=== PATIENT | female | born 1960 | race Caucasian/White ===

== ENCOUNTER 2022-11-02 11:16 | Outpatient (OUT) | payer OTHER, SELFPAY ==
--- NOTE | 2022-11-02 11:23 | XR_ITS ---
The [address] [address] Patient Name: YUMIKO ROUSSEAU MRN: [id number] date: 1960 Sex: F Assigned Patient Location: [facility] Current Patient Location: [facility] Accession/Order Number: [id number] Exam Date: 11/02/2022 11:33 Report Date: 11/02/2022 11:53 At the request of: JOCY JEAN Procedure: XR chest 2V EXAM: XR chest 2V HISTORY: Left Lower Lobe Pneumonia J18.9 COMPARISON: None. TECHNIQUE: PA and lateral views of the chest. FINDINGS: The cardiomediastinal silhouette is normal. No focal consolidation is identified. There is no pneumothorax. No pleural effusion is noted. The osseous structures are intact. XR/XR chest 2V IMPRESSION: No acute cardiopulmonary process. Electronically authenticated by: FAVIO MARIE Date: 11/02/2022 11:53
== END 2022-11-02 11:17 | disposition home or self-care (01) ==
LOC: RAD 11:19
PROVIDERS: PCP Family Medicine; Visit Provider Family Medicine
DX: J18.9 Pneumonia, unspecified organism (principal)
CPT/HCPCS: 71046

== ENCOUNTER 2023-09-03 15:38 | Outpatient (OUT) | payer MEDICARE, OTHER, SELFPAY ==
[2023-09-03 16:10] LABS: Estimated Average Glucose 111 mg/dL; Glycohemoglobin A1C 5.5 % (4.5-6.2)
[2023-09-03 16:12] LABS: Basophils Absolute Auto 0.1 10^3/uL (0.0-0.1); Basophils Percent Auto 0.8 % (0.2-2.0); Eosinophils Absolute Auto 0.2 10^3/uL (0.0-0.7); Eosinophils Percent Auto 3.8 % (0.9-7.0); Hematocrit 34.7 % (36.0-48.0); Hemoglobin 11.5 g/dL (12.0-16.0); Immature Granulocytes Abs Auto 0.02 10^3/uL (0.00-0.03); Immature Granulocytes Pct Auto 0.3 % (0.0-0.5); Lymphocytes Absolute Auto 1.7 10^3/uL (1.2-3.8); Lymphocytes Percent Auto 28.5 % (20.5-60.0); Mean Corpuscular HGB Conc 33.1 g/dL (29.9-35.2); Mean Corpuscular Hemoglobin 27.8 pg (26.7-34.0); Mean Platelet Volume 9.8 fL (9.5-13.5); Monocytes Absolute Auto 0.6 10^3/uL (0.3-0.8); Monocytes Percent Auto 9.5 % (1.7-12.0); Neutrophils Absolute Auto 3.4 10^3/uL (1.4-6.5); Neutrophils Percent Auto 57.1 % (43.0-75.0); Platelet Count 219 10^3/uL (150-450); Red Blood Count 4.13 10^6/uL (4.20-5.40); Red Cell Distribution Width 12.1 % (11.0-15.0)
[2023-09-03 16:40] LABS: Free T4 1.35 ng/dL (0.76-1.46)
[2023-09-03 16:43] LABS: Alanine Aminotransferase 18 U/L (14-59); Albumin Globulin Ratio 1.2; Albumin Level 3.5 g/dL (3.4-5.0); Alkaline Phosphatase 90 U/L (46-116); Anion Gap 12.7; Aspartate Amino Transferase 8 U/L (15-37); BUN Creatinine Ratio 16.5; Bilirubin Total 0.5 mg/dL (0.2-1.0); Calcium 8.7 mg/dL (8.5-10.1); Carbon Dioxide 26.3 mmol/L (21.0-32.0); Chloride 102 mmol/L (98-107); Chol HDL Ratio 2.4; Cholesterol 136 mg/dL (<=200); Estimated GFR (African America >60 (>=60); Estimated GFR (Non-African Ame 50 (>=60); Free T3 2.24 pg/mL (2.18-3.98); Glucose 88 mg/dL (74-106); HDL Cholesterol 57 mg/dL (40-60); LDL Cholesterol Calculated 61.4 mg/dL; Sodium 137 mmol/L (136-145); Thyroid Stimulating Hormone 0.108 uIU/mL (0.358-3.740); Total Protein 6.5 g/dL (6.4-8.2); Triglycerides 88 mg/dL (<=150); VLDL CHOLESTEROL 17.6 mg/dL
== END 2023-09-03 15:39 | disposition home or self-care (01) ==
LOC: LAB 15:45
PROVIDERS: PCP Family Medicine; Visit Provider Family Medicine
DX: E78.5 Hyperlipidemia, unspecified (principal); R53.83 Other fatigue; I10 Essential (primary) hypertension; R73.09 Other abnormal glucose
CPT/HCPCS: 36415; 80053; 80061; 83036; 84439; 84443; 84481; 85025

== ENCOUNTER 2023-10-08 11:36 | Outpatient (OUT) | payer MEDICARE, OTHER, SELFPAY ==
--- OUTSIDE RECORDS SUMMARY | 2023-10-08 11:41 | XMS_ITS | CCD ---
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 Role Phone TED, DR SANDRA Admitting Unavailable HOY, DR SANDAR Attending Unavailable HOY, DR SANDRA Consulting Unavailable HOY, DR SANDRA Primary Care Unavailable HOY, DR SANDRA Admitting Unavailable HOY, DR SANDRA Attending Unavailable HOY, DR SANDRA Consulting Unavailable HOY, DR SANDRA Primary Care Unavailable HOY, DR SANDRA Admitting Unavailable HOY, DR SANDRA Attending Unavailable HOY, DR SANDRA Consulting Unavailable TREMAYNEY, DR SANDRA Primary Care Unavailable HOY, DR SANDRA Admitting Unavailable HOY, DR SANDRA Attending Unavailable HOY, DR SANDRA Consulting Unavailable HOY, DR SANDRA Primary Care Unavailable ZIEBDR SILVANA WATTS Consulting Unavailable ELLY DUMONT Attending Unavailable ELLY DUMONT Referring Unavailable ELLY DUMONT Referring Unavailable Allergies Allergy Classification Reported Allergen(s) Allergy Type Date of Onset Reaction(s) Facility (1 source) Sulfamethoxazole / Trimethoprim Drug Allergy 7 [facility] Repository Problems Active Problems Problem Classification Problem Date Documented Da te Episodic/Chronic Essential hypertension (1 source) Essential (primary) hypertension; Translations: [ESSENTIAL PRIMARY HYPERTENSION] Onset: 08-20-2021 Chronic Past or Other Problems Problem Classification Problem Date Documented Da te Episodic/Chronic Other bone disease and musculoskeletal deformities (1 source) Other specified disorders of bone density and structure, unspecified site; Translations: [OTH D/O BONE DEN STRUCT UNS SITE] Onset: 05-29-2021 Episodic Other screening for suspected conditions (not mental disorders or infectious disease) (4 sources) Encounter for screening for osteoporosis; Translations: [ENCOUNTER SCREEN FOR OSTEOPOROSIS] Onset: 05-28-2021 Episodic Other upper respiratory infections (4 sources) Acute sinusitis, unspecified; Translations: [ACUTE SINUSITIS UNSPECIFIED] Onset: 08-18-2021 Episodic Results Test Name Value Interpretation Reference Range Facility BI MAMMOGRAM SCREENING TOMOS MIRA BILATERALon 09-02-2023 BI MAMMOGRAM SCREENING TOMOSYNTHESIS BILATERAL This is a summary report. The complete report is available in the patient's medical record. If you cannot access the medical record, please contact the sending organization for a detailed fax or copy. EXAMINATION: BI MAMMOGRAM SCREENING TOMOSYNTHESIS BILATERAL CLINICAL HISTORY:breast ca screening COMPARISON: August 19, 2022. RESULT: Digital mammography and 3D tomosynthesis of bilateral breasts was performed. Density: Almost entirely fatty [1] Overall appearance is stable. Typically benign calcifications. There is no suspicious mass, asymmetry, architectural distortion, or calcification IMPRESSION: BIRADS 2 - Benign Follow-up: Routine Screening Mamm Board Certified Radiologists. Accredited by the ACR and FDA. MAMMOGRAPHY IS VERY IMPORTANT TO YOUR HEALTH. THE [employer] GUIDELINES RECOMMEND THAT WOMEN 40 YEARS OF AGE AND OLDER SHOULD HAVE A MAMMOGRAM EVERY YEAR. A REMINDER LETTER WILL BE SENT AT THE APPROPRIATE TIME. THIS FACILITY UTILIZES A REMINDER SYSTEM TO ENSURE ALL PATIENTS RECEIVE REMINDER NOTIFICATIONS AT THE APPROPRIATE TIME BASED ON THE RECOMMENDATIONS OF THIS EXAM. THIS INCLUDES REMINDERS FOR ROUTINE SCREENING MAMMOGRAMS, DIAGNOSTIC MAMMOGRAMS IN WHICH THE PATIENT IS ASKED TO RETURN FOR ADDITIONAL VIEWS, OR OTHER BREAST IMAGING INTERVENTIONS WHEN APPROPRIATE. THE PATIENT WILL BE PLACED IN THE APPROPRIATE REMINDER SYSTEM INCLUDING A REMINDER AT THE APPROPRIATE TIME FOR ANY PENDING ADDITIONAL VIEWS. TRANSCRIBED BY: ELECTRONICALLY SIGNED BY: Ramón Cruz MD Normal Not Available INSULINon 04-24-2022 Insulin 17.1 uIU/mL Normal 2.6-24.9 [facility] [place] Comment on above: Performed By: #### I EDWARD #### [facility] [address] [place] [address] Dr. Keven Reyez CBC AUTO DIFFon 04-23-2022 BASO # 0.0 103/ul Normal 0.0-0.1 [facility] Comment on above: Performed By: #### C BC #### [facility] [address] [address] [address] Keven Reyez Basophils/100 WBC (Bld) 0.5 % Normal 0.2-2.0 [facility] [place] Comment on above: Performed By: #### C BC #### [facility] [address] [place] [address] Dr. Keven Reyez EO # 0.4 103/ul Normal 0.0-0.7 [facility] Comment on above: Performed By: #### C BC #### [facility] [address] [place] [address] Dr. Keven Reyez Eosinophils/100 WBC (Bld) 4.5 % Normal 0.9-7.0 [facility] Comment on above: Performed By: #### C BC #### [facility] [address] [place] [address] Dr. Keven Reyez Erythrocyte distribution width (RBC) [Ratio] 13.6 % Normal 11.0-15.0 [facility] Comment on above: Performed By: #### C BC #### [facility] [address] [place] [address] Dr. Keven Reyez Hematocrit (Bld) [Volume fraction] 34.7 % Critically low 36.0-48.0 [facility] [place] Comment on above: Performed By: #### C BC #### [facility] [address] [place] [address] Dr. Keven Reyez Hemoglobin (Bld) [Mass/Vol] 11.3 g/dL Critically low 12.0-16.0 [facility] [place] Comment on above: Performed By: #### C BC #### [facility] [address] [place] [address] Dr. Keven Reyez IG # 0.03 10e3/ul Normal 0.00-0.03 [facility] Comment on above: Performed By: #### C BC #### [facility] [address] [place] [address] Dr. Keven Reyez IG % 0.4 % Normal 0.0-0.5 [facility] Comment on above: Performed By: #### C BC #### [facility] [address] [place] [address] Dr. Keven Reyez LYMPH # 1.5 103/ul Normal 1.2-3.8 [facility] Comment on above: Performed By: #### C BC #### [facility] [address] [place] [address] Dr. Keven Reyez Lymphocytes/100 WBC (Bld) 19.5 % Critically low 20.5-60.0 [facility] [place] Comment on above: Performed By: #### C BC #### [facility] [address] [place] [address] Dr. Keven Reyez MANUAL DIFF REQ NO Normal [facility] Comment on above: Performed By: #### C BC #### [facility] [address] [place] [address] Dr. Keven Reyez MCH (RBC) [Entitic mass] 27.2 pg Normal 26.7-34.0 [facility] Comment on above: Performed By: #### C BC #### [facility] [address] [place] [address] Dr. Keven Reyez MCHC (RBC) [Mass/Vol] 32.6 g/dL Normal 29.9-35.2 [facility] Comment on above: Performed By: #### C BC #### [facility] [address] [place] [address] Dr. Keven Reyez MCV (RBC) [Entitic vol] 83.6 fL Normal 81.0-99.0 [facility] Comment on above: Performed By: #### C BC #### [facility] [address] [place] [address] Dr. Keven Reyez MONO # 0.6 103/ul Normal 0.3-0.8 [facility] Comment on above: Performed By: #### C BC #### [facility] [address] [place] [address] Dr. Keven Reyez Monocytes/100 WBC (Bld) 8.2 % Normal 1.7-12.0 [facility] Comment on above: Performed By: #### C BC #### [facility] [address] [place] [address] Dr. Keven Reyez NEUT # 5.2 103/ul Normal 1.4-6.5 [facility] Comment on above: Performed By: #### C BC #### [facility] [address] [place] [address] Dr. Keven Reyez Neutrophils/100 WBC (Bld) 66.9 % Normal 43.0-75.0 [facility] [place] Comment on above: Performed By: #### C BC #### [facility] [address] [place] [address] Dr. Keven Reyez Platelet mean volume (Bld) [Entitic vol] 9.1 fL Critically low 9.5-13.5 [facility] [place] Comment on above: Performed By: #### C BC #### [facility] [address] [address] [address] Keven Reyez PLT 242 103/ul Normal 150-450 [facility] Comment on above: Performed By: #### C BC #### [facility] [address] [place] [address] Dr. Keven Reyez RBC 4.15 106/ul Critically low 4.20-5.40 [facility] Comment on above: Performed By: #### C BC #### [facility] [address] [place] [address] Dr. Keven Reyez WBC 7.8 103/ul Normal 4.0-11.0 [facility] [place] Comment on above: Performed By: #### C BC #### [facility] [address] [place] [address] Dr. Keven Reyez FREE THYROXINE INDEX T7on FTI 2.81 Normal 1.30-4.50 [facility] [place] Comment on above: Performed By: #### I EDWARD #### [facility] [address] [place] [address] Dr. Keven Reyez T3U 36.0 % Normal 30.0-39.0 [facility] [place] Comment on above: Performed By: #### I EDWARD #### [facility] [address] [place] [address] Dr. Keven Reyez T4 [Mass/Vol] 7.80 ug/dL Normal 4.80-13.90 [facility] Comment on above: Performed By: #### I EDWARD #### [facility] [address] [place] [address] Dr. Keven Reyez GLYCOHEMOGLOBIN A1Con 2022 ADA RECOMMENDATION SEE BELOW Normal [facility] Comment on above: Result Comment: ADA RECOMMENDED LIMIT 4.0 - 6.0 ADA THERAPEUTIC TARGET < 7.0 ACTION SUGGESTED > 7.0 Performed By: #### A 1C #### [facility] [address] [place] [address] Dr. Keven Reyez Glucose [Mass/Vol] 111 mg/dL Normal [facility] Comment on above: Performed By: #### A 1C #### [facility] [address] [address] [address] Keven Reyez HbA1c (Bld) [Mass fraction] 5.5 % Normal 4.5-6.2 [facility] [place] Comment on above: Performed By: #### A 1C #### [facility] [address] [place] [address] Dr. Keven Reyez IRONon 04-23-2022 Iron [Mass/Vol] 36.0 ug/dL Critically low 50.0-170.0 [facility] Comment on above: Performed By: #### I EDWARD #### [facility] [address] [place] [address] Dr. Keven Reyez LIPID PROFILEon 04-23-2022 CHOL-HDL RATIO NORM SEE BELOW Normal [facility] Comment on above: Result Comment: 3.3 - 4.4 LOW RISK 4.4 - 7.1 AVERAGE RISK 7.1 - 11.0 MODERATE RISK >11.0 HIGH RISK Performed By: #### I EDWARD #### [facility] [address] [place] [address] Dr. Keven Reyez Cholesterol [Mass/Vol] 132 mg/dL Normal <=200 [facility] Comment on above: Performed By: #### I EDWARD #### [facility] [address] [address] [address] Keven Reyez Cholesterol in HDL [Mass/Vol] 61 mg/dL Critically high 40-60 [facility] Comment on above: Performed By: #### I EDWARD #### [facility] [address] [address] [address] Keven Reyez Cholesterol in LDL [Mass/Vol] 51.8 mg/dL Normal [facility] Comment on above: Performed By: #### I EDWARD #### [facility] [address] [address] [address] Keven Reyez Cholesterol.total/Ch olesterol in HDL [Mass ratio] 2.2 {ratio} Normal [facility] [place] Comment on above: Performed By: #### I EDWARD #### [facility] [address] [address] [address] Keven Reyez HDL NORMAL > or = 60 mg/dl - LOW CARDIOVASCULAR RISK <40 mg/dl - HIGH CARDIOVASCULAR RISK Normal [facility] [place] Comment on above: Performed By: #### I EDWARD #### [facility] [address] [address] [address] Keven Reyez LDL CALC NORMAL SEE BELOW Normal [facility] Comment on above: Result Comment: <100 mg/dl OPTIMAL 100 - 129 mg/dl NEAR OR ABOVE OPTIMAL 130 - 159 mg/dl BORDERLINE HIGH 160 - 189 mg/dl HIGH >190 mg/dl VERY HIGH Performed By: #### I EDWARD #### [facility] [address] [place] [address] Dr. Keven Reyez Triglyceride [Mass/Vol] 96 mg/dL Normal <=150 [facility] [place] Comment on above: Performed By: #### I EDWARD #### [facility] [address] [place] [address] Dr. Keven Reyez VLDL CALC 19.2 mg/dL Normal [facility] [place] Comment on above: Performed By: #### I EDWARD #### [facility] [address] [address] [address] Keven Reyez PROF 14(COMP METB)on 023 Albumin [Mass/Vol] 3.6 g/dL Normal 3.4-5.0 [facility] Comment on above: Performed By: #### I EDWARD #### [facility] [address] [place] [address] Dr. Keven Reyez Albumin/Globulin [Mass ratio] 1.1 {ratio} Normal [facility] [place] Comment on above: Performed By: #### I EDWARD #### [facility] [address] [address] [address] Keven Reyez ALP [Catalytic activity/Vol] 71 U/L Normal 46-116 [facility] [place] Comment on above: Performed By: #### I EDWARD #### [facility] [address] [place] [address] Dr. Keven Reyez ALT [Catalytic activity/Vol] 36 U/L Normal 14-59 [facility] [place] Comment on above: Performed By: #### I EDWARD #### [facility] [address] [place] [address] Dr. Keven Reyez Anion gap [Moles/Vol] 13.7 mmol/L Normal [facility] [place] Comment on above: Performed By: #### I EDWARD #### [facility] [address] [place] [address] Dr. Keven Reyez AST [Catalytic activity/Vol] 23 U/L Normal 15-37 [facility] [place] Comment on above: Performed By: #### I EDWARD #### [facility] [address] [place] [address] Dr. Keven Reyez Bilirubin [Mass/Vol] 0.3 mg/dL Normal 0.2-1.0 [facility] [place] Comment on above: Performed By: #### I EDWARD #### [facility] [address] [place] [address] Dr. Keven Reyez Calcium [Mass/Vol] 9.2 mg/dL Normal 8.5-10.1 [facility] Comment on above: Performed By: #### I EDWARD #### [facility] [address] [place] [address] Dr. Keven Reyez Chloride [Moles/Vol] 106 mmol/L Normal 98-107 [facility] [place] Comment on above: Performed By: #### I EDWARD #### [facility] [address] [place] [address] Dr. Keven Reyez CO2 [Moles/Vol] 26.2 mmol/L Normal 21.0-32.0 [facility] Comment on above: Performed By: #### I EDWARD #### [facility] [address] [place] [address] Dr. Keven Reyez Creatinine [Mass/Vol] 0.93 mg/dL Normal 0.55-1.02 [facility] [place] Comment on above: Performed By: #### I EDWARD #### [facility] [address] [address] [address] Keven Reyez EGFR-AF DUTCH >60 Normal >=60 [facility] Comment on above: Performed By: #### I EDWARD #### [facility] [address] [address] [address] Keven Reyez EGFR-NON AF DUTCH >60 Normal >=60 [facility] Comment on above: Performed By: #### I EDWARD #### [facility] [address] [address] [address] Keven Reyez Globulin (S) [Mass/Vol] 3.2 g/dL Normal [facility] [place] Comment on above: Performed By: #### I EDWARD #### [facility] [address] [place] [address] Dr. Keven Reyez Glucose [Mass/Vol] 100 mg/dL Normal 74-106 [facility] Comment on above: Performed By: #### I EDWARD #### [facility] [address] [address] [address] Keven Reyez Potassium [Moles/Vol] 4.9 mmol/L Normal 3.5-5.1 [facility] Comment on above: Performed By: #### I EDWARD #### [facility] [address] [place] [address] Dr. Keven Reyez Protein [Mass/Vol] 6.8 g/dL Normal 6.4-8.2 [facility] Comment on above: Performed By: #### I EDWARD #### [facility] [address] [address] [address] Keven Reyez Sodium [Moles/Vol] 141 mmol/L Normal 136-145 [facility] Comment on above: Performed By: #### I EDWARD #### [facility] [address] [address] [address] Keven Reyez Urea nitrogen [Mass/Vol] 18.0 mg/dL Normal 7.0-18.0 [facility] [place] Comment on above: Performed By: #### I EDWARD #### [facility] [address] [address] [address] Keven Reyez Urea nitrogen/Creatinine [Mass ratio] 19.4 mg/mg Normal [facility] Comment on above: Performed By: #### I EDWARD #### [facility] [address] [place] [address] Dr. Keven Reyez TSHon 04-23-2022 TSH 0.830 uIU/mL Normal 0.358-3.740 [facility] Comment on above: Performed By: #### I EDWARD #### [facility] [address] [place] [address] Dr. Keven Reyez VITAMIN D 25 OHon 04-23-2022 VIT D 25-OH 38.5 ng/mL Normal [facility] [place] Comment on above: Performed By: #### I EDWARD #### [facility] [address] [place] [address] Dr. Keven Reyez VIT D RANGES SEE BELOW Normal [facility] [place] Comment on above: Result Comment: <20 ng/mL Vit D deficient 20 - <30 ng/mL Vit D insufficient 30 - 100 ng/mL Vit D sufficient >100 ng/mL Potential Toxicity Performed By: #### I EDWARD #### [facility] [address] [place] [address] Dr. Keven Reyez Covid-19 PCR ([facility]on 08-03 SARS-CoV-2 (COVID-19) RNA TAYLOR+probe Ql (Unsp spec) Not detected Normal NOT DETECTED [facility] Comment on above: Result Comment: This test is not yet approved or cleared by the [place] FDA. When there are no FDA-approved or cleared tests available, and other criteria are met, FDA can make tests available under an emergency access mechanism called an Emergency Use Authorization (EUA). The EUA for this test is supported by the Traffic Expert of Health and Human Service's (HHS's) declaration that circumstances exist to justify the emergency use of in vitro diagnostics for the detection and/or diagnosis of the virus that causes COVID-19. This EUA will remain in effect (meaning this test can be used) for the duration of the COVID-19 declaration justifying emergency of IVDs, unless it is terminated or revoked by FDA (after which the test may no longer be used). When diagnostic testing is negative, the possibility of a false negative should be considered in the context of a patient's recent exposures and the presence of clinical signs and symptoms consistent with SARS-CoV-2. Performed By: #### I EDWARD #### [facility] [address] [place] [address] Dr. Keven Reyez INFLUENZA A AND B AGon 08-18 [facility] SEE BELOW Normal [facility] [place] Comment on above: Result Comment: Nega tive for Flu A protein angiten. Infection due to Flu A cannot be ruled out. Flu A angiten in the sample may be below the detection limit of the test. Performed By: #### I NFLUAB #### [facility] [address] [place] [address] Dr. Keven Re[facility] SEE BEL[facility] Normal [facility] [place] Comment on above: Result Comment: Nega tive for Flu B protein antigen. Infection due to Flu B cannot be ruled out. Flu B antigen in the sample may be below the detection limit of the test. Performed By: #### I NFLUAB #### [facility] [address] [place] [address] Dr. Keven Reyez INFLUENZA A AG Negative Normal NEGATIVE SEE COMMENT [facility] Comment on above: Performed By: #### I NFLUAB #### [facility] [address] [place] [address] Dr. Keven Reyez INFLUENZA B AG Negative Normal NEGATIVE SEE COMMENT [facility] Comment on above: Performed By: #### I NFLUAB #### [facility] [address] [place] [address] Dr. Keven Reyez INTERNAL CONTROLS Within Normal Limits Normal Wi thin Normal Limits [facility] Comment on above: Performed By: #### I NFLUAB #### [facility] [address] [place] [address] Dr. Keven Reyez XR DEXA BONE DENSITYon 05-28 XR DEXA BONE DENSITY EXAMINATION: XR DEX A BONE DENSITY, 05/28/2021 9:58 AM EST HISTORY: Screening for osteoporosis COMPARISON: None. TECHNIQUE: Dual-energy X-ray absorptiometry (DEXA) bone density study performed for the axial skeleton. FINDINGS: SPINE ANALYSIS: Average bone mineral density is 1.167 g/cm2. T-score (standard deviation relative to young adult mean): -0.1 . HIP ANALYSIS: Lowest bone mineral density is within the left femoral neck, 0.830 g/cm2. T-score (standard deviation relative to young adult mean): -1.5 . IMPRESSION: [employer] Classification: Osteopenia - Moderate Fracture Risk Electronically authenticated by: SILVANA VEGA Date: 2021-05-28 10:25 Normal [facility] INSULINon 05-23-2021 Insulin 7.2 uIU/mL Normal 2.6-24.9 [facility] [place] Comment on above: Performed By: #### I NSULIN #### [facility] [address] [place] [address] Dr. Keven Reyez CBC AUTO DIFFon 05-22-2021 BASO # 0.1 103/ul Normal 0.0-0.1 [facility] [place] Comment on above: Performed By: #### I EDWARD #### [facility] [address] [place] [address] Dr. Keven Reyez Basophils/100 WBC (Bld) 0.9 % Normal 0.2-2.0 [facility] [place] Comment on above: Performed By: #### I EDWARD #### [facility] [address] [place] [address] Dr. Keven Reyez EO # 0.3 103/ul Normal 0.0-0.7 [facility] [place] Comment on above: Performed By: #### I EDWARD #### [facility] [address] [place] [address] Dr. Keven Reyez Eosinophils/100 WBC (Bld) 3.6 % Normal 0.9-7.0 [facility] Comment on above: Performed By: #### I EDWARD #### [facility] [address] [place] [address] Dr. Keven Reyez Erythrocyte distribution width (RBC) [Ratio] 12.7 % Normal 11.0-15.0 [facility] [place] Comment on above: Performed By: #### I EDWARD #### [facility] [address] [place] [address] Dr. Keven Reyez Hematocrit (Bld) [Volume fraction] 37.0 % Normal 36.0-48.0 [facility] [place] Comment on above: Performed By: #### I EDWARD #### [facility] [address] [address] [address] Keven Reyez Hemoglobin (Bld) [Mass/Vol] 11.7 g/dL Critically low 12.0-16.0 [facility] [place] Comment on above: Performed By: #### I EDWARD #### [facility] [address] [place] [address] Dr. Keven Reyez IG # 0.06 10e3/ul Critically high 0.00-0.03 [facility] Comment on above: Performed By: #### I EDWARD #### [facility] [address] [place] [address] Dr. Keven Reyez IG % 0.9 % Critically high 0.0-0.5 [facility] Comment on above: Performed By: #### I EDWARD #### [facility] [address] [place] [address] Dr. Keven Reyez LYMPH # 1.9 103/ul Normal 1.2-3.8 [facility] [place] Comment on above: Performed By: #### I EDWARD #### [facility] [address] [place] [address] Dr. Keven Reyez Lymphocytes/100 WBC (Bld) 27.1 % Normal 20.5-60.0 [facility] [place] Comment on above: Performed By: #### I EDWARD #### [facility] Laboratory [address] [place] [address] Dr. Keven Reyez MANUAL DIFF REQ NO Normal [facility] Comment on above: Performed By: #### I EDWARD #### [facility] [address] [place] [address] Dr. Keven Reyez MCH (RBC) [Entitic mass] 27.6 pg Normal 26.7-34.0 [facility] [place] Comment on above: Performed By: #### I EDWARD #### [facility] [address] [address] [address] Keven Reyez MCHC (RBC) [Mass/Vol] 31.6 g/dL Normal 29.9-35.2 [facility] Comment on above: Performed By: #### I EDWARD #### [facility] [address] [place] [address] Dr. Keven Reyez MCV (RBC) [Entitic vol] 87.3 fL Normal 81.0-99.0 [facility] Comment on above: Performed By: #### I EDWARD #### [facility] [address] [place] [address] Dr. Keven Reyez MONO # 0.6 103/ul Normal 0.3-0.8 [facility] Comment on above: Performed By: #### I EDWARD #### [facility] [address] [place] [address] Dr. Keven Reyez Monocytes/100 WBC (Bld) 8.6 % Normal 1.7-12.0 [facility] Comment on above: Performed By: #### I EDWARD #### [facility] [address] [place] [address] Dr. Keven Reyez NEUT # 4.1 103/ul Normal 1.4-6.5 [facility] Comment on above: Performed By: #### I EDWARD #### [facility] [address] [place] [address] Dr. Keven Reyez Neutrophils/100 WBC (Bld) 58.9 % Normal 43.0-75.0 [facility] Comment on above: Performed By: #### I EDWARD #### [facility] [address] [place] [address] Dr. Keven Reyez Platelet mean volume (Bld) [Entitic vol] 9.8 fL Normal 9.5-13.5 [facility] Comment on above: Performed By: #### I EDWARD #### [facility] [address] [place] [address] Dr. Keven Reyez PLT 265 103/ul Normal 150-450 [facility] Comment on above: Performed By: #### I EDWARD #### [facility] [address] [place] [address] Dr. Keven Reyez RBC 4.24 106/ul Normal 4.20-5.40 [facility] [place] Comment on above: Performed By: #### I EDWARD #### [facility] [address] [address] [address] Keven Reyez WBC 6.9 103/ul Normal 4.0-11.0 [facility] [place] Comment on above: Performed By: #### I EDWARD #### [facility] [address] [address] [address] Keven Reyez FREE THYROXINE INDEX T7on FTI 2.81 Normal [facility] [place] Comment on above: Performed By: #### T 7, TSH, CMP, LIPID #### [facility] [address] [place] [address] Dr. Keven Reyez T3U 36.0 % Normal 23.5-40.5 [facility] [place] Comment on above: Performed By: #### T 7, TSH, CMP, LIPID #### [facility] [address] [address] [address] Keven Reyez T4 [Mass/Vol] 7.80 ug/dL Normal 5.53-11.00 [facility] Comment on above: Performed By: #### T 7, TSH, CMP, LIPID #### [facility] [address] [place] [address] Dr. Keven Reyez GLYCOHEMOGLOBIN A1Con 2021 ADA RECOMMENDATION ADA THERAPEUTIC TARGET 6.0 - 7.0 ACTION SUGGESTED > 7.0 Normal [facility] [place] Comment on above: Performed By: #### I EDWARD #### [facility] [address] [place] [address] Dr. Keven Reyez Glucose [Mass/Vol] 117 mg/dL Normal [facility] Comment on above: Performed By: #### I EDWARD #### [facility] [address] [place] [address] Dr. Keven Reyez HbA1c (Bld) [Mass fraction] 5.7 % Normal <=6.0 [facility] [place] Comment on above: Performed By: #### I EDWARD #### [facility] [address] [address] [address] Keven Reyez IRONon 05-22-2021 Iron [Mass/Vol] 48.0 ug/dL Normal 37.0-170.0 [facility] Comment on above: Performed By: #### I EDWARD #### [facility] [address] [address] [address] Keven Reyez LIPID PROFILEon 05-22-2021 CHOL-HDL RATIO NORM SEE BELOW Normal [facility] Comment on above: Result Comment: 3.3 - 4.4 LOW RISK 4.4 - 7.1 AVERAGE RISK 7.1 - 11.0 MODERATE RISK >11.0 HIGH RISK Performed By: #### T 7, TSH, CMP, LIPID #### [facility] [address] [place] [address] Dr. Keven Reyez Cholesterol [Mass/Vol] 153 mg/dL Normal <=200 [facility] [place] Comment on above: Performed By: #### T 7, TSH, CMP, LIPID #### [facility] [address] [address] [address] Keven Reyez Cholesterol in HDL [Mass/Vol] 72 mg/dL Normal [facility] [place] Comment on above: Performed By: #### T 7, TSH, CMP, LIPID #### [facility] [address] [address] [address] Keven Reyez Cholesterol in LDL [Mass/Vol] 63.0 mg/dL Normal [facility] [place] Comment on above: Performed By: #### T 7, TSH, CMP, LIPID #### [facility] [address] [address] [address] Keven Reyez Cholesterol.total/Ch olesterol in HDL [Mass ratio] 2.1 {ratio} Normal [facility] [place] Comment on above: Performed By: #### T 7, TSH, CMP, LIPID #### [facility] [address] [place] [address] Dr. Keven Reyez HDL NORMAL > or = 60 mg/dl - LOW CARDIOVASCULAR RISK <40 mg/dl - HIGH CARDIOVASCULAR RISK Normal [facility] [place] Comment on above: Performed By: #### T 7, TSH, CMP, LIPID #### [facility] [address] [address] [address] Keven Reyez LDL CALC NORMAL SEE BELOW Normal [facility] Comment on above: Result Comment: <100 mg/dl OPTIMAL 100 - 129 mg/dl NEAR OR ABOVE OPTIMAL 130 - 159 mg/dl BORDERLINE HIGH 160 - 189 mg/dl HIGH >190 mg/dl VERY HIGH Performed By: #### T 7, TSH, CMP, LIPID #### [facility] [address] [address] [address] Keven Reyez Triglyceride [Mass/Vol] 90 mg/dL Normal <=150 [facility] [place] Comment on above: Performed By: #### T 7, TSH, CMP, LIPID #### [facility] [address] [place] [address] Dr. Keven Reyez VLDL CALC 18.0 mg/dL Normal [facility] [place] Comment on above: Performed By: #### T 7, TSH, CMP, LIPID #### [facility] [address] [place] [address] Dr. Keven Reyez PROF 14(COMP METB)on 022 Albumin [Mass/Vol] 3.9 g/dL Normal 3.5-5.0 [facility] Comment on above: Performed By: #### T 7, TSH, CMP, LIPID #### [facility] [address] [place] [address] Dr. Keven Reyez Albumin/Globulin [Mass ratio] 1.3 {ratio} Normal [facility] [place] Comment on above: Performed By: #### T 7, TSH, CMP, LIPID #### [facility] [address] [place] [address] Dr. Keven Reyez ALP [Catalytic activity/Vol] 85 U/L Normal 38-126 [facility] Comment on above: Performed By: #### T 7, TSH, CMP, LIPID #### [facility] [address] [place] [address] Dr. Keven Reyez ALT [Catalytic activity/Vol] 25 U/L Normal 9-52 [facility] [place] Comment on above: Performed By: #### T 7, TSH, CMP, LIPID #### [facility] [address] [address] [address] Keven Reyez Anion gap [Moles/Vol] 14.7 mmol/L Normal [facility] [place] Comment on above: Performed By: #### T 7, TSH, CMP, LIPID #### [facility] [address] [address] [address] Keven Reyez AST [Catalytic activity/Vol] 14 U/L Normal 14-36 [facility] Comment on above: Performed By: #### T 7, TSH, CMP, LIPID #### [facility] [address] [address] [address] Keven Reyez Bilirubin [Mass/Vol] 0.3 mg/dL Normal 0.2-1.3 [facility] Comment on above: Performed By: #### T 7, TSH, CMP, LIPID #### [facility] [address] [address] [address] Keven Reyez Calcium [Mass/Vol] 9.3 mg/dL Normal 8.4-10.2 [facility] Comment on above: Performed By: #### T 7, TSH, CMP, LIPID #### [facility] [address] [address] [address] Keven Reyez Chloride [Moles/Vol] 107 mmol/L Normal 98-107 [facility] Comment on above: Performed By: #### T 7, TSH, CMP, LIPID #### [facility] [address] [address] [address] Keven Reyez CO2 [Moles/Vol] 25.2 mmol/L Normal 22.0-30.0 [facility] Comment on above: Performed By: #### T 7, TSH, CMP, LIPID #### [facility] [address] [address] [address] Keven Reyez Creatinine [Mass/Vol] 1.13 mg/dL Critically high 0.52-1.04 [facility] [place] Comment on above: Performed By: #### T 7, TSH, CMP, LIPID #### [facility] [address] [address] [address] Keven Reyez EGFR-AF DUTCH 59 mL/min/1.73m2 Critically low >=60 [facility] Comment on above: Performed By: #### T 7, TSH, CMP, LIPID #### [facility] [address] [address] [address] Keven Reyez EGFR-NON AF DUTCH 49 mL/min/1.73m2 Critically low >=60 [facility] Comment on above: Performed By: #### T 7, TSH, CMP, LIPID #### [facility] [address] [place] [address] Dr. Keven Reyez Globulin (S) [Mass/Vol] 3.1 g/dL Normal [facility] Comment on above: Performed By: #### T 7, TSH, CMP, LIPID #### [facility] [address] [place] [address] Dr. Keven Reyez Glucose [Mass/Vol] 102 mg/dL Normal 74-106 [facility] Comment on above: Performed By: #### T 7, TSH, CMP, LIPID #### [facility] [address] [place] [address] Dr. Keven Reyez Potassium [Moles/Vol] 4.9 mmol/L Normal 3.4-5.0 [facility] Comment on above: Performed By: #### T 7, TSH, CMP, LIPID #### [facility] [address] [place] [address] Dr. Keven Reyez Protein [Mass/Vol] 7.0 g/dL Normal 6.1-8.2 [facility] Comment on above: Performed By: #### T 7, TSH, CMP, LIPID #### [facility] [address] [place] [address] Dr. Keven Reyez Sodium [Moles/Vol] 142 mmol/L Normal 137-145 [facility] Comment on above: Performed By: #### T 7, TSH, CMP, LIPID #### [facility] [address] [place] [address] Dr. Keven Reyez Urea nitrogen [Mass/Vol] 24.0 mg/dL Critically high 7.0-17.0 [facility] [place] Comment on above: Performed By: #### T 7, TSH, CMP, LIPID #### [facility] [address] [place], [place] [address] Dr. Keven Reyez Urea nitrogen/Creatinine [Mass ratio] 21.2 mg/mg Normal [facility] [place] Comment on above: Performed By: #### T 7, TSH, CMP, LIPID #### [facility] [address] [place], [place] [address] Dr. Keven Reyez TSHon 05-22-2021 TSH 0.985 uIU/mL Normal 0.470-4.680 [facility] Comment on above: Performed By: #### T 7, TSH, CMP, LIPID #### [facility] [address] [address] [address] Keven Reyez TSH RANGE SEE BELOW Normal [facility] Comment on above: Result Comment: <0.3 4 UIU/ml HYPERTHYROID 0.34-5.60 UIU/ml EUTHYROID >5.60 UIU/ml HYPOTHYROID Performed By: #### T 7, TSH, CMP, LIPID #### [facility] [address] [address] [address] Keven Reyez SCREENING MAMMOGRAM W/MANJULA, BILATERAL*on 04-17-2021 SCREENING MAMMOGRAM W/MANJULA, BILATERAL* CLINICAL HISTORY: Screening Mammogram COMPARISON: Priors from 2020, 2018, 2017 TECHNIQUE: 2D and 3D mammogram imaging of both breasts was performed. RESULT: DENSITY: There are scattered areas of fibroglandular density. There is no suspicious mass, asymmetry, architectural distortion, or calcification. No significant change since the prior mammograms. IMPRESSION: BIRADS 1 : NEGATIVE, NORMAL INTERVAL FOLLOW UP FOLLOW-UP: 12 months DENSITY: Scattered MAMMOGRAPHY IS VERY IMPORTANT TO YOUR HEALTH. THE CURRENT [employer] GUIDELINES RECOMMENDS ANNUAL MAMMOGRAPHY BEGINNING AT AGE 40 THIS FACILITY USES A REMINDER SYSTEM TO ENSURE ALL PATIENTS RECEIVE REMINDER NOTIFICATIONS AT THE APPROPRIATE TIME BASED ON THE RECOMMENDATIONS OF THIS EXAM. 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 Accredited by the ACR and FDA. Report reported and signed by Hernán Whitley on 04/21/2021 1249 Normal [facility] [employer] Encounters Encounter Date Encounter Type Care Provider Facility Start: 09-02-2023 End: 09-02-2023 ambulatory ELLY DUMONT Not Available Start: 04-28-2022 Encounter for genera l adult medical examination without abnormal findings DR JOCY JEAN [facility] Start: 04-23-2022 End: 04-24-[address] JOCY JEAN Facility:[facility] Start: 04-23-2022 End: 04-24-2022 Encounter for general adult medical examination without abnormal findings DR JOCY JEAN Facility:[facility] Start: 08-18-2021 End: 08-18-[address] JOCY JEAN Facility:[facility] Start: 05-28-2021 End: 05-29-[address] JOCY JEAN Facility:[facility] Start: 05-22-2021 End: 05-23-[address] JOCY JEAN Facility:[facility] Payers Date Payer Category Payer Unknown [id number] 2023 Medicare [id number] 1960 Unknown [id number] 2.16.84 [id number] 1960 Unknown [id number] 2.16.84 [id number] 1960 Unknown [id number] 2.16.84 [id number] 1958 Unknown [id number] 2.16.84 [id number] 1958 Unknown [id number] 2.16.84 [id number] 1958 Unknown [id number] 2.16.84 [id number] Unknown [id number] Unknown [id number] Summary Purpose Family History No Family History Records FoundNo Family History Records FoundNo Family History Records Found Advance Directives No Advanced Directives Records FoundNo Advanced Directives Records FoundNo Advanced Directives Records Found Additional Source Comments INFORMATION SOURCE (unrecogn ized section and content) DATE CREATED AUTHOR 04/21/2021 [facility] dical Specialist DATE CREATED AUTHOR AUTHOR'S ORGANIZ ATION 04/29/2022 [facility] pital DATE CREATED AUTHOR AUTHOR'S ORGANIZ ATION 09/06/2023 [facility] dical Specialists EPIC FOR RECORDS PERTAINING TO PATIENTS WHO ARE OR HAVE BEEN ENROLLED IN A CHEMICAL DEPENDENCY/SUBSTANCEABUSE PROGRAM, SOME INFORMATION MAY BE OMITTED. This clinical summary was aggregated from multiple sources. Caution should be exercised in using it in the provision of clinical care. This summary normalizes information from multiple sources, and as a consequence, information in this document may materially change the coding, format and clinical context of patient data. In addition, data may be omitted in some cases. CLINICAL DECISIONS SHOULD BE BASED ON THE PRIMARY CLINICAL RECORDS. [facility] provides no warranty or guarantee of the accuracy or completeness of information in this document.
[2023-10-08 12:25] LABS: Free T3 2.16 pg/mL (2.18-3.98); Thyroid Stimulating Hormone 0.601 uIU/mL (0.358-3.740)
== END 2023-10-08 11:37 | disposition home or self-care (01) ==
LOC: LAB 11:38
PROVIDERS: PCP Family Medicine; Visit Provider Family Medicine
DX: E03.9 Hypothyroidism, unspecified (principal)
CPT/HCPCS: 36415; 84436; 84443; 84481

== ENCOUNTER 2024-01-18 11:40 | Outpatient (OUT) | payer MEDICARE, OTHER, SELFPAY ==
--- OUTSIDE RECORDS SUMMARY | 2024-01-18 11:48 | XMS_ITS | CCD ---
Author Organization [facility] Care Team Providers Care Director Toxicology Name Role Phone TED, DR SANDRA Admitting Unavailable HOY, DR SANDRA [...] Sulfamethoxazole / Trimethoprim Drug Allergy 7 [facility] Repository Problems Active Problems Problem Classification Problem [...] IS VERY IMPORTANT TO YOUR HEALTH. THE [place] [employer] GUIDELINES RECOMMEND THAT WOMEN 40 [...] INSULINon 04-24-2022 Insulin 17.1 uIU/mL Normal 2.6-24.9 [facility] Comment on above: Performed By: #### I EDWARD #### [facility] [address] [place] [address] Dr. Keven Reyez CBC AUTO DIFFon 04-23-2022 BASO # 0.0 103/ul Normal 0.0-0.1 [facility] Comment on above: Performed By: #### C BC #### [facility] [address] [address] [address] Keven Reyez Basophils/100 WBC (Bld) 0.5 % Normal 0.2-2.0 [facility] Comment on above: Performed By: #### C BC #### [facility] [address] [place] [address] Dr. Keven Reyez EO # 0.4 103/ul Normal 0.0-0.7 [facility] Comment on above: Performed By: #### C BC #### [facility] [address] [place] [address] Dr. Keven Reyez Eosinophils/100 WBC (Bld) 4.5 % Normal 0.9-7.0 [facility] Comment on above: Performed By: #### C BC #### [facility] [address] [place] [address] Dr. Keven Reyez Erythrocyte distribution width (RBC) [Ratio] 13.6 % Normal 11.0-15.0 [facility] Comment on above: Performed By: #### C BC #### [facility] [address] [place] [address] Dr. Keven Reyez Hematocrit (Bld) [Volume fraction] 34.7 % Critically low 36.0-48.0 [facility] Comment on above: Performed By: #### C BC #### [facility] [address] [place] [address] Dr. Keven Reyez Hemoglobin (Bld) [Mass/Vol] 11.3 g/dL Critically low 12.0-16.0 [facility] Comment on above: Performed By: #### C BC #### [facility] [address] [place] [address] Dr. Keven Reyez IG # 0.03 10e3/ul Normal 0.00-0.03 [facility] Comment on above: Performed By: #### C BC #### [facility] [address] [place] [address] Dr. Keven Reyez IG % 0.4 % Normal 0.0-0.5 [facility] Comment on above: Performed By: #### C BC #### [facility] [address] [place] [address] Dr. Keven Reyez LYMPH # 1.5 103/ul Normal 1.2-3.8 [facility] Comment on above: Performed By: #### C BC #### [facility] [address] [place] [address] Dr. Keven Reyez Lymphocytes/100 WBC (Bld) 19.5 % Critically low 20.5-60.0 [facility] Comment on above: Performed By: #### C BC #### [facility] [address] [place] [address] Dr. Keven Reyez MANUAL DIFF REQ NO Normal [facility] Comment on above: Performed By: #### C BC #### [facility] [address] [place] [address] Dr. Keven Reyez MCH (RBC) [Entitic mass] 27.2 pg Normal 26.7-34.0 [facility] Comment on above: Performed By: #### C BC #### [facility] [address] [place] [address] Dr. Keven Reyez MCHC (RBC) [Mass/Vol] 32.6 g/dL Normal 29.9-35.2 [facility] Comment on above: Performed By: #### C BC #### [facility] [address] [place] [address] Dr. Keven Reyze MCV (RBC) [Entitic vol] 83.6 fL Normal 81.0-99.0 [facility] Comment on above: Performed By: #### C BC #### [facility] [address] [place] [address] Dr. Keven Reyez MONO # 0.6 103/ul Normal 0.3-0.8 [facility] Comment on above: Performed By: #### C BC #### [facility] [address] [place] [address] Dr. Keven Reyez Monocytes/100 WBC (Bld) 8.2 % Normal 1.7-12.0 [facility] Comment on above: Performed By: #### C BC #### [facility] [address] [place] [address] Dr. Keven Reyez NEUT # 5.2 103/ul Normal 1.4-6.5 [facility] Comment on above: Performed By: #### C BC #### [facility] [address] [place] [address] Dr. Keven Reyez Neutrophils/100 WBC (Bld) 66.9 % Normal 43.0-75.0 [facility] Comment on above: Performed By: #### C BC #### [facility] [address] [place] [address] Dr. Keven Reyez Platelet mean volume (Bld) [Entitic vol] 9.1 fL Critically low 9.5-13.5 [facility] Comment on above: Performed By: #### C BC #### [facility] [address] [address] [address] Keven Reyez PLT 242 103/ul Normal 150-450 [facility] Comment on above: Performed By: #### C BC #### [facility] [address] [place] [address] Dr. Keven Reyez RBC 4.15 106/ul Critically low 4.20-5.40 [facility] Comment on above: Performed By: #### C BC #### [facility] [address] [place] [address] Dr. Keven Reyez WBC 7.8 103/ul Normal 4.0-11.0 [facility] Comment on above: Performed By: #### C BC #### [facility] [address] [place] [address] Dr. Keven Reyez FREE THYROXINE INDEX T7on FTI 2.81 Normal 1.30-4.50 [facility] Comment on above: Performed By: #### I EDWARD #### [facility] [address] [place] [address] Dr. Keven Reyez T3U 36.0 % Normal 30.0-39.0 [facility] Comment on above: Performed By: #### I EDWARD #### [facility] [address] [place] [address] Dr. Keven Reyez T4 [Mass/Vol] 7.80 ug/dL Normal 4.80-13.90 [facility] Comment on above: Performed By: #### I EDWARD #### [facility] [address] [place] [address] Dr. Keven Reyez GLYCOHEMOGLOBIN A1Con 2022 ADA RECOMMENDATION SEE BELOW Normal [facility] Comment on above: Result Comment: ADA RECOMMENDED LIMIT 4.0 - 6.0 ADA THERAPEUTIC TARGET < 7.0 ACTION SUGGESTED > 7.0 Performed By: #### A 1C #### [facility] [address] [place] [address] Dr. Keven Reyez Glucose [Mass/Vol] 111 mg/dL Normal [facility] Comment on above: Performed By: #### A 1C #### [facility] [address] [address] [address] Keven Reyez HbA1c (Bld) [Mass fraction] 5.5 % Normal 4.5-6.2 [facility] Comment on above: Performed By: #### A 1C #### [facility] [address] [place] [address] Dr. Keven Reyez IRONon 04-23-2022 Iron [Mass/Vol] 36.0 ug/dL Critically low 50.0-170.0 [facility] Comment on above: Performed By: #### I EDWARD #### [facility] [address] [place] [address] Dr. Keven Reyez LIPID PROFILEon 04-23-2022 CHOL-HDL RATIO NORM SEE BELOW Normal [facility] Comment on above: Result Comment: 3.3 - 4.4 LOW RISK 4.4 - 7.1 AVERAGE RISK 7.1 - 11.0 MODERATE RISK >11.0 HIGH RISK Performed By: #### I EDWARD #### [facility] [address] [place] [address] Dr. Keven Reyez Cholesterol [Mass/Vol] 132 mg/dL Normal <=200 [facility] Comment on above: Performed By: #### I EDWARD #### [facility] [address] [address] [address] Keven Reyez Cholesterol in HDL [Mass/Vol] 61 mg/dL Critically high 40-60 [facility] Comment on above: Performed By: #### I EDWARD #### [facility] [address] [address] [address] Keven Reyez Cholesterol in LDL [Mass/Vol] 51.8 mg/dL Normal [facility] Comment on above: Performed By: #### I EDWARD #### [facility] [address] [address] [address] Keven Reyez Cholesterol.total/Ch olesterol in HDL [Mass ratio] 2.2 {ratio} Normal [facility] Comment on above: Performed By: #### I EDWARD #### [facility] [address] [address] [address] Keven Reyez HDL NORMAL > or = 60 mg/dl - LOW CARDIOVASCULAR RISK <40 mg/dl - HIGH CARDIOVASCULAR RISK Normal [facility] Comment on above: Performed By: #### I EDWARD #### [facility] [address] [address] [address] Keven Reyez LDL CALC NORMAL SEE BELOW Normal [facility] Comment on above: Result Comment: <100 mg/dl OPTIMAL 100 - 129 mg/dl NEAR OR ABOVE OPTIMAL 130 - 159 mg/dl BORDERLINE HIGH 160 - 189 mg/dl HIGH >190 mg/dl VERY HIGH Performed By: #### I EDWARD #### [facility] [address] [place] [address] Dr. Keven Reyez Triglyceride [Mass/Vol] 96 mg/dL Normal <=150 [facility] Comment on above: Performed By: #### I EDWARD #### [facility] [address] [place] [address] Dr. Keven Reyez VLDL CALC 19.2 mg/dL Normal [facility] Comment on above: Performed By: #### I EDWARD #### [facility] [address] [address] [address] Keven Reyez PROF 14(COMP METB)on 023 Albumin [Mass/Vol] 3.6 g/dL Normal 3.4-5.0 [facility] Comment on above: Performed By: #### I EDWARD #### [facility] [address] [place] [address] Dr. Keven Reyez Albumin/Globulin [Mass ratio] 1.1 {ratio} Normal [facility] Comment on above: Performed By: #### I EDWARD #### [facility] [address] [address] [address] Keven Reyez ALP [Catalytic activity/Vol] 71 U/L Normal 46-116 [facility] Comment on above: Performed By: #### I EDWARD #### [facility] [address] [place] [address] Dr. Keven Reyez ALT [Catalytic activity/Vol] 36 U/L Normal 14-59 [facility] Comment on above: Performed By: #### I EDWARD #### [facility] [address] [place] [address] Dr. Keven Reyez Anion gap [Moles/Vol] 13.7 mmol/L Normal [facility] Comment on above: Performed By: #### I EDWARD #### [facility] [address] [place] [address] Dr. Keven Reyez AST [Catalytic activity/Vol] 23 U/L Normal 15-37 [facility] Comment on above: Performed By: #### I EDWARD #### [facility] [address] [place] [address] Dr. Keven Reyez Bilirubin [Mass/Vol] 0.3 mg/dL Normal 0.2-1.0 [facility] Comment on above: Performed By: #### I EDWARD #### [facility] [address] [place] [address] Dr. Keven Reyez Calcium [Mass/Vol] 9.2 mg/dL Normal 8.5-10.1 [facility] Comment on above: Performed By: #### I EDWARD #### [facility] [address] [place] [address] Dr. Keven Reyez Chloride [Moles/Vol] 106 mmol/L Normal 98-107 [facility] Comment on above: Performed By: #### I EDWARD #### [facility] [address] [place] [address] Dr. Keven Reyez CO2 [Moles/Vol] 26.2 mmol/L Normal 21.0-32.0 [facility] Comment on above: Performed By: #### I EDWARD #### [facility] [address] [place] [address] Dr. Keven Reyez Creatinine [Mass/Vol] 0.93 mg/dL Normal 0.55-1.02 [facility] Comment on above: Performed By: #### I EDWARD #### [facility] [address] [address] [address] Keven Reyez EGFR-AF [place] >60 Normal >=60 [facility] Comment on above: Performed By: #### I EDWARD #### [facility] [address] [address] [address] Keven Reyez EGFR-NON AF [place] >60 Normal >=60 [facility] Comment on above: Performed By: #### I EDWARD #### [facility] [address] [address] [address] Keven Reyez Globulin (S) [Mass/Vol] 3.2 g/dL Normal [facility] Comment on above: Performed By: #### I EDWARD #### [facility] [address] [place] [address] Dr. Keven Reyez Glucose [Mass/Vol] 100 mg/dL Normal 74-106 [facility] Comment on above: Performed By: #### I EDWARD #### [facility] [address] [address] [address] Keven Reyez Potassium [Moles/Vol] 4.9 mmol/L Normal 3.5-5.1 [facility] Comment on above: Performed By: #### I EDWARD #### [facility] [address] [place] [address] Dr. Keven Reyez Protein [Mass/Vol] 6.8 g/dL Normal 6.4-8.2 [facility] Comment on above: Performed By: #### I EDWARD #### [facility] [address] [address] [address] Keven Reyez Sodium [Moles/Vol] 141 mmol/L Normal 136-145 [facility] Comment on above: Performed By: #### I EDWARD #### [facility] [address] [address] [address] Keven Reyez Urea nitrogen [Mass/Vol] 18.0 mg/dL Normal 7.0-18.0 [facility] Comment on above: Performed By: #### I EDWARD #### [facility] [address] [address] [address] Keven Reyez Urea nitrogen/Creatinine [Mass ratio] 19.4 mg/mg Normal [facility] Comment on above: Performed By: #### I EDWARD #### [facility] [address] [place] [address] Dr. Keven Reyez TSHon 04-23-2022 TSH 0.830 uIU/mL Normal 0.358-3.740 [facility] Comment on above: Performed By: #### I EDWARD #### [facility] [address] [place] [address] Dr. Keven Reyez VITAMIN D 25 OHon 04-23-2022 VIT D 25-OH 38.5 ng/mL Normal [facility] Comment on above: Performed By: #### I EDWARD #### [facility] [address] [place] [address] Dr. Keven Reyez VIT D RANGES SEE BELOW Normal [facility] Comment on above: Result Comment: <20 ng/mL Vit D deficient 20 - <30 ng/mL Vit D insufficient 30 - 100 ng/mL Vit D sufficient >100 ng/mL Potential Toxicity Performed By: #### I EDWARD #### [facility] [address] [place] [address] Dr. Keven Reyez [facility]03 SARS-CoV-2 (COVID-19) RNA TAYLOR+probe Ql (Unsp spec) Not detected Normal NOT DETECTED [facility] Comment on above: Result Comment: This test is not yet approved or cleared by the [place] FDA. When there are no FDA-approved or cleared tests available, and other criteria are met, FDA can make tests available under an emergency access mechanism called an Emergency Use Authorization (EUA). The EUA for this test is supported by the [place] of Health and Human Service's (HHS's) declaration [...] SARS-CoV-2. Performed By: #### I EDWARD #### [facility] [address] [place] [address] Dr. Keven Reyez INFLUENZA A AND B AGon 08-18 [facility] SEE BELOW Normal [facility] Comment on above: Result Comment: Nega tive for Flu A protein angiten. Infection due to Flu A cannot be ruled out. Flu A angiten in the sample may be below the detection limit of the test. Performed By: #### I NFLUAB #### [facility] [address] [place] [address] Dr. Keven [facility] Normal [facility] Comment on above: Result Comment: Nega tive for Flu B protein antigen. Infection due to Flu B cannot be ruled out. Flu B antigen in the sample may be below the detection limit of the test. Performed By: #### I NFLUAB #### [facility] [address] [place] [address] Dr. Keven Reyez INFLUENZA A AG Negative Normal NEGATIVE SEE COMMENT [facility] Comment on above: Performed By: #### I NFLUAB #### [facility] [address] [place] [address] Dr. Keven Reyez INFLUENZA B AG Negative Normal NEGATIVE SEE COMMENT [facility] Comment on above: Performed By: #### I NFLUAB #### [facility] [address] [place] [address] Dr. Keven Reyez INTERNAL CONTROLS Within Normal Limits Normal Wi thin Normal Limits [facility] Comment on above: Performed By: #### I NFLUAB #### [facility] [address] [place] [address] Dr. Keven Reyez XR DEXA BONE DENSITYon [...] SILVANA VEGA Date: 2021-05-28 10:25 Normal [facility] INSULINon 05-23-2021 Insulin 7.2 uIU/mL Normal 2.6-24.9 [facility] Comment on above: Performed By: #### I NSULIN #### [facility] [address] [place] [address] Dr. Keven Reyez CBC AUTO DIFFon 05-22-2021 BASO # 0.1 103/ul Normal 0.0-0.1 [facility] Comment on above: Performed By: #### I EDWARD #### [facility] [address] [place] [address] Dr. Keven Reyez Basophils/100 WBC (Bld) 0.9 % Normal 0.2-2.0 [facility] Comment on above: Performed By: #### I EDWARD #### [facility] [address] [place] [address] Dr. Keven Reyez EO # 0.3 103/ul Normal 0.0-0.7 [facility] Comment on above: Performed By: #### I EDWARD #### [facility] [address] [place] [address] Dr. Keven Reyez Eosinophils/100 WBC (Bld) 3.6 % Normal 0.9-7.0 [facility] Comment on above: Performed By: #### I EDWARD #### [facility] [address] [place] [address] Dr. Keven Reyez Erythrocyte distribution width (RBC) [Ratio] 12.7 % Normal 11.0-15.0 [facility] Comment on above: Performed By: #### I EDWARD #### [facility] [address] [place] [address] Dr. Keven Reyez Hematocrit (Bld) [Volume fraction] 37.0 % Normal 36.0-48.0 [facility] Comment on above: Performed By: #### I EDWARD #### [facility] [address] [address] [address] Keven Reyez Hemoglobin (Bld) [Mass/Vol] 11.7 g/dL Critically low 12.0-16.0 [facility] Comment on above: Performed By: #### I EDWARD #### [facility] [address] [place] [address] Dr. Keven Reyez IG # 0.06 10e3/ul Critically high 0.00-0.03 [facility] Comment on above: Performed By: #### I EDWARD #### [facility] [address] [place] [address] Dr. Keven Reyez IG % 0.9 % Critically high 0.0-0.5 [facility] Comment on above: Performed By: #### I EDWARD #### [facility] [address] [place] [address] Dr. Keven Reyez LYMPH # 1.9 103/ul Normal 1.2-3.8 [facility] Comment on above: Performed By: #### I EDWARD #### [facility] [address] [place] [address] Dr. Keven Reyez Lymphocytes/100 WBC (Bld) 27.1 % Normal 20.5-60.0 [facility] Comment on above: Performed By: #### I EDWARD #### [facility] [address] [place] [address] Dr. Keven Reyez MANUAL DIFF REQ NO Normal [facility] Comment on above: Performed By: #### I EDWARD #### [facility] [address] [place] [address] Dr. Keven Reyez MCH (RBC) [Entitic mass] 27.6 pg Normal 26.7-34.0 [facility] Comment on above: Performed By: #### I EDWARD #### [facility] [address] [address] [address] Keven Reyez MCHC (RBC) [Mass/Vol] 31.6 g/dL Normal 29.9-35.2 [facility] Comment on above: Performed By: #### I EDWARD #### [facility] [address] [place] [address] Dr. Keven Reyez MCV (RBC) [Entitic vol] 87.3 fL Normal 81.0-99.0 [facility] Comment on above: Performed By: #### I EDWARD #### [facility] [address] [place] [address] Dr. Keven Reyez MONO # 0.6 103/ul Normal 0.3-0.8 [facility] Comment on above: Performed By: #### I EDWARD #### [facility] [address] [place] [address] Dr. Keven Reyez Monocytes/100 WBC (Bld) 8.6 % Normal 1.7-12.0 [facility] Comment on above: Performed By: #### I EDWARD #### [facility] [address] [place] [address] Dr. Keven Reyez NEUT # 4.1 103/ul Normal 1.4-6.5 [facility] Comment on above: Performed By: #### I EDWARD #### [facility] [address] [place] [address] Dr. Keven Reyez Neutrophils/100 WBC (Bld) 58.9 % Normal 43.0-75.0 [facility] Comment on above: Performed By: #### I EDWARD #### [facility] [address] [place] [address] Dr. Keven Reyez Platelet mean volume (Bld) [Entitic vol] 9.8 fL Normal 9.5-13.5 [facility] Comment on above: Performed By: #### I EDWARD #### [facility] [address] [place] [address] Dr. Keven Reyez PLT 265 103/ul Normal 150-450 [facility] Comment on above: Performed By: #### I EDWARD #### [facility] [address] [place] [address] Dr. Keven Reyez RBC 4.24 106/ul Normal 4.20-5.40 [facility] Comment on above: Performed By: #### I EDWARD #### [facility] [address] [address] [address] Keven Reyez WBC 6.9 103/ul Normal 4.0-11.0 [facility] Comment on above: Performed By: #### I EDWARD #### [facility] [address] [address] [address] Keven Reyez FREE THYROXINE INDEX T7on FTI 2.81 Normal [facility] Comment on above: Performed By: #### T 7, TSH, CMP, LIPID #### [facility] [address] [place] [address] Dr. Keven Reyez T3U 36.0 % Normal 23.5-40.5 [facility] Comment on above: Performed By: #### T 7, TSH, CMP, LIPID #### [facility] [address] [address] [address] Keven Reyez T4 [Mass/Vol] 7.80 ug/dL Normal 5.53-11.00 [facility] Comment on above: Performed By: #### T 7, TSH, CMP, LIPID #### [facility] [address] [place] [address] Dr. Keven Reyez GLYCOHEMOGLOBIN A1Con 2021 ADA RECOMMENDATION ADA THERAPEUTIC TARGET 6.0 - 7.0 ACTION SUGGESTED > 7.0 Normal [facility] Comment on above: Performed By: #### I EDWARD #### [facility] [address] [place] [address] Dr. Keven Reyez Glucose [Mass/Vol] 117 mg/dL Normal [facility] Comment on above: Performed By: #### I EDWARD #### [facility] [address] [place] [address] Dr. Keven Reyez HbA1c (Bld) [Mass fraction] 5.7 % Normal <=6.0 [facility] Comment on above: Performed By: #### I EDWARD #### [facility] [address] [address] [address] Keven Reyez IRONon 05-22-2021 Iron [Mass/Vol] 48.0 ug/dL Normal 37.0-170.0 [facility] Comment on above: Performed By: #### I EDWARD #### [facility] [address] [address] [address] Keven Reyez LIPID PROFILEon 05-22-2021 CHOL-HDL RATIO NORM SEE BELOW Normal [facility] Comment on above: Result Comment: 3.3 - 4.4 LOW RISK 4.4 - 7.1 AVERAGE RISK 7.1 - 11.0 MODERATE RISK >11.0 HIGH RISK Performed By: #### T 7, TSH, CMP, LIPID #### [facility] [address] [place] [address] Dr. Keven Reyez Cholesterol [Mass/Vol] 153 mg/dL Normal <=200 [facility] Comment on above: Performed By: #### T 7, TSH, CMP, LIPID #### [facility] [address] [address] [address] Keven Reyez Cholesterol in HDL [Mass/Vol] 72 mg/dL Normal [facility] Comment on above: Performed By: #### T 7, TSH, CMP, LIPID #### [facility] [address] [address] [address] Keven Reyez Cholesterol in LDL [Mass/Vol] 63.0 mg/dL Normal [facility] Comment on above: Performed By: #### T 7, TSH, CMP, LIPID #### [facility] [address] [address] [address] Keven Reyez Cholesterol.total/Ch olesterol in HDL [Mass ratio] 2.1 {ratio} Normal [facility] Comment on above: Performed By: #### T 7, TSH, CMP, LIPID #### [facility] [address] [place] [address] Dr. Keven Reyez HDL NORMAL > or = 60 mg/dl - LOW CARDIOVASCULAR RISK <40 mg/dl - HIGH CARDIOVASCULAR RISK Normal [facility] Comment on above: Performed By: #### T 7, TSH, CMP, LIPID #### [facility] [address] [address] [address] Keven Reyez LDL CALC NORMAL SEE BELOW Normal [facility] Comment on above: Result Comment: <100 mg/dl OPTIMAL 100 - 129 mg/dl NEAR OR ABOVE OPTIMAL 130 - 159 mg/dl BORDERLINE HIGH 160 - 189 mg/dl HIGH >190 mg/dl VERY HIGH Performed By: #### T 7, TSH, CMP, LIPID #### [facility] [address] [address] [address] Keven Reyez Triglyceride [Mass/Vol] 90 mg/dL Normal <=150 [facility] Comment on above: Performed By: #### T 7, TSH, CMP, LIPID #### [facility] [address] [place] [address] Dr. Keven Reyez VLDL CALC 18.0 mg/dL Normal [facility] Comment on above: Performed By: #### T 7, TSH, CMP, LIPID #### [facility] [address] [place] [address] Dr. Keven Reyez PROF 14(COMP METB)on 022 Albumin [Mass/Vol] 3.9 g/dL Normal 3.5-5.0 [facility] Comment on above: Performed By: #### T 7, TSH, CMP, LIPID #### [facility] [address] [place] [address] Dr. Keven Reyez Albumin/Globulin [Mass ratio] 1.3 {ratio} Normal [facility] Comment on above: Performed By: #### T 7, TSH, CMP, LIPID #### [facility] [address] [place] [address] Dr. Keven Reyez ALP [Catalytic activity/Vol] 85 U/L Normal 38-126 [facility] Comment on above: Performed By: #### T 7, TSH, CMP, LIPID #### [facility] [address] [place] [address] Dr. Keven Reyez ALT [Catalytic activity/Vol] 25 U/L Normal 9-52 [facility] Comment on above: Performed By: #### T 7, TSH, CMP, LIPID #### [facility] [address] [address] [address] Keven Reyez Anion gap [Moles/Vol] 14.7 mmol/L Normal [facility] Comment on above: Performed By: #### T 7, TSH, CMP, LIPID #### [facility] [address] [address] [address] Keven Reyez AST [Catalytic activity/Vol] 14 U/L Normal 14-36 [facility] Comment on above: Performed By: #### T 7, TSH, CMP, LIPID #### [facility] [address] [address] [address] Keven Reyez Bilirubin [Mass/Vol] 0.3 mg/dL Normal 0.2-1.3 [facility] Comment on above: Performed By: #### T 7, TSH, CMP, LIPID #### [facility] [address] [address] [address] Keven Reyez Calcium [Mass/Vol] 9.3 mg/dL Normal 8.4-10.2 [facility] Comment on above: Performed By: #### T 7, TSH, CMP, LIPID #### [facility] [address] [address] [address] Keven Reyez Chloride [Moles/Vol] 107 mmol/L Normal 98-107 [facility] Comment on above: Performed By: #### T 7, TSH, CMP, LIPID #### [facility] [address] [address] [address] Keven Reyez CO2 [Moles/Vol] 25.2 mmol/L Normal 22.0-30.0 [facility] Comment on above: Performed By: #### T 7, TSH, CMP, LIPID #### [facility] [address] [address] [address] Keven Reyez Creatinine [Mass/Vol] 1.13 mg/dL Critically high 0.52-1.04 [facility] Comment on above: Performed By: #### T 7, TSH, CMP, LIPID #### [facility] [address] [address] [address] Keven Reyez EGFR-AF [place] 59 mL/min/1.73m2 Critically low >=60 [facility] Comment on above: Performed By: #### T 7, TSH, CMP, LIPID #### [facility] [address] [address] [address] Keven Reyez EGFR-NON AF [place] 49 mL/min/1.73m2 Critically low >=60 [facility] Comment on above: Performed By: #### T 7, TSH, CMP, LIPID #### [facility] [address] [place] [address] Dr. Keven Reyez Globulin (S) [Mass/Vol] 3.1 g/dL Normal [facility] Comment on above: Performed By: #### T 7, TSH, CMP, LIPID #### [facility] [address] [place] [address] Dr. Keven Reyez Glucose [Mass/Vol] 102 mg/dL Normal 74-106 [facility] Comment on above: Performed By: #### T 7, TSH, CMP, LIPID #### [facility] [address] [place] [address] Dr. Keven Reyez Potassium [Moles/Vol] 4.9 mmol/L Normal 3.4-5.0 [facility] Comment on above: Performed By: #### T 7, TSH, CMP, LIPID #### [facility] [address] [place] [address] Dr. Keven Reyez Protein [Mass/Vol] 7.0 g/dL Normal 6.1-8.2 [facility] Comment on above: Performed By: #### T 7, TSH, CMP, LIPID #### [facility] [address] [place] [address] Dr. Keven Reyez Sodium [Moles/Vol] 142 mmol/L Normal 137-145 [facility] Comment on above: Performed By: #### T 7, TSH, CMP, LIPID #### [facility] [address] [place] [address] Dr. Keven Reyez Urea nitrogen [Mass/Vol] 24.0 mg/dL Critically high 7.0-17.0 [facility] Comment on above: Performed By: #### T 7, TSH, CMP, LIPID #### [facility] [address] [place], [place] [address] Dr. Keven Reyez Urea nitrogen/Creatinine [Mass ratio] 21.2 mg/mg Normal [facility] Comment on above: Performed By: #### T 7, TSH, CMP, LIPID #### [facility] [address] [place], [place] [address] Dr. Keven Reyez TSHon 05-22-2021 TSH 0.985 uIU/mL Normal 0.470-4.680 [facility] Comment on above: Performed By: #### T 7, TSH, CMP, LIPID #### [facility] [address] [address] [address] Keven Reyez TSH RANGE SEE BELOW Normal [facility] Comment on above: Result Comment: <0.3 4 UIU/ml HYPERTHYROID 0.34-5.60 UIU/ml EUTHYROID >5.60 UIU/ml HYPOTHYROID Performed By: #### T 7, TSH, CMP, LIPID #### [facility] [address] [address] [address] Keven Reyez SCREENING MAMMOGRAM W/MANJULA, BILATERAL*on [...] VERY IMPORTANT TO YOUR HEALTH. THE CURRENT [place] [employer] GUIDELINES RECOMMENDS ANNUAL MAMMOGRAPHY BEGINNING AT AGE 40 THIS FACILITY USES A REMINDER SYSTEM TO ENSURE ALL PATIENTS RECEIVE REMINDER NOTIFICATIONS AT THE APPROPRIATE TIME BASED ON THE RECOMMENDATIONS OF THIS EXAM. 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 Accredited by the ACR and FDA. 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 Encounters Encounter Date Encounter Type Care Provider Facility Start: 09-02-2023 End: 09-02-2023 ambulatory ELLY DUMONT Not Available Start: 04-28-2022 Encounter for genera l adult medical examination without abnormal findings DR JOCY JEAN [facility] Start: 04-23-2022 End: 04-24-[address] JOCY JEAN Facility:[facility] Start: 04-23-2022 End: 04-24-2022 Encounter for general adult medical examination without abnormal findings DR JOCY JEAN Facility:[facility] Start: 08-18-2021 End: 08-18-[address] JOCY JEAN Facility:[facility] Start: 05-28-2021 End: 05-29-[address] JOCY JEAN Facility:[facility] Start: 05-22-2021 End: 05-23-[address] JOCY JEAN Facility:[facility] Payers Date Payer Category Payer Unknown [id number] 2023 Medicare [id number] 1960 Unknown [id number] 2.16.84 [id number] 1960 Unknown [id number] 2.16.84 [id number] 1960 Unknown [id number] 2.16.84 [id number] 1960 Unknown [id number] 2.16.84 [id number] 1960 Unknown [id number] 2.16.84 [id number] 1960 Unknown [id number] 2.16.84 [id number] Unknown [id number] Unknown [id number] Summary Purpose Family History No Family History Records FoundNo Family History Records FoundNo Family History Records Found Advance Directives No Advanced Directives Records FoundNo Advanced Directives Records FoundNo Advanced Directives Records Found Additional Source Comments INFORMATION SOURCE (unrecogn ized section and content) DATE CREATED AUTHOR 04/21/2021 [facility] Specialist DATE CREATED AUTHOR AUTHOR'S ORGANIZ ATION 04/29/2022 [facility] DATE CREATED AUTHOR AUTHOR'S ORGANIZ ATION 09/06/2023 [facility] Specialists EPIC FOR RECORDS PERTAINING TO [...] BE BASED ON THE PRIMARY CLINICAL RECORDS. [facility]. provides no warranty or guarantee of the accuracy or completeness of information in this document.
--- NOTE | 2024-01-18 12:10 | XR_ITS ---
The [address] [address] Patient Name: YUMIKO ROUSSEAU MRN: [id number] date: 1960 Sex: F Assigned Patient Location: [facility] Current Patient Location: Accession/Order Number: [id number] Exam Date: 01/18/2024 12:05 Report Date: 01/19/2024 07:40 At the request of: JOCY JEAN Procedure: XR knee LT 3V PROCEDURE: XR knee LT 3V COMPARISON: None. HISTORY: Internal Derangement Of Knee FINDINGS: BONES:No acute fracture or dislocation. Moderate to severe tricompartmental osteoarthritis with marginal osteophyte formation. Moderate narrowing of medial joint space with subchondral cystic changes of the medial femoral condyle SOFT TISSUES:Negative. No visible soft tissue swelling. EFFUSION:Small suprapatellar joint effusion OTHER: Negative. XR/XR knee LT 3V IMPRESSION: Moderate to severe tricompartmental osteoarthritis Electronically authenticated by: RONAL HERNANDEZ Date: 01/19/2024 07:40
== END 2024-01-18 11:41 | disposition home or self-care (01) ==
LOC: RAD 11:44
PROVIDERS: PCP Family Medicine; Visit Provider Family Medicine
DX: M23.92 Unspecified internal derangement of left knee (principal); R05.3 Chronic cough; M17.12 Unilateral primary osteoarthritis, left knee
CPT/HCPCS: 73562

== ENCOUNTER 2024-01-27 13:05 | Outpatient (OUT) | payer MEDICARE, OTHER, SELFPAY ==
--- NOTE | 2024-01-27 13:11 | MR_ITS ---
[address] [address] Patient Name: YUMIKO ROUSSEAU MRN: [id number] date: 1960 Sex: F Assigned Patient Location: [facility] Current Patient Location: [facility] Accession/Order Number: [id number] Exam Date: 01/27/2024 14:00 Report Date: 01/29/2024 07:10 At the request of: JOCY JEAN Procedure: MR knee LT wo con EXAM: MR knee LT wo con HISTORY: Internal derangement of knee M23.90. Left knee pain after an injury one year ago tripping. Patient hit the anterior aspect of the knee on concrete. COMPARISON: Knee x-rays from 01/18/2024. TECHNIQUE: Multiplanar and multisequence imaging of the left knee was performed without contrast. FINDINGS: The anterior cruciate ligament appears small in size and irregular in morphology distally suspicious for a prior grade 2 sprain. The posterior cruciate ligament and collateral ligaments are intact. The patellar tendon, distal quadriceps tendon and iliotibial band are intact. Motion artifact degrades evaluation on this study. Severe degenerative change/osteoarthritis involves the medial compartment with extensive high-grade and full thickness articular cartilage loss throughout the majority of the weightbearing surface of the medial femoral condyle and medial tibial plateau. There is moderate bone marrow edema in the medial femoral condyle and medial tibial plateau with adjacent cystic change and spurring. A complex morphology tear involves the body of the medial meniscus which is small in size. No lateral meniscal tear is evident. Articular cartilage in the lateral compartment is intact. There is a small to moderate joint effusion. Moderate to high-grade articular cartilage loss is evident in the patellofemoral compartment. There is a small Cabral cyst. MR/MR knee LT wo con IMPRESSION: 1. Severe degenerative change/osteoarthritis involves the medial compartment with extensive high-grade and full thickness articular cartilage loss. There is moderate bone marrow edema in the medial femoral condyle and medial tibial plateau suspicious for associated stress response. 2. There is a complex tear of the body of the medial meniscus. 3. No MRI evidence of lateral meniscal tear. 4. Findings suspicious for a prior grade 2 sprain of the ACL distally with thinning and poor visualization of the distal fibers of the ACL. 5. There is a small to moderate joint effusion with moderate to high-grade articular cartilage loss in the patellofemoral compartment. Electronically authenticated by: CHARLENE SMITH Date: 01/29/2024 07:10
--- NOTE | 2024-01-27 13:11 | CT_ITS ---
[address] [address] Patient Name: YUMIKO ROUSSEAU MRN: [id number] date: 1960 Sex: F Assigned Patient Location: [facility] Current Patient Location: [facility] Accession/Order Number: [id number] Exam Date: 01/27/2024 13:15 Report Date: 01/29/2024 08:39 At the request of: JOCY JEAN Procedure: CT chest wo con EXAMINATION: CT chest wo con HISTORY: chronic cough R05.3 COMPARISON: No relevant comparison available. TECHNIQUE: Axial, Coronal, and Sagittal images were created without the administration of IV contrast material. Dose reduction techniques were achieved by using automated exposure control and/or adjustment of mA and/or kV according to patient size and/or use of iterative reconstruction technique. FINDINGS: LUNGS: Mild bronchial wall thickening and mucous plugging within left lower lobe. PLEURA: No mass, effusion, or pneumothorax. VASCULATURE: No abnormality. SHAILESH: No mass or pathologic adenopathy. MEDIASTINUM: No mass or pathologic adenopathy. CARDIAC: No enlargement, pericardial thickening, or pericardial effusion. Coronary Artery calcifications: AORTA: No aneurysm or dissection. CHEST WALL: No mass or axillary adenopathy BONES: No bone lesion or fracture. LIMITED ABDOMEN: Large hiatal hernia. Limited images of the upper abdomen. OTHER: Negative. CT/CT chest wo con IMPRESSION: 1. Left lower lobe mild bronchiolitis and mild mucous plugging. No peripheral infiltrates or findings to suggest pneumonia. 2. Large hiatal hernia. Electronically authenticated by: SILVANA VEGA Date: 01/29/2024 08:39
--- NOTE | 2024-01-27 13:29 | XR_ITS ---
The [address] [address] Patient Name: YUMIKO ROUSSEAU MRN: [id number] date: 1960 Sex: F Assigned Patient Location: [facility] Current Patient Location: [facility] Accession/Order Number: [id number] Exam Date: 01/27/2024 13:29 Report Date: 01/27/2024 13:59 At the request of: JOCY JEAN Procedure: XR shoulder RT min 2V PROCEDURE: XR shoulder RT min 2V HISTORY: Clearance For MRI COMPARISON: None. FINDINGS: BONES:2 metallic bone anchors within humeral head. SOFT TISSUES:No visible soft tissue swelling. XR/XR shoulder RT min 2V IMPRESSION: 1. There are 2 metallic bone anchors within right humeral head. Electronically authenticated by: SILVANA VEGA Date: 01/27/2024 13:59
--- OUTSIDE RECORDS SUMMARY | 2024-01-27 13:29 | XMS_ITS | CCD ---
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 THE [employer] GUIDELINES RECOMMEND THAT WOMEN 40 [...] INSULINon 04-24-2022 Insulin 17.1 uIU/mL Normal 2.6-24.9 [facility] Comment on above: Performed By: #### I EDWARD #### [facility] [address] [place] [address] Dr. Keven Reyez CBC AUTO DIFFon 04-23-2022 BASO # 0.0 103/ul Normal 0.0-0.1 [facility] Comment on above: Performed By: #### C BC #### [facility] [address] [address] [address] Keven Reyez Basophils/100 WBC (Bld) 0.5 % Normal 0.2-2.0 [facility] Comment on above: Performed By: #### C BC #### [facility] [address] [place] [address] Dr. Keven Reyez EO # 0.4 103/ul Normal 0.0-0.7 [facility] Comment on above: Performed By: #### C BC #### [facility] [address] [place] [address] Dr. Keven Reyez Eosinophils/100 WBC (Bld) 4.5 % Normal 0.9-7.0 [facility] Comment on above: Performed By: #### C BC #### [facility] [address] [place] [address] Dr. Keven Reyez Erythrocyte distribution width (RBC) [Ratio] 13.6 % Normal 11.0-15.0 [facility] Comment on above: Performed By: #### C BC #### [facility] [address] [place] [address] Dr. Keven Reyez Hematocrit (Bld) [Volume fraction] 34.7 % Critically low 36.0-48.0 [facility] Comment on above: Performed By: #### C BC #### [facility] [address] [place] [address] Dr. Keven Reyez Hemoglobin (Bld) [Mass/Vol] 11.3 g/dL Critically low 12.0-16.0 [facility] Comment on above: Performed By: #### C BC #### [facility] [address] [place] [address] Dr. Keven Reyez IG # 0.03 10e3/ul Normal 0.00-0.03 [facility] Comment on above: Performed By: #### C BC #### [facility] [address] [place] [address] Dr. Keven Reyez IG % 0.4 % Normal 0.0-0.5 [facility] Comment on above: Performed By: #### C BC #### [facility] [address] [place] [address] Dr. Keven Reyez LYMPH # 1.5 103/ul Normal 1.2-3.8 [facility] Comment on above: Performed By: #### C BC #### [facility] [address] [place] [address] Dr. Keven Reyez Lymphocytes/100 WBC (Bld) 19.5 % Critically low 20.5-60.0 [facility] Comment on above: Performed By: #### C BC #### [facility] [address] [place] [address] Dr. Keven Reyez MANUAL DIFF REQ NO Normal [facility] Comment on above: Performed By: #### C BC #### [facility] [address] [place] [address] Dr. Keven Reyez MCH (RBC) [Entitic mass] 27.2 pg Normal 26.7-34.0 [facility] Comment on above: Performed By: #### C BC #### [facility] [address] [place] [address] Dr. Keven Reyez MCHC (RBC) [Mass/Vol] 32.6 g/dL Normal 29.9-35.2 [facility] Comment on above: Performed By: #### C BC #### [facility] [address] [place] [address] Dr. Keven Reyez MCV (RBC) [Entitic vol] 83.6 fL Normal 81.0-99.0 [facility] Comment on above: Performed By: #### C BC #### [facility] [address] [place] [address] Dr. Keven Reyez MONO # 0.6 103/ul Normal 0.3-0.8 [facility] Comment on above: Performed By: #### C BC #### [facility] [address] [place] [address] Dr. Keven Reyez Monocytes/100 WBC (Bld) 8.2 % Normal 1.7-12.0 [facility] Comment on above: Performed By: #### C BC #### [facility] [address] [place] [address] Dr. Keven Reyez NEUT # 5.2 103/ul Normal 1.4-6.5 [facility] Comment on above: Performed By: #### C BC #### [facility] [address] [place] [address] Dr. Keven Reyez Neutrophils/100 WBC (Bld) 66.9 % Normal 43.0-75.0 [facility] Comment on above: Performed By: #### C BC #### [facility] [address] [place] [address] Dr. Keven Reyez Platelet mean volume (Bld) [Entitic vol] 9.1 fL Critically low 9.5-13.5 [facility] Comment on above: Performed By: #### C BC #### [facility] [address] [address] [address] Keven Reyez PLT 242 103/ul Normal 150-450 [facility] Comment on above: Performed By: #### C BC #### [facility] [address] [place] [address] Dr. Keven Reyez RBC 4.15 106/ul Critically low 4.20-5.40 [facility] Comment on above: Performed By: #### C BC #### [facility] [address] [place] [address] Dr. Keven Reyez WBC 7.8 103/ul Normal 4.0-11.0 [facility] Comment on above: Performed By: #### C BC #### [facility] [address] [place] [address] Dr. Keven Reyez FREE THYROXINE INDEX T7on FTI 2.81 Normal 1.30-4.50 [facility] Comment on above: Performed By: #### I EDWARD #### [facility] [address] [place] [address] Dr. Keven Reyez T3U 36.0 % Normal 30.0-39.0 [facility] Comment on above: Performed By: #### I EDWARD #### [facility] [address] [place] [address] Dr. Keven Reyez T4 [Mass/Vol] 7.80 ug/dL Normal 4.80-13.90 [facility] Comment on above: Performed By: #### I EDWARD #### [facility] [address] [place] [address] Dr. Keven Reyez GLYCOHEMOGLOBIN A1Con 2022 ADA RECOMMENDATION SEE BELOW Normal The [facility] Comment on above: Result Comment: ADA RECOMMENDED LIMIT 4.0 - 6.0 ADA THERAPEUTIC TARGET < 7.0 ACTION SUGGESTED > 7.0 Performed By: #### A 1C #### [facility] [address] [place] [address] Dr. Keven Reyez Glucose [Mass/Vol] 111 mg/dL Normal [facility] Comment on above: Performed By: #### A 1C #### [facility] [address] [address] [address] Keven Reyez HbA1c (Bld) [Mass fraction] 5.5 % Normal 4.5-6.2 [facility] Comment on above: Performed By: #### A 1C #### [facility] [address] [place] [address] Dr. Keven Reyez IRONon 04-23-2022 Iron [Mass/Vol] 36.0 ug/dL Critically low 50.0-170.0 [facility] Comment on above: Performed By: #### I EDWARD #### [facility] [address] [place] [address] Dr. Keven Reyez LIPID PROFILEon 04-23-2022 CHOL-HDL RATIO NORM SEE BELOW Normal [facility] Comment on above: Result Comment: 3.3 - 4.4 LOW RISK 4.4 - 7.1 AVERAGE RISK 7.1 - 11.0 MODERATE RISK >11.0 HIGH RISK Performed By: #### I EDWARD #### [facility] [address] [place] [address] Dr. Keven Reyez Cholesterol [Mass/Vol] 132 mg/dL Normal <=200 [facility] Comment on above: Performed By: #### I EDWARD #### [facility] [address] [address] [address] Keven Reyez Cholesterol in HDL [Mass/Vol] 61 mg/dL Critically high 40-60 [facility] Comment on above: Performed By: #### I EDWARD #### [facility] [address] [address] [address] Keven Reyez Cholesterol in LDL [Mass/Vol] 51.8 mg/dL Normal [facility] Comment on above: Performed By: #### I EDWARD #### [facility] [address] [address] [address] Keven Reyez Cholesterol.total/Ch olesterol in HDL [Mass ratio] 2.2 {ratio} Normal [facility] Comment on above: Performed By: #### I EDWARD #### [facility] [address] [address] [address] Keven Reyez HDL NORMAL > or = 60 mg/dl - LOW CARDIOVASCULAR RISK <40 mg/dl - HIGH CARDIOVASCULAR RISK Normal [facility] Comment on above: Performed By: #### I EDWARD #### [facility] [address] [address] [address] Keven Reyez LDL CALC NORMAL SEE BELOW Normal [facility] Comment on above: Result Comment: <100 mg/dl OPTIMAL 100 - 129 mg/dl NEAR OR ABOVE OPTIMAL 130 - 159 mg/dl BORDERLINE HIGH 160 - 189 mg/dl HIGH >190 mg/dl VERY HIGH Performed By: #### I EDWARD #### [facility] [address] [place] [address] Dr. Keven Reyez Triglyceride [Mass/Vol] 96 mg/dL Normal <=150 [facility] Comment on above: Performed By: #### I EDWARD #### [facility] [address] [place] [address] Dr. Keven Reyez VLDL CALC 19.2 mg/dL Normal [facility] Comment on above: Performed By: #### I EDWARD #### [facility] [address] [address] [address] Keven Reyez PROF 14(COMP METB)on 023 Albumin [Mass/Vol] 3.6 g/dL Normal 3.4-5.0 [facility] Comment on above: Performed By: #### I EDWARD #### [facility] [address] [place] [address] Dr. Keven Reyez Albumin/Globulin [Mass ratio] 1.1 {ratio} Normal [facility] Comment on above: Performed By: #### I EDWARD #### [facility] [address] [address] [address] Keven Reyez ALP [Catalytic activity/Vol] 71 U/L Normal 46-116 [facility] Comment on above: Performed By: #### I EDWARD #### [facility] [address] [place] [address] Dr. Keven Reyez ALT [Catalytic activity/Vol] 36 U/L Normal 14-59 [facility] Comment on above: Performed By: #### I EDWARD #### [facility] [address] [place] [address] Dr. Keven Reeyz Anion gap [Moles/Vol] 13.7 mmol/L Normal [facility] Comment on above: Performed By: #### I EDWARD #### [facility] [address] [place] [address] Dr. Keven Reyez AST [Catalytic activity/Vol] 23 U/L Normal 15-37 [facility] Comment on above: Performed By: #### I EDWARD #### [facility] [address] [place] [address] Dr. Keven Reyez Bilirubin [Mass/Vol] 0.3 mg/dL Normal 0.2-1.0 [facility] Comment on above: Performed By: #### I EDWARD #### [facility] [address] [place] [address] Dr. Keven Reyez Calcium [Mass/Vol] 9.2 mg/dL Normal 8.5-10.1 [facility] Comment on above: Performed By: #### I EDWARD #### [facility] [address] [place] [address] Dr. Keven Reyez Chloride [Moles/Vol] 106 mmol/L Normal 98-107 [facility] Comment on above: Performed By: #### I EDWARD #### [facility] [address] [place] [address] Dr. Keven Reyez CO2 [Moles/Vol] 26.2 mmol/L Normal 21.0-32.0 [facility] Comment on above: Performed By: #### I EDWARD #### [facility] [address] [place] [address] Dr. Keven Reyez Creatinine [Mass/Vol] 0.93 mg/dL Normal 0.55-1.02 [facility] Comment on above: Performed By: #### I EDWARD #### [facility] [address] [address] [address] Keven Reyez EGFR-AF [employer]AR[place]IAN >60 Normal >=60 [facility] Comment on above: Performed By: #### I EDWARD #### [facility] [address] [address] [address] Keven Reyez EGFR-NON AF BELARUSIAN >60 Normal >=60 [facility] Comment on above: Performed By: #### I EDWARD #### [facility] [address] [address] [address] Keven Reyez Globulin (S) [Mass/Vol] 3.2 g/dL Normal [facility] Comment on above: Performed By: #### I EDWARD #### [facility] [address] [place] [address] Dr. Keven Reyez Glucose [Mass/Vol] 100 mg/dL Normal 74-106 [facility] Comment on above: Performed By: #### I EDWARD #### [facility] [address] [address] [address] Keven Reyez Potassium [Moles/Vol] 4.9 mmol/L Normal 3.5-5.1 [facility] Comment on above: Performed By: #### I EDWARD #### [facility] [address] [place] [address] Dr. Keven Reyez Protein [Mass/Vol] 6.8 g/dL Normal 6.4-8.2 [facility] Comment on above: Performed By: #### I EDWARD #### [facility] [address] [address] [address] Keven Reyez Sodium [Moles/Vol] 141 mmol/L Normal 136-145 [facility] Comment on above: Performed By: #### I EDWARD #### [facility] [address] [address] [address] Keven Reyez Urea nitrogen [Mass/Vol] 18.0 mg/dL Normal 7.0-18.0 [facility] Comment on above: Performed By: #### I EDWARD #### [facility] [address] [address] [address] Keven Reyez Urea nitrogen/Creatinine [Mass ratio] 19.4 mg/mg Normal [facility] Comment on above: Performed By: #### I EDWARD #### [facility] [address] [place] [address] Dr. Keven Reyez TSHon 04-23-2022 TSH 0.830 uIU/mL Normal 0.358-3.740 [facility] Comment on above: Performed By: #### I EDWARD #### [facility] [address] [place] [address] Dr. Keven Reyez VITAMIN D 25 OHon 04-23-2022 VIT D 25-OH 38.5 ng/mL Normal [facility] Comment on above: Performed By: #### I EDWARD #### [facility] [address] [place] [address] Dr. Keven Reyez VIT D RANGES SEE BELOW Normal [facility] Comment on above: Result Comment: <20 ng/mL Vit D deficient 20 - <30 ng/mL Vit D insufficient 30 - 100 ng/mL Vit D sufficient >100 ng/mL Potential Toxicity Performed By: #### I EDWARD #### [facility] [address] [place] [address] Dr. Keven Reyez [facility] SARS-CoV-2 (COVID-19) RNA TAYLOR+probe Ql (Unsp spec) Not detected Normal NOT DETECTED [facility] Comment on above: Result Comment: This test is not yet approved or cleared by the [place] FDA. When there are no FDA-approved or cleared tests available, and other criteria are met, FDA can make tests available under an emergency access mechanism called an Emergency Use Authorization (EUA). The EUA for this test is supported by the [place] of Health and Human Service's (HHS's) declaration [...] SARS-CoV-2. Performed By: #### I EDWARD #### [facility] [address] [place] [address] Dr. Keven Reyez INFLUENZA A AND B AGon 08-18 [facility] SEE BELOW Normal [facility] Comment on above: Result Comment: Nega tive for Flu A protein angiten. Infection due to Flu A cannot be ruled out. Flu A angiten in the sample may be below the detection limit of the test. Performed By: #### I NFLUAB #### [facility] [address] [place] [address] Dr. Keven Reyez [facility] SEE BELOW Normal [facility] Comment on above: Result Comment: Nega tive for Flu B protein antigen. Infection due to Flu B cannot be ruled out. Flu B antigen in the sample may be below the detection limit of the test. Performed By: #### I NFLUAB #### [facility] [address] [place] [address] Dr. Keven Reyez INFLUENZA A AG Negative Normal NEGATIVE SEE COMMENT [facility] Comment on above: Performed By: #### I NFLUAB #### [facility] [address] [place] [address] Dr. Keven Reyez INFLUENZA B AG Negative Normal NEGATIVE SEE COMMENT [facility] Comment on above: Performed By: #### I NFLUAB #### [facility] [address] [place] [address] Dr. Keven Reyez INTERNAL CONTROLS Within Normal Limits Normal Wi thin Normal Limits [facility] Comment on above: Performed By: #### I NFLUAB #### [facility] [address] [place] [address] Dr. Keven Reyez XR DEXA BONE DENSITYon [...] SILVANA VEGA Date: 2021-05-28 10:25 Normal [facility] INSULINon 05-23-2021 Insulin 7.2 uIU/mL Normal 2.6-24.9 [facility] Comment on above: Performed By: #### I NSULIN #### [facility] [address] [place] [address] Dr. Keven Reyez CBC AUTO DIFFon 05-22-2021 BASO # 0.1 103/ul Normal 0.0-0.1 [facility] Comment on above: Performed By: #### I EDWARD #### [facility] [address] [place] [address] Dr. Keven Reyez Basophils/100 WBC (Bld) 0.9 % Normal 0.2-2.0 [facility] Comment on above: Performed By: #### I EDWARD #### [facility] [address] [place] [address] Dr. Keven Reyez EO # 0.3 103/ul Normal 0.0-0.7 [facility] Comment on above: Performed By: #### I EDWARD #### [facility] [address] [place] [address] Dr. Keven Reyez Eosinophils/100 WBC (Bld) 3.6 % Normal 0.9-7.0 [facility] Comment on above: Performed By: #### I EDWARD #### [facility] [address] [place] [address] Dr. Keven Reyez Erythrocyte distribution width (RBC) [Ratio] 12.7 % Normal 11.0-15.0 [facility] Comment on above: Performed By: #### I EDWARD #### [facility] [address] [place] [address] Dr. Keven Reyez Hematocrit (Bld) [Volume fraction] 37.0 % Normal 36.0-48.0 [facility] Comment on above: Performed By: #### I EDWARD #### [facility] [address] [address] [address] Keven Reyez Hemoglobin (Bld) [Mass/Vol] 11.7 g/dL Critically low 12.0-16.0 [facility] Comment on above: Performed By: #### I EDWARD #### [facility] [address] [place] [address] Dr. Keven Reyez IG # 0.06 10e3/ul Critically high 0.00-0.03 [facility] Comment on above: Performed By: #### I EDWARD #### [facility] [address] [place] [address] Dr. Keven Reyez IG % 0.9 % Critically high 0.0-0.5 [facility] Comment on above: Performed By: #### I EDWARD #### [facility] [address] [place] [address] Dr. Keven Reyez LYMPH # 1.9 103/ul Normal 1.2-3.8 [facility] Comment on above: Performed By: #### I EDWARD #### [facility] [address] [place] [address] Dr. Keven Reyez Lymphocytes/100 WBC (Bld) 27.1 % Normal 20.5-60.0 [facility] Comment on above: Performed By: #### I EDWARD #### [facility] [address] [place] [address] Dr. Keven Reyez MANUAL DIFF REQ NO Normal [facility] Comment on above: Performed By: #### I EDWARD #### [facility] [address] [place] [address] Dr. Keven Reyez MCH (RBC) [Entitic mass] 27.6 pg Normal 26.7-34.0 [facility] Comment on above: Performed By: #### I EDWARD #### [facility] [address] [address] [address] Keven Reyez MCHC (RBC) [Mass/Vol] 31.6 g/dL Normal 29.9-35.2 [facility] Comment on above: Performed By: #### I EDWARD #### [facility] [address] [place] [address] Dr. Keven Reyez MCV (RBC) [Entitic vol] 87.3 fL Normal 81.0-99.0 [facility] Comment on above: Performed By: #### I EDWARD #### [facility] [address] [place] [address] Dr. Keven Reyez MONO # 0.6 103/ul Normal 0.3-0.8 [facility] Comment on above: Performed By: #### I EDWARD #### [facility] [address] [place] [address] Dr. Keven Reyez Monocytes/100 WBC (Bld) 8.6 % Normal 1.7-12.0 [facility] Comment on above: Performed By: #### I EDWARD #### [facility] [address] [place] [address] Dr. Keven Reyez NEUT # 4.1 103/ul Normal 1.4-6.5 [facility] Comment on above: Performed By: #### I EDWARD #### [facility] [address] [place] [address] Dr. Keven Reyez Neutrophils/100 WBC (Bld) 58.9 % Normal 43.0-75.0 [facility] Comment on above: Performed By: #### I EDWARD #### [facility] [address] [place] [address] Dr. Keven Reyez Platelet mean volume (Bld) [Entitic vol] 9.8 fL Normal 9.5-13.5 [facility] Comment on above: Performed By: #### I EDWARD #### [facility] [address] [place] [address] Dr. Keven Reyez PLT 265 103/ul Normal 150-450 [facility] Comment on above: Performed By: #### I EDWARD #### [facility] [address] [place] [address] Dr. Keven Reyez RBC 4.24 106/ul Normal 4.20-5.40 [facility] Comment on above: Performed By: #### I EDWARD #### [facility] [address] [address] [address] Keven Reyez WBC 6.9 103/ul Normal 4.0-11.0 [facility] Comment on above: Performed By: #### I EDWARD #### [facility] [address] [address] [address] Keven Reyez FREE THYROXINE INDEX T7on FTI 2.81 Normal [facility] Comment on above: Performed By: #### T 7, TSH, CMP, LIPID #### [facility] [address] [place] [address] Dr. Keven Reyez T3U 36.0 % Normal 23.5-40.5 [facility] Comment on above: Performed By: #### T 7, TSH, CMP, LIPID #### [facility] [address] [address] [address] Keven Reyez T4 [Mass/Vol] 7.80 ug/dL Normal 5.53-11.00 [facility] Comment on above: Performed By: #### T 7, TSH, CMP, LIPID #### [facility] [address] [place] [address] Dr. Keven Reyez GLYCOHEMOGLOBIN A1Con 2021 ADA RECOMMENDATION ADA THERAPEUTIC TARGET 6.0 - 7.0 ACTION SUGGESTED > 7.0 Normal [facility] Comment on above: Performed By: #### I EDWARD #### [facility] [address] [place] [address] Dr. Keven Reyez Glucose [Mass/Vol] 117 mg/dL Normal [facility] Comment on above: Performed By: #### I EDWARD #### [facility] [address] [place] [address] Dr. Keven Reyez HbA1c (Bld) [Mass fraction] 5.7 % Normal <=6.0 [facility] Comment on above: Performed By: #### I EDWARD #### [facility] [address] [address] [address] Keven Reyez IRONon 05-22-2021 Iron [Mass/Vol] 48.0 ug/dL Normal 37.0-170.0 [facility] Comment on above: Performed By: #### I EDWARD #### [facility] [address] [address] [address] Keven Reyez LIPID PROFILEon 05-22-2021 CHOL-HDL RATIO NORM SEE BELOW Normal [facility] Comment on above: Result Comment: 3.3 - 4.4 LOW RISK 4.4 - 7.1 AVERAGE RISK 7.1 - 11.0 MODERATE RISK >11.0 HIGH RISK Performed By: #### T 7, TSH, CMP, LIPID #### [facility] [address] [place] [address] Dr. Keven Reyez Cholesterol [Mass/Vol] 153 mg/dL Normal <=200 [facility] Comment on above: Performed By: #### T 7, TSH, CMP, LIPID #### [facility] [address] [address] [address] Keven Reyez Cholesterol in HDL [Mass/Vol] 72 mg/dL Normal [facility] Comment on above: Performed By: #### T 7, TSH, CMP, LIPID #### [facility] [address] [address] [address] Keven Reyez Cholesterol in LDL [Mass/Vol] 63.0 mg/dL Normal [facility] Comment on above: Performed By: #### T 7, TSH, CMP, LIPID #### [facility] [address] [address] [address] Keven Reyez Cholesterol.total/Ch olesterol in HDL [Mass ratio] 2.1 {ratio} Normal [facility] Comment on above: Performed By: #### T 7, TSH, CMP, LIPID #### [facility] [address] [place] [address] Dr. Keven Reyez HDL NORMAL > or = 60 mg/dl - LOW CARDIOVASCULAR RISK <40 mg/dl - HIGH CARDIOVASCULAR RISK Normal [facility] Comment on above: Performed By: #### T 7, TSH, CMP, LIPID #### [facility] [address] [address] [address] Keven Reyez LDL CALC NORMAL SEE BELOW Normal [facility] Comment on above: Result Comment: <100 mg/dl OPTIMAL 100 - 129 mg/dl NEAR OR ABOVE OPTIMAL 130 - 159 mg/dl BORDERLINE HIGH 160 - 189 mg/dl HIGH >190 mg/dl VERY HIGH Performed By: #### T 7, TSH, CMP, LIPID #### [facility] [address] [address] [address] Keven Reyez Triglyceride [Mass/Vol] 90 mg/dL Normal <=150 [facility] Comment on above: Performed By: #### T 7, TSH, CMP, LIPID #### [facility] [address] [place] [address] Dr. Keven Reyez VLDL CALC 18.0 mg/dL Normal [facility] Comment on above: Performed By: #### T 7, TSH, CMP, LIPID #### [facility] [address] [place] [address] Dr. Keven Reyez PROF 14(COMP METB)on 022 Albumin [Mass/Vol] 3.9 g/dL Normal 3.5-5.0 [facility] Comment on above: Performed By: #### T 7, TSH, CMP, LIPID #### [facility] [address] [place] [address] Dr. Keven Reyez Albumin/Globulin [Mass ratio] 1.3 {ratio} Normal [facility] Comment on above: Performed By: #### T 7, TSH, CMP, LIPID #### [facility] [address] [place] [address] Dr. Keven Reyez ALP [Catalytic activity/Vol] 85 U/L Normal 38-126 [facility] Comment on above: Performed By: #### T 7, TSH, CMP, LIPID #### [facility] [address] [place] [address] Dr. Keven Reyez ALT [Catalytic activity/Vol] 25 U/L Normal 9-52 [facility] Comment on above: Performed By: #### T 7, TSH, CMP, LIPID #### [facility] [address] [address] [address] Keven Reyez Anion gap [Moles/Vol] 14.7 mmol/L Normal [facility] Comment on above: Performed By: #### T 7, TSH, CMP, LIPID #### [facility] [address] [address] [address] Keven Reyez AST [Catalytic activity/Vol] 14 U/L Normal 14-36 [facility] Comment on above: Performed By: #### T 7, TSH, CMP, LIPID #### [facility] [address] [address] [address] Keven Reyez Bilirubin [Mass/Vol] 0.3 mg/dL Normal 0.2-1.3 [facility] Comment on above: Performed By: #### T 7, TSH, CMP, LIPID #### [facility] [address] [address] [address] Keven Reyez Calcium [Mass/Vol] 9.3 mg/dL Normal 8.4-10.2 [facility] Comment on above: Performed By: #### T 7, TSH, CMP, LIPID #### [facility] [address] [address] [address] Keven Reyez Chloride [Moles/Vol] 107 mmol/L Normal 98-107 [facility] Comment on above: Performed By: #### T 7, TSH, CMP, LIPID #### [facility] [address] [address] [address] Keven Reyez CO2 [Moles/Vol] 25.2 mmol/L Normal 22.0-30.0 [facility] Comment on above: Performed By: #### T 7, TSH, CMP, LIPID #### [facility] [address] [address] [address] Keven Reyez Creatinine [Mass/Vol] 1.13 mg/dL Critically high 0.52-1.04 [facility] Comment on above: Performed By: #### T 7, TSH, CMP, LIPID #### [facility] [address] [address] [address] Keven Reyez EGFR-AF [place] 59 mL/min/1.73m2 Critically low >=60 [facility] Comment on above: Performed By: #### T 7, TSH, CMP, LIPID #### [facility] [address] [address] [address] Keven Reyez EGFR-NON AF [place] 49 mL/min/1.73m2 Critically low >=60 [facility] Comment on above: Performed By: #### T 7, TSH, CMP, LIPID #### [facility] [address] [place] [address] Dr. Keven Reyez Globulin (S) [Mass/Vol] 3.1 g/dL Normal [facility] Comment on above: Performed By: #### T 7, TSH, CMP, LIPID #### [facility] [address] [place] [address] Dr. Keven Reyez Glucose [Mass/Vol] 102 mg/dL Normal 74-106 The [facility] Comment on above: Performed By: #### T 7, TSH, CMP, LIPID #### [facility] [address] [place] [address] Dr. Keven Reyez Potassium [Moles/Vol] 4.9 mmol/L Normal 3.4-5.0 [facility] Comment on above: Performed By: #### T 7, TSH, CMP, LIPID #### [facility] [address] [place] [address] Dr. Keven Reyez Protein [Mass/Vol] 7.0 g/dL Normal 6.1-8.2 [facility] Comment on above: Performed By: #### T 7, TSH, CMP, LIPID #### [facility] [address] [place] [address] Dr. Keven Reyez Sodium [Moles/Vol] 142 mmol/L Normal 137-145 [facility] Comment on above: Performed By: #### T 7, TSH, CMP, LIPID #### [facility] [address] [place] [address] Dr. Keven Reyez Urea nitrogen [Mass/Vol] 24.0 mg/dL Critically high 7.0-17.0 [facility] Comment on above: Performed By: #### T 7, TSH, CMP, LIPID #### [facility] [address] [place], [place] [address] Dr. Keven Reyez Urea nitrogen/Creatinine [Mass ratio] 21.2 mg/mg Normal [facility] Comment on above: Performed By: #### T 7, TSH, CMP, LIPID #### [facility] [address] [place], [place] [address] Dr. Keven Reyez TSHon 05-22-2021 TSH 0.985 uIU/mL Normal 0.470-4.680 [facility] Comment on above: Performed By: #### T 7, TSH, CMP, LIPID #### [facility] [address] [address] [address] Keven Reyez TSH RANGE SEE BELOW Normal [facility] Comment on above: Result Comment: <0.3 4 UIU/ml HYPERTHYROID 0.34-5.60 UIU/ml EUTHYROID >5.60 UIU/ml HYPOTHYROID Performed By: #### T 7, TSH, CMP, LIPID #### [facility] [address] [address] [address] Keven Reyez SCREENING MAMMOGRAM W/MANJULA, BILATERAL*on [...] VERY IMPORTANT TO YOUR HEALTH. THE CURRENT [employer] GUIDELINES RECOMMENDS ANNUAL MAMMOGRAPHY BEGINNING AT AGE 38 THIS FACILITY USES A REMINDER SYSTEM TO ENSURE ALL PATIENTS RECEIVE REMINDER NOTIFICATIONS AT THE APPROPRIATE TIME BASED ON THE RECOMMENDATIONS OF THIS EXAM. 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 Accredited by the ACR and FDA. Report reported and signed by Hernán Whitley on 04/21/2021 1249 Normal [facility] [employer] Encounters Encounter Date Encounter Type Care Provider Facility Start: 09-02-2023 End: 09-02-2023 ambulatory ELLY DUMONT Not Available Start: 04-28-2022 Encounter for genera l adult medical examination without abnormal findings DR JOCY JEAN [facility] Start: 04-23-2022 End: 04-24-[address] JOCY JEAN Facility:[facility] Start: 04-23-2022 End: 04-24-2022 Encounter for general adult medical examination without abnormal findings DR JOCY JEAN Facility:[facility] Start: 08-18-2021 End: 08-18-[address] JOCY JEAN Facility:[facility] Start: 05-28-2021 End: 05-29-[address] JOCY JEAN Facility:[facility] Start: 05-22-2021 End: 05-23-[address] JOCY JEAN Facility:[facility] Payers Date Payer Category Payer Unknown [id number] 2023 Medicare [id number] 1960 Unknown [id number] 2.16.84 [id number] 1960 Unknown [id number] 2.16.84 [id number] 1958 Unknown [id number] 2.16.84 [id number] 1958 Unknown [id number] 2.16.84 [id number] 1958 Unknown [id number] 2.16.84 [id number] 1958 Unknown [id number] 2.16.84 [id number] Unknown [id number] Unknown [id number] Summary Purpose Family History No Family History Records FoundNo Family History Records FoundNo Family History Records Found Advance Directives No Advanced Directives Records FoundNo Advanced Directives Records FoundNo Advanced Directives Records Found Additional Source Comments INFORMATION SOURCE (unrecogn ized section and content) DATE CREATED AUTHOR 04/21/2021 [facility] dical Specialist DATE CREATED AUTHOR AUTHOR'S ORGANIZ ATION 04/29/2022 [facility] pital DATE CREATED AUTHOR AUTHOR'S ORGANIZ ATION 09/06/2023 [facility] dical Specialists EPIC FOR RECORDS [...] BE BASED ON THE PRIMARY CLINICAL RECORDS. [facility]. provides no warranty or guarantee of the accuracy or completeness of information in this document.
== END 2024-01-27 13:06 | disposition home or self-care (01) ==
LOC: RAD 13:06
PROVIDERS: PCP Family Medicine; Visit Provider Family Medicine
DX: M23.92 Unspecified internal derangement of left knee (principal); R05.3 Chronic cough; J21.9 Acute bronchiolitis, unspecified; K44.9 Diaphragmatic hernia without obstruction or gangrene; S83.242A Other tear of medial meniscus, current injury, left knee, initial encounter; M25.462 Effusion, left knee; Z96.7 Presence of other bone and tendon implants
CPT/HCPCS: 71250; 73030; 73721

== ENCOUNTER 2024-05-27 16:18 | Emergency (ER) | payer MEDICARE, OTHER, SELFPAY ==
[2024-05-27 16:21] VITALS: BP 138/83; PULSE 68; TEMP 36.7; O2SAT 99; BMI 28.9
--- OUTSIDE RECORDS SUMMARY | 2024-05-27 16:25 | XMS_ITS | CCD ---
Author Organization [facility] Care Team Providers Care Post Anesthesia Nurse Name Role Phone TED, DR SANDRA Admitting Unavailable TED, DR SANDRA Attending Unavailable TED, DR SANDRA Consulting Unavailable TED, DR SANDRA Primary Care Unavailable TED, DR SANDRA Admitting Unavailable TED, DR SANDRA Attending Unavailable TREMAYNEY, DR SANDRA Consulting Unavailable TREMAYNEY, DR SANDRA Primary Care Unavailable HOY, DR SANDRA Admitting Unavailable TED, DR SANDRA Attending Unavailable TED, DR SANDRA Consulting Unavailable TED, DR SANDRA Primary Care Unavailable TED, DR SANDRA Admitting Unavailable TED, DR SANDRA Attending Unavailable TREMAYNEY, DR SANDRA Consulting Unavailable TED, DR SANDRA Primary Care Unavailable ZIEBER, DR SILVANA King Consulting Unavailable RINKES, ELLY E Attending Unavailable HIPOLITOKES, ELLY E Referring Unavailable HIPOLITOKES, ELLY E Referring Unavailable Rogelio Wilson MD Unavailable Unavailable Rogelio Wilson MD Unavailable Unavailable Rui Padilla MD Unavailable Unavailable Rogelio Wilson Referring Unavailable Hoy, Jocy M Primary Care Unavailable Rui Padilla Attending Unavailable Rui Padilla MD Unavailable Unavailable Rui Padilla MD Unavailable Unavailable Jocy Elder MD Primary Care Provider Rogelio Wilson Attending Unavailable Rogelio Wilson Referring Unavailable Hoy, Jocy M Primary Care Unavailable Doroteo Dove Attending Unavailable Rogelio Wilson Referring Unavailable Hoy, Ojcy M Primary Care Unavailable HOY, JOCY Primary Care Unavailable ROGELIO WILSON Admitting Unavailable ROGELIO WILSON Attending Unavailable Rogelio Wilson MD Unavailable Unavailable Rogelio Wilson MD Unavailable Unavailable Rogelio Wilson MD Unavailable Unavailable Rogelio Wilson MD Unavailable Unavailable Rogelio Wilson MD Unavailable Unavailable Rogelio Wilson MD Unavailable Unavailable Rogelio Wilson Attending Unavailable Hurst, Rogelio M Referring Unavailable Hoy, Jocy M Primary Care Unavailable Hurst, Rogelio M Attending Unavailable Hurst, Rogelio M Referring Unavailable Hoy, Jocy M Primary Care Unavailable Hurst, Rogelio M Attending Unavailable Hurst, Rogelio M Referring Unavailable Hoy, Jocy M Primary Care Unavailable Hurst, Rogelio M Attending Unavailable Hurst, Rogelio M Referring Unavailable Hoy, Jocy M Primary Care Unavailable Hurst, Rogelio M Attending Unavailable Hurst, Rogelio M Referring Unavailable Hoy, Jocy M Primary Care Unavailable Hurst, Rogelio M Attending Unavailable Hoy, Jocy M Referring Unavailable Hoy, Jocy M Primary Care Unavailable Hurst, Rogelio M Attending Unavailable Hurst, Rogelio M Referring Unavailable Hoy, Jocy M Primary Care Unavailable Andry Owusu Attending Unavailable Hurst, Rogelio M Referring Unavailable Hoy, Jocy M Primary Care Unavailable Allergies Allergy Classification Reported Allergen(s) Allergy Type Date of Onset Reaction(s) Facility (1 source) Sulfamethoxazole / Trimethoprim Drug Allergy 08-22-19 17 [facility] (12 sources) Iodine; Translations: [iodine] Drug Allergy 02-22-20 24 Other [facility] (13 sources) Sulfonamides (Antibiotic); Translations: [Sulfa (Sulfonamide Antibiotics)] propensity to adverse reactions to drug 02-22-20 24 DifficultyBre athing, Hives, Rash [facility] (10 sources) Codeine; Translations: [codeine] Drug Allergy 03-27-20 24 Tight chest [facility] (2 sources) Acetaminophen / Codeine; Translations: [ACETAMINOPHEN-CODE INE] Drug Allergy 04-17-19 25 Other [facility] (1 source) Sulfonamides (Antibiotic) Drug Allergy 04-17-19 25 Swelling, Rash [facility] (2 sources) Iodinated Contrast Media; Translations: [IODINATED CONTRAST MEDIA] Drug Allergy 04-17-19 25 Swelling, Rash [facility] Medications Current Medications Medication Drug Class(es) Dates Sig (Normalized) Sig (Original) acetaminophen 500 mg oral tablet (2 sources) Start: 04-19-2024 End: 04-26-2024 take 2 tablets by mouth three times daily as needed acetaminophen (TYLENOL) 500 mg tablet Take 2 tablets (1,000 mg total) by mouth 3 (three) times a day for 7 days. Take every 8 hours for one week, then as needed. Do not exceed 3,000 mg daily limit. 50 tablet 04/19/2024 04/26/2024 Active Start: 04-19-2024 End: 04-19-2024 acetaminophen 325 mg / HYDROcodone bitartrate 5 mg oral tablet (1 source) Opioid Agonist Start: 01-18-2024 take 1 tablet by mouth every six hours as needed HYDROcodone-acetaminophen (NORCO) 5-325 mg per tablet Take 1 tablet by mouth every 6 (six) hours if needed (pain). 01/18/2024 Active aspirin 81 mg chewable tablet (12 sources) Platelet Aggregation Inhibitor, Nonsteroidal Anti-inflammator y Drug Start: 04-20-2024 End: 06-01-2024 aspirin 81 mg chewable tablet Chew 1 tablet (81 mg total) 2 (two) times a day for 6 weeks. 84 each 04/20/2024 06/01/2024 Active Start: 03-27-2024 take 1 tablet by jarrett th once daily in the morning Leandro Aspirin (UD) 81 mg ORAL TABLET takes one tablet everyday by mouth in the am - Active take 1 tablet by jarrett th once daily aspirin 81 mg EC tablet Take 1 tablet (81 mg total) by mouth 1 (one) time each day. Active carvedilol 25 mg oral tablet (11 sources) alpha-Adrenergic Vijay, beta-Adrenergic Ivjay Start: 03-27-2024 take 1 tablet by mouth twice daily carvedilol 25 mg tablet take 1 by oral route 2 times every day 1 - Active Start: 01-18-2024 take 2 tablets by mo uth twice daily carvediloL (COREG) 25 mg tablet Take 2 tablets (50 mg total) by mouth 2 (two) times a day. 01/18/2024 Active celecoxib 200 mg oral capsule (2 sources) Nonsteroidal Anti-inflammatory Drug Start: 04-20-2024 End: 04-19-2024 Start: 04-19-2024 End: 05-19-2024 take 1 capsule by mouth once daily celecoxib (CeleBREX) 200 mg capsule Take 1 capsule (200 mg total) by mouth 1 (one) time each day. 30 capsule 04/19/2024 05/19/2024 Active cephalexin 500 mg oral capsule (1 source) Cephalosporin Antibacterial Start: 04-19-2024 End: 04-20-2024 take 1 capsule by mouth three times daily cephalexin (KEFLEX) 500 mg capsule Take 1 capsule (500 mg total) by mouth 3 (three) times a day for 3 doses. 3 capsule 04/19/2024 04/20/2024 Active cloNIDine hydrochloride 0.1 mg oral tablet (11 sources) Central alpha-2 Adrenergic Agonist Start: 01-18-2024 take 1 tablet by mouth three times daily clonidine HCl 0.1 mg tablet take 1 tablet by oral route TID - Active hydroCHLOROthiazide 25 mg oral tablet (11 sources) Thiazide Diuretic Start: 01-18-2024 take 1 tablet by mouth once daily in the morning hydrochlorothiazide 25 mg tablet take 1 by oral route every morning 1 - Active irbesartan 150 mg oral tablet (11 sources) Angiotensin 2 Receptor Vijay Start: 01-18-2024 take 1 tablet by mouth once daily in the morning irbesartan 150 mg tablet take 1 tablet by oral route every morning 150 MG - Active lansoprazole 30 mg delayed release oral capsule (11 sources) Proton Pump Inhibitor Start: 01-18-2024 take 1 capsule by mouth once daily before mealtime lansoprazole 30 mg capsule,delayed release take 1 capsule by oral route every morning before a meal 30 MG - Active levothyroxine sodium 0.075 mg oral tablet (11 sources) l-Thyroxine Start: 01-18-2024 take 1 tablet by mouth once daily before breakfast levothyroxine (SYNTHROID, LEVOTHROID) 75 mcg tablet Take 1 tablet (75 mcg total) by mouth 1 (one) time each day before breakfast. 01/18/2024 Active take 1 tablet by mouth once valorie y in the morning meloxicam 15 mg oral tablet (11 sources) Nonsteroidal Anti-inflammatory Drug Start: 01-18-2024 take 1 tablet by mouth once daily in the morning meloxicam 15 mg tablet take 1 tablet by oral route every morning 15 MG - Active ondansetron 4 mg oral tablet (1 source) Serotonin-3 Receptor Antagonist Start: 04-19-2024 End: 04-26-2024 take 1 tablet by mouth every eight hours for nausea ondansetron (ZOFRAN) 4 mg tablet Indications: Unilateral primary osteoarthritis, left knee Take 1 tablet (4 mg total) by mouth every 8 (eight) hours if needed for nausea or vomiting for up to 7 days. 20 tablet 04/19/2024 04/26/2024 Active pantoprazole 40 mg delayed release oral tablet (11 sources) Proton Pump Inhibitor Start: 03-27-2024 take 1 tablet by mouth once daily in the morning pantoprazole 40 mg tablet,delayed release take 1 tablet by oral route every morning 40 MG - Active microencapsulated potassium chloride 20 meq extended release oral tablet (11 sources) Start: 03-07-2024 take 1 tablet by mouth twice daily Klor-Con M20 mEq tablet,extended release take 1 by oral route BID - Active semaglutide (UD) INJECTION (10 sources) Start: 03-27-2024 inject 0.2 mL by subcutaneous injection once semaglutide (UD) INJECTION TAKE 0.2 ML SQ EVERY Wednesday - Active semaglutide (WEGOVY) 0.25 mg/0.5 mL injection pen (1 source) Start: 03-22-2024 semaglutide (WEGOVY) 0.25 mg/0.5 mL injection pen Inject 0.5 mg under the skin every 7 (seven) days. Mondays03/22/2024 Active simvastatin 20 mg oral tablet (11 sources) HMG-CoA Reductase Inhibitor Start: 01-18-2024 take 1 tablet by mouth once daily in the evening simvastatin 20 mg tablet take 1 tablet by oral route every evening - Active SUMAtriptan 50 mg oral tablet (1 source) Serotonin-1b and Serotonin-1d Receptor Agonist Start: 01-18-2024 take 1 tablet by mouth once SUMAtriptan (IMITREX) 50 mg tablet Take 1 tablet (50 mg total) by mouth 1 (one) time if needed for migraine. 01/18/2024 Active tiZANidine 4 mg oral tablet (12 sources) Central alpha-2 Adrenergic Agonist Start: 04-03-2024 take 1 tablet by mouth once daily tiZANidine (ZANAFLEX) 4 mg tablet Take 1 tablet (4 mg total) by mouth 1 (one) time each day. 04/03/2024 Active Start: 03-27-2024 take 1 tablet by jarrett once daily in the morning, then take 2 tablets by mouth once daily in the evening tizanidine 4 mg capsule TAKE 1 TABLET BY ORAL ROUTE EVERY AM AND 2 TABLETS BY ORAL ROUTE EVERY PM - Active take 2 tablets by mo [facility] at bedtime tiZANidine (ZANAFLEX) 4 mg tablet Take 2 tablets (8 mg total) by mouth at bedtime. Active 24 hr venlafaxine 150 mg extended release oral capsule (12 sources) Serotonin and Norepinephrine Reuptake Inhibitor Start: 04-03-2024 take 1 capsule by mouth once daily venlafaxine XR (EFFEXOR-XR) 150 mg 24 hr capsule Take 1 capsule (150 mg total) by mouth 1 (one) time each day. 04/03/2024 Active Start: 04-03-2024 take 1 capsule by mo [facility] once daily venlafaxine XR (EFFEXOR-XR) 75 mg 24 hr capsule Take 1 capsule (75 mg total) by mouth 1 (one) time each day. 04/03/2024 Active Start: 03-27-2024 venlafaxine 75 mg tablet TAKE 225MG DAILY EVERY AM - Active Completed/Discontinued Medications Medication Drug Class(es) Dates Sig (Normalized) Sig (Original) calcium chloride 0.0014 meq/ml / potassium chloride 0.004 meq/ml / sodium chloride 0.103 meq/ml / sodium lactate 0.028 meq/ml injectable solution (3 sources) Start: 04-19-2024 End: 04-19-2024 Start: 04-19-2024 End: 04-19-2024 take 100 mL intravenously every hour 100 mL/hr, intravenous, Continuous, Starting on Wed04/19/24 at 1015, Recovery (only) Start: 04-19-2024 End: 04-19-2024 100 mL/hr, intravenous, Once , On Wed04/19/24 at 0730, For 1 dose, Preprocedure ceFAZolin (ANCEF) 2 gram/20 mL IV syringe 2 g (1 source) Start: 04-19-2024 End: 04-19-2024 diphenhydrAMINE (1 source) Histamine-1 Receptor Antagonist Start: 04-19-2024 End: 04-19-2024 take 25 mg intravenously every six hours as needed 0.5 ml HYDROmorphone hydrochloride 1 mg/ml prefilled syringe (1 source) Opioid Agonist Start: 04-19-2024 End: 04-19-2024 0.5 mg, intravenous, Every 5 min PRN, severe pain or when therapies for moderate pain were not effective, Starting on Wed04/19/24 at 0955, For 5 doses, Recovery (only) labetalol hydrochloride 5 mg/ml injectable solution (1 source) beta-Adrenergic Vijay Start: 04-19-2024 End: 04-19-2024 5 mg, intravenous, Every 5 min PRN, high blood pressure, q10min, Starting on Wed04/19/24 at 0955, For 4 doses, Recovery (only), As needed for: -SBP GREATER than 180 mmHg -DBP GREATER than 110 mmHg -HOLD for pulse LESS than 60 bpm mupirocin 0.02 mg/mg topical ointment (1 source) RNA Synthetase Inhibitor Antibacterial Start: 04-19-2024 End: 04-19-2024 take 1 dose nasal route once Each Nostril, Once, On Wed04/19/24 at 0830, For 1 dose, Preprocedure, Apply to nares. Start: 04-19-2024 End: 04-19-2024 take 1 dose nasal route once Each Nostril, Once, On 04/19/24 at 0830, For 1 dose, Preprocedure, Apply to nares. ondansetron ODT (ZOFRAN-ODT) disintegrating tablet 4 mg (2 sources) Start: 04-19-2024 End: 04-19-2024 ondansetron ODT (ZOFRAN-ODT) disintegrating tablet 4 mg Start: 04-19-2024 End: 04-19-2024 ondansetron ODT (ZOFRAN-ODT) disintegrating tablet 4 mg oxyCODONE hydrochloride 5 mg oral tablet (10 sources) Opioid Agonist Start: 04-25-2024 End: 05-01-2024 take 1 tablet by mouth every four to six hours as needed oxycodone 5 mg tablet take 1 tablet by oral route every 4 - 6 hours as needed 5 MG - No Longer Active 7 day [id number] Start: 04-19-2024 End: 04-26-2024 oxyCODONE (ROXICODONE) 5 mg immediate release tablet Take 1-2 tablets (5-10 mg total) by mouth every 4 (four) hours if needed for moderate pain or severe pain for up to 7 days. Max Daily Amount: 60 mg 40 tablet 04/19/2024 04/26/2024 Active Start: 04-19-2024 End: 04-19-2024 5 mg, oral, Every 4 hours MN N, Breakthrough pain, Starting on Wed04/19/24 at 1206, Recovery & On Unit, May consider scheduled oxyCODONE instead of PRN Comment on above: 7 day [id number] Oxygen Therapy, Adult (1 source) Start: End: inhalation, Continuous, Starting on Wed04/19/24 at 1015, Recovery (only), Device: Nasal Cannula, Titrate Oxygen to keep O2 Sat. at or above: 92% Promethazine (1 source) Phenothiazine Start: End: take 1 tablet by mouth every six hours as needed promethazine (PHENERGAN) tablet 25 mg Sodium Chloride (1 source) Start: End: sodium chloride 0.9 % flush 10 mL traMADol hydrochloride 50 mg oral tablet (8 sources) Opioid Agonist Start: End: take 1-2 tablets by mouth every six hours as needed tramadol 50 mg tablet take 1-2 tablet by oral route every 6 hours as needed - No Longer Active day [id number] Start: 04-19-2024 End: 04-26-2024 take 50-100 mg by mouth every six hours as needed traMADoL (ULTRAM) 50 mg tablet Take 1-2 tablets (50-100 mg total) by mouth every 6 (six) hours if needed for moderate pain for up to 7 days. Max Daily Amount: 400 mg 40 tablet 04/19/2024 04/26/2024 Active Comment on above: 7 day [id number] Problems Active Problems Problem Classification Problem Date Documented Da te Episodic/Chronic Disorders of lipid metabolism (20 sources) Hyperlipidemia, unspecified Chronic Esophageal disorders (20 sources) Gastro-esophageal reflux disease without esophagitis Chronic Essential hypertension (20 sources) Essential (primary) hypertension; Translations: [ESSENTIAL PRIMARY HYPERTENSION] Onset: 08-20-2021 Chronic Osteoarthritis (20 sources) Unilateral primary osteoarthritis, left knee; Translations: [Osteoarthritis of left knee joint] Onset: 02-22-2024 Chronic Other non-traumatic joint disorders (20 sources) Pain in left knee Episodic Other nutritional; endocrine; and metabolic disorders (20 sources) Other obesity Chronic Residual codes; unclassified (20 sources) Other specified health status Episodic Thyroid disorders (20 sources) Hypothyroidism, unspecified Chronic Past or Other Problems Problem Classification Problem Date Documented Da te Episodic/Chronic Other bone disease and musculoskeletal deformities (1 source) Other specified disorders of bone density and structure, unspecified site; Translations: [OT D/O BONE DEN STRUCT UNS SITE] Onset: 05-29-2021 Episodic Other screening for suspected conditions (not mental disorders or infectious disease) (4 sources) Encounter for screening for osteoporosis; Translations: [ENCOUNTER SCREEN FOR OSTEOPOROSIS] Onset: 05-28-2021 Episodic Other upper respiratory infections (4 sources) Acute sinusitis, unspecified; Translations: [ACUTE SINUSITIS UNSPECIFIED] Onset: 08-18-2021 Episodic Results Test Name Value Interpretation Reference Range Facility Glucose Auto test strip (Bld ) [Mass/Vol]on 04-19-2024 Glucose [Mass/Vol] 85 mg/dL 70 - 99 mg/dL [facility] Interpretation and review of laboratory results Normal [facility] Glucose [Mass/Vol] 85 mg/dL Normal 70-99 [facility] Comment on above: Performed By: #### 2 340-8 #### [facility] [address] [place] [address] Basic metabolic 2000 panelOr dered By: Rui Padilla on 03-27-2024 Anion gap [Moles/Vol] 9 mmol/L Normal 6-18 [facility] Comment on above: Performed By: #### 2 4321-2 #### [facility] [address] [address] Calcium [Mass/Vol] 8.8 mg/dL Low 8.9-10.3 [facility] Comment on above: Performed By: #### 2 4321-2 #### [facility] [address] [place] [address] Chloride [Moles/Vol] 107 mmol/L Normal 98-107 [facility] Comment on above: Performed By: #### 2 4321-2 #### [facility] [address] [place] [address] CO2 [Moles/Vol] 24 mmol/L Normal 22-32 [facility] Comment on above: Performed By: #### 2 4321-2 #### [facility] [address] [place] [address] Creatinine [Mass/Vol] 1.23 mg/dL Normal 0.60-1.30 [facility] Comment on above: Performed By: #### 2 4321-2 #### [facility] [address] [place] [address] GFR/1.73 sq M.predicted among non-blacks MDRD (S/P/Bld) [Vol rate/Area] 49 mL/min/{1.73_m2} Low >=60 [facility] Comment on above: Calculation based on the?Chronic Kidney Disease Epidemiology Collaboration (CKD-EPI) equation refit?without adjustment for race. Result Comment: Calc ulation based on the?Chronic Kidney Disease Epidemiology Collaboration (CKD-EPI) equation refit?without adjustment for race. Performed By: #### 2 4321-2 #### [facility] [address] [place] [address] Glucose [Mass/Vol] 85 mg/dL Normal 70-99 [facility] Comment on above: Performed By: #### 2 4321-2 #### [facility] [address] [place] [address] Potassium [Moles/Vol] 4.6 mmol/L Normal 3.6-5.1 [facility] Comment on above: Performed By: #### 2 4321-2 #### [facility] [address] [place] [address] Sodium [Moles/Vol] 140 mmol/L Normal 136-145 [facility] Comment on above: Performed By: #### 2 4321-2 #### [facility] [address] [place] [address] Urea nitrogen [Mass/Vol] 24 mg/dL High 8-20 [facility] Comment on above: Performed By: #### 2 4321-2 #### [facility] [address] [place] [address] Urea nitrogen/Creatinine [Mass ratio] 19.5 mg/mg Normal 12.0-20.0 [facility] Comment on above: Performed By: #### 2 4321-2 #### [facility] [address] [place] [address] CBC W Differential panel, me thod unspecified (Bld)Ordered By: Rui Padilla on 03-27-2024 Basophils (Bld) [#/Vol] 0.04 10*3/uL Normal 0.00-0.20 [facility] Comment on above: Performed By: #### 6 9742-5 #### [facility] [address] [place] [address] Basophils/100 WBC (Bld) 0.8 % Normal 0.0-2.0 [facility] Comment on above: Performed By: #### 6 9742-5 #### [facility] [address] [place] [address] Eosinophils (Bld) [#/Vol] 0.28 10*3/uL Normal 0.00-0.70 [facility] Comment on above: Performed By: #### 6 9742-5 #### [facility] [address] [place] [address] Eosinophils/100 WBC (Bld) 5.7 % Normal 0.0-7.0 [facility] Comment on above: Performed By: #### 6 9742-5 #### [facility] [address] [place] [address] Erythrocyte distribution width (RBC) [Ratio] 12.3 % Normal 11.0-14.8 [facility] Comment on above: Performed By: #### 6 9742-5 #### [facility] [address] [place] [address] Hematocrit (Bld) [Volume fraction] 31.8 % Low 34.3-47.9 [facility] Comment on above: Performed By: #### 6 9742-5 #### [facility] [address] [place] [address] Hemoglobin (Bld) [Mass/Vol] 10.6 g/dL Low 12.0-16.0 [facility] Comment on above: Performed By: #### 6 9742-5 #### [facility] [address] [place] [address] Immature granulocytes (Bld) [#/Vol] 0.01 10*3/uL Normal 0.00-0.10 [facility] Comment on above: Performed By: #### 6 9742-5 #### [facility] [address] [place] [address] 827[address] Immature granulocytes/100 WBC (Bld) 0.2 % Normal 0.0-1.2 [facility] Comment on above: Performed By: #### 6 9742-5 #### [facility] [address] [place] [address] Lymphocytes (Bld) [#/Vol] 1.46 10*3/uL Normal 1.00-4.80 [facility] Comment on above: Performed By: #### 6 9742-5 #### [facility] [address] [place] [address] Lymphocytes/100 WBC (Bld) 29.6 % Normal 17.9-49.6 [facility] Comment on above: Performed By: #### 6 9742-5 #### [facility] [address] [place] [address]23[address] MCHC (RBC) [Mass/Vol] 33.3 g/dL Normal 30.8-35.3 [facility] Comment on above: Performed By: #### 6 9742-5 #### [facility] [address] [place] [address] 16006 MCV (RBC) [Entitic vol] 86.9 fL Normal 80.0-97.0 [facility] Comment on above: Performed By: #### 6 9742-5 #### [facility] [address] [place] [address] 31127 Monocytes (Bld) [#/Vol] 0.45 10*3/uL Normal 0.00-0.90 [facility] Comment on above: Performed By: #### 6 9742-5 #### [facility] [address] [place] [address] 749[address] Monocytes/100 WBC (Bld) 9.1 % Normal 0.0-12.0 [facility] Comment on above: Performed By: #### 6 9742-5 #### [facility] [address] [place] [address] 061[address] Neutrophils/100 WBC (Bld) 54.6 % Normal 38.1-75.5 [facility] Comment on above: Performed By: #### 6 9742-5 #### [facility] [address] [place] [address]18 Platelet mean volume (Bld) [Entitic vol] 10.1 fL Normal 6.2-12.1 [facility] Comment on above: Performed By: #### 6 9742-5 #### [facility] [address] [place] [address]373 Platelets (Bld) [#/Vol] 220 10*3/uL Normal 142-424 [facility] Comment on above: Performed By: #### 6 9742-5 #### [facility] [address] [place] [address] 41615 RBC (Bld) [#/Vol] 3.66 10*6/uL Low 3.74-5.34 [facility] Comment on above: Performed By: #### 6 9742-5 #### [facility] [address] [place] [address] 52407 WBC (Bld) [#/Vol] 4.9 10*3/uL Normal 4.6-10.2 [facility] Comment on above: Performed By: #### 6 9742-5 #### [facility] [address] [place] [address] 66950 CBC W Diff pnl,unspecified Bld 29.0 pcg 27.0-34.0 [facility] CBC W Diff pnl,unspecified Bld 2.70 K/mcL 1.80-7.70 [facility] CBC W Differential panel, me thod unspecified (Bld)on 03-27-2024 MCH 29.0 pcg Normal 27.0-34.0 [facility] Comment on above: Performed By: #### 6 9742-5 #### [facility] [address] [place] [address] 42902 Neutrophils Absolute 2.70 K/mcL Normal 1.80-7.70 Roque narvaez [facility] Comment on above: Performed By: #### 6 9742-5 #### [facility] [address] [place] [address] BI MAMMOGRAM SCREENING TOMOS YRUDYIS BILATERALon 09-02-2023 BI MAMMOGRAM SCREENING TOMOSYNTHESIS BILATERAL [...] IS VERY IMPORTANT TO YOUR HEALTH. THE [place] [employer] GUID[employer]INES RECOMMEND THAT WOMEN 38 [...] INSULINon 04-24-2022 Insulin 17.1 uIU/mL Normal 2.6-24.9 [facility] Comment on above: Performed By: #### I EDWARD #### [facility] [address] [address] [address] Keven Reyez CBC AUTO DIFFon 04-23-2022 BASO # 0.0 103/ul Normal 0.0-0.1 [facility] Comment on above: Performed By: #### C BC #### [facility] [address] [address] [address] Keven Reyez Basophils/100 WBC (Bld) 0.5 % Normal 0.2-2.0 [facility] Comment on above: Performed By: #### C BC #### [facility] [address] [place] [address] Dr. Keven Reyez EO # 0.4 103/ul Normal 0.0-0.7 [facility] Comment on above: Performed By: #### C BC #### [facility] [address] [place] [address] Dr. Keven Reyez Eosinophils/100 WBC (Bld) 4.5 % Normal 0.9-7.0 [facility] Comment on above: Performed By: #### C BC #### [facility] [address] [place] [address] Dr. Keven Reyez Erythrocyte distribution width (RBC) [Ratio] 13.6 % Normal 11.0-15.0 [facility] Comment on above: Performed By: #### C BC #### [facility] [address] [place] [address] Dr. Keven Reyez Hematocrit (Bld) [Volume fraction] 34.7 % Critically low 36.0-48.0 [facility] Comment on above: Performed By: #### C BC #### [facility] [address] [place] [address] Dr. Keven Reyez Hemoglobin (Bld) [Mass/Vol] 11.3 g/dL Critically low 12.0-16.0 [facility] Comment on above: Performed By: #### C BC #### [facility] [address] [place] [address] Dr. Keven Reyez IG # 0.03 10e3/ul Normal 0.00-0.03 [facility] Comment on above: Performed By: #### C BC #### [facility] [address] [place] [address] Dr. Keven Reyez IG % 0.4 % Normal 0.0-0.5 [facility] Comment on above: Performed By: #### C BC #### [facility] [address] [place] [address] Dr. Keven Reyez LYMPH # 1.5 103/ul Normal 1.2-3.8 [facility] Comment on above: Performed By: #### C BC #### [facility] [address] [place] [address] Dr. Keven Reyez Lymphocytes/100 WBC (Bld) 19.5 % Critically low 20.5-60.0 [facility] Comment on above: Performed By: #### C BC #### [facility] [address] [place] [address] Dr. Keven Reyez MANUAL DIFF REQ NO Normal [facility] Comment on above: Performed By: #### C BC #### [facility] [address] [address] [address] Keven Reyez MCH (RBC) [Entitic mass] 27.2 pg Normal 26.7-34.0 [facility] Comment on above: Performed By: #### C BC #### [facility] [address] [place] [address] Dr. Keven Reyez MCHC (RBC) [Mass/Vol] 32.6 g/dL Normal 29.9-35.2 [facility] Comment on above: Performed By: #### C BC #### [facility] [address] [place] [address] Dr. Keven Reyez MCV (RBC) [Entitic vol] 83.6 fL Normal 81.0-99.0 [facility] Comment on above: Performed By: #### C BC #### [facility] [address] [place] [address] Dr. Keven Reyez MONO # 0.6 103/ul Normal 0.3-0.8 [facility] Comment on above: Performed By: #### C BC #### [facility] [address] [place] [address] Dr. Keven Reyez Monocytes/100 WBC (Bld) 8.2 % Normal 1.7-12.0 [facility] Comment on above: Performed By: #### C BC #### [facility] [address] [place] [address] Dr. Keven Reyez NEUT # 5.2 103/ul Normal 1.4-6.5 [facility] Comment on above: Performed By: #### C BC #### [facility] [address] [place] [address] Dr. Keven Reyez Neutrophils/100 WBC (Bld) 66.9 % Normal 43.0-75.0 [facility] Comment on above: Performed By: #### C BC #### [facility] [address] [place] [address] Dr. Keven Reyez Platelet mean volume (Bld) [Entitic vol] 9.1 fL Critically low 9.5-13.5 [facility] Comment on above: Performed By: #### C BC #### [facility] [address] [place] [address] Dr. Keven Reyez PLT 242 103/ul Normal 150-450 [facility] Comment on above: Performed By: #### C BC #### [facility] [address] [place] [address] Dr. Keven Reyez RBC 4.15 106/ul Critically low 4.20-5.40 [facility] Comment on above: Performed By: #### C BC #### [facility] [address] [place] [address] Dr. Keven Reyez WBC 7.8 103/ul Normal 4.0-11.0 [facility] Comment on above: Performed By: #### C BC #### [facility] [address] [place] [address] Dr. Keven Reyez FREE THYROXINE INDEX T7on FTI 2.81 Normal 1.30-4.50 [facility] Comment on above: Performed By: #### I EDWARD #### [facility] [address] [place] [address] Dr. Keven Reyez T3U 36.0 % Normal 30.0-39.0 [facility] Comment on above: Performed By: #### I EDWARD #### [facility] [address] [place] [address] Dr. Keven Reyez T4 [Mass/Vol] 7.80 ug/dL Normal 4.80-13.90 [facility] Comment on above: Performed By: #### I EDWARD #### [facility] [address] [place] [address] Dr. Keven Reyez GLYCOHEMOGLOBIN A1Con 2022 ADA RECOMMENDATION SEE BELOW Normal [facility] Comment on above: Result Comment: ADA RECOMMENDED LIMIT 4.0 - 6.0 ADA THERAPEUTIC TARGET < 7.0 ACTION SUGGESTED > 7.0 Performed By: #### A 1C #### [facility] [address] [address] [address] Keven Reyez Glucose [Mass/Vol] 111 mg/dL Normal [facility] Comment on above: Performed By: #### A 1C #### [facility] [address] [address] [address] Keven Reyez HbA1c (Bld) [Mass fraction] 5.5 % Normal 4.5-6.2 [facility] Comment on above: Performed By: #### A 1C #### [facility] [address] [place] [address] Dr. Keven Reyez IRONon 04-23-2022 Iron [Mass/Vol] 36.0 ug/dL Critically low 50.0-170.0 [facility] Comment on above: Performed By: #### I EDWARD #### [facility] [address] [place] [address] Dr. Keven Reyez LIPID PROFILEon 04-23-2022 CHOL-HDL RATIO NORM SEE BELOW Normal [facility] Comment on above: Result Comment: 3.3 - 4.4 LOW RISK 4.4 - 7.1 AVERAGE RISK 7.1 - 11.0 MODERATE RISK >11.0 HIGH RISK Performed By: #### I EDWARD #### [facility] [address] [address] [address] Keven Reyez Cholesterol [Mass/Vol] 132 mg/dL Normal <=200 [facility] Comment on above: Performed By: #### I EDWARD #### [facility] [address] [place] [address] Dr. Keven Reyez Cholesterol in HDL [Mass/Vol] 61 mg/dL Critically high 40-60 [facility] Comment on above: Performed By: #### I EDWARD #### [facility] [address] [address] [address] Keven Reyez Cholesterol in LDL [Mass/Vol] 51.8 mg/dL Normal [facility] Comment on above: Performed By: #### I EDWARD #### [facility] [address] [address] [address] Keven Reyez Cholesterol.total/Ch olesterol in HDL [Mass ratio] 2.2 {ratio} Normal [facility] Comment on above: Performed By: #### I EDWARD #### [facility] [address] [address] [address] Keven Reyez HDL NORMAL > or = 60 mg/dl - LOW CARDIOVASCULAR RISK <40 mg/dl - HIGH CARDIOVASCULAR RISK Normal [facility] Comment on above: Performed By: #### I EDWARD #### [facility] [address] [place] [address] Dr. Keven Reyez LDL CALC NORMAL SEE BELOW Normal [facility] Comment on above: Result Comment: <100 mg/dl OPTIMAL 100 - 129 mg/dl NEAR OR ABOVE OPTIMAL 130 - 159 mg/dl BORDERLINE HIGH 160 - 189 mg/dl HIGH >190 mg/dl VERY HIGH Performed By: #### I EDWARD #### [facility] [address] [place] [address] Dr. Keven Reyez Triglyceride [Mass/Vol] 96 mg/dL Normal <=150 [facility] Comment on above: Performed By: #### I EDWARD #### [facility] [address] [place] [address] Dr. Keven Reyez VLDL CALC 19.2 mg/dL Normal [facility] Comment on above: Performed By: #### I EDWARD #### [facility] [address] [address] [address] Keven Reyez PROF 14(COMP METB)on 023 Albumin [Mass/Vol] 3.6 g/dL Normal 3.4-5.0 [facility] Comment on above: Performed By: #### I EDWARD #### [facility] [address] [place] [address] Dr. Keven Reyez Albumin/Globulin [Mass ratio] 1.1 {ratio} Normal [facility] Comment on above: Performed By: #### I EDWARD #### [facility] [address] [place] [address] Dr. Keven Reyez ALP [Catalytic activity/Vol] 71 U/L Normal 46-116 [facility] Comment on above: Performed By: #### I EDWARD #### [facility] [address] [place] [address] Dr. Keven Reyez ALT [Catalytic activity/Vol] 36 U/L Normal 14-59 [facility] Comment on above: Performed By: #### I EDWARD #### [facility] [address] [place] [address] Dr. Keven Reyez Anion gap [Moles/Vol] 13.7 mmol/L Normal [facility] Comment on above: Performed By: #### I EDWARD #### [facility] [address] [place] [address] Dr. Keven Reyez AST [Catalytic activity/Vol] 23 U/L Normal 15-37 [facility] Comment on above: Performed By: #### I EDWARD #### [facility] [address] [place] [address] Dr. Keven Reyez Bilirubin [Mass/Vol] 0.3 mg/dL Normal 0.2-1.0 [facility] Comment on above: Performed By: #### I EDWARD #### [facility] [address] [place] [address] Dr. Keven Reyez Calcium [Mass/Vol] 9.2 mg/dL Normal 8.5-10.1 [facility] Comment on above: Performed By: #### I EDWARD #### [facility] [address] [place] [address] Dr. Keven Reyez Chloride [Moles/Vol] 106 mmol/L Normal 98-107 [facility] Comment on above: Performed By: #### I EDWARD #### [facility] [address] [place] [address] Dr. Keven Reyez CO2 [Moles/Vol] 26.2 mmol/L Normal 21.0-32.0 [facility] Comment on above: Performed By: #### I EDWARD #### [facility] [address] [place] [address] Dr. Keven Reyez Creatinine [Mass/Vol] 0.93 mg/dL Normal 0.55-1.02 [facility] Comment on above: Performed By: #### I EDWARD #### [facility] [address] [address] [address] Keven Reyez EGFR-AF CHINESE >60 Normal >=60 [facility] Comment on above: Performed By: #### I EDWARD #### [facility] [address] [address] [address] Keven Reyez EGFR-NON AF CHINESE >60 Normal >=60 [facility] Comment on above: Performed By: #### I EDWARD #### [facility] [address] [address] [address] Keven Reyez Globulin (S) [Mass/Vol] 3.2 g/dL Normal [facility] Comment on above: Performed By: #### I EDWARD #### [facility] [address] [place] [address] Dr. Keven Reyez Glucose [Mass/Vol] 100 mg/dL Normal 74-106 [facility] Comment on above: Performed By: #### I EDWARD #### [facility] [address] [address] [address] Keven Reyez Potassium [Moles/Vol] 4.9 mmol/L Normal 3.5-5.1 [facility] Comment on above: Performed By: #### I EDWARD #### [facility] [address] [place] [address] Dr. Keven Reyez Protein [Mass/Vol] 6.8 g/dL Normal 6.4-8.2 [facility] Comment on above: Performed By: #### I EDWARD #### [facility] [address] [address] [address] Keven Reyez Sodium [Moles/Vol] 141 mmol/L Normal 136-145 [facility] Comment on above: Performed By: #### I EDWARD #### [facility] [address] [address] [address] Keven Reyez Urea nitrogen [Mass/Vol] 18.0 mg/dL Normal 7.0-18.0 [facility] Comment on above: Performed By: #### I EDWARD #### [facility] [address] [place] [address] Dr. Keven Reyez Urea nitrogen/Creatinine [Mass ratio] 19.4 mg/mg Normal [facility] Comment on above: Performed By: #### I EDWARD #### [facility] [address] [place] [address] Dr. Keven Reyez TSHon 04-23-2022 TSH 0.830 uIU/mL Normal 0.358-3.740 [facility] Comment on above: Performed By: #### I EDWARD #### [facility] [address] [place] [address] Dr. Keven Reyez VITAMIN D 25 OHon 04-23-2022 VIT D 25-OH 38.5 ng/mL Normal [facility] Comment on above: Performed By: #### I EDWARD #### [facility] [address] [place] [address] Dr. Keven Reyez VIT D RANGES SEE BELOW Normal [facility] Comment on above: Result Comment: <20 ng/mL Vit D deficient 20 - <30 ng/mL Vit D insufficient 30 - 100 ng/mL Vit D sufficient >100 ng/mL Potential Toxicity Performed By: #### I EDWARD #### [facility] [address] [place] [address] Dr. Keven Reyez Covid-19 PCR (CVDTB)on 08-03 SARS-CoV-2 (COVID-19) RNA TAYLOR+probe Ql (Unsp spec) Not detected Normal NOT DETECTED [facility] Comment on above: Result Comment: This test is not yet approved or cleared by the [place] FDA. When there are no FDA-approved or cleared tests available, and other criteria are met, FDA can make tests available under an emergency access mechanism called an Emergency Use Authorization (EUA). The EUA for this test is supported by the [place] of Health and Human Service's (HHS's) declaration [...] SARS-CoV-2. Performed By: #### I EDWARD #### [facility] [address] [place] [address] Dr. Keven Reyez INFLUENZA A AND B [facility] 08-18 [facility] SEE BELOW Normal [facility] Comment on above: Result Comment: Nega tive for Flu A protein angiten. Infection due to Flu A cannot be ruled out. Flu A angiten in the sample may be below the detection limit of the test. Performed By: #### I NFLUAB #### [facility] [address] [place] [address] Dr. Keven [facility] Normal [facility] Comment on above: Result Comment: Nega tive for Flu B protein antigen. Infection due to Flu B cannot be ruled out. Flu B antigen in the sample may be below the detection limit of the test. Performed By: #### I NFLUAB #### [facility] [address] [place] [address] Dr. Keven Reyez INFLUENZA A AG Negative Normal NEGATIVE SEE COMMENT [facility] Comment on above: Performed By: #### I NFLUAB #### [facility] [address] [place] [address] Dr. Keven Reyez INFLUENZA B AG Negative Normal NEGATIVE SEE COMMENT [facility] Comment on above: Performed By: #### I NFLUAB #### [facility] [address] [place] [address] Dr. Keven Reyez INTERNAL CONTROLS Within Normal Limits Normal Within Normal Limits [facility] Comment on above: Performed By: #### I NFLUAB #### [facility] [address] [place] [address] Dr. Keven Reyez XR DEXA BONE DENSITYon 05-28 XR DEXA BONE DENSITY EXAMINATION: XR DEXA BONE DENSITY, 05/28/2021 9:58 AM EST HISTORY: [...] SILVANA VEGA Date: 2021-05-28 10:25 Normal [facility] INSULINon 05-23-2021 Insulin 7.2 uIU/mL Normal 2.6-24.9 [facility] Comment on above: Performed By: #### I NSULIN #### [facility] [address] [place] [address] Dr. Keven Reyez CBC AUTO DIFFon 05-22-2021 BASO # 0.1 103/ul Normal 0.0-0.1 [facility] Comment on above: Performed By: #### I EDWARD #### [facility] [address] [place] [address] Dr. Keven Reyez Basophils/100 WBC (Bld) 0.9 % Normal 0.2-2.0 [facility] Comment on above: Performed By: #### I EDWARD #### [facility] [address] [place] [address] Dr. Keven Reyez EO # 0.3 103/ul Normal 0.0-0.7 [facility] Comment on above: Performed By: #### I EDWARD #### [facility] [address] [place] [address] Dr. Keven Reyez Eosinophils/100 WBC (Bld) 3.6 % Normal 0.9-7.0 [facility] Comment on above: Performed By: #### I EDWARD #### [facility] [address] [place] [address] Dr. Keven Reyez Erythrocyte distribution width (RBC) [Ratio] 12.7 % Normal 11.0-15.0 [facility] Comment on above: Performed By: #### I EDWARD #### [facility] [address] [address] [address] Keven Reyez Hematocrit (Bld) [Volume fraction] 37.0 % Normal 36.0-48.0 [facility] Comment on above: Performed By: #### I EDWARD #### [facility] [address] [address] [address] Keven Reyez Hemoglobin (Bld) [Mass/Vol] 11.7 g/dL Critically low 12.0-16.0 [facility] Comment on above: Performed By: #### I EDWARD #### [facility] [address] [place] [address] Dr. Keven Reyez IG # 0.06 10e3/ul Critically high 0.00-0.03 [facility] Comment on above: Performed By: #### I EDWARD #### [facility] [address] [place] [address] Dr. Keven Reyez IG % 0.9 % Critically high 0.0-0.5 [facility] Comment on above: Performed By: #### I EDWARD #### [facility] [address] [place] [address] Dr. Keven Reyez LYMPH # 1.9 103/ul Normal 1.2-3.8 [facility] Comment on above: Performed By: #### I EDWARD #### [facility] [address] [place] [address] Dr. Keven Reyez Lymphocytes/100 WBC (Bld) 27.1 % Normal 20.5-60.0 [facility] Comment on above: Performed By: #### I EDWARD #### [facility] [address] [place] [address] Dr. Keven Reyez MANUAL DIFF REQ NO Normal [facility] Comment on above: Performed By: #### I EDWARD #### [facility] [address] [place] [address] Dr. Keven Reyez MCH (RBC) [Entitic mass] 27.6 pg Normal 26.7-34.0 [facility] Comment on above: Performed By: #### I EDWARD #### [facility] [address] [place] [address] Dr. Keven Reyez MCHC (RBC) [Mass/Vol] 31.6 g/dL Normal 29.9-35.2 [facility] Comment on above: Performed By: #### I EDWRAD #### [facility] [address] [place] [address] Dr. Keven Reyez MCV (RBC) [Entitic vol] 87.3 fL Normal 81.0-99.0 [facility] Comment on above: Performed By: #### I EDWARD #### [facility] [address] [place] [address] Dr. Keven Reyez MONO # 0.6 103/ul Normal 0.3-0.8 [facility] Comment on above: Performed By: #### I EDWARD #### [facility] [address] [place] [address] Dr. Keven Reyez Monocytes/100 WBC (Bld) 8.6 % Normal 1.7-12.0 [facility] Comment on above: Performed By: #### I EDWARD #### [facility] [address] [place] [address] Dr. Keven Reyez NEUT # 4.1 103/ul Normal 1.4-6.5 [facility] Comment on above: Performed By: #### I EDWARD #### [facility] [address] [place] [address] Dr. Keven Reyez Neutrophils/100 WBC (Bld) 58.9 % Normal 43.0-75.0 [facility] Comment on above: Performed By: #### I EDWARD #### [facility] [address] [place] [address] Dr. Keven Reyez Platelet mean volume (Bld) [Entitic vol] 9.8 fL Normal 9.5-13.5 [facility] Comment on above: Performed By: #### I EDWARD #### [facility] [address] [place] [address] Dr. Keven Reyez PLT 265 103/ul Normal 150-450 [facility] Comment on above: Performed By: #### I EDWARD #### [facility] [address] [place] [address] Dr. Keven Reyez RBC 4.24 106/ul Normal 4.20-5.40 [facility] Comment on above: Performed By: #### I EDWARD #### [facility] [address] [address] [address] Keven Reyez WBC 6.9 103/ul Normal 4.0-11.0 [facility] Comment on above: Performed By: #### I EDWARD #### [facility] [address] [address] [address] Keven Reyez FREE THYROXINE INDEX T7on FTI 2.81 Normal [facility] Comment on above: Performed By: #### T 7, TSH, CMP, LIPID #### [facility] [address] [address] [address] Keven Reyez T3U 36.0 % Normal 23.5-40.5 [facility] Comment on above: Performed By: #### T 7, TSH, CMP, LIPID #### [facility] [address] [address] [address] Keven Reyez T4 [Mass/Vol] 7.80 ug/dL Normal 5.53-11.00 [facility] Comment on above: Performed By: #### T 7, TSH, CMP, LIPID #### [facility] [address] [address] [address] Keven Reyez GLYCOHEMOGLOBIN A1Con 2021 ADA RECOMMENDATION ADA THERAPEUTIC TARGET 6.0 - 7.0 ACTION SUGGESTED > 7.0 Normal [facility] Comment on above: Performed By: #### I EDWARD #### [facility] [address] [address] [address] Keven Reyez Glucose [Mass/Vol] 117 mg/dL Normal [facility] Comment on above: Performed By: #### I EDWARD #### [facility] [address] [place] [address] Dr. Keven Reyez HbA1c (Bld) [Mass fraction] 5.7 % Normal <=6.0 [facility] Comment on above: Performed By: #### I EDWARD #### [facility] [address] [address] [address] Keven Reyez IRONon 05-22-2021 Iron [Mass/Vol] 48.0 ug/dL Normal 37.0-170.0 [facility] Comment on above: Performed By: #### I EDWARD #### [facility] [address] [address] [address] Keven Reyez LIPID PROFILEon 05-22-2021 CHOL-HDL RATIO NORM SEE BELOW Normal [facility] Comment on above: Result Comment: 3.3 - 4.4 LOW RISK 4.4 - 7.1 AVERAGE RISK 7.1 - 11.0 MODERATE RISK >11.0 HIGH RISK Performed By: #### T 7, TSH, CMP, LIPID #### [facility] [address] [address] [address] Keven Reyez Cholesterol [Mass/Vol] 153 mg/dL Normal <=200 [facility] Comment on above: Performed By: #### T 7, TSH, CMP, LIPID #### [facility] [address] [address] [address] Keven Reyez Cholesterol in HDL [Mass/Vol] 72 mg/dL Normal [facility] Comment on above: Performed By: #### T 7, TSH, CMP, LIPID #### [facility] [address] [address] [address] Keven Reyez Cholesterol in LDL [Mass/Vol] 63.0 mg/dL Normal [facility] Comment on above: Performed By: #### T 7, TSH, CMP, LIPID #### [facility] [address] [address] [address] Keven Reyez Cholesterol.total/Ch olesterol in HDL [Mass ratio] 2.1 {ratio} Normal [facility] Comment on above: Performed By: #### T 7, TSH, CMP, LIPID #### [facility] [address] [place] [address] Dr. Keven Reyez HDL NORMAL > or = 60 mg/dl - LOW CARDIOVASCULAR RISK <40 mg/dl - HIGH CARDIOVASCULAR RISK Normal [facility] Comment on above: Performed By: #### T 7, TSH, CMP, LIPID #### [facility] [address] [address] [address] Keven Reyez LDL CALC NORMAL SEE BELOW Normal [facility] Comment on above: Result Comment: <100 mg/dl OPTIMAL 100 - 129 mg/dl NEAR OR ABOVE OPTIMAL 130 - 159 mg/dl BORDERLINE HIGH 160 - 189 mg/dl HIGH >190 mg/dl VERY HIGH Performed By: #### T 7, TSH, CMP, LIPID #### [facility] [address] [address] [address] Keven Reyez Triglyceride [Mass/Vol] 90 mg/dL Normal <=150 [facility] Comment on above: Performed By: #### T 7, TSH, CMP, LIPID #### [facility] [address] [place] [address] Dr. Keven Reyez VLDL CALC 18.0 mg/dL Normal [facility] Comment on above: Performed By: #### T 7, TSH, CMP, LIPID #### [facility] [address] [place] [address] Dr. Keven Reyez PROF 14(COMP METB)on 022 Albumin [Mass/Vol] 3.9 g/dL Normal 3.5-5.0 [facility] Comment on above: Performed By: #### T 7, TSH, CMP, LIPID #### [facility] [address] [place] [address] Dr. Keven Reyez Albumin/Globulin [Mass ratio] 1.3 {ratio} Normal [facility] Comment on above: Performed By: #### T 7, TSH, CMP, LIPID #### [facility] [address] [place] [address] Dr. Keven Reyez ALP [Catalytic activity/Vol] 85 U/L Normal 38-126 [facility] Comment on above: Performed By: #### T 7, TSH, CMP, LIPID #### [facility] [address] [place] [address] Dr. Keven Reyez ALT [Catalytic activity/Vol] 25 U/L Normal 9-52 [facility] Comment on above: Performed By: #### T 7, TSH, CMP, LIPID #### [facility] [address] [address] [address] Keven Reyez Anion gap [Moles/Vol] 14.7 mmol/L Normal [facility] Comment on above: Performed By: #### T 7, TSH, CMP, LIPID #### [facility] [address] [address] [address] Keven Reyez AST [Catalytic activity/Vol] 14 U/L Normal 14-36 [facility] Comment on above: Performed By: #### T 7, TSH, CMP, LIPID #### [facility] [address] [address] [address] Keven Reyez Bilirubin [Mass/Vol] 0.3 mg/dL Normal 0.2-1.3 [facility] Comment on above: Performed By: #### T 7, TSH, CMP, LIPID #### [facility] [address] [address] [address] Keven Reyez Calcium [Mass/Vol] 9.3 mg/dL Normal 8.4-10.2 [facility] Comment on above: Performed By: #### T 7, TSH, CMP, LIPID #### [facility] [address] [address] [address] Keven Reyez Chloride [Moles/Vol] 107 mmol/L Normal 98-107 [facility] Comment on above: Performed By: #### T 7, TSH, CMP, LIPID #### [facility] [address] [address] [address] Keven Reyez CO2 [Moles/Vol] 25.2 mmol/L Normal 22.0-30.0 [facility] Comment on above: Performed By: #### T 7, TSH, CMP, LIPID #### [facility] [address] [address] [address] Keven Reyez Creatinine [Mass/Vol] 1.13 mg/dL Critically high 0.52-1.04 [facility] Comment on above: Performed By: #### T 7, TSH, CMP, LIPID #### [facility] [address] [address] [address] Keven Reyez EGFR-AF CHINESE 59 mL/min/1.73m2 Critically low >=60 [facility] Comment on above: Performed By: #### T 7, TSH, CMP, LIPID #### [facility] [address] [place] [address] Dr. Keven Reyez EGFR-NON AF CHINESE 49 mL/min/1.73m2 Critically low >=60 [facility] Comment on above: Performed By: #### T 7, TSH, CMP, LIPID #### [facility] [address] [place] [address] Dr. Keven Reyez Globulin (S) [Mass/Vol] 3.1 g/dL Normal [facility] Comment on above: Performed By: #### T 7, TSH, CMP, LIPID #### [facility] [address] [place] [address] Dr. Keven Reyez Glucose [Mass/Vol] 102 mg/dL Normal 74-106 [facility] Comment on above: Performed By: #### T 7, TSH, CMP, LIPID #### [facility] [address] [place] [address] Dr. Keven Reyez Potassium [Moles/Vol] 4.9 mmol/L Normal 3.4-5.0 [facility] Comment on above: Performed By: #### T 7, TSH, CMP, LIPID #### [facility] [address] [place] [address] Dr. Keven Reyez Protein [Mass/Vol] 7.0 g/dL Normal 6.1-8.2 [facility] Comment on above: Performed By: #### T 7, TSH, CMP, LIPID #### [facility] [address] [place] [address] Dr. Keven Reyez Sodium [Moles/Vol] 142 mmol/L Normal 137-145 [facility] Comment on above: Performed By: #### T 7, TSH, CMP, LIPID #### [facility] [address] [place] [address] Dr. Keven Reyez Urea nitrogen [Mass/Vol] 24.0 mg/dL Critically high 7.0-17.0 [facility] Comment on above: Performed By: #### T 7, TSH, CMP, LIPID #### [facility] [address] [place], [place] [address] Dr. Keven Reyez Urea nitrogen/Creatinine [Mass ratio] 21.2 mg/mg Normal [facility] Comment on above: Performed By: #### T 7, TSH, CMP, LIPID #### [facility] [address] [place], [place] [address] Dr. Keven Reyez TSHon 05-22-2021 TSH 0.985 uIU/mL Normal 0.470-4.680 [facility] Comment on above: Performed By: #### T 7, TSH, CMP, LIPID #### [facility] [address] [address] [address] Keven Reyez TSH RANGE SEE BELOW Normal [facility] Comment on above: Result Comment: <0.3 4 UIU/ml HYPERTHYROID 0.34-5.60 UIU/ml EUTHYROID >5.60 UIU/ml HYPOTHYROID Performed By: #### T 7, TSH, CMP, LIPID #### [facility] [address] [address] [address] Keven Reyez SCREENING MAMMOGRAM W/MANJULA, BILATERAL*on [...] VERY IMPORTANT TO YOUR HEALTH. THE CURRENT [place] [employer] OF [employer] AND [employer] GUIDELINES RECOMMENDS ANNUAL MAMMOGRAPHY BEGINNING AT AGE 38 THIS FACILITY USES A REMINDER SYSTEM TO ENSURE ALL PATIENTS RECEIVE REMINDER NOTIFICATIONS AT THE APPROPRIATE TIME BASED ON THE RECOMMENDATIONS OF THIS EXAM. 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 Accredited by the ACR and FDA. Report reported and signed by Hernán Whitley on 04/21/2021 1249 Normal [facility] Vital Signs Date Time Vital Sign Value Performing Clinician Facility 04-19-2024 12:36-0500 Body temperature 97.2 [degF] Rogelio Wilson MD Work Phone: [facility] 04-19-2024 12:36-0500 Diastolic blood pressure 85 mm[Hg] Rogelio Wilson MD Work Phone: [facility] 04-19-2024 12:36-0500 Heart rate 86 /min Rogelio Wilson MD Work Phone: [facility] 04-19-2024 12:36-0500 Respiratory rate 15 /min Rogelio Wilson MD Work Phone: [facility] 04-19-2024 12:36-0500 SaO2% (BldA) [Mass fraction] 92 % Rogelio Wilson MD Work Phone: [facility] 04-19-2024 12:36-0500 Systolic blood pressure 150 mm[Hg] Rogelio Wilson MD Work Phone: [facility] 04-19-2024 07:05-0500 Body height 149.9 cm Rogelio Wilson MD Work Phone: [facility] 04-19-2024 07:05-0500 Body mass index (BMI) [Ratio] 29.08 kg/m2 Rogelio Wilson MD Work Phone: [facility] 04-19-2024 07:05-0500 Body weight 65.3 kg Rogeilo Wilson MD Work Phone: [facility] 03-27-2024 12:33-0500 Body height 151.13 cm Rui Padilla MD [facility] 03-27-2024 12:33-0500 Body mass index (BMI) [Ratio] 29.87 kg/m2 Rui Padilla MD [facility] 03-27-2024 12:33-0500 Body temperature 97.9 [degF] Rui Padilla MD [facility] 03-27-2024 12:33-0500 Body weight 68.22 kg Rui Padilla MD [facility] 03-27-2024 12:33-0500 Diastolic blood pressure 88 mm[Hg] Rui Padilla MD [facility] 03-27-2024 12:33-0500 Heart rate 79 /min Rui Padilla MD [facility] 03-27-2024 12:33-0500 SaO2% (BldA) [Mass fraction] 99 % Rui Padilla MD [facility] 03-27-2024 12:33-0500 Systolic blood pressure 126 mm[Hg] Rui Padilla MD [facility] 02-22-2024 13:41-0500 Body height 152.4 cm Rogelio Wilson MD [facility] 02-22-2024 13:41-0500 Body mass index (BMI) [Ratio] 29.29 kg/m2 Rogelio Wilson MD [facility] 02-22-2024 13:41-0500 Body weight 68.04 kg Rogelio Wilson MD [facility] Encounters Encounter Date Encounter Type Care Provider Facility Start: 05-15-2024 ambulatory Rogelio M [facility] Start: 04-27-2024 End: 04-27-2024 Encounter identifier Rogelio Wilson Work Phone: [facility] Start: 04-27-2024 ambulatory Rogelio Chakrabortyst [facility] Start: 04-25-2024 End: 04-25-2024 Encounter identifier Rogelio Wilson Work Phone: [facility] Start: 04-25-2024 ambulatory Rogelio Reba Hurst [facility] Start: 04-20-2024 End: 04-20-2024 Encounter identifier Rogelio Wilson Work Phone: [facility] Start: 04-20-2024 ambulatory Rogelio Reba [facility]yst [facility] Start: 04-19-2024 End: 04-19-2024 Encounter identifier Doroteo Dove Work Phone: [facility] Start: 04-19-2024 End: 04-19-2024 ambulatory [facility]io [facility] Start: 04-19-2024 End: 04-19-2024 Evaluation and management of inpatient Rogelio Wilson MD Work Phone: [facility] Start: 04-19-2024 End: 04-19-2024 Subsequent hospital visit by physician Rogelio Wilson MD Work Phone: [facility] Comment on above: Unilateral primary o steoarthritis, left knee (Primary Dx) Start: 04-19-2024 ambulatory Doroteo Zamarripa [facility] Start: 03-27-2024 End: 03-27-2024 Encounter for other preprocedural examination Rui Padilla Work Phone: [facility] Start: 03-27-2024 End: 03-27-2024 Encounter for preprocedural cardiovascular examination Rui Padilla Work Phone: [facility] Start: 03-27-2024 End: 03-27-2024 Encounter identifier Andry Owusu Work Phone: [facility] Start: 03-27-2024 End: 03-27-2024 Office outpatient new 45 minutes Rui Padilla Work Phone: [facility] Start: 03-27-2024 ambulatory [facility]io [facility] Start: 03-27-2024 ambulatory Andry Owusu [facility] Start: 02-22-2024 End: 02-22-2024 Encounter identifier Rogelio Wilson Work Phone: [facility] Start: 02-22-2024 End: 02-22-2024 Office outpatient new 45 minutes Rogelio Wilson Work Phone: [facility] Start: 02-22-2024 ambulatory Rogelio [facility] Start: 02-22-2024 ambulatory Rogelio Wilson [facility] Start: 09-02-2023 End: 09-02-2023 ambulatory ELLY DUMONT Not Available Start: 04-28-2022 Encounter for genera l adult medical examination without abnormal findings DR JOCY ELDER [facility] Start: 04-23-2022 End: 04-24-[address] JOCY ELDER Facility:[facility] Start: 04-23-2022 End: 04-24-2022 Encounter for general adult medical examination without abnormal findings DR JOCY ELDER Facility:[facility] Start: 08-18-2021 End: 08-18-[address] JOCY ELDER Facility:[facility] Start: 05-28-2021 End: 05-29-[address] JOCY ELDER Facility:[facility] Start: 05-22-2021 End: 05-23-[address] JOCY ELDER Facility:[facility] Encounter for other preprocedural examination Rui Padilla MD [facility] Encounter for preprocedural cardiovascular examination Rui Padilla MD [facility] Procedures Date Procedure Procedure Detail Performing Clinician Start: 04-19-2024 End: 04-19-2024 Arthrp kne condyle&platu medial&lat compartments Rogelio Wilson MD Start: 04-19-2024 End: 04-19-2024 PA Arthroplasty, Total Knee Rogelio Wilson MD Start: 04-19-2024 POCT GLUCOSE BLOOD Juan Wilson MD Work Phone: Start: 03-27-2024 End: 03-27-2024 Collection venous blood venipuncture Rui Padilla MD Start: 03-27-2024 End: 03-27-2024 Ecg routine ecg w/least 12 lds w/i&r Rui Padilla MD Start: 03-27-2024 End: 03-27-2024 Noninvasive ear/pulse oximetry single deter Rui Padilla MD Start: 03-27-2024 End: 03-27-2024 Physical therapy evaluation mod complex 30 mins Rui Padilla MD Start: 03-27-2024 End: 03-27-2024 Therapeut actvity direct pt contact each 15 min Rui Padilla MD Start: 02-22-2024 End: 02-22-2024 Intermittent Compression Device - SELF PAY Rogelio Wilson MD Start: 02-22-2024 End: 02-22-2024 No Charge Rogelio Wilson MD Start: 02-22-2024 End: 02-22-2024 Radiologic exam knee complete 4/more views Rogelio Wilson MD Plan of Treatment Date Care Activity Detail Author Start: 2033 RSV Immunization Patients 60+ Years Old (1 - 1-dose 75+ series) RSV Immunization Patients 60+ Years Old (1 - 1-dose 75+ series) Always Prepped Start: 09-01-2025 Screening for malignant neoplasm of breast Breast Cancer Screening [facility] Start: 04-19-2025 Falls Risk Assessment Falls Risk Assessment [facility] Start: 03-27-2025 Hypertension/CHF/CAD Annual BMP Blood Test Hypertension/CHF/CAD Annual BMP Blood Test [facility] Start: 06-01-2024 Pankaj, Chrissie [facility] Work Phone: Start: 04-19-2024 Pankaj, Chrissie LTKA,TJO [facility] Work Phone: Start: 04-19-2024 End: 04-19-2024 Arthrp kne condyle&platu medial&lat compartments ARTHROPLASTY KNEE TOTAL Unilateral primary osteoarthritis, left knee Pain in left knee 04/19/2024 8:44 AM EST [facility] Start: 03-27-2024 End: 03-27-2024 [facility] Start: 03-21-2024 Adolescent depression screening assessment Depression Screening [facility] Start: 03-21-2024 Hepatitis C screening Hepatitis C Screening [facility] Start: 03-21-2024 Lipid panel Cholesterol Screening (Lipid Panel) [facility] Start: 03-21-2024 Medicare Annual Wellness Visit Medicare Annual Wellness Visit [facility] Start: 03-21-2024 Screening for malignant neoplasm of colon Colorectal Cancer Screening: Colonoscopy [facility] Start: 03-21-2024 Screening for osteoporosis Osteoporosis Screening (Bone Density Screening) [facility] Start: 03-21-2024 Social Influencers of Health Screening Social Influencers of Health Screening [facility] Start: 12-05-2023 COVID-19 Vaccine ( season) COVID-19 Vaccine ( season) [facility] Start: 12-05-2023 Influenza vaccination Influenza Vaccine (#1) [facility] Start: 2023 Pneumococcal Vaccine: 65+ Years (1 of 1 - PCV) Pneumococcal Vaccine: 65+ Years (1 of 1 - PCV) [facility] Start: 02-07-2008 Zoster Vaccines (1 of 2) Zoster Vaccines (1 of 2) [facility] Start: 1977 DTaP,Tdap,and Td Vaccines (1 - Tdap) DTaP,Tdap,and Td Vaccines (1 - Tdap) [facility] Payers Date Payer Category Payer Unknown [id number] 2023 Medicare MEDICARE MEDICAR E PART A & B [id number] 2023-Present [address] [place] [address] Medicare [id number] 2023 Unknown [employer] [place] [employer] [place] [employer] [id number] 2023-Present [address] [employer] [place] [employer] [place] [address] [id number] 2023 Medicare [id number] 2023 Unknown [id number] 1958 Unknown [id number] 1958 Unknown [id number] 1958 Unknown [id number] [id number] 1958 Unknown [id number] [id number] 1958 Unknown [id number] [id number] 1958 Unknown [id number] [id number] 1958 Unknown [id number] [id number] 1958 Unknown [id number] [id number] 1958 Unknown [id number] [id number] 1958 Unknown [id number] [id number] 1958 Unknown [id number] [id number] 1958 Unknown [id number] [id number] 1958 Unknown [id number] [id number] 1958 Unknown [id number] [id number] 1958 Unknown [id number] Self-pay [id number] Unknown [id number] Unknown [id number] Social History Date Type Detail Facility Start: 02-22-2024 Alcohol intake Alcohol Use Details [facility] Start: 02-22-2024 Tobacco use and exposure Non-Smoking Tobacco Use Details [facility] Start: 1960 Sex Assigned At Female [facility] Start: 12-08-2019 Sexual Orientation Choose not to dis close [facility] Start: 02-22-2024 End: 04-27-2024 Tobacco smoking status NHIS Unknown if ever smoked [facility] Start: 07-25-2019 Sexual Orientation Straight or heterosexual [facility] Start: 04-17-2024 Tobacco smoking stat NHIS Never smoked tobacco [facility] Start: 04-17-2024 Tobacco use and exposure Smokeless tobacco non-user [facility] Start: 04-17-2024 Alcoholic beverage intake Current drinker of alcohol (finding) [facility] Start: 04-19-2024 History of Social function [facility] Start: 04-19-2024 Interpersonal Safety Interpers onal Safety Answer Date Recorded Physical Abuse 04/19/2024 Have you ever been verbally abused? Not on file 04/19/2024 [facility] Start: 04-17-2024 Alcohol Comment once in a while [facility] Start: 04-14-2024 Gender identity Identifies as female gender (finding) [facility] Start: 08-14-2022 Sexual Orientation Bisexual [facility] NEGATED: Highlighted rowStart: 02-22-2024 Tobacco smoking status NHIS Never smoker [facility] NEGATED: Highlighted rowStart: 03-27-2024 Tobacco smoking status NHIS Unknown if ever smoked [facility] Medical Equipment Procedure Code Equipment Code Equipment Origin al Text Equipment Identifier Dates Cement Bone Biom et R 1x40 Us - Sna - [id number] [id number])[id number], [id number] FDA Start: 04-19-2024 Femur Steel Pourer Helper Sz 2 - Sna - [id number] ()[id number] [id number])[id number], [id number] FDA Start: 04-19-2024 Klassic Knee Tib ial Baseplate Sz 1 - Sna - [id number] ()[id number] [id number])[id number], [id number] FDA Start: 04-19-2024 Klassic Sombrero Patella Sz 1 7mm - Sna - [id number] ()[id number] [id number](21)[id number], [id number] FDA Start: 04-19-2024 Klassic Tibial Insert Ultra-Ps Sz 1 10mm - Sna - [id number] ()[id number] [id number], [id number] FDA Start: 04-19-2024 Clinical Notes 02-22-2024 to 04-19-2024 Torres Orosco RN - 04/19/2024 4:06 PM Jairo Kasper, PT - 04/19/2024 1:40 PM Antoni Wilson MD - 04/19/2024 9:20 AM Neptali Lake RN - 04/18/2024 3:24 PM EST Note Date & Type Note Facility 04-19-2024 History of Present illness Narrative Discharge instructions and follow-up plan reviewed, patient verbalizes understanding. Pt denies any other questions, concerns or complaints at this time.Pt escorted with wheelchair. [facility] Physical Therapy Evaluation PT Discharge Recommendations: Outpatient PT Distance Ambulated (ft): 150 Device: Rolling walker LLE Weight Bearing Status: As Tolerated RLE Weight Bearing Status: As Tolerated L Knee Flexion 0-140: 20-60 Strength RLE R Ankle Dorsiflexion: 5/5 R Ankle Plantar Flexion: 5/5 Strength LLE L Ankle Dorsiflexion: 5/5 L Ankle Plantar Flexion: 5/5 PT - OK to Discharge: Yes AM-PAC: * Rogelio Wilson MD - Primary Procedure(s): Left total knee arthroplasty Day of Surgery Fall prevention education provided including use of call light in hospital, use of appropriate assistive device, safe mobility techniques, and safety measures at home. Continue PT as per POC. RN cleared pt for PT consult prior to PT arrival. Pt received seated at EOB and agreeable to PT consult with spouse present. Pt met all goals of PT POC at this time. She does not have railing for her stairs therefore her spouse participated in caregiver training for PROCEDURE WRITER with stair negotiation. Both parties verbalized understanding of the process following training. See flowsheet for details of mobility. Pt left supine in bed with spouse present and all needs met. Call light within reach. Subjective Patient Active Problem List Diagnosis Unilateral primary osteoarthritis, left knee Past Medical History: Past Surgical History: Past Medical History: Diagnosis Date Arthritis Cancer (CMS/HCC) skin-leg and face Chronic cough GERD (gastroesophageal reflux disease) Hiatal hernia HL (hearing loss) bilateral hearing aids Hyperlipidemia Hypertension Hypothyroidism Wears glasses Past Surgical History: Procedure Laterality Date CHOLECYSTECTOMY ROTATOR CUFF REPAIR Right TONSILLECTOMY WISDOM TOOTH EXTRACTION Objective 04/19/24 1340 PT Last Visit PT Received On 04/19/24 General Family/Caregiver Present Yes PT Time Calculation PT Start Time 1340 PT Stop Time 1415 PT Time Calculation (min) 35 min Precautions Medical Precautions Fall Risk RLE Weight Bearing Status As Tolerated LLE Weight Bearing Status As Tolerated Pain Assessment Pain Assessment 0-10 Pain Score 8 Pain Type Surgical pain Pain Location Knee Pain Orientation Left Pain Descriptors Aching Cognition Overall Cognitive Status WFL Arousal/Alertness Appropriate responses to stimuli Orientation Level Oriented X4 Home Living Type of Home House Lives With Spouse Home Adaptive Equipment Walker - rolling Home Layout Two level;Able to live on main level with bedroom/bathroom Home Access Stairs to enter without rails Entrance Stairs-Rails None Entrance Stairs-Number of Steps 3 Prior Function Level of [place] Independent with mobility and functional transfers Ambulation Status Household ambulator;Community ambulator Receives Help From Family Static Sitting Balance Static Sitting-Level of Assistance Independent Static Sitting-Balance Support Feet supported;No upper extremity supported Static Standing Balance Static Standing-Level of Assistance Standby assistance Static Standing-Balance Support Left upper extremity supported;Right upper extremity supported Bed Mobility Sitting to Lying Assistance Standby assistance Sitting to Lying Deficit Increased time to complete Transfers Sit to Stand Assistance Standby assistance Sit to Stand Deficit Verbal cueing (hand placement) Ambulation Walking Assistance Contact guard;Standby assistance Walking Deficit Impaired balance;LE weakness;Increased time to complete;Limited endurance Device Rolling walker Distance Ambulated (ft) 150 Stairs Rails None (Comment) (Spouse present for caregiver training on PROCEDURE WRITER as he and her children will be with her at the house to assist her into and out of her home. Spouse demonstrated PROCEDURE WRITER with PT present for cueing.) Device Hand held assist Number of Stairs 3 Stairs Comments Pt demonstrated confidence with PROCEDURE WRITER from within session RLE Assessment RLE Assessment Within Functional Limits RLE Assessment Additional Yes Strength RLE R Ankle Dorsiflexion 5/5 R Ankle Plantar Flexion 5/5 LLE Assessment LLE Assessment Impaired LLE Assessment Additional Yes AROM LLE (degrees) L Knee Flexion 0-140 20-60 Strength LLE L Ankle Dorsiflexion 5/5 L Ankle Plantar Flexion 5/5 PT Assessment PT Assessment Results Decreased strength;Decreased range of motion;Decreased endurance;Impaired balance;Impaired gait;Decreased mobility;Pain Prognosis Good Evaluation/Treatment Tolerance Patient tolerated treatment well Medical Staff Made Aware Yes Comments JEAN Macdonald, made aware of pt's status at end of session Plan Treatment/Interventions Functional transfer training;LE strengthening/ROM;Patient/family training;Bed mobility;Gait training;Compensatory technique education PT Plan Skilled PT PT Frequency 7 days per week PT Duration of Sessions PRN PT Treatments per day 1-2 times per day PT Discharge Recommendations Outpatient PT Barriers to Discharge none PT - Evaluation Status Complete PT - OK to Discharge Yes PT Evaluation Time Entry PT Evaluation (Low) Time Entry 15 Treatment performed during evaluation: Gait Training Gait Training Time Entry: 20 Gait Training Activity 1: amb 150 ft with FWW and CGA/SBA, pt requiring cueing for AD management Gait Training Activity 2: stairs x3 with spouse present for caregiver training with PROCEDURE WRITER 2/2 no railings at home Other Activity Other Activity 1: LE VRE x 10 ea with edu for benefit Other Activity 2: LE positioning edu Other Activity 3: bed mob sit>supine SBA Other Activity 4: STS t/f x3 CGA Goals and Education Goals: Education: Encounter Problems Encounter Problems (Active) Template: Physical Therapy Problem: PT Short Term Goals Dates: Start: 04/19/24 Goal: Pt will ambulate 150 ft. with wheeled walker and CGA Dates: Start: 04/19/24 Expected End: 04/19/24 Goal: Pt will demo good understanding of HEP protocol Dates: Start: 04/19/24 Expected End: 04/19/24 Goal: Pt will perform bed mobility with CGA. Dates: Start: 04/19/24 Expected End: 04/19/24 Goal: Pt will transfer with SBA. Dates: Start: 04/19/24 Expected End: 04/19/24 Goal: Pt will ascend/descend steps with CGA and LRAD Dates: Start: 04/19/24 Expected End: 04/19/24 Encounter Problems (Resolved) There are no resolved problems. Education Documentation Body Mechanics, taught by Precious Kasper PT at 04/19/2024 2:59 PM. Learner: Significant Other, Patient Readiness: Eager Method: Explanation, Demonstration, Handout Response: Verbalizes Understanding, Demonstrated Understanding Home Exercise Program, taught by Precious Kasper PT at 04/19/2024 2:59 PM. Learner: Significant Other, Patient Readiness: Eager Method: Explanation, Demonstration, Handout Response: Verbalizes Understanding, Demonstrated Understanding Mobility Training, taught by Precious Kasper PT at 04/19/2024 2:59 PM. Learner: Significant Other, Patient Readiness: Eager Method: Explanation, Demonstration, Handout Response: Verbalizes Understanding, Demonstrated Understanding Education Comments No comments found. documented in this encounter [facility] 04-19-2024 Procedure note [facility] [place], A Member of [facility] OPERATIVE REPORT PATIENT NAME: Chrissie Lira DATE OF : 1960 [facility]#: [id number] SURGEON: Rogelio Wilson MD DATE OF SERVICE: 04/19/2024 DATE OF SURGERY: 04/19/2024 PREOPERATIVE DIAGNOSIS: OA left knee (M17.12) POSTOPERATIVE DIAGNOSIS: OA left knee (M17.12) PROCEDURE: Primary Left Total Knee Arthroplasty (18432) Femoral Component: TJO Klassic Nonporous , Size: 2 Tibial Component: TJO Klassic Knee System Tibial Baseplate, Nonporous Size: 1 Patella Component: TJO Klassic Knee System , Sombrero Size: 1 Polyethylene: TJO Klassic Knee System, Ultra-PS Std Poly Size: 1 ; 10mm Fixation: Biomet Bone Cement ATTENDING SURGEON: Rogelio Wilson MD FABRIC PATTERN GRADER: Doroteo Dove PA-C INDICATIONS: Patient is a 64-year-old Female. The patient has failed previous conservative treatment. Due to the nature of the patient's persistent symptoms, surgery is recommended. The alternatives, risks and benefits of surgery were discussed with the patient. The patient verbalized their understanding of the risks as well as the alternatives to surgery. The patient wished to proceed with operative intervention. A signed and witnessed informed consent was placed on the chart. History and Physical has been reviewed and there have been no changes in the patient's condition. PATIENT IDENTIFICATION: Patient was seen in preop, consent was reviewed, operative procedure was identified and surgical site and thigh marked. ANESTHESIA: Pre-Anesthesia Assessment: A History and Physical has been performed, and patient medication allergies have been reviewed. The risks and benefits of the procedure and the sedation options and risks were discussed with the patient. All questions were answered and informed consent was obtained. Anesthesia administered: General, Adductor canal block, iPACK FINDINGS: Bone/cartilage: Osteophytes were present, bone cysts were present, eburnated bone was present and bone loss was noted. The preoperative alignment was >10 varus. The resultant postoperative alignment was 5 valgus (normal). DESCRIPTION OF PROCEDURE: Intraoperative Inputs and Outputs: Outs: Estimated Blood Loss: 50mL. Ins: Lactated Ringer's: 2000ml. Intraoperative Medications: Naropin (Ropivacaine), Epinephrine Drains: NONE PATIENT POSITIONING: The patient was taken into the operative suite and was placed supine upon the operating table. After suitable and adequate induction anesthesia, the patient is positioned supine with the lower extremity prepped and draped using a standard prep. The extremity is exsanguinated and the tourniquet is elevated. Prior to performance of surgical procedure, a time out was performed to identify the patient, date of , pertinent allergies, surgical procedure, surgical site, perioperative medications to include preoperative antibiotics given, preoperative x-rays and relevant images and results are noted and displayed, and availability of implants and supplies. INCISION TYPE: A midline incision to the knee is carried out. The incision is taken down through the skin and the subcutaneous tissues to the level of the extensor mechanism. A modified microplasty medial parapatellar arthrotomy is performed. The medial soft tissue sleeve is elevated directly from the proximal tibia, including excision of the anterior portion of the medial meniscus and elevation of the deep medial collateral and meniscocapsular ligament. INSTRUMENTS AND METHODS: The patella is now addressed. It is resected utilizing a modified free-hand technique. Caliper measurements are taken pre and post resection. Thickness and size are reconstructed with a 365looks (Coqueta.me) Size: 1 [facility] Knee System . The knee flexed and with assistance of an intramedullary guide, distal femoral resection is carried out The proximal tibia is exposed with a posterior and lateral Reji. Resection is carried out with the extramedullary alignment jigs to The tibia is sized and broached for a Size: 1 tibial baseplate. Attention is turned to the completion of the distal femoral resection. Rotational landmarks are identified, namely the anterior-posterior axis, the transepicondylar axis, the posterior condylar axis, and the tibial shaft axis. The rotation of the femur is set to match these rotational landmarks. Sizing is accomplished from a standard sizing jig. Anterior-posterior and chamfer resection is performed for a Size: 2 , femoral component. The posterior recess of the knee is now addressed. With the assistance of a femoral-tibia distractor, the posterior portions of the medial and lateral menisci are excised and posterior ostephytes are removed. Trial components are now placed and peripheral osteophytes are removed. Ligamentous balancing is accomplished in flexion/extension to include the medial and lateral collaterals and the posterior cruciate ligament. A well-balanced arthroplasty is obtained with a TJO Klassic Knee System, Ultra-PS Std Poly Size: 1 ; 10mm tibial polyethylene insert. Trials are removed. The bony ends are lavaged and irrigated with pulsatile lavage. Sclerotic bone is punched to enhance cement intrusion. Polymethylmethacrylate is mixed and pressurized. A TJO Klassic Knee System, Ultra-PS Std Poly Size: 1 ; 10mm tibial polyethylene is placed. A Size: 2 femoral component is placed. A TJO Klassic Knee System Sombrero Size: 1 patellar component is placed. The knee is infiltrated with the intraoperative medications Naropin (Ropivacaine), Epinephrine. The tourniquet is released after 24 minutes, hemostasis is accomplished and tracking of the patellofemoral articulation is assessed. Adhesions in the lateral retinaculum are removed. A formal lateral retinacular release was not required. Varus Releases: Pie-Crusting of the superficial medial collateral Valgus Releases: None Posterior Cruciate Ligament Releases: Complete release for UC bearing WOUND CLOSURE: The extensor mechanism is approximated with a running #2 Quill PDO, subcutaneous tissues with 0 Quill Monoderm, and the skin is closed with 2-0 Quill Monoderm and Dermabond. Closure is accomplished in flexion. A sterile dressing is applied and a modified Roni Herrera dressing is utilized. PATIENT TO RECOVERY ROOM: The patient was awakened from anesthesia and taken to recovery room awake, alert, and stable in good condition. FABRIC PATTERN GRADER/ATTENDING PARTICIPATION: Doroteo Dove PA-C assisted with proper preoperative positioning, preoperative templating, determining availability of proper implants, prepping and draping of patient, manipulation placement of instruments, protection of ligaments and vital soft tissue structures, assistance in maintaining hemostasis, and assistance with closure of the wound. Their skills and knowledge of the steps of the operation and the desired outcome of each surgical step was crucial, allowing for efficient choreography of surgical procedure, and closure of the wound which lead to reduced surgical time, less blood loss, and less risk of complications for the patient. I have advised the patient that this represents a major orthopedic surgical procedure. Post-operative pain may be of such severity that it may not be effectively managed with the 30 MED average limit and may require greater than 7 days of treatment. Therefore, appropriate narcotic dosing will be determined on a case by case basis. Created & Digitally Signed By: Rogelio Wilson MD on 04/19/2024 10:49:40 [facility] [place], A Member of [facility] OPERATIVE REPORT PATIENT NAME: Chrissie Lira DATE OF : 1960 CSN#: [id number] SURGEON: Rogelio Wilson MD DATE OF SERVICE: 04/19/2024 DATE OF SURGERY: 04/19/2024 REF 5105.02.000 LOT [id number] Klassic Femur, Nonporous size 2 Femur, Nonporous, size 2 Use By 2028-10-14 () [id number] () 900057 (10) [id number] REF 5201.01.000 LOT [id number] Klassic Tibial Baseplate for Primary or Revision, Nonporous, size 1 size 1 Uncoated knee tibia prosthesis, metallic Use By 2028-09-20 () [id number] (17) 816815 (10) [id number] REF 5501.01.007 LOT [id number] Klassic Knee Sombrero Patella, Size 1, 7mm Size 1, 7mm Polyethylene patella prosthesis Use By 2033-09-19 () [id number] (17) 283310 (10) [id number] REF 5301.01.010 LOT [id number] Klassic Knee Tibial Insert, Ultra-PS, Size 1, 10 mm, Final Packed, Sterile Size 1, 10 mm Tibial insert Use By 2033-06-02 () [id number] (17) 351760 (10) [id number] Patient's DOS medications reviewed Confirmed no changes in medications, skin, or new infections since PAT phone call documented in this encounter [facility] 04-19-2024 Surgery Surgical operation note [facility] [place], A Member of [facility] OPERATIVE REPORT PATIENT NAME: Chrissie Lira DATE OF : 1960 [facility]#: [id number] SURGEON: Rogelio Wilson MD DATE OF SERVICE: 04/19/2024 DATE OF SURGERY: 04/19/2024 PREOPERATIVE DIAGNOSIS: OA left knee (M17.12) POSTOPERATIVE DIAGNOSIS: OA left knee (M17.12) PROCEDURE: Primary Left Total Knee Arthroplasty (92594) Femoral Component: TJO Klassic Nonporous , Size: 2 Tibial Component: TJO Klassic Knee System Tibial Baseplate, Nonporous Size: 1 Patella Component: TJO Klassic Knee System , Sombrero Size: 1 Polyethylene: TJO Klassic Knee System, Ultra-PS Std Poly Size: 1 ; 10mm Fixation: Biomet Bone Cement ATTENDING SURGEON: Rogelio Wilson MD FABRIC PATTERN GRADER: Doroteo Dove PA-C INDICATIONS: Patient is a 64-year-old Female. The patient has failed previous conservative treatment. Due to the nature of the patient's persistent symptoms, surgery is recommended. The alternatives, risks and benefits of surgery were discussed with the patient. The patient verbalized their understanding of the risks as well as the alternatives to surgery. The patient wished to proceed with operative intervention. A signed and witnessed informed consent was placed on the chart. History and Physical has been reviewed and there have been no changes in the patient's condition. PATIENT IDENTIFICATION: Patient was seen in preop, consent was reviewed, operative procedure was identified and surgical site and thigh marked. ANESTHESIA: Pre-Anesthesia Assessment: A History and Physical has been performed, and patient medication allergies have been reviewed. The risks and benefits of the procedure and the sedation options and risks were discussed with the patient. All questions were answered and informed consent was obtained. Anesthesia administered: General, Adductor canal block, iPACK FINDINGS: Bone/cartilage: Osteophytes were present, bone cysts were present, eburnated bone was present and bone loss was noted. The preoperative alignment was >10 varus. The resultant postoperative alignment was 5 valgus (normal). DESCRIPTION OF PROCEDURE: Intraoperative Inputs and Outputs: Outs: Estimated Blood Loss: 50mL. Ins: Lactated Ringer's: 2000ml. Intraoperative Medications: Naropin (Ropivacaine), Epinephrine Drains: NONE PATIENT POSITIONING: The patient was taken into the operative suite and was placed supine upon the operating table. After suitable and adequate induction anesthesia, the patient is positioned supine with the lower extremity prepped and draped using a standard prep. The extremity is exsanguinated and the tourniquet is elevated. Prior to performance of surgical procedure, a time out was performed to identify the patient, date of , pertinent allergies, surgical procedure, surgical site, perioperative medications to include preoperative antibiotics given, preoperative x-rays and relevant images and results are noted and displayed, and availability of implants and supplies. INCISION TYPE: A midline incision to the knee is carried out. The incision is taken down through the skin and the subcutaneous tissues to the level of the extensor mechanism. A modified microplasty medial parapatellar arthrotomy is performed. The medial soft tissue sleeve is elevated directly from the proximal tibia, including excision of the anterior portion of the medial meniscus and elevation of the deep medial collateral and meniscocapsular ligament. INSTRUMENTS AND METHODS: The patella is now addressed. It is resected utilizing a modified free-hand technique. Caliper measurements are taken pre and post resection. Thickness and size are reconstructed with a 365looks (Coqueta.me) Size: 1 [employer] Knee System . The knee flexed and with assistance of an intramedullary guide, distal femoral resection is carried out The proximal tibia is exposed with a posterior and lateral Reji. Resection is carried out with the extramedullary alignment jigs to The tibia is sized and broached for a Size: 1 tibial baseplate. Attention is turned to the completion of the distal femoral resection. Rotational landmarks are identified, namely the anterior-posterior axis, the transepicondylar axis, the posterior condylar axis, and the tibial shaft axis. The rotation of the femur is set to match these rotational landmarks. Sizing is accomplished from a standard sizing jig. Anterior-posterior and chamfer resection is performed for a Size: 2 , femoral component. The posterior recess of the knee is now addressed. With the assistance of a femoral-tibia distractor, the posterior portions of the medial and lateral menisci are excised and posterior ostephytes are removed. Trial components are now placed and peripheral osteophytes are removed. Ligamentous balancing is accomplished in flexion/extension to include the medial and lateral collaterals and the posterior cruciate ligament. A well-balanced arthroplasty is obtained with a TJO Klassic Knee System, Ultra-PS Std Poly Size: 1 ; 10mm tibial polyethylene insert. Trials are removed. The bony ends are lavaged and irrigated with pulsatile lavage. Sclerotic bone is punched to enhance cement intrusion. Polymethylmethacrylate is mixed and pressurized. A TJO Klassic Knee System, Ultra-PS Std Poly Size: 1 ; 10mm tibial polyethylene is placed. A Size: 2 femoral component is placed. A TJO Klassic Knee System Sombrero Size: 1 patellar component is placed. The knee is infiltrated with the intraoperative medications Naropin (Ropivacaine), Epinephrine. The tourniquet is released after 24 minutes, hemostasis is accomplished and tracking of the patellofemoral articulation is assessed. Adhesions in the lateral retinaculum are removed. A formal lateral retinacular release was not required. Varus Releases: Pie-Crusting of the superficial medial collateral Valgus Releases: None Posterior Cruciate Ligament Releases: Complete release for UC bearing WOUND CLOSURE: The extensor mechanism is approximated with a running #2 Quill PDO, subcutaneous tissues with 0 Quill Monoderm, and the skin is closed with 2-0 Quill Monoderm and Dermabond. Closure is accomplished in flexion. A sterile dressing is applied and a modified Roni Herrera dressing is utilized. PATIENT TO RECOVERY ROOM: The patient was awakened from anesthesia and taken to recovery room awake, alert, and stable in good condition. FABRIC PATTERN GRADER/ATTENDING PARTICIPATION: Doroteo Dove PA-C assisted with proper preoperative positioning, preoperative templating, determining availability of proper implants, prepping and draping of patient, manipulation placement of instruments, protection of ligaments and vital soft tissue structures, assistance in maintaining hemostasis, and assistance with closure of the wound. Their skills and knowledge of the steps of the operation and the desired outcome of each surgical step was crucial, allowing for efficient choreography of surgical procedure, and closure of the wound which lead to reduced surgical time, less blood loss, and less risk of complications for the patient. I have advised the patient that this represents a major orthopedic surgical procedure. Post-operative pain may be of such severity that it may not be effectively managed with the 30 MED average limit and may require greater than 7 days of treatment. Therefore, appropriate narcotic dosing will be determined on a case by case basis. Created & Digitally Signed By: Rogelio Wilson MD on 04/19/2024 10:49:40 [facility] [place], A Member of [facility] OPERATIVE REPORT PATIENT NAME: Chrissie Lira DATE OF : 1960 [facility]#: [id number] SURGEON: Rogelio Wilson MD DATE OF SERVICE: 04/19/2024 DATE OF SURGERY: 04/19/2024 REF 5105.02.000 LOT [id number] Klassic Femur, Nonporous size 2 Femur, Nonporous, size 2 Use By 2028-10-14 () [id number] () 891746 (10) [id number] REF 5201.01.000 LOT [id number] Klassic Tibial Baseplate for Primary or Revision, Nonporous, size 1 size 1 Uncoated knee tibia prosthesis, metallic Use By 2028-09-20 () [id number] (17) 988862 (10) [id number] REF 5501.01.007 LOT [id number] Klassic Knee Sombrero Patella, Size 1, 7mm Size 1, 7mm Polyethylene patella prosthesis Use By 2033-09-19 () [id number] (17) 913364 (10) [id number] REF 5301.01.010 LOT [id number] Klassic Knee Tibial Insert, Ultra-PS, Size 1, 10 mm, Final Packed, Sterile Size 1, 10 mm Tibial insert Use By 2033-06-02 () [id number] () 167166 (10) [id number] [facility] 04-19-2024 History and physical note History and Physical Update ( H&P completed within the previous thirty days ) I personally reviewed the History and Physical, performed and orthopedic exam, and spoke with the patient prior to surgery. No apparent changes have occurred in the patient's condition since the History and Physical was completed. Always Prepped Work Phone: 04-19-2024 History and physical note History and Physical Update ( H&P completed within the previous thirty days ) I personally reviewed the History and Physical, performed and orthopedic exam, and spoke with the patient prior to surgery. No apparent changes have occurred in the patient's condition since the History and Physical was completed. documented in this encounter [facility] 04-18-2024 Nurse Note Patient's DOS medications reviewed Confirmed no changes in medications, skin, or new infections since PAT phone call [facility] 04-17-2024 Hospital course Narrative Pre-Surgery Instructions: Medication Instructions carvediloL (COREG) 25 mg tablet Take as recommended by your specialist cloNIDine (CATAPRES) 0.1 mg tablet Take as recommended by your specialist hydroCHLOROthiazide (HYDRODIURIL) 25 mg tablet Take as recommended by your specialist HYDROcodone-acetaminophen (NORCO) 5-325 mg per tablet Take as recommended by your specialist irbesartan (AVAPRO) 150 mg tablet Take as recommended by your specialist lansoprazole (PREVACID) [address] capsule Take as recommended by your specialist levothyroxine (SYNTHROID, LEVOTHROID) 75 mcg tablet Take as recommended by your specialist meloxicam (MOBIC) 15 mg tablet Other (see Additional Instructions) last dose 04/09/24 pantoprazole (PROTONIX) 40 mg EC tablet Take as recommended by your specialist potassium chloride (KLOR-CON M20) 20 mEq CR tablet Take as recommended by your specialist semaglutide (WEGOVY) 0.25 mg/0.5 mL injection pen Other (see Additional Instructions) last dose 04/09/24 simvastatin (ZOCOR) 20 mg tablet Take as recommended by your specialist SUMAtriptan (IMITREX) 50 mg tablet Take as recommended by your specialist tiZANidine (ZANAFLEX) 4 mg tablet Take as recommended by your specialist venlafaxine XR (EFFEXOR-XR) 150 mg 24 hr capsule Take as recommended by your specialist venlafaxine XR (EFFEXOR-XR) 75 mg 24 hr capsule Take as recommended by your specialist aspirin 81 mg EC tablet Other (see Additional Instructions) last dose 04/09/24 tiZANidine (ZANAFLEX) 4 mg tablet Take as recommended by your specialist Additional Instructions: Instructions to prepare for surgery: Increase water intake day PRIOR to surgery. Eat light meals or follow surgeon specific food instructions day PRIOR to surgery. At Midnight, nothing is allowed in your mouth. NO food, water, gum, candy, coffee, mints, tobacco, NOTHING AFTER MIDNIGHT. When you wake up, brush your teeth and use mouthwash. Don't swallow. Take small sip of water with meds that are to be taken DOS. Shower night prior and morning of surgery with antibiotic cleanser OR Dial antibacterial soap (as designated by surgeon). No lotions, creams, powders on your skin. You may wear deodorant (unless surgery is on your shoulder or breast(s)). No shaving surgical site (within 48 hours of surgery). Remove all jewelry, piercings and leave that at home. Leave valuable at home. Wear loose fitting clothes. Bring photo ID, medical insurance card, and copay as needed when you check in for surgery. In addition, bring any of the following: CPAP, living will/ medical POA, glasses, case, hearing aid container, shoulder sling, back brace, walker, cervical collar. Bring your COVID vaccine card, if applicable. Leave walker &/or cane (unless needed prior to surgery) and overnight bag in the car until after your procedure when you are assigned a room. Only 1 designated adult is allowed to go back into Pre-Op area with you. Surgical times are subject to change up until 5:30pm the evening prior to your surgery. Check in at receptionist clerk desk [address] [facility], [place] [address]. Meds per C med recc NPO per [facility] If Outpatient, these additional instructions apply: An adult must stay with you the whole time you are here and drive you home. An adult must stay with you at home for 24 hours due to Anesthesia. If you have MOISÉS, you are required to stay 3 hours after your surgery before we can discharge you. documented in this encounter [facility] 03-27-2024 Evaluation note Type assessment Preoperative clearan ce (Z01.818)Patient presents prior to an elective MAJOR surgery. Preoperative medical risk stratification indicates patient is at an acceptable risk. Prescription drug management provided at [facility] verbally and in writing. assessment Osteoarthritis of le ft knee, unspecified osteoarthritis type (M17.12)Osteoarthritis of the left knee noted prior to appointment. This diagnosis has been determined to require surgery. This patient has been instructed to discontinue notable anticoagulants and NSAIDS 7-10 days prior to surgery. Aspirin will be addressed separately. assessment Preop cardiovascular exam (Z01.810)This patient has no active cardiac conditions that would be considered at a low risk for a major adverse cardiac event based on an RCRI score of 0-1. They would be considered an acceptable cardiac risk for procedure planned. assessment Essential hypertensi on (I10)Hypertension noted prior to appointment. Currently being managed with standard anti-hypertensive medications. It should be noted that ACEI and ARBs and Diuretics are not normally dosed the morning of surgery. This patient's blood pressure will need monitored closely throughout their hospitalization since potential postoperative issues such as dehydration, pain level, and use of anesthetics can cause blood pressure fluctuations. Additional blood pressure control can provided with the addition of PO or PRN Clonidine.BP CHECK AT [facility] ACCEPTABLE FOR SURGERY. assessment GERD without esophag itis (K21.9)GERD noted prior to appointment. Currently stable on standard gastric acid reducing treatments. GERD can be exacerbated by surgery or anesthesia due to increased stress, delayed gastric emptying, and supine positioning. Plan to continue prescribed gastric antacid medications preoperatively if indicated and JOSE after surgery. assessment Hyperlipidemia, unsp ecified hyperlipidemia type (E78.5)Hyperlipidemia noted prior to appointment. Currently controlled with standard cholesterol-lowering medications. Prescribed cholesterol-lowering medications should be continued perioperatively and will be ordered accordingly. Studies have shown that continued dosing of these medications improves cardiovascular outcomes perioperatively. Dietary discretion to reduce saturated fat intake is also recommended. assessment Hypothyroidism, unsp ecified type (E03.9)Hypothyroidism noted prior to appointment. Currently stable on standard thyroid supplements. Patient is prescribed thyroid supplements should be resumed as soon as possible following the surgical procedure at the current dose to prevent any symptoms related to hypothyroidism including fatigue and constipation which are already common in the perioperative setting. Continue to watch bowel function closely. assessment Moderate obesity (E6 6.8)Obesity noted at appointment. BMI 30 - 39. Recommend patient follow up with PCP regarding weight loss intervention. Obesity represents a risk factor for perioperative hypoxia or hypoventilation. Frequent or continuous monitoring of oxygen levels during hospitalization recommended.PATIENT REMINDED TO STOP SEMAGLUTIDE 7 DAYS BEFORE SURGERY assessment No contraindication to anticoagulation therapy (Z78.9)Prophylaxis for prevention of DVT will need to be per the discretion of the primary surgical service per protocol. Use of the ACCP guidelines is recommended. [facility] Work Phone: 1(344) 769-348112-23-2024 History of Present illness Narrative* Encounter Date Complaint History Of Prese nt Illness Preoperative medical risk stratification The patient, Chrissie Lira, is a 64-year-old female who presents at the request of Dr.Jason Katie MILTON in anticipation of LTKA. The surgeon has sent this patient to our office for a preoperative evaluation. This has included a discussion with the patient regarding their medical conditions and how they relate to the surgery. The patient has also been provided verbal and written instructions regarding perioperative management of their medications. Additional testing felt to be a necessary part of the PAT process including labs, imaging, or specialist consultation will be detailed below. A CONSULT HAS BEEN REQUESTED BY THE SURGEON FOR EVALUATION AND OPTIMIZATION OF THE FOLLOWING CHRONIC MEDICAL CONDITIONS PRIOR TO SURGERY . . . : HTN ; currently controlled on prescribed medication Hyperlipidemia currently controlled with prescribed medication GERD ; currently controlled with a proton pump inhibitor Left Knee Evaluation Patient pre sents for a Left Knee Evaluation. Patient states she has been having pain for 1 year and is progressively worsening. Her pain is constant in timing, moderate in nature, located medially, and rated 8/10. Her symptoms are exacerbated with prolonged standing, standing and navigating stairs. The pain is interfering with her daily activities and decreasing her quality of life. She has utilized ice, heat, Tylenol, Meloxicam and hydrocodone with minimal relief. [facility] Phone: 1(208) 458-328811-19-2024 Evaluation note* Type Assessment Date assessment assessment [facility] Phone: 1(989) 987-423111-19-2024 History of Present illness Narrative* Encounter Date Complaint History Of Prese nt Illness Left Knee Evaluation Patient pre sents for a Left Knee Evaluation. Patient states she has been having pain for 1 year and is progressively worsening. Her pain is constant in timing, moderate in nature, located medially, and rated 8/10. Her symptoms are exacerbated with prolonged standing, standing and navigating stairs. The pain is interfering with her daily activities and decreasing her quality of life. She has utilized ice, heat, Tylenol, Meloxicam and hydrocodone with minimal relief. [facility] Phone: Consult note* Clinical Note Date No Information [facility] Phone: Discharge summary* Clinical Note Date No Information [facility] Phone: Evaluation note* Type Assessment Date No Information [facility] Phone: Evaluation note* Diagnosis Unilateral primary osteoarthritis, left knee- Primary Unilateral primary osteoarthritis, left knee documented in this encounter [facility]* Clinical Note Date No Information [facility] Phone: Instructions* Date Instruction Additional Infor mation No Information [facility] Phone: Progress note* Clinical Note Date No Information [facility] Phone: Reason for referral (narrative)* Reason For Referral No Information [facility] Phone: Summary Purpose Family History No Family History Records Found Family Member Type Diagnosis Age At Onset No Information Family Member Type Diagnosis Age At Onset Sister Problem (finding) Hypertension Mother Problem (finding) Hypertension Sister Problem (finding) Family history of Heart disease Maternal Grandfather Problem (finding) Diabetes mellit us Mother Problem (finding) Diabetes mellitus Paternal Grandmother Problem (finding) Hypertension Brother Problem (finding) Hypertension Mother Problem (finding) Family history of Heart disease Paternal Grandmother Problem (finding) Family history of Heart disease Paternal Grandmother Problem (finding) Family history of Stroke Brother Problem (finding) Family history of Heart disease Mother Problem (finding) Cancer Maternal Grandmother Problem (finding) Cancer Advance Directives No Advanced Directives Records Found Directive Yes / No Effective Date File Name No Information Date Activated Date Inactivated Comments 04/19/2024 12:07 PM 04/19/2024 6:13 PM This is ord er is used when code status has not been discussed with the patient, or code status is otherwise unknown/unconfirmed To update the patient's code status, place a code status order. Do not modify or discontinue any currently active code status orders. Provide all therapy to prevent/treat cardiac or respiratory arrest. Additional Source Comments INFORMATION SOURCE (unrecogn ized section and content) DATE CREATED AUTHOR 04/21/2021 [facility] dical Specialist DATE CREATED AUTHOR AUTHOR'S ORGANIZ ATION 04/29/2022 [facility] pital DATE CREATED AUTHOR AUTHOR'S ORGANIZ ATION 09/06/2023 [facility] dical Specialists EPIC DATE CREATED AUTHOR AUTHOR'S ORGANIZ ATION 03/29/2024 [facility] DATE CREATED AUTHOR AUTHOR'S ORGANIZ ATION 04/22/2024 [facility] DATE CREATED AUTHOR AUTHOR'S ORGANIZ ATION 04/22/2024 [facility] DATE CREATED AUTHOR AUTHOR'S ORGANIZ ATION 05/16/2024 [facility] Reason for Visit (unrecogniz ed section and content) Specialty Diagnoses / Procedures Referred By Eliecer narvaez Referred To Contact Diagnoses Unilateral primary osteoarthritis, left knee Pain in left knee M17.12 M25.562 Procedures MN ARTHROPLASTY KNEE CONDYLE&PLATEAU MED/LAT CPTS W/WO PATELLA RESURFACING MN ARTHROPLASTY KNEE CONDYLE&PLATEAU MED/LAT CPTS W/WO PATELLA RESURFACING Left total knee arthroplasty Rogelio Wilson MD [address] [place] [address] Sol Roberts [place] [address] [place] [address] Referral ID Status Reason Start Date Expiration Date Visits Re quested Visits Authorized [id number] 1 1 Ordered Prescriptions (unrec ognized section and content) Prescription Sig Dispensed Refills Start Date End Da te ondansetron (ZOFRAN) 4 mg tabletIndications:Unila teral primary osteoarthritis, left knee Take 1 tablet (4 mg total) by mouth every 8 (eight) hours if needed for nausea or vomiting for up to 7 days. 20 tablet 04/19/2024 04/26/2024 oxyCODONE (ROXICODONE) 5 mg immediate release tablet Take 1-2 tablets (5-10 mg total) by mouth every 4 (four) hours if needed for moderate pain or severe pain for up to 7 days. Max Daily Amount: 60 mg 40 tablet 04/19/2024 04/26/2024 traMADoL (ULTRAM) 50 mg tablet Take 1-2 tablets (50-100 mg total) by mouth every 6 (six) hours if needed for moderate pain for up to 7 days. Max Daily Amount: 400 mg 40 tablet 04/19/2024 04/26/2024 acetaminophen (TYLENOL) 500 mg tablet Take 2 tablets (1,000 mg total) by mouth 3 (three) times a day for 7 days. Take every 8 hours for one week, then as needed. Do not exceed 3,000 mg daily limit. 50 tablet 04/19/2024 04/26/2024 celecoxib (CeleBREX) 200 mg capsule Take 1 capsule (200 mg total) by mouth 1 (one) time each day. 30 capsule 04/19/2024 05/19/2024 cephalexin (KEFLEX) 500 mg capsule Take 1 capsule (500 mg total) by mouth 3 (three) times a day for 3 doses. 3 capsule 04/19/2024 04/20/2024 aspirin 81 mg chewable tablet Chew 1 tablet (81 mg total) 2 (two) times a day for 6 weeks. 84 each 04/20/2024 06/01/2024 Scheduled Active and Recently Administ ered Medications (unrecognized section and content) Medication Order 04/17/2024 04/18/2024 04/19/2024 acetaminophen (TYLENOL) tablet 1,000 mg 1,000 mg, oral, Every 6 hours scheduled, First dose on Wed04/19/24 at 1230, Recovery & On Unit 1230 (Canceled Entry - Provider: Automatic Discharge Provider - Comment: Automatically canceled at discontinue of medication order)1800 (Canceled Entry - Provider: Automatic Discharge Provider - Comment: Automatically canceled at discontinue of medication order) ceFAZolin (ANCEF) 2 gram/20 mL IV syringe 2 g (COMPLETED) 2 g, intravenous, Administer over 3 Minutes, Once, On Wed04/19/24 at 0730, For 1 dose, Preprocedure, Administer within 60 minutes of incision For pt under 120 KG, Indication: Prophylaxis-Surgical 0850 (Given - Provid er: Geninuris Wilburn [facility]) ceFAZolin (ANCEF) 2 gram/20 mL IV syringe 2 g 2 g, intravenous, Administer over 3 Minutes, Every 8 hours, First dose on Wed04/19/24 at 1700, For 2 doses, Recovery & On Unit, Indication: Prophylaxis-Surgical 1700 (Canceled Entry - Provider: Automatic Discharge Provider - Comment: Automatically canceled at discontinue of medication order) celecoxib (CeleBREX) capsule 200 mg 200 mg, oral, Daily, First dose on Paige 04/20/24 at 0900, Recovery & On Unit dexAMETHasone (DECADRON) injection 10 mg (COMPLETED) 10 mg, intravenous, Once, On Wed04/19/24 at 0730, For 1 dose, Preprocedure 0853 (Given - Provid er: Geninuris Wilburn [facility]) lactated Ringer's infusion (COMPLETED) 100 mL/hr, intravenous, Once, On Wed04/19/24 at 0730, For 1 dose, Preprocedure 0752 (New Bag - Prov ider: Amrit Garsia RN) lidocaine (PF) (XYLOCAINE-MPF) 1 % injection 0.2 mL 0.2 mL, intradermal, Once, On Wed04/19/24 at 0730, For 1 dose, Preprocedure 0730 (Canceled Entry - Provider: Automatic Discharge Provider - Comment: Automatically canceled at discontinue of medication order) mupirocin (BACTROBAN) 2 % ointment (COMPLETED) Each Nostril, Once, On Wed04/19/24 at 0830, For 1 dose, Preprocedure, Apply to nares. 0812 (Given - Provid er: Meaghan Cisneros RN) sodium chloride 0.9 % flush 10 mL(Linked Group 1) 10 mL, intravenous, 2 times daily, First dose on Wed04/19/24 at 1230, Recovery & On Unit 1230 (Canceled Entry - Provider: Automatic Discharge Provider - Comment: Automatically canceled at discontinue of medication order) tranexamic acid (CYKLOKAPRON) injection 1,000 mg (COMPLETED) 1,000 mg, intravenous, Once, On Wed04/19/24 at 0730, For 1 dose, Preprocedure, Administer prior to incision Not to exceed 100 mg (1 mL) per minute., Tranexamic Acid Indication: Surgical Prophylaxis: Orthopedic 0853 (Given - Provid er: LYNNE Currie) Continuous Medication Order 04/17/2024 04/18/2024 04/19/2024 lactated Ringer's infusion 100 mL/hr, intravenous, Continuous, Starting on Wed04/19/24 at 1015, Recovery (only) 1015 (Canceled Entry - Provider: Automatic Discharge Provider - Comment: Automatically canceled at discontinue of medication order) lactated Ringer's infusion 100 mL/hr, intravenous, Continuous, Starting on Wed04/19/24 at 1230 1230 (Canceled Entry - Provider: Automatic Discharge Provider - Comment: Automatically canceled at discontinue of medication order) Oxygen Therapy, Adult inhalation, Continuous, Starting on Wed04/19/24 at 1015, Recovery (only), Device: Nasal Cannula, Titrate Oxygen to keep O2 Sat. at or above: 92% 1015 (Canceled Entry - Provider: Automatic Discharge Provider - Comment: Automatically canceled at discontinue of medication order) PRN Medication Order 04/17/2024 04/18/2024 04/19/2024 diphenhydrAMINE (BENADRYL) injection 25 mg 25 mg, intravenous, Every 6 hours PRN, itching, Starting on Wed04/19/24 at 1206 EPINEPHrine (ADRENALIN) injection (CANCELED) As needed, Starting on Wed04/19/24 at 0925, Intraprocedure 0925 (Given - Provid er: Rogelio Wilson MD - Comment: Route: injection) HYDROmorphone (DILAUDID) injection 0.5 mg 0.5 mg, intravenous, Every 5 min PRN, severe pain or when therapies for moderate pain were not effective, Starting on Wed04/19/24 at 0955, For 5 doses, Recovery (only) 1027 (Given - Provid er: Kati Gonzalez, JEAN)1057 (Given - Provider: Kati Gonzalez RN) labetalol (NORMODYNE) injection 5 mg 5 mg, intravenous, Every 5 min PRN, high blood pressure, q10min, Starting on Wed04/19/24 at 0955, For 4 doses, Recovery (only), As needed for: -SBP GREATER than 180 mmHg -DBP GREATER than 110 mmHg -HOLD for pulse LESS than 60 bpm NON FORMULARY (CANCELED) As needed, Starting on Wed04/19/24 at 0926, Intraprocedure 0926 (Given - Provid er: Rogelio Wilson MD - Comment: Prontosan) ondansetron (PF) (ZOFRAN) injection 4 mg(Linked Group 2) 4 mg, intravenous, Every 8 hours PRN, vomiting, nausea, Starting on Wed04/19/24 at 0955, Recovery (only), -ONLY give IV if patient is unable to take orally. -If inadequate response within 30 minutes, proceed to next-line agent or contact provider if no further options ordered. ondansetron (PF) (ZOFRAN) injection 4 mg(Linked Group 3) 4 mg, intravenous, Every 8 hours PRN, vomiting, nausea, Starting on Wed04/19/24 at 1206, Recovery & On Unit, -ONLY give IV if patient is unable to take orally. -If inadequate response within 30 minutes, proceed to next-line agent or contact provider if no further options ordered. ondansetron ODT (ZOFRAN-ODT) disintegrating tablet 4 mg(Linked Group 2) 4 mg, oral, Every 8 hours PRN, vomiting, nausea, Starting on Wed04/19/24 at 0955, Recovery (only), -Give IV if patient is unable to take orally. -If inadequate response within 30 minutes, proceed to next-line agent or contact provider if no further options ordered. For ODT tablets: -Do not remove from blister pack until just before administering. -Patient should allow tablet to dissolve on tongue. ondansetron ODT (ZOFRAN-ODT) disintegrating tablet 4 mg(Linked Group 3) 4 mg, oral, Every 8 hours PRN, vomiting, nausea, Starting on Wed04/19/24 at 1206, Recovery & On Unit, -Give IV if patient is unable to take orally. -If inadequate response within 30 minutes, proceed to next-line agent or contact provider if no further options ordered. For ODT tablets: -Do not remove from blister pack until just before administering. -Patient should allow tablet to dissolve on tongue. oxyCODONE (ROXICODONE) immediate release tablet 5 mg 5 mg, oral, Every 4 hours PRN, moderate pain or when therapies for mild pain were not effective, Starting on Wed04/19/24 at 0955, For 2 doses, Recovery (only) 1044 (Given - Provid er: Kati Gonzalez RN)1503 (Canceled Entry - Provider: Automatic Discharge Provider - Comment: Automatically canceled at discontinue of medication order) oxyCODONE (ROXICODONE) immediate release tablet 5 mg 5 mg, oral, Every 4 hours PRN, Breakthrough pain, Starting on Wed04/19/24 at 1206, Recovery & On Unit, May consider scheduled oxyCODONE instead of PRN 1505 (Given - Provid er: Torres Orosco RN) promethazine (PHENERGAN) suppository 25 mg(Linked Group 4) 25 mg, rectal, Every 12 hours PRN, nausea, vomiting, Starting on Wed04/19/24 at 0955, Recovery (only), 2nd Line Option: -ONLY give MN if patient is unable to take orally. -If inadequate response within 30 minutes, proceed to next-line agent or contact provider if no further options ordered. promethazine (PHENERGAN) tablet 25 mg(Linked Group 4) 25 mg, oral, Every 6 hours PRN, nausea, vomiting, Starting on Wed04/19/24 at 0955, Recovery (only), 2nd Line Option: -Give MN if patient is unable to take orally. -If inadequate response within 30 minutes, proceed to next-line agent or contact provider if no further options ordered. ROPivacaine (PF) (NAROPIN) 0.5 % injection (CANCELED) As needed, Starting on Wed04/19/24 at 0926, Intraprocedure 0926 (Given - Provid er: Rogelio Wilson MD) sodium chloride 0.9 % flush 10 mL(Linked Group 1) 10 mL, intravenous, As needed, line care, Starting on Wed04/19/24 at 1206, Recovery & On Unit sodium chloride 0.9 % irrigation solution (CANCELED) As needed, Starting on Wed04/19/24 at 0926, Intraprocedure 09 (Given - Provid er: Rogelio Wilson MD) vancomycin (VANCOCIN) vial for injection (CANCELED) As needed, Starting on Wed04/19/24 at 0926, Intraprocedure 09 (Given - Provid er: Rogelio Wilson MD) Linked Groups Order Group 1: Insert peripheral IV (CANCELED) STAT, Once, On Wed04/19/24 at 1207, For 1 occurrence, Recovery & On Unit And Maintain IV access (CANCELED) Until discontinued, Starting on Wed04/19/24 at 1207, Until Specified, Recovery & On Unit And Saline lock IV (CANCELED) Routine, Once, On Wed04/19/24 at 1207, For 1 occurrence, When tolerating PO fluids, Recovery & On Unit And sodium chloride 0.9 % flush 10 mLJump to med 10 mL, intravenous, 2 times daily, First dose on Wed04/19/24 at 1230, Recovery & On Unit And sodium chloride 0.9 % flush 10 mLJump to med 10 mL, intravenous, As needed, line care, Starting on Wed04/19/24 at 1206, Recovery & On Unit Group 2: ondansetron ODT (ZOFRAN-ODT) disintegrating tablet 4 mgJump to med 4 mg, oral, Every 8 hours PRN, vomiting, nausea, Starting on Wed04/19/24 at 0955, Recovery (only), -Give IV if patient is unable to take orally. -If inadequate response within 30 minutes, proceed to next-line agent or contact provider if no further options ordered. For ODT tablets: -Do not remove from blister pack until just before administering. -Patient should allow tablet to dissolve on tongue. Or ondansetron (PF) (ZOFRAN) injection 4 mgJump to med 4 mg, intravenous, Every 8 hours PRN, vomiting, nausea, Starting on Wed04/19/24 at 0955, Recovery (only), -ONLY give IV if patient is unable to take orally. -If inadequate response within 30 minutes, proceed to next-line agent or contact provider if no further options ordered. Group 3: ondansetron ODT (ZOFRAN-ODT) disintegrating tablet 4 mgJump to med 4 mg, oral, Every 8 hours PRN, vomiting, nausea, Starting on Wed04/19/24 at 1206, Recovery & On Unit, -Give IV if patient is unable to take orally. -If inadequate response within 30 minutes, proceed to next-line agent or contact provider if no further options ordered. For ODT tablets: -Do not remove from blister pack until just before administering. -Patient should allow tablet to dissolve on tongue. Or ondansetron (PF) (ZOFRAN) injection 4 mgJump to med 4 mg, intravenous, Every 8 hours PRN, vomiting, nausea, Starting on Wed04/19/24 at 1206, Recovery & On Unit, -ONLY give IV if patient is unable to take orally. -If inadequate response within 30 minutes, proceed to next-line agent or contact provider if no further options ordered. Group 4: promethazine (PHENERGAN) tablet 25 mgJump to med 25 mg, oral, Every 6 hours PRN, nausea, vomiting, Starting on Wed04/19/24 at 0955, Recovery (only), 2nd Line Option: -Give MN if patient is unable to take orally. -If inadequate response within 30 minutes, proceed to next-line agent or contact provider if no further options ordered. Or promethazine (PHENERGAN) suppository 25 mgJump to med 25 mg, rectal, Every 12 hours PRN, nausea, vomiting, Starting on Wed04/19/24 at 0955, Recovery (only), 2nd Line Option: -ONLY give MN if patient is unable to take orally. -If inadequate response within 30 minutes, proceed to next-line agent or contact provider if no further options ordered. Care Teams (unrecognized sec tion and content) Post Anesthesia Nurse Relationship Specialty Start Date End Date Jocy Elder MD [address] [place] [address] PCP - General Family Medicine 04/14/24 FOR RECORDS PERTAINING TO PATIENTS WHO ARE [...] BE BASED ON THE PRIMARY CLINICAL RECORDS. [facility]. provides no warranty or guarantee of the accuracy or completeness of information in this document.
--- NOTE | 2024-05-27 16:32 | ED_ITS ---
HPI HPI - Fall General Chief Complaint: Wound/Laceration Stated Complaint: FALL Time Seen by Provider: 05/27/24 16:23 Source: patient Mode of arrival: ambulance Limitations: no limitations History of Present Illness HPI Narrative: cc = left knee injury The Pt tripped on a cord while sitting at a desk at the [employer] [facility] and fell, landing onto her left knee. She just had left knee replacement in [place] about 5.[address] Wilson and has been attending physical therapy 2-3 times a week. She has split open her incision in the left knee, which was glued post- operatively and never had sutures. She complains of left knee pain. Related Data Allergies Allergy/AdvReac Type Severity Reaction Status Date / Time Iodinated Contrast Media Allergy Severe Anaphylaxis Verified 05/27/24 16:27 Sulfa (Sulfonamide Allergy Severe Anaphylaxis Verified 05/27/24 16:27 Antibiotics) acetaminophen (From AdvReac Intermediate Difficulty Verified 05/27/24 16:27 Tylenol-Codeine) Breathing codeine (From AdvReac Intermediate Difficulty Verified 05/27/24 16:27 Tylenol-Codeine) Breathing Opioid HPI Opioid Management Most Recent Pain and Opioid Data: No Data to Display PFSH PFSH Social History Little interest or pleasure in doing things: not at all Feeling down, depressed, or hopeless: not at all Exam Narrative Exam Narrative: Vital signs reviewed and nurse's notes. The patient is not hypoxic. General: Alert, no acute distress, patient resting comfortably Skin: warm, no pallor noted - the patient's anterior left knee incision has dehisced with separation of the tissues for the length of the incision, exposing the underlying tissue. Head: Normocephalic, atraumatic Eye: Normal conjunctiva Respiratory: No acute distress Musculoskeletal: No evidence of deformity to the L knee. There is small amount of anterior left knee swelling. There is no ecchymosis. No erythema or warmth noted. DP and PT pulses are intact 2+. Normal sensation and there is no cyanosis or mottling noted. The patient has tenderness to the anterior aspect of the right knee. Varus and valgus NOT stressed. No anterior drawer or Luz testing done. The patient was able to flex and extend through her current limitations of flexibility with some pain. Patient was able to extend leg off the cart without difficulty. No injury distal to the left knee. The patient has no pelvic instability. Neurological: alert and orient x4, normal sensory and motor observed. Psychiatric: Cooperative Constitutional Vital Signs, click to edit/add: Last Vital Signs Temp 98.1 F 05/27/24 16:21 Pulse 68 05/27/24 16:21 Resp 18 05/27/24 16:21 BP 138/83 05/27/24 16:21 Pulse Ox 99 05/27/24 16:21 O2 Del Method Room Air 05/27/24 16:21 Course Vital Signs Vital signs: Vital Signs Temperature 98.1 F 05/27/24 16:21 Pulse Rate 68 05/27/24 16:21 Respiratory Rate 18 05/27/24 16:21 Blood Pressure 138/83 05/27/24 16:21 Pulse Oximetry 99 05/27/24 16:21 Oxygen Delivery Method Room Air 05/27/24 16:21 Temperature 98.1 F 05/27/24 16:21 Pulse Rate 68 05/27/24 16:21 Respiratory Rate 18 05/27/24 16:21 Blood Pressure 138/83 05/27/24 16:21 Pulse Oximetry 99 05/27/24 16:21 Oxygen Delivery Method Room Air 05/27/24 16:21 MDM - Fall MDM Narrative Medical decision making narrative: Xrays of the left knee obtained to evaluate for hardware stability and rule out fracture of the distal femur and proximal tibia. Xrays, per radiologist = No acute fracture or dislocation. Left total knee arthroplasty with intact components. Small left knee joint effusion. No acute foreign body. Results discussed with the patient. She wanted me to have her transferred to [place] for their surgeons to evaluate her. i spoke with Dr Dill - covering for Dr Wilson - and he agreed with the transfer - asked that she go to the ER at [facility]. Pt is in agreement and wants her family to drive her there. Pt's wound dressed and wrapped with shreya bandage and then long leg knee immobilizer applied to left LE by ED nurse. Pt then assisted tyo the car for transport. Imaging Data xr knee: Attestation: I personally reviewed and interpreted this imaging study as follows: My impression: no acute fx, intact hardware, small effusion, no foreign material identified in wound/joint Discharge Plan Discharge Chief Complaint: Wound/Laceration Clinical Impression: Dehiscence of operative wound, Contusion of knee Patient Disposition: [facility] Time of Disposition Decision: 18:44 Discharge location: [facility] ED Print Language: Lao Referrals: Boone Elder MD [Primary Care Provider] - 1 week
[2024-05-27 18:56] VITALS: BP 141/105; PULSE 69; O2SAT 100
== END 2024-05-27 19:50 | disposition short-term general hospital (02) ==
PROVIDERS: Emergency Provider Emergency Medicine; PCP Family Medicine
DX: T81.31XA Disruption of external operation (surgical) wound, not elsewhere classified, initial encounter (principal); Z96.652 Presence of left artificial knee joint; S80.02XA Contusion of left knee, initial encounter; W01.0XXA Fall on same level from slipping, tripping and stumbling without subsequent striking against object, initial encounter
CPT/HCPCS: 73562; 99285

== ENCOUNTER 2024-11-03 10:24 | Outpatient (OUT) | payer MEDICARE, OTHER, SELFPAY ==
--- OUTSIDE RECORDS SUMMARY | 2024-06-12 07:00 | XMS_ITS | Continuity of Care Document ---
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 Name Role Phone Doroteo Dove PA-C Unavailable Unavailable Allergies, Adverse Reactions, Alerts Substance Reaction Status Criticality codeine Tight chest Active No Information iodine Other Active No Information Sulfa (Sulfonamide Antibiotics) Difficul tyBreathing, Hives, Rash Active No Information Medications Medication Instructions Dosage Effective Dates (start - stop) Status Comments Celebrex 200 mg capsule take 1 capsule b y oral route every day 200 MG - Active hydrochlorothiazide 25 mg tablet take 1 by oral route every morning 1 - Active clonidine HCl 0.1 mg tablet take 1 tablet by oral route TID - Active carvedilol 25 mg tablet take 1 by oral route 2 times every day 1 - Active meloxicam 15 mg tablet take 1 tablet by oral route every morning 15 MG - Active Klor-Con M20 mEq tablet,extended release take 1 by oral route BID - Active venlafaxine 75 mg tablet TAKE 225MG DAKOTAH Y EVERY AM - Active irbesartan 150 mg tablet take 1 tablet b y oral route every morning 150 MG - Active simvastatin 20 mg tablet take 1 tablet b y oral route every evening - Active tizanidine 4 mg capsule TAKE 1 TABLET BY ORAL ROUTE EVERY AM AND 2 TABLETS BY ORAL ROUTE EVERY PM - Active lansoprazole 30 mg capsule,delayed release take 1 capsule by oral route every morning before a meal 30 MG - Active pantoprazole 40 mg tablet,delayed release take 1 tablet by oral route every morning 40 MG - Active Leandro Aspirin (UD) 81 mg ORAL TABLET takes one tablet everyday by mouth in the am - Active semaglutide (UD) INJECTION TAKE 0.2 ML SQ EVERY Wednesday - Active SYNTHROID (unknown strength) take 1 tablet by oral route every morning Not Available - Active Procedures Procedure Date X-ray exam of knee, 3 views Postop followup visit Late closure of wound, extensive 2024 Drainage of thigh/knee lesion Followup hospital care, moderate 2024 Arthroplasty, total knee PA Arthroplasty, Total Knee Office[facility]outpatient visit,[facility] 2023 Electrocardiogram, complete (ECG) Venpnctr fngr/heel/ear stick routne PT EVAL MOD COMPLEX 30 MIN Therapeutic activities (one on one) No Charge Office/outpatient visit,[facility] 2023 X-ray exam of knee, 4+ views Intermittent Compression Device - SELF P AY Advance Directives Directive Yes / No Effective Date File Name No Information Encounters Encounter Description Practice Location Reason(s) For Visit Diagnoses Date Provider Providers Copied on Encounter [facility] [address], [address], tel:[phone] Presence of left artificial knee jointPresence of left artificial knee jointOsteoarthri tis of left knee, unspecified osteoarthritis type 5 Petty Sadler. [address] [facility], [address], [place], [address], [place]. tel:[phone] Referring Provider: Doroteo Zamarripa, [address] [facility] [address], [place], [address]. tel:[phone] [facility] [place] [address] [place], [address], [place] tel:[phone] [facility] No Information 5 Katie Mercado. [address] [place] [address], [address], [place], [address], [place]. tel:[phone] Referring Provider: Rogelio Britton, [address] [place] [address] [address], [place], [address]. tel:[phone] [facility] care, moderate [facility], [facility] [place], [address], [place] tel:[phone] [facility] No Information 5 Gaudencio Harris. [address] [place] [address], [address], [place], [place], [id number] , [place]. [phone] Referring Provider: Steven Musa, [address] [place] [address] [address], [place], [address] . tel:[phone] [facility], [facility] [place], [address], [place] tel:[phone] 700 [facility] No Information 5 Palmerst Mercado. [address] [place] [address], [address], [place], [address], [place]. [phone] Referring Provider: Rogelio Britton, [address] [place] [address] [address], [place], [address]. tel:[phone] [facility], [address] [place] [address], [address], [place] tel:[phone] [address] [place] [address] No Information 5 Palmerst Parrishson. [address] [place] [address], [address], [place], [address], [place]. tel:[phone] Referring Provider: Rogelio Britton, [address] [place] [address] [address], [place], [address]. tel:[phone] [facility], [facility] [place], [place], [facility], tel:[phone] Vee Valladares [place] GARCIA No Information 5 Petty Sadler. [address] [facility], [address], [place], [address], [place]. [phone] Referring Provider: Rogelio Britton, [address] [place] [address] [address], [place], [address]. tel:[phone] Office[facility]pa [facility]ient [facility] [place], [address] [place] [address], [facility], [place] tel:[phone] [facility] Preoperative clearanceOsteoar thritis of left knee, unspecified osteoarthritis typePreop cardiovascular examEssential hypertensionGERD without esophagitisHyper lipidemia, unspecified hyperlipidemia typeHypothyroidi sm, unspecified typeModerate obesityNo contraindication to anticoagulation therapy 4 Randy Fabian. [address] [facility], [address], [place], [address], [place]. [phone] Referring Provider: Rogelio Britton, [address] [place] [address] [address], [place], [address]. tel:[phone], [facility], [place] tel:[phone] [facility] [place] No Information 4 Umer Wilde. [address] [facility], [address], [place], [place], [id number] , [place]. tel:[phone] Referring Provider: Rogelio Britton, [address] [place] [address] [address], [place], [address]. tel:[phone], [facility], [place] tel:[phone] [facility] Primary osteoarthritis of left knee 4 Katie Mercado. [address] [place] [address], [address], [place], [address], [place]. [phone] Referring Provider: Rogelio Britton, [address] [facility] [address], [place], [address]. tel:[phone] [facility] [address] [place], [place], [facility], tel:[phone] [facility] [place] Primary osteoarthritis of left kneePain in joint of left knee 4 Katie Mercado. [address] [facility], [address], [place], [address], [place]. tel:[phone] Referring Provider: Boone Britton, [address] [place], [address] . tel:[phone] [facility], [facility] [address] [place], [place], [facility], tel:[phone] [facility] [place] Unilateral primary osteoarthritis, left knee 4 Katie Mercado. [address] [place] [address], [address], [place], [address], [place]. tel:[phone] Referring Provider: Rogelio Britton, [address] [place] [address] [address], [place], [place], [facility]. tel:[phone] Family History Family Member Type Diagnosis Age At Onset [...] (finding) Cancer Maternal Grandmother Problem (finding) Cancer Payers Payer name Insurance type Covered republican ID Authoriza tilobito(s) Medicare [place] MB [id number] [address] Only [place] [id number] Social History Type Description Quantity Date Captured Comments Alcohol Use Details Caffeine Use Details Unknown Tobacco Use Status No Information Smoking Status Never smoker Sex Female Chief Complaint And Reason For Visit No Information Reason For Referral Reason For Referral No Information Plan Of Treatment Date Type Action Status Future Order: Lab Order Multiple Labs On Order ([id number]), Ordered on: Ordered History Of Present Illness Encounter Date Complaint History Of Prese nt Illness Left Knee 2-Week Post-Op Patient presents for a 2-Week Left Knee staple removal S/P LK I&D 05/28/24 [facility]. Patient states she is doing well and denies any new fever, chills, night sweats, and pain. Preoperative medical risk stratification The patient, Chrissie [...] Tylenol, Meloxicam and hydrocodone with minimal relief. Functional Status Date Functional Assessmen t No Information Instructions Date Instruction Additional Infor mation No Information Assessments Type Assessment Date assessment Patient Care Teams Name Effective Dates (start - stop) Status Members No Information
--- OUTSIDE RECORDS SUMMARY | 2024-08-17 07:55 | XMS_ITS ---
Author Organization [facility] [place] Address [address] [place] [address] Care Team Providers Care Tax Accounting Manager Name Role Phone Cornell Elder Primary Care Provider [phone] REASON FOR VISIT refill Medications Medication SIG (Take, Route, Fr equency, Duration) Notes Start Date End Date Status CeleBREX 200 MG 1 capsule with food Orally Once a day for 30 days 06/07/2024 Active Encounters Encounter Location Date Provider Diagnosis [facility] [address] [place] [address] 08/17/2024 Cornell Elder Plan Of Treatment Medication Medication Name Sig Start Date Stop Date Notes CeleBREX 200 MG 1 capsule with food Orally Once a day for 30 days 06/07/2024 Progress Notes * Chrissie ROUSSEAU KDOB:[birth year] (64 yo F)Acc No.[id number]:08/17/2024 Patient: Chrissie TRAORE :1960 A ge:64 Y S ex:Female Address:[address] [place] [address], [phone] * Refills Refill CeleBREX Capsule, 200 MG, Orally, 30 Capsule, 1 capsule with food, Once a day, 30 days, Refills=11 * true * Date: Generated for Printi ng/Faxing/eTransmitting on: 0 11/03/2024 10:40 AM EDT
--- OUTSIDE RECORDS SUMMARY | 2024-09-27 07:18 | XMS_ITS ---
Author Organization [facility] [place] Address [address] [place] [address] Care Team Providers Care Duplication Specialist Name Role Phone Cornell Elder Primary Care Provider REASON FOR VISIT semaglutide to [place] Encounters Encounter Location Date Provider Diagnosis [facility] [address] [facility] [place] [address] 09/27/2024 Cornell Elder Plan Of Treatment No Information Progress Notes * SOHAM Chrissie KDOB:[birth year] (64 yo F)Acc No.[id number]:09/27/2024 Patient: Chrissie TRAORE :1960 A ge:64 Y S ex:Female Address:[address] [place] [address], [phone] * true * Date: Generated for Printi ng/Fadiong/eTransmitting on: 0 11/03/2024 10:40 AM EDT
--- OUTSIDE RECORDS SUMMARY | 2024-10-30 05:31 | XMS_ITS ---
Author Organization [facility] [place] Address [address] [place] [address] Care Team Providers Care Upholsterer Helper Name Role Phone Cornell Elder Primary Care Provider [phone] REASON FOR VISIT rf/ labs Medications Medication SIG (Take, Route, Frequency, Duration) Notes Start Date End Date Status Levothyroxine Sodium 75 MCG take 1 table t by mouth every morning ON AN EMPTY STOMACH for 90 days Active Simvastatin 20 MG 1 tablet in the even ing Orally Once a day for 90 days Active hydroCHLOROthiazide 25 MG 1 tablet Orall y Once a day for 90 days Active Encounters Encounter Location Date Provider Diagnosis [facility] [address] [place] [address] 10/30/2024 Cornell Elder Hypertension I10 ; Hypoactive thyroid E03.9 ; Fatigue R53.83 ; Wellness examination Z01.89 and Screening for colon cancer Z12.11 Assessments Encounter Date Diagnosis (ICD Code) Assessment Notes Treatment Notes Treatment Clinical Notes Section Notes 10/30/2024 Hypertension (ICD-10 - I10) 10/30/2024 Hypoactive thyroid (ICD-10 - E03.9) 10/30/2024 Fatigue (ICD-10 - R53.83) 10/30/2024 Wellness examination (ICD-10 - Z01.89) 10/30/2024 Screening for colon cancer (ICD-10 - Z12.11) Plan Of Treatment Medication Medication Name Sig Start Date Stop Date Notes Levothyroxine Sodium 75 MCG take 1 table t by mouth every morning ON AN EMPTY STOMACH for 90 days Simvastatin 20 MG 1 tablet in the even ing Orally Once a day for 90 days hydroCHLOROthiazide 25 MG 1 tablet Orall y Once a day for 90 days Pending Test Test Name Order Date FECAL OCCULT BLOOD 10/30/2024 CMP - Comprehensive Metabolic Panel 10/04 CBC AUTO DIFF 10/30/2024 GLYCOHEMOGLOBIN A1C 10/30/2024 LIPID PROFILE 10/30/2024 THYROID PANEL (T4/TSH/FREE T3) Progress Notes * Chrissie ROUSSEAU KDOB:[birth year] (64 yo F)Acc No.[id number]:10/30/2024 Patient: Chrissie TRAORE :1960 A ge:64 Y S ex:Female Address:[address] [place] [address], [address] * Refills Refill Levothyroxine Sodium Tablet, 75 MCG, 90 Tablet, take 1 tablet by mouth every morning ON AN EMPTY STOMACH, 90 days, Refills=0 Refill Simvastatin Tablet, 20 MG, Orally, 90 Tablet, 1 tablet in the evening, Once a day, 90 days, Refills=1 Refill hydroCHLOROthiazide Tablet, 25 MG, Orally, 90 Tablet, 1 tablet, Once a day, 90 days, Refills=2 Subjective: * Chief Complaints: * R f/ labs * Medical History: * Surgical History: * Hospitalization/Major Diagno stic Procedure: * Medications: Objective: * Vitals: * Physical Examination: Assessment: * Assessment: 1. H ypertension - I10 2 . H ypoactive thyroid - E03.9 3 .?Fatigue - R53.83 4 . W ellness examination - Z01.89 5 .?Screening for colon cancer - Z12.11 Plan: * Treatment: 2. H ypoactive thyroid L AB: THYROID PANEL (T4/TSH/FREE T3) 3. W ellness examination L AB: CMP - Comprehensive Metabolic Panel L AB: CBC AUTO DIFF L AB: GLYCOHEMOGLOBIN A1C L AB: LIPID PROFILE L AB: THYROID PANEL (T4/TSH/FREE T3) 4. S creening for colon cancer L AB: FECAL OCCULT BLOOD * Procedure Codes: * true * Date: Generated for Sunny mishra/Deana/Sadiaitting on: 0 11/03/2024 10:41 AM EDT
--- OUTSIDE RECORDS SUMMARY | 2024-11-03 10:41 | XMS_ITS | Patient Health Record ---
Author Organization The [facility] in [place] Address [address] [place] [address] Care Team Providers Care Polysomnograph Tech Name Role Phone Cornell Jean Primary Care Provider Nicole Carrera Unavailable [phone] Allergies Allergen (clinical drug ingredient) Drug/Non Drug Allergy documented on EMR Reaction Allergy Type Onset Date Status contrast dye (uncoded) hives Allergy Active sulfamethoxazole / trimethoprim Bactrim DS hives Drug Allergy Active codeine Codeine feels like can't breath Drug Allergy Active Results Component Value Reference Range Notes XR shoulder RT min 2V Reviewed date:01/27/2024 07:43:51 PM Interpretation: Performing Lab: Notes/Report: Source Facility: [place] [address] [facility] [place] [id number] XRay Report Signed Patient: CHRISSIE ROUSSEAU MR#: [id number] : 1960 Acct:[id number] Age/Sex: 63 / F ADM Date: 01/27/24 Loc: RAD Attending Dr: Jocy Jean M.D. Ordering Physician: Jocy Jean M.D. Date of Service: 01/27/24 Procedure(s): XR shoulder RT min 2V Accession Number(s): [id number] cc: Jocy Jean M.D. [place] [id number] Patient Name: CHRISSIE ROUSSEAU MRN: [id number] date: 1960 Sex: F Assigned Patient Location: RAD Current Patient Location: RAD Accession/Order Number: [id number] Exam Date: 01/27/2024 13:29 Report Date: 01/27/2024 13:59 At the request of: JOCY JEAN Procedure: XR shoulder RT min 2V PROCEDURE: XR shoulder RT min 2V HISTORY: Clearance For MRI COMPARISON: None. FINDINGS: BONES:2 metallic bone anchors within humeral head. SOFT TISSUES:No visible soft tissue swelling. XR/XR shoulder RT min 2V IMPRESSION: 1. There are 2 metallic bone anchors within right humeral head. Electronically authenticated by: LUDWIN ANGULO Date: 01/27/2024 13:59 Dictated By: Ludwin Angulo M.D. Signed By: 01/27/24 1401 DD/ 1354 TD/TT: Research Program Manager: [place] [address] XRay Report Signed Patient: BERNADETTE ROUSSEAU MR#: [id number] : 1960 Acct:[id number] Age/Sex: 63 / F ADM Date: 01/27/24 Loc: [facility] Attending Dr: Jocy Jean M.D. Ordering Physician: Jocy Jean M.D. Date of Service: 01/27/24 Procedure(s): XR ko ulder RT min 2V Accession Number(s): [id number] cc: Jocy Jean M.D. [facility] [place] [id number] Patient Name: CHRISSIE ROUSSEAU MRN: [id number] date: 1960 Sex: F Assigned Patient Location: RAD Current Patient Location: RAD Accession/Order Numb er: [id number] Exam Date: 13:29 Report Date: 01/27/2024 13:59 At the request of: JOCY JEAN Procedure: XR should er RT min 2V PROCEDURE: XR should er RT min 2V HISTORY: Clearance For MRI COMPARISON: None. FINDINGS: BONES:2 metallic bon e anchors within humeral head. SOFT TISSUES:No visi ble soft tissue swelling. X R/XR shoulder RT min 2V IMPRESSION: 1. There are 2 metal lic bone anchors within right humeral head. Electronically authe nticated by: LUDWIN ANGULO Date: 01/27/2024 13:59 Dictated By: Ludwin Angulo M.D. Signed By: 01/27/24 1403 DD/ 1354 TD/TT: Research Program Manager: CT chest wo con Reviewed date:01/30/2024 10:03:54 PM Interpretation: Performing Lab: Notes/Report: Source Facility: [place] [address] CT Scan Report Signed Patient: CHRISSIE ROUSSEAU MR#: [id number] : 1960 Acct:[id number] Age/Sex: 63 / F ADM Date: 01/27/24 Loc: RAD Attending Dr: Jocy Jean M.D. Ordering Physician: Jocy Jean M.D. Date of Service: 01/27/24 Procedure(s): CT chest wo con Accession Number(s): [id number] cc: Jocy Jean M.D. [place] [address] Patient Name: CHRISSIE ROUSSEAU MRN: [id number] date: 1960 Sex: F Assigned Patient Location: [facility] Current Patient Location: RAD Accession/Order Number: [id number] Exam Date: 01/27/2024 13:15 Report Date: 01/29/2024 08:39 At the request of: JOCY JEAN Procedure: CT chest wo con EXAMINATION: CT chest wo con HISTORY: chronic cough R05.3 COMPARISON: No relevant comparison available. TECHNIQUE: Axial, Coronal, and Sagittal images were created without the administration of IV contrast material. Dose reduction techniques were achieved by using automated exposure control and/or adjustment of mA and/or kV according to patient size and/or use of iterative reconstruction technique. FINDINGS: LUNGS: Mild bronchial wall thickening and mucous plugging within left lower lobe. PLEURA: No mass, effusion, or pneumothorax. VASCULATURE: No abnormality. SHAILESH: No mass or pathologic adenopathy. MEDIASTINUM: No mass or pathologic adenopathy. CARDIAC: No enlargement, pericardial thickening, or pericardial effusion. Coronary Artery calcifications: AORTA: No aneurysm or dissection. CHEST WALL: No mass or axillary adenopathy BONES: No bone lesion or fracture. LIMITED ABDOMEN: Large hiatal hernia. Limited images of the upper abdomen. OTHER: Negative. CT/CT chest wo con IMPRESSION: 1. Left lower lobe mild bronchiolitis and mild mucous plugging. No peripheral infiltrates or findings to suggest pneumonia. 2. Large hiatal hernia. Electronically authenticated by: LUDWIN ANGULO Date: 01/29/2024 08:39 Dictated By: Ludwin Angulo M.D. Signed By: 01/29/24840 DD/ 8 TD/TT: Research Program Manager: [place] [address] CT Scan Report Signed Patient: BERNADETTE ROUSSEAU MR#: [id number] : 1960 Acct:[id number] Age/Sex: 63 / F ADM Date: 01/27/24 Loc: RAD Attending Dr: Jocy Jean M.D. Ordering Physician: Jocy Jean M.D. Date of Service: 01/27/24 Procedure(s): CT chest wo con Accession Number(s): [id number] cc: Jocy Jean M.D. [place] [id number] Patient Name: CHRISSIE ROUSSEAU MRN: [id number] date: 1960 Sex: F Assigned Patient Location: RAD Current Patient Location: RAD Accession/Order Numb er: [id number] Exam Date: 13:15 Report Date: 01/29/2024 08:39 At the request of: JOCY JEAN Procedure: CT chest wo con EXAMINATION: CT chest wo con HISTORY: chronic cough R05.3 COMPARISON: No relev ant comparison available. TECHNIQUE: Axial, Co esau, and Sagittal images were created without the administration of IV contrast material. Dose reduction techniques were achieved by using automated e xposure control and/or adjustment of mA and/or kV according to patient size and/ or use of iterative reconstruction technique. FINDINGS: LUNGS: Mild bronchia l wall thickening and mucous plugging within left lower lobe. PLEURA: No mass, eff usion, or pneumothorax. VASCULATURE: No abnormality. SHAILESH: No mass or pat hologic adenopathy. MEDIASTINUM: No mass or pathologic adenopathy. CARDIAC: No enlargem ent, pericardial thickening, or pericardial effusion. Coronary Artery calcifications: AORTA: No aneurysm o r dissection. CHEST WALL: No mass or axillary adenopathy BONES: No bone lesio n or fracture. LIMITED ABDOMEN: Lar ge hiatal hernia. Limited images of the upper abdomen. OTHER: Negative. C T/CT chest wo con IMPRESSION: 1. Left lower lobe m ild bronchiolitis and mild mucous plugging. No peripheral infiltrates or findi ngs to suggest pneumonia. 2. Large hiatal hernia. Electronically authe nticated by: LUDWIN ANGULO Date: 01/29/2024 08:39 Dictated By: Ludwin Angulo M.D. Signed By: 01/29/2441 DD/ TD/TT: Research Program Manager: XR KNEE LT 3V Reviewed date:01/20/2024 09:56:03 PM Interpretation: Performing Lab: Notes/Report: Source Facility: [place] [address] [place] [address] XRay Report Signed Patient: CHRISSIE ROUSSEAU MR#: [id number] : 1960 Acct:[id number] Age/Sex: 63 / F ADM Date: 01/18/24 Loc: RAD Attending Dr: Jocy Jean M.D. Ordering Physician: Jocy Jean M.D. Date of Service: 01/18/24 Procedure(s): XR knee LT 3V Accession Number(s): [id number] cc: Jocy Jean M.D. [facility] [place] [address] Patient Name: CHRISSIE ROUSSEAU MRN: [id number] date: 1960 Sex: F Assigned Patient Location: RAD Current Patient Location: Accession/Order Number: [id number] Exam Date: 01/18/2024 12:05 Report Date: 01/19/2024 07:40 At the request of: JOCY JEAN Procedure: XR knee LT 3V PROCEDURE: XR knee LT 3V COMPARISON: None. HISTORY: Internal Derangement Of Knee FINDINGS: BONES:No acute fracture or dislocation. Moderate to severe tricompartmental osteoarthritis with marginal osteophyte formation. Moderate narrowing of medial joint space with subchondral cystic changes of the medial femoral condyle SOFT TISSUES:Negative. No visible soft tissue swelling. EFFUSION:Small suprapatellar joint effusion OTHER: Negative. XR/XR knee LT 3V IMPRESSION: Moderate to severe tricompartmental osteoarthritis Electronically authenticated by: RONAL HERNANDEZ Date: 01/19/2024 07:40 Dictated By: Ronal Hernandez M.D. Signed By: 01/19/2442 DD/ TD/TT: Research Program Manager: [place] [address] XRay Report Signed Patient: BERNADETTE ROUSSEAU MR#: [id number] : 1960 Acct:[id number] Age/Sex: 63 / F ADM Date: 01/18/24 Loc: [facility] Attending Dr: Jocy Jean M.D. Ordering Physician: Jocy Jean M.D. Date of Service: 01/18/24 Procedure(s): XR knee LT 3V Accession Number(s): [id number] cc: Jocy Jean M.D. [place] [address] Patient Name: CHRISSIE ROUSSEAU MRN: [id number] date: 1960 Sex: F Assigned Patient Location: [facility] Current Patient Location: Accession/Order Numb er: [id number] Exam Date: 12:05 Report Date: 01/19/2024 07:40 At the request of: JOCY JEAN Procedure: XR knee LT 3V PROCEDURE: XR knee LT 3V COMPARISON: None. HISTORY: Internal De rangement Of Knee FINDINGS: BONES:No acute fract ure or dislocation. Moderate to severe tricompartmental osteoarthritis with marginal osteophyte formation. Moderate narrowing of medial joint space with sub chondral cystic changes of the medial femoral condyle SOFT TISSUES:Negativ e. No visible soft tissue swelling. EFFUSION:Small supra patellar joint effusion OTHER: Negative. X R/XR knee LT 3V IMPRESSION: Moderate to severe tricompartmental osteoarthritis Electronically authe nticated by: RONAL HERNANDEZ Date: 01/19/2024 07:40 Dictated By: Ronal Hernandez M.D. Signed By: 01/19/2442 DD/ 9 TD/TT: Research Program Manager: knee LT wo con Reviewed date:01/30/2024 10:13:00 PM Interpretation: Performing Lab: Notes/Report: Source Facility: [place] [address] Magnetic Resonance Report Signed Patient: CHRISSIE ROUSSEAU MR#: [id number] : 1960 Acct:[id number] Age/Sex: 63 / F ADM Date: 01/27/24 Loc: [facility] Attending Dr: Jocy Jean M.D. Ordering Physician: Jocy Jean M.D. Date of Service: 01/27/24 Procedure(s): MR knee LT wo con Accession Number(s): [id number] cc: Jocy Jean M.D. [place] [address] Patient Name: CHRISSIE ROUSSEAU MRN: [id number] date: 1960 Sex: F Assigned Patient Location: [facility] Current Patient Location: [facility] Accession/Order Number: [id number] Exam Date: 01/27/2024 14:00 Report Date: 01/29/2024 07:10 At the request of: JOCY JEAN Procedure: MR knee LT wo con EXAM: MR knee LT wo con HISTORY: Internal derangement of knee M23.90. Left knee pain after an injury one year ago tripping. Patient hit the anterior aspect of the knee on concrete. COMPARISON: Knee x-rays from 01/18/2024. TECHNIQUE: Multiplanar and multisequence imaging of the left knee was performed without contrast. FINDINGS: The anterior cruciate ligament appears small in size and irregular in morphology distally suspicious for a prior grade 2 sprain. The posterior cruciate ligament and collateral ligaments are intact. The patellar tendon, distal quadriceps tendon and iliotibial band are intact. Motion artifact degrades evaluation on this study. Severe degenerative change/osteoarthritis involves the medial compartment with extensive high-grade and full thickness articular cartilage loss throughout the majority of the weightbearing surface of the medial femoral condyle and medial tibial plateau. There is moderate bone marrow edema in the medial femoral condyle and medial tibial plateau with adjacent cystic change and spurring. A complex morphology tear involves the body of the medial meniscus which is small in size. No lateral meniscal tear is evident. Articular cartilage in the lateral compartment is intact. There is a small to moderate joint effusion. Moderate to high-grade articular cartilage loss is evident in the patellofemoral compartment. There is a small Cabral cyst. MR/MR knee LT wo con IMPRESSION: 1. Severe degenerative change/osteoarthritis involves the medial compartment with extensive high-grade and full thickness articular cartilage loss. There is moderate bone marrow edema in the medial femoral condyle and medial tibial plateau suspicious for associated stress response. 2. There is a complex tear of the body of the medial meniscus. 3. No MRI evidence of lateral meniscal tear. 4. Findings suspicious for a prior grade 2 sprain of the ACL distally with thinning and poor visualization of the distal fibers of the ACL. 5. There is a small to moderate joint effusion with moderate to high-grade articular cartilage loss in the patellofemoral compartment. Electronically authenticated by: CHARLENE SMITH Date: 01/29/2024 07:10 Dictated By: Charlene Smith M.D. Signed By: 01/29/2413 DD/ 9 TD/TT: Research Program Manager: [place] [address] Magnetic Resonance Report Signed Patient: BERNADETTE ROUSSEAU MR#: [id number] : 1960 Acct:[id number] Age/Sex: 63 / F ADM Date: 01/27/24 Loc: RAD Attending Dr: Jocy Jean M.D. Ordering Physician: Jocy Jean M.D. Date of Service: 01/27/24 Procedure(s): MR knee LT wo con Accession Number(s): [id number] cc: Jocy Jean M.D. [place] [address] Patient Name: CHRISSIE ROUSSEAU MRN: [id number] date: 1960 Sex: F Assigned Patient Location: [facility] Current Patient Location: [facility] Accession/Order Numb er: [id number] Exam Date: 14:00 Report Date: 01/29/2024 07:10 At the request of: JOCY JEAN Procedure: MR knee LT wo con EXAM: MR knee LT wo con HISTORY: Internal de rangement of knee M23.90. Left knee pain after an injury one year ago tripjose e g. Patient hit the anterior aspect of the knee on concrete. COMPARISON: Knee x-r ays from 01/18/2024. TECHNIQUE: Multiplan ar and multisequence imaging of the left knee was performed without contrast. FINDINGS: The anteri or cruciate ligament appears small in size and irregular in morphology distally suspicious for a prior grade 2 sprain. The posterior cruciate ligament an d collateral ligaments are intact. The patellar tendon, distal quadriceps te ndon and iliotibial band are intact. Motion artifact degrades evaluation on this study. Severe degenerative change/osteoarthritis involves the medial compartment with extensive high-grade and full thickness articular cartilage loss throughout the majority of the weig htbearing surface of the medial femoral condyle and medial tibial plateau. Ther e is moderate bone marrow edema in the medial femoral condyle and medial t ibial plateau with adjacent cystic change and spurring. A complex morphology t ear involves the body of the medial meniscus which is small in size. No lateral meniscal tear is evident. Articular cartilage in the lateral compartment is intact. There is a small to moderate joint effusion. Moderate to high-grade articular cartilage loss is ev ident in the patellofemoral compartment. There is a small Cabral cyst. M R/MR knee LT wo con IMPRESSION: 1. Severe degenerati ve change/osteoarthritis involves the medial compartment with extensive high- grade and full thickness articular cartilage loss. There is moderate bone marrow edema in the medial femoral condyle and medial tibial plateau suspicious f or associated stress response. 2. There is a comple x tear of the body of the medial meniscus. 3. No MRI evidence o f lateral meniscal tear. 4. Findings suspicio us for a prior grade 2 sprain of the ACL distally with thinning and poor vi sualization of the distal fibers of the ACL. 5. There is a small to moderate joint effusion with moderate to high-grade articular cartilage loss in the patellofemoral compartment. Electronically authe nticated by: CHARLENE SMITH Date: 01/29/2024 07:10 Dictated By: Charlene Smith M.D. Signed By: 01/29/24712 DD/ 9 TD/TT: Research Program Manager: Reason For Referral Diagnosis 1 Abnormal findings on diagnostic imaging of limbs (R93.6) Referral Organization [facility] Referring Provider First Name Cornell Referring Provider Last Name Jael Referring Provider Speciality [facility] Referred Provider Specialty Orthopedic S urgery Clinical Notes Angelina Estes 2023 09:12:51 AM >Referral Hand Faxed to [phone] Referral Priority Routine Medications Medication SIG (Take, Route, Frequency, Duration) Notes Start Date End Date Status Semaglutide(0.25 or 0.5MG/DOS) 2 MG/3ML Inject 0.5mg Subcutaneous once weekly for 28 days Active Carvedilol 25 MG 2 tablets Orally Twice a day for 90 days Active SUMAtriptan Succinate 50 MG 1 tablet as needed, may take second dose at least 2 hours after first dose up to 4 tablets per day as needed Orally Once a day- as needed. May repeat in 2 hours for 30 days PRN Active tiZANidine HCl 4 MG take 1 tablet by mouth every morning and 2 tablets at bedtime for 30 days Active Venlafaxine HCl ER 150 MG 1 capsule with food Orally Once a day with 75mg tablet for 30 days 09/01/2023 Active HYDROcodone-Acetaminophen 5-325 MG 1 tablet as needed Orally every 6 hrs for 7 days PRN 01/18/2024 Active Venlafaxine HCl ER 75 MG 1 capsule with food Orally Once a day with 150mg tablet for 30 days 09/01/2023 Active Irbesartan 150 MG 1 tablet Orally Once a day for 90 days 11/02/2022 Active Xanax 0.25 MG 1 tablet Orally once daily as needed PRN 01/18/2024 Active CeleBREX 200 MG 1 capsule with food Orally Once a day for 30 days 06/07/2024 Active ZyrTEC OTC Active Mucinex PRN- OTC Active Potassium Chloride Annemarie ER 20 MEQ 1 tablet with food Orally twice a day for 90 days Active Levothyroxine Sodium 75 MCG take 1 table t by mouth every morning ON AN EMPTY STOMACH for 90 days Active Protonix 40 MG 1 tablet Orally Once a day for 30 days 02/08/2024 Active Semaglutide-Weight Management 0.5 MG/0.5ML 0.5 mL Subcutaneous for 30 day(s) 06/07/2024 Active Aspirin Adult Low Dose 81 MG 1 tablet Or ally Once a day OTC 06/07/2024 Active Simvastatin 20 MG 1 tablet in the evening Orally Once a day for 90 days Active hydroCHLOROthiazide 25 MG 1 tablet Orall y Once a day for 90 days Active Social History Tobacco Use: Social History Observation Description Date Details (start date - stop date) Never Smoker NA - NA Tobacco Control (Standard) Question Answer Notes Tobacco use: Nonsmoker AUDIT-C (Standard) Question Answer Notes Did you have a drink contain ing alcohol in the past year? Yes How often did you have six o r more drinks on one occasion in the past year? Never (0 point) How many drinks did you have on a typical day when you were drinking in the past year? 1 or 2 drinks (0 point) How often did you have a dri nk containing alcohol in the past year? 2 to 3 times a week (3 points) Points 3 Interpretation Positive Problems Problem Type SNOMED Code ICD Code Onset Dates Problem Status W/U Status Risk Notes Problem Allergic rhinitis (56305412) Allergic rhinitis, unspecified (J30.9) Active confirmed Problem Hypertension (57755901) Hypertension (I10) Active confirmed Problem Restless legs syndrome (33797551) Restless leg syndrome (G25.81) Active confirmed Problem Insomnia (891118184) Insomnia (G47.00) Active confirmed Problem Hiatal hernia (57519108) Hiatal hernia (K44.9) Active confirmed Problem Glaucoma (58066447) Glaucoma (H40.9) Active confirmed Problem Internal derangement of knee (62210209) Internal derangement of knee (M23.90) Active confirmed Problem Left lower lobe pneumonia (824382899) Left lower lobe pneumonia (J18.9) Active confirmed Problem Hypothyroidism (54613245) Hypoactive thyroid (E03.9) Active confirmed Vital Signs Blood pressure diastolic 68 mm Hg 06/07/2024 Height 59 in 06/07/2024 Blood pressure systolic 102 mm Hg 06/07/2024 Weight 141.0 lbs 06/07/2024 BMI 28.48 kg/m2 06/07/2024 Encounters Encounter Location Date Provider Diagnosis [facility] [address] [place] [address] 01/18/2024 Cornell Jean Hypertension I10 ; Restless leg syndrome G25.81 ; Hypoactive thyroid E03.9 ; Insomnia G47.00 ; Internal derangement of knee M23.90 and Chronic cough R05.3 [facility] [address] [place] [address] 06/07/2024 Cornell Jean Hypertension I10 [facility] [address] [place] [address] 12/08/2023 Cornell Jean [facility] [address] [place] [address] 01/19/2024 [facility] [address] [place] [address] 01/20/2024 Cornell Jean Pre-procedural examination Z01.818 [facility] [address] [place] [address] 01/20/2024 Cornell macrina [facility] [address] [place] [address] 01/27/2024 Cornell Jean [facility] [address] [place] [address] 01/30/2024 Nicole Carrera [facility] [address] [place] [address] 01/30/2024 Nicole Carrera [facility] [address] [place] [address] 2024 Cornell Jean [facility] [address] [place] [address] 02/16/2024 Cornell macrina [facility] [address] [place] [place] [address] 02/16/2024 Cornell Hoy Abnormal findings on diagnostic imaging of limbs R93.6 [facility] [address] [place] [address] 03/22/2024 Cornell macrina [facility] [address] [place] [place] [address] 04/17/2024 Cornell Hoy Hypertension I10 [facility] [address] [place] [address] 04/27/2024 [facility] [address] [place] [place] [address] 05/16/2024 Cornell Hoy Hypertension I10 [facility] [address] [place] [place] [address] 06/07/2024 Cornell Hoy [facility] [address] [place] [place] [address] 06/09/2024 Cornell Hoy Hypertension I10 [facility] [address] [place] [address] 07/31/2024 Cornell Hoy Hypertension I10 [facility] [address] [place] [address] 08/17/2024 Cornell Jean [facility] [address] [place] [place] [address] 09/27/2024 Cornell Jean [facility] [address] [place] [place] [address] 10/30/2024 Cornell Hoy Hypertension I10 ; Hypoactive thyroid E03.9 ; Fatigue R53.83 ; Wellness examination Z01.89 and Screening for colon cancer Z12.11 Assessments Encounter Date Diagnosis (ICD Code) Assessment Notes Treatment Notes Treatment Clinical Notes Section Notes 06/07/2024 Hypertension (ICD-10 - I10) will try to wean off the clonidine 01/20/2024 Pre-procedural examination (ICD-10 - Z01.818) 02/16/2024 Abnormal findings on diagnostic imaging of limbs (ICD-10 - R93.6) 04/17/2024 Hypertension (ICD-10 - I10) 05/16/2024 Hypertension (ICD-10 - I10) 06/09/2024 Hypertension (ICD-10 - I10) 07/31/2024 Hypertension (ICD-10 - I10) 10/30/2024 Hypertension (ICD-10 - I10) 01/18/2024 Hypertension (ICD-10 - I10) needs weight loss s - will add semaglutide 01/18/2024 Restless leg syndrome (ICD-10 - G25.81) 01/18/2024 Hypoactive thyroid (ICD-10 - E03.9) 10/30/2024 Hypoactive thyroid (ICD-10 - E03.9) 10/30/2024 Fatigue (ICD-10 - R53.83) 01/18/2024 Insomnia (ICD-10 - G47.00) 01/18/2024 Internal derangement of knee (ICD-10 - M23.90) 10/30/2024 Wellness examination (ICD-10 - Z01.89) 10/30/2024 Screening for colon cancer (ICD-10 - Z12.11) 01/18/2024 Chronic cough (ICD-10 - R05.3) Plan Of Treatment Pending Test Test Name Order Date CMP (COMPLETE METABOLIC PANEL) 4 XR Chest PA and Lateral (Routine CXR) * 11/02/2022 T3 FREE, T4 FREE and TSH 08/31/2023 FECAL OCCULT BLOOD 08/31/2023 FECAL OCCULT BLOOD 10/30/2024 CMP - Comprehensive Metabolic Panel 10/04 CBC AUTO DIFF 10/30/2024 GLYCOHEMOGLOBIN A1C 10/30/2024 LIPID PROFILE 10/30/2024 CT CHEST WO CON 01/18/2024 CT CHEST WO CON 11/02/2022 MRI KNEE LT WO CON 01/18/2024 XR SHOULDER RT 2V or > 01/20/2024 THYROID PANEL (T4/TSH/FREE T3) THYROID PANEL (T4/TSH/FREE T3) 4 Insurance Providers Payer Name Payer Address Payer Phone Subscriber Number Group Number Insured Name Patient Relationship to Insured Coverage Start Date Coverage End Date MEDIC[place] [address] [place] [place] [address] [id number] Chrissie Rousseau Self - patient is the insured [employer] [id number] [employer] [address] [id number] MEDICARE SUPP [facility] DEPT SHARI MILLAN [id number] [phone] [id number] Chrissie Rousseau Self - patient is the insured Medical (General) History Medical History History ICD Code Insomnia G47.00 Restless leg syndrome G25.81 Glaucoma H40.9 Allergic rhinitis, unspecified J30.9 Hypertension I10 Migraine headache G43.909 Hypothyroid E03.9 Surgical History Surgery Date(Month/Year) Cataract Extraction [facility] Shoulder Arthroscopy, Rt Tonsillectomy Gallbladder Revision Rt shoulder surgery Laser surgery [facility] Tendon Repair Rt hand-workers comp [place] Teeth Left Total Knee Replacement Hospitalization History Reason Date(Month/Year) Knee replacement- busted open, reclosed
--- OUTSIDE RECORDS SUMMARY | 2024-11-03 10:41 | XMS_ITS | Clinical Summary ---
Author Organization [facility] Healthcare Address [address] [place] [address] Care Team Providers Care Data Analyst Report Writer Name Role Phone Boone Elder MD Primary Care Provider [phone] Allergies Active Allergy Reactions Criticality Noted Date Comments Codeine 09/02/2023 Other Reaction(s): CHEST PAIN Iodinated Contrast Media 09/02/2023 Other Reaction(s): unknown Sulfa Antibiotics 09/02/2023 Other Reaction(s): Unknown Medications ALPRAZolam (Xanax) 0.25 MG tablet every 12 (twelve) hours Active Calcium-Vitamin D-Vitamin K (Calcium + D) 500-1000-40 MG-UNT-MCG chewable tablet Orally Acti ve carvedilol (Coreg) 25 MG tablet Take 50 mg by mouth in the morning and 50 mg before bedtime. 07/25/2023 Active cloNIDine (Catapres) 0.1 MG tablet Take 0.1 mg by mouth in the morning and 0.1 mg in the evening and 0.1 mg before bedtime. 07/25/2023 Active hydroCHLOROthia zide (HYDRODiuril) 25 MG tablet Take 25 mg by mouth Daily 07/28/2023 Active irbesartan (Avapro) 150 MG tablet 08/28/2023 Active lansoprazole (Prevacid) [address] capsule take 1 capsule by mouth once daily BEFORE A MEAL 06/17/2023 Active levothyroxine (Synthroid, Levoxyl) 75 MCG tablet Take 75 mcg by mouth in the morning. Take on an empty stomach.. Active meloxicam (Mobic) 15 MG tablet Take 15 mg by mouth Daily Active simvastatin (Zocor) 20 MG tablet 1 (one) time each day at the same time Active SUMAtriptan (Imitrex) 50 MG tablet Take 50 mg by mouth Daily as needed Active tiZANidine (Zanaflex) 4 MG tablet take 1 tablet by mouth every morning and 2 tablets at bedtime Active Effexor XR 75 MG 24 hr capsule 1 (one) time each day at the same time 11/02/2022 Active Family History Medical History Relation Name Comments Diabetes Maternal Grandfather Breast cancer Maternal Grandmother colon Mother Heart disease Paternal Grandfather Relation Name Status Comments Maternal Grandfather Maternal Grandmother Mother Paternal Grandfather Social History Tobacco Use Types Packs/Day Years Used Date Smoking Tobacco: Never Assessed Comments No Sex and Gender Information Value Date Recorded Sex Assigned at Not on file Legal Sex Female 7:03 PM EDT Gender Identity Not on file Sexual Orientation Not on file Last Filed Vital Signs Vital Sign Reading Time Taken Comments Blood Pressure 118/78 09/02/2023 11:17 AM EDT Pulse - - Temperature - - Respiratory Rate - - Oxygen Saturation - - Inhaled Oxygen Concentration - - Weight 70.8 kg (156 lb) 09/02/2023 11:17 AM EDT Height 154.9 cm (5' 1 ) 09/02/2023 11:17 AM EDT Body Mass Index 29.48 09/02/2023 11:17 AM EDT Plan of Treatment Upcoming Encounters Date Type Department Care Team (Late st Contact Info) Description 12/06/2024 10:30 AM EDT Office Visit [facility] [address] [place] [address] Luna Lerner DO [address] [place] [address] 12/06/2024 12:00 PM EDT Ancillary Procedure [facility] [address] [place] [address] Health Maintenance Due Date Last Done Comments CT Colonography 1958 Colonoscopy 1960 Colorectal Cancer Screening 1960 FIT-DNA 1958 FIT 1958 FOBT 1960 Sigmoidoscopy 1960 Pneumococcal Vaccine: 65+ Ye ars (1 of 1 - PCV) 02/07/2008 Mammogram 09/01/2024 09/02/2023, 08/03, 04/17/2021, Additional history exists Influenza Vaccine (#1) 2024 Cervical Cancer Screening Discontinued HPV/Cotest Discontinued 09/02/2023, 08/03, 04/17/2021, Additional history exists Pap Smear Discontinued Procedures Procedure Name Priority Date/Time Associated Diagnosis Comments THINPREP IMAGING PAP W/REFL HPV MRNA E6/E7 Routine 09/02/2023 1:18 PM EDT Screening for malignant neoplasm of cervix BI MAMMOGRAM SCREENING TOMOSYNTHESIS BILATERAL Routine 09/02/2023 11:54 AM EDT Encounter for screening mammogram for malignant neoplasm of breast from Last 3 Months or Most Recently Relevant to Health Maintenance Results * THINPREP IMAGING PAP W/REFL HPV MRNA E6/E7 (09/02/2023 1:18 PM EDT) CLINICAL INFORMATION [facility] Comment:None given LMP [facility] Comment:MENOPAUSE PREV. PAP [facility] Comment:NONE GIVEN PREV. BX [facility] Comment:NONE GIVEN SOURCE [facility] Comment:None given STATEMENT OF ADEQUACY [facility] Comment:SATISFACTORY FOR JAZMIN LUATION INTERPRETATION/RESUL T [facility] Comment: Cytology Results: Negative for intraepithelial lesion or malignancy. Atrophic pattern; predominantly parabasal cells COMMENT [facility] Comment: This Pap test has been evaluated with computer assisted technology. Parabasal cells in smears that lack maturation due to atrophy or other hormonal reasons cannot be differentiated from transformation zone cells. Accordingly, presence or absence of endocervical or transformation zone components cannot be reported in this patient. 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 (ALWAYS MESSAGE) [facility] Comment: EXPLANATORY NOTE: The Pap is a screening test for cervical cancer. It is not a diagnostic test and is subject to false negative and false positive results. It is most reliable when a satisfactory sample, regularly obtained, is submitted with relevant clinical findings and history, and when the Pap result is evaluated along with historic and current clinical information. Swab Cervix uteri structure / Unknown 09/02/2023 1:18 PM EDT 09/03/2023 3:29 AM EDT Narrative Resulting Agency Comment Performing Organization Information Site ID: [id number] Name: [facility] Address: [address] [place] [address], [address] [place] [id number] Director: Jose Eduardo Sen MD us Luna Lerner DO LAB CYTOLOGY ORDERABLES Fin al Result [facility] * Bilateral screening mammogram with tomosynthesis (09/02/2023 11:54 AM EDT) Anatomical Region Laterality Modality Breast Bilateral Mammography 09/03/2023 11:1 5 AM EDT Impressions 09/03/2023 12:39 PM EDT BIRADS 2 - Benign Follow-up: Routine Screening Mamm Board Certified Radiologists. Accredited by the ACR and FDA. MAMMOGRAPHY IS VERY IMPORTANT TO YOUR HEALTH. THE [employer] GUIDELINES RECOMMEND THAT WOMEN 40 [...] BY: ELECTRONICALLY SIGNED BY: Ramón Cruz MD Narrative 09/03/2023 12:39 PM EDT EXAMINATION: BI MAMMOGRAM SCREENING TOMOSYNTHESIS BILATERAL CLINICAL HISTORY:breast ca screening COMPARISON: August 19, 2022. RESULT: Digital mammography and 3D tomosynthesis of bilateral breasts was performed. Density: Almost entirely fatty [1] Overall appearance is stable. Typically benign calcifications. There is no suspicious mass, asymmetry, architectural distortion, or calcification Procedure Note Ramón Cruz MD - 09/03/2023 EXAMINATION: BI MAMMOGRAM SCREENING TOMOSYNTHESIS BILATERAL CLINICAL HISTORY:breast ca screening COMPARISON: August 19, 2022. RESULT: Digital mammography and 3D tomosynthesis of bilateral breasts wasperformed. Density: Almost entirely fatty [1] Overall appearance is stable. Typically benign calcifications. There is no suspicious mass, asymmetry, architectural distortion, orcalcification IMPRESSION: BIRADS 2 - Benign Follow-up: Routine Screening Mamm Board Certified Radiologists. Accredited by the ACR and FDA. MAMMOGRAPHY IS VERY IMPORTANT TO YOUR HEALTH. THE [employer]YGUIDELINES RECOMMEND THAT WOMEN 40 YEARS OF AGE AND OLDER SHOULD HAVE AMAMMOGRAM EVERY YEAR. A REMINDER LETTER WILL BE SENT AT THE APPROPRIATE TIME. THIS FACILITYUTILIZES A REMINDER SYSTEM TO ENSURE ALL PATIENTS RECEIVE REMINDERNOTIFICATIONS AT THE APPROPRIATE TIME BASED ON THE RECOMMENDATIONS OF THISEXAM. THIS INCLUDES REMINDERS FOR ROUTINE SCREENING MAMMOGRAMS, DIAGNOSTICMAMMOGRAMS IN WHICH THE PATIENT IS ASKED TO RETURN FOR ADDITIONAL VIEWS,OR OTHER BREAST IMAGING INTERVENTIONS WHEN APPROPRIATE. THE PATIENT WILLBE PLACED IN THE APPROPRIATE REMINDER SYSTEM INCLUDING A REMINDER AT THEAPPROPRIATE TIME FOR ANY PENDING ADDITIONAL VIEWS. TRANSCRIBED BY: ELECTRONICALLY SIGNED BY: Ramón Cruz MD Luna Lerner DO IMG BI PROCEDURES Final Res ult from Last 3 Months or Most Recently Relevant to Health Maintenance Insurance MEDICARE [facility] [id number] [address] Care Teams Data Analyst Report Writer Relationship Specialty Start Date End Date Boone Elder MD PCP - General Family Medicine 09/02/23
--- OUTSIDE RECORDS SUMMARY | 2024-11-03 11:02 | XMS_ITS | CCD ---
Author Organization [facility] Care Team Providers Care Rigging Worker Name Role Phone DR JOCY ELDER Admitting Unavailable TED, DR SANDRA Attending Unavailable TED, DR SANDRA Consulting Unavailable TED, DR SANDRA Primary Care Unavailable TED, DR SANDRA Admitting Unavailable TED, DR SANDRA Attending Unavailable TED, DR SANDRA Consulting Unavailable TED, DR SANDRA Primary Care Unavailable HOY, DR SANDRA Admitting Unavailable TED, DR SANDRA Attending Unavailable TED, DR SANDRA Consulting Unavailable TED, DR SANDRA Primary Care Unavailable TED, DR SANDRA Admitting Unavailable TED, DR SANDRA Attending Unavailable TED, DR SANDRA Consulting Unavailable TED, DR SANDRA Primary Care Unavailable ZIJUAN, DR SILVANA King Consulting Unavailable EDUARDA LUNA E Attending Unavailable EDUARDA LUNA E Referring Unavailable LUNA DUMONT Referring Unavailable Rogelio Wilson MD Unavailable Unavailable Rogelio Wilson MD Unavailable Unavailable Rui Padilla MD Unavailable Unavailable Rui Padilla MD Unavailable Unavailable Rui Padilla MD Unavailable Unavailable Jocy Elder MD Primary Care Provider [phone] Rogelio Wilson MD Unavailable Unavailable Rogelio Wilson MD Unavailable Unavailable Rogelio Wilson MD Unavailable Unavailable Rogelio Wilson MD Unavailable Unavailable Rogelio Wilson MD Unavailable Unavailable Rogelio Wilson MD Unavailable Unavailable Adis Ratliff Attending Unavailable Adis Ratliff Referring Unavailable Jocy Elder Primary Care Unavailable Rogelio Wilson Referring Unavailable Jocy Elder Primary Care Unavailable Rui Padilla Attending Unavailable Jocy Elder MD Primary Care Provider Rogelio Wilson Attending Unavailable Rogelio Wilson Referring Unavailable Jocy Elder Primary Care Unavailable Adis Ratliff Admitting Unavailable Hurst, Rogelio M Attending Unavailable Hoy, Jocy M Primary Care Unavailable Gerkin, Adis E Admitting Unavailable Lonnie Skinner Attending Unavailable Hurst, Rogelio M Consulting Unavailable Hoy, Jocy M Primary Care Unavailable Gerkin, Adis E Admitting Unavailable Gerkin, Adis E Attending Unavailable Hurst, Rogelio M Consulting Unavailable Hoy, Jocy M Primary Care Unavailable Doroteo Dove Attending Unavailable Hurst, Rogelio M Referring Unavailable Hoy, Jocy M Primary Care Unavailable Hurst, Rogelio M Attending Unavailable Hurst, Rogelio M Referring Unavailable Hoy, Jocy M Primary Care Unavailable HOY, JOCY Primary Care Unavailable HOY, JOCY Primary Care Unavailable HURST, ROGELIO Consulting Unavailable PALMERSTSAFIAROGELIO Attending Unavailable GERKIN, ADIS Admitting Unavailable HURST, ROGELIO Consulting Unavailable HURST, ROGELIO Consulting Unavailable [facility] Consulting Unavailable HOY, JOCY Primary Care Unavailable PALMERST, ROGELIO Admitting Unavailable SAFIA WILSONSON Attending Unavailable Palmerst, Rogelio M Attending Unavailable Hurst, Rogelio M Referring Unavailable Hoy, Jocy M Primary Care Unavailable Hurst, Rogelio M Attending Unavailable Hurst, Rogelio M Referring Unavailable Hoy, Jocy M Primary Care Unavailable Palmerst, Rogelio M Attending Unavailable Hurst, Rogelio M Referring Unavailable Hoy, Jocy M Primary Care Unavailable Palmerst, Rogelio M Attending Unavailable Hurst, Rogelio M Referring Unavailable Hoy, Jocy M Primary Care Unavailable PalmerstRogelio M Attending Unavailable Palmerst, Rogelio M Referring Unavailable Hoy, Jocy M Primary Care Unavailable Gerkin, Adis E Admitting Unavailable Hurst, Rogelio M Attending Unavailable Hoy, Jocy M Primary Care Unavailable Gerkin, Adis E Admitting Unavailable Hurst, Rogelio M Attending Unavailable Hoy, Jocy M Primary Care Unavailable Doroteo Dove Attending Unavailable Doroteo Dove Referring Unavailable Hoy, Jocy M Primary Care Unavailable Hurst, Rogelio M Attending Unavailable Hoy, Jocy M Referring Unavailable Hoy, Jocy M Primary Care Unavailable Palmerst, Rogelio M Attending Unavailable Palmerst, Rogelio M Referring Unavailable Hoy, Jocy M Primary Care Unavailable Andry Owusu Attending Unavailable Hurst, Rogelio M Referring Unavailable Hoy, Jocy M Primary Care Unavailable Allergies Allergy Classification Reported Allergen(s) Allergy Type Date of Onset Reaction(s) Facility (1 source) Sulfamethoxazole / Trimethoprim Drug Allergy 08-22-19 17 [facility] (12 sources) Iodine; Translations: [iodine] Drug Allergy 02-22-20 [address] [facility] (13 sources) Sulfonamides (Antibiotic); Translations: [Sulfa (Sulfonamide Antibiotics)] propensity to adverse reactions to drug 02-22-20 24 DifficultyBre athing, Hives, Rash [facility] (11 sources) Codeine; Translations: [codeine] Drug Allergy 09-02-19 24 Tight chest [facility] (3 sources) Acetaminophen / Codeine; Translations: [ACETAMINOPHEN-CODE INE] Drug Allergy 04-17-19 25 Other [facility] (3 sources) Sulfonamides (Antibiotic) Drug Allergy 09-02-19 24 Swelling, Rash [facility] (4 sources) Iodinated Contrast Media; Translations: [IODINATED CONTRAST MEDIA] Drug Allergy 09-02-19 24 Swelling, Rash [facility] Medications Current Medications Medication Drug Class(es) Dates [...] 04/19/2024 04/26/2024 Active Start: 04-19-2024 End: 04-19-2024 ALPRAZolam 0.25 mg oral tablet (1 source) Benzodiazepine ALPRAZolam (Xanax) 0.25 MG tablet every 12 (twelve) hours Active calcium carbonate 1250 mg / cholecalciferol 1000 unt / vitamin k 0.4 mg chewable tablet (1 source) Vitamin D Calcium-Vitamin D-Vitamin K (Calcium + D) 500-1000-40 MG-UNT-MCG chewable tablet Orally Active cefadroxil 500 mg oral capsule (1 source) Cephalosporin Antibacterial Start: 05-28-19 25 take 1 capsule by mouth twice daily cefadroxil 500 mg capsule Take 1 capsule (500 mg total) by mouth 2 (two) times a day. 20 capsule 05/28/2024 Active celecoxib 200 mg oral capsule (3 sources) Nonsteroidal Anti-inflammatory Drug Start: 05-29-19 End: 05-28-19 Start: 04-20-2024 End: 04-19-2024 Start: 04-19-2024 End: [...] 3 doses. 3 capsule 04/19/2024 04/20/2024 Active hydroCHLOROthiazide 25 mg oral tablet (14 sources) Thiazide Diuretic Start: 05-29-2024 End: 05-28-2024 Start: 07-28-2023 take 1 tablet by jarrett th once daily hydroCHLOROthiazide (HYDRODIURIL) 25 mg tablet Take 1 tablet (25 mg total) by mouth 1 (one) time each day. 01/18/2024 Active irbesartan 150 mg oral tablet (13 sources) Angiotensin 2 Receptor Vijay Start: 08-28-2023 take 1 tablet by mouth once daily irbesartan (AVAPRO) 150 mg tablet Take 1 tablet (150 mg total) by mouth 1 (one) time each day. 01/18/2024 Active lansoprazole 30 mg delayed release oral capsule (13 sources) Proton Pump Inhibitor Start: 06-17-2023 take 1 capsule by mouth once daily lansoprazole (PREVACID) [address] capsule Take 1 capsule (30 mg total) by mouth 1 (one) time each day. 01/18/2024 Active levothyroxine sodium 0.075 mg oral tablet (14 sources) l-Thyroxine Start: 05-29-2024 End: 05-28-2024 Start: 01-18-2024 take 1 tablet by jarrett th once daily before breakfast levothyroxine (SYNTHROID, LEVOTHROID) 75 mcg tablet Take 1 tablet (75 mcg total) by mouth 1 (one) time each day before breakfast. 01/18/2024 Active take 1 tablet by jarrett th once daily in the morning losartan potassium 50 mg ora l tablet (1 source) Angiotensin 2 Receptor Vijay Start: 05-29-2024 End: 05-28-2024 Start: 05-29-2024 End: 05-28-2024 meloxicam 15 mg oral tablet (13 sources) Nonsteroidal Anti-inflammatory Drug Start: 01-18-2024 take 1 tablet by mouth once daily meloxicam (MOBIC) 15 mg tablet Take 1 tablet (15 mg total) by mouth 1 (one) time each day. 01/18/2024 Active ondansetron 4 mg oral tablet (1 [...] 7 days. 20 tablet 04/19/2024 04/26/2024 Active oxyCODONE hydrochloride 5 mg oral tablet (12 sources) Opioid Agonist Start: 05-28-2024 End: 06-04-2024 oxyCODONE (ROXICODONE) 5 mg immediate release tablet Take 1-2 tablets (5-10 mg total) by mouth every 4 (four) hours if needed for moderate pain or severe pain for up to 7 days. Dx: Z96.6 Max Daily Amount: 60 mg 20 tablet 05/28/2024 06/04/2024 Active Start: 05-28-2024 End: 05-28-2024 take 5 mg by mouth once as needed for pain 5 mg, oral, Once as needed, moderate pain or when therapies for mild pain were not effective, Starting on 05/28/24 at 1137, For 1 dose, Recovery (only) Start: 04-25-2024 End: 05-01-2024 take 1 tablet by mouth every four to six hours as needed oxycodone 5 mg tablet take 1 tablet by oral route every 4 - 6 hours as needed 5 MG - No Longer Active 7 day [id number] Start: 04-19-2024 End: 04-26-2024 oxyCODONE (ROXICODONE) 5 mg immediate release tablet Take 1-2 tablets (5-10 mg total) by mouth every 4 (four) hours if needed for moderate pain or severe pain for up to 7 days. Max Daily Amount: 60 mg 40 tablet 04/19/2024 04/26/2024 Active Start: 04-19-2024 End: 04-19-2024 5 mg, oral, Every 4 hours TX N, Breakthrough pain, Starting on Wed04/19/24 at 1206, Recovery [facility] On Unit, May consider scheduled oxyCODONE instead of PRN Comment on above: 7 day [id number] semaglutide (UD) INJECTION (10 sources) Start: 03-27-20 inject 0.2 mL by subcutaneous injection once semaglutide (UD) INJECTION TAKE 0.2 ML SQ EVERY Wednesday - Active semaglutide (WEGOVY) 0.25 mg/0.5 mL injection pen (2 sources) Start: 03-22-20 semaglutide (WEGOVY) 0.25 mg/0.5 mL injection pen Inject 0.5 mg under the skin every 7 (seven) days. Mondays03/22/2024 Active simvastatin 20 mg oral tablet (13 sources) HMG-CoA Reductase Inhibitor Start: 01-18-20 take 1 tablet by mouth at bedtime simvastatin (ZOCOR) 20 mg tablet Take 1 tablet (20 mg total) by mouth at bedtime. 01/18/2024 Active tiZANidine 4 mg oral tablet (17 sources) Central alpha-2 Adrenergic Agonist Start: 05-29-19 End: 05-28-19 Start: 05-28-2024 End: 05-28-2024 Start: 04-03-2024 take 1 tablet by jarrett th once daily tiZANidine (ZANAFLEX) 4 mg tablet Take 1 tablet (4 mg total) by mouth 1 (one) time each day. 04/03/2024 Active Start: 03-27-2024 take 1 tablet by jarrett th once daily in the morning, then take 2 tablets by mouth once daily in the evening tizanidine 4 mg capsule TAKE 1 TABLET BY ORAL ROUTE EVERY AM AND 2 TABLETS BY ORAL ROUTE EVERY PM - Active take 2 tablets by mo uth at bedtime tiZANidine (ZANAFLEX) 4 mg tablet Take 2 tablets (8 mg total) by mouth at bedtime. Active 24 hr venlafaxine 75 mg extended release oral capsule (17 sources) Serotonin and Norepinephrine Reuptake Inhibitor Start: 05-29-2024 End: 05-28-2024 Start: 05-29-2024 End: 05-28-2024 Start: 04-03-2024 take 1 capsule by mo uth once daily venlafaxine XR (EFFEXOR-XR) 150 mg 24 hr capsule Take 1 capsule (150 mg total) by mouth 1 (one) time each day. 04/03/2024 Active Start: 03-27-2024 venlafaxine 75 mg tablet TAKE 225MG DAILY EVERY AM - Active Start: 11-02-2022 take 1 capsule by mo uth once daily venlafaxine XR (EFFEXOR-XR) 75 mg 24 hr capsule Take 1 capsule (75 mg total) by mouth 1 (one) time each day. 04/03/2024 Active Completed/Discontinued Medications Medication Drug Class(es) Dates Sig (Normalized) Sig (Original) Acetaminophen / HYDROcodone (3 sources) Opioid Agonist Start: 05-27-2024 End: 05-28-2024 HYDROcodone-acetam inophen (NORCO) 5-325 mg per tablet 1 tablet Start: 01-18-2024 take 1 tablet by jarrett every six hours as needed HYDROcodone-acetaminophen (NORCO) 5-325 mg per tablet Take 1 tablet by mouth every 6 (six) hours if needed (pain). 01/18/2024 Active acetaminophen 325 mg / oxyCODONE hydrochloride 5 mg oral tablet (1 source) Opioid Agonist Start: 05-28-2024 End: 05-27-2024 take 1 tablet by mouth once 1 tablet, oral, Once, On 05/28/24 at 0000, For 1 dose Start: 05-28-2024 End: 05-27-2024 take 1 tablet by mouth once 1 tablet, oral, Once, On S un 05/28/24 at 0000, For 1 dose albuterol 0.83 mg/ml inhalation solution (1 source) beta2-Adrenergic Agonist Start: 05-27-2024 End: 05-28-2024 2.5 mg, nebulization, Every 4 hours PRN, wheezing, shortness of breath, Starting on 05/27/24 at 2352 aluminum hydroxide 40 mg/ml / magnesium hydroxide 40 mg/ml / simethicone 4 mg/ml oral suspension (1 source) Start: 05-27-2024 End: 05-28-2024 take 30 mL by mouth four times daily as needed for gastroesophageal reflux disease 30 mL, oral, 4 times daily PRN, indigestion, heartburn, Starting on 05/27/24 at 2347 aspirin 81 mg delayed release oral tablet (15 sources) Platelet Aggregation Inhibitor, Nonsteroidal Anti-inflammatory Drug Start: 05-28-2024 End: 05-28-2024 Start: 04-20-2024 End: 06-01-2024 aspirin 81 mg chewable table t Chew 1 tablet (81 mg total) 2 [...] mouth 1 (one) time each day. Active atorvastatin 10 mg oral tabl et (1 source) HMG-CoA Reductase Inhibitor Start: 05-28-2024 End: 05-28-2024 Start: 05-28-2024 End: 05-28-2024 bisacodyl 10 mg rectal suppository (1 source) Stimulant Laxative Start: 05-27-2024 End: 05-28-2024 10 mg, rectal, Daily PRN, constipation, If magnesium hydroxide ineffective, Starting on 05/27/24 at 2347 calcium chloride 0.0014 meq/ml / potassium chloride 0.004 meq/ml / sodium chloride 0.103 meq/ml / sodium lactate 0.028 meq/ml injectable solution (3 sources) Start: 04-19-2024 End: 04-19-2024 Start: 04-19-2024 End: 04-19-2024 take 100 mL intravenously every hour 100 mL/hr, intravenous, Continuous, Starting on Wed04/19/24 at 1015, Recovery (only) Start: 04-19-2024 End: 04-19-2024 100 mL/hr, intravenous, Once , On 04/19/24 at 0730, For 1 dose, Preprocedure carvedilol 25 mg oral tablet (14 sources) alpha-Adrenergic Vijay, beta-Adrenergic Vijay Start: 05-28-2024 End: 05-28-2024 take 50 mg by mouth twice daily 50 mg, oral, 2 times daily, First dose on 05/28/24 at 1330, Hold for SBP Start: 03-27-2024 take 1 tablet by jarrett twice daily carvedilol 25 mg tablet take 1 by oral route 2 times every day 1 - Active Start: 07-25-2023 take 2 tablets by mo [facility] twice daily carvediloL (COREG) 25 mg tablet Take 2 tablets (50 mg total) by mouth 2 (two) times a day. 01/18/2024 Active ceFAZolin (ANCEF) 1 g in sterile water 10 mL IV syringe (1 source) Start: 05-27-2024 End: 05-27-2024 1 g, intravenous, Administer over 3 Minutes, Once, On 05/27/24 at 2345, For 1 dose, Indication: Prophylaxis-Surgical ceFAZolin (ANCEF) 1 gram/10 mL IV syringe 1 g (1 source) Start: 05-28-2024 End: 05-28-2024 1 g, intravenous, Administer over 3 Minutes, Every 8 hours, First dose on 05/28/24 at 0800, For 2 days, Indication: Surgical Site ceFAZolin (ANCEF) 2 gram/20 mL IV syringe 2 g (2 sources) Start: 05-28-2024 End: 05-28-2024 Start: 04-19-2024 End: 04-19-2024 cloNIDine hydrochloride 0.1 mg oral tablet (15 sources) Central alpha-2 Adrenergic Agonist Start: 01-18-2024 End: 05-28-2024 take 0.1 mg by mouth three times daily 0.1 mg, oral, 3 times daily, First dose on 05/28/24 at 1400, Hold for SBP Start: 07-25-2023 End: 05-28-2024 take 0.1 mg by mouth every eight hours as needed for hypertension 0.1 mg, oral, Every 8 hours PRN, high blood pressure, for SBP more than 150 or DBP more than 100, Starting on 05/27/24 at 2357 diphenhydrAMINE hydrochloride 25 mg oral capsule (2 sources) Histamine-1 Receptor Antagonist Start: 05-27-2024 End: 05-28-2024 take 1 capsule by mouth every six hours as needed 25 mg, oral, Every 6 hours PRN, itching, Starting on 05/27/24 at 2347 Start: 04-19-2024 End: 04-19-2024 take 25 mg intravenously every six hours as needed 1 ml fentaNYL 0.05 mg/ml injection (1 source) Opioid Agonist Start: 05-28-2024 End: 05-28-2024 50 mcg, intravenous, Every 5 min PRN, severe pain, severe pain or when therapies for moderate pain were not effective, Starting on 05/28/24 at 1137, For 3 doses, Recovery (only) 0.5 ml HYDROmorphone hydrochloride 1 mg/ml prefilled syringe (3 sources) Opioid Agonist Start: 05-28-2024 End: 05-28-2024 0.5 mg, intravenous, As needed, severe pain, every 20min, Starting on 05/28/24 at 1232, For 2 doses, Recovery (only) Start: 05-27-2024 End: 05-28-2024 take 0.5 mg by mouth every two hours as needed for pain 0.5 mg, intravenous, Every 2 hours PRN, severe pain, For severe breakthrough pain not relieved with oral pain medication, Starting on 05/27/24 at 2347 Start: 04-19-2024 End: 04-19-2024 0.5 mg, intravenous, Every 5 min PRN, severe pain or when therapies for moderate pain were not effective, Starting on 04/19/24 at 0955, For 5 doses, Recovery (only) ibuprofen 400 mg oral tablet (1 source) Nonsteroidal Anti-inflammatory Drug Start: 05-27-2024 End: 05-27-2024 take 400 mg by mouth once at mealtime 400 mg, oral, Once, On 05/27/24 at 2245, For 1 dose, Administer with food or milk to decrease GI upset Start: 05-27-2024 End: 05-27-2024 take 400 mg by mouth once at mealtime 400 mg, oral, Once, On 05/27/24 at 2245, For 1 dose, Administer with food or milk to decrease GI upset labetalol hydrochloride 5 mg/ml injectable solution (1 source) beta-Adrenergic Vijay Start: 04-19-2024 End: 04-19-2024 5 mg, intravenous, Every 5 min PRN, high blood pressure, q10min, Starting on Wed04/19/24 at 0955, For 4 doses, Recovery (only), As needed for: -SBP GREATER than 180 mmHg -DBP GREATER than 110 mmHg -HOLD for pulse LESS than 60 bpm magnesium hydroxide 80 mg/ml oral suspension (1 source) Start: 05-27-2024 End: 05-28-2024 take 8 [oz_av] by mouth twice daily 30 mL, oral, 2 times daily PRN, constipation, Starting on 05/27/24 at 2347, Follow dose with 8 oz of water. mupirocin 0.02 mg/mg topical ointment (1 source) RNA Synthetase Inhibitor Antibacterial Start: 04-19-2024 End: 04-19-2024 take 1 dose nasal route once Each Nostril, Once, On Wed04/19/24 at 0830, For 1 dose, Preprocedure, Apply to nares. Start: 04-19-2024 End: 04-19-2024 take 1 dose nasal route once Each Nostril, Once, On 04/19/24 at 0830, For 1 dose, Preprocedure, Apply to nares. Naloxone (1 source) Opioid Antagonist Start: 05-27-2024 End: 05-28-2024 0.4 mg, intravenous, Once as needed, opioid reversal, respiratory depression, Starting on 05/27/24 at 2347, For 1 dose ondansetron ODT (ZOFRAN-ODT) disintegrating tablet 4 mg (3 sources) Start: 05-28-2024 End: 05-28-2024 ondansetron ODT (ZOFRAN-ODT) disintegrating tablet 4 mg Start: 04-19-2024 End: 04-19-2024 ondansetron ODT (ZOFRAN-ODT) disintegrating tablet 4 mg Start: 04-19-2024 End: 04-19-2024 ondansetron ODT (ZOFRAN-ODT) disintegrating tablet 4 mg Oxygen Therapy, Adult (2 sources) Start: 05-27-2024 End: 05-28-2024 inhalation, As needed, short ness of breath, Starting on 05/27/24 at 2343, Device: Nasal Cannula, Rate in liters per minute: 1 lpm, Titrate Oxygen to keep O2 Sat. at or above: 90% Start: 04-19-2024 End: 04-19-2024 inhalation, Continuous, Star ting on 04/19/24 at 1015, Recovery (only), Device: Nasal Cannula, Titrate Oxygen to keep O2 Sat. at or above: 92% pantoprazole 40 mg delayed release oral tablet (13 sources) Proton Pump Inhibitor Start: 03-27-2024 End: 05-28-2024 polyethylene glycol 3350 37192 mg powder for oral solution (1 source) Osmotic Laxative Start: 05-27-2024 End: 05-28-2024 17 g, oral, Daily PRN, constipation, Starting on 05/27/24 at 2347 microencapsulated potassium chloride 20 meq extended release oral tablet (13 sources) Start: 03-07-2024 End: 05-28-2024 Promethazine (1 source) Phenothiazine Start: 04-19-2024 End: 04-19-2024 take 1 tablet by mouth every six hours as needed promethazine (PHENERGAN) tablet 25 mg sennosides, residential 8.6 mg oral tablet (1 source) Start: 05-28-2024 End: 05-28-2024 take 1 tablet by mouth twice daily 8.6 mg (1 tablet), oral, 2 times daily, First dose on 05/28/24 at 0015 Sodium Chloride (3 sources) Start: 05-28-2024 End: 05-28-2024 sodium chloride 0.9 % flush 10 mL Start: 05-28-2024 End: 05-28-2024 sodium chloride 0.9 % flush 10 mL Start: 04-19-2024 End: 04-19-2024 sodium chloride 0.9 % flush 10 mL SUMAtriptan 50 mg oral tablet (4 sources) Serotonin-1b and Serotonin-1d Receptor Agonist Start: 01-18-2024 End: 05-28-2024 traMADol hydrochloride 50 mg oral tablet (8 sources) Opioid Agonist Start: 04-25-2024 End: 05-01-2024 take 1-2 tablets by mouth every six hours as needed tramadol 50 mg tablet take 1-2 tablet by oral route every 6 hours as needed - No Longer Active 7 day [id number] Start: 04-19-2024 End: 04-26-2024 take 50-100 mg by mouth every six hours as needed traMADoL (ULTRAM) 50 mg tablet Take 1-2 tablets (50-100 mg total) by mouth every 6 (six) hours if needed for moderate pain for up to 7 days. Max Daily Amount: 400 mg 40 tablet 04/19/2024 04/26/2024 Active Comment on above: 7 day [id number] traZODone hydrochloride 50 mg oral tablet (1 source) Serotonin Reuptake Inhibitor Start: End: take 25 mg by mouth once daily as needed for sleep 25 mg, oral, Nightly PRN, sleep, Starting on 05/27/24 at 2347 Problems Active Problems Problem Classification Problem Date Documented Da te Episodic/Chronic Complications of surgical procedures or medical care (4 sources) Wound dehiscence; Translations: [Disruption of wound, unspecified, initial encounter] Onset: 05-27-2024 05-27-2024 Episodic Disorders of lipid metabolism (20 sources) Hyperlipidemia, unspecified Chronic E Codes: Fall (2 sources) Fall; Translations: [Unspecified fall, initial encounter] Onset: 05-27-2024 05-27-2024 Episodic Esophageal disorders (20 sources) Gastro-esophageal reflux disease without esophagitis Chronic Essential hypertension (20 sources) Essential (primary) hypertension; Translations: [ESSENTIAL PRIMARY HYPERTENSION] Onset: 08-20-2021 Chronic Osteoarthritis (20 sources) Unilateral primary osteoarthritis, left knee; Translations: [Osteoarthritis of left knee joint] Onset: 02-22-2024 Chronic Other connective tissue disease (1 source) Presence of left artificial knee joint; Translations: [Presence of left artificial knee joint] Onset: 06-12-2024 Chronic Other non-traumatic joint disorders (20 sources) [...] Test Name Value Interpretation Reference Range Facility Basic metabolic 2000 panelon 05-28-2024 Anion gap [Moles/Vol] 10 mmol/L 6 - 18 [facility] Calcium [Mass/Vol] 9.3 mg/dL 8.9 - 10. 3 mg/dL [facility] Chloride [Moles/Vol] 104 mmol/L 98 - 10 7 mmol/L [facility] CO2 [Moles/Vol] 25 mmol/L 22 - 32 mmol/L [facility] Creatinine [Mass/Vol] 1.01 mg/dL 0.60 - 1.30 mg/dL [facility] GFR/1.73 sq M.predicted among non-blacks MDRD (S/P/Bld) [Vol rate/Area] 62 mL/min/{1.73_m2} - [facility] Comment on above: Calculation based on the Chronic Kidney Disease Epidemiology Collaboration (CKD-EPI) equation refit without adjustment for race. Glucose [Mass/Vol] 88 mg/dL 70 - 99 [facility] Interpretation and review of laboratory results Abnormal [facility] Potassium [Moles/Vol] 3.7 mmol/L 3.6 - 5.1 mmol/L [facility] Sodium [Moles/Vol] 139 mmol/L 136 - 145 mmol/L [facility] Urea nitrogen [Mass/Vol] 23 mg/dL High 8 - 20 mg/dL [facility] Urea nitrogen/Creatinine [Mass ratio] 22.8 mg/mg High 12.0 - 20.0 [facility] Anion gap [Moles/Vol] 10 mmol/L Normal 6-18 [facility] Comment on above: Performed By: #### 2 4321-2 #### [facility] [address] [place] [address] Calcium [Mass/Vol] 9.3 mg/dL Normal 8.9-10.3 [facility] Comment on above: Performed By: #### 2 4321-2 #### [facility] [address] [place] [address] Chloride [Moles/Vol] 104 mmol/L Normal 98-107 [facility] Comment on above: Performed By: #### 2 4321-2 #### [facility] [address] [facility] [place] [address] CO2 [Moles/Vol] 25 mmol/L Normal 22-32 [facility] Comment on above: Performed By: #### 2 4321-2 #### [facility] [address] [facility] [place] [address] Creatinine [Mass/Vol] 1.01 mg/dL Normal 0.60-1.30 [facility] Comment on above: Performed By: #### 2 4321-2 #### [facility] [address] [facility] [place] [address] GFR/1.73 sq M.predicted among non-blacks MDRD (S/P/Bld) [Vol rate/Area] 62 mL/min/{1.73_m2} Normal >=60 [facility] Comment on above: Result Comment: Calc ulation based on the?Chronic Kidney Disease Epidemiology Collaboration (CKD-EPI) equation refit?without adjustment for race. Performed By: #### 2 4321-2 #### [facility] [address] [place] [address] Glucose [Mass/Vol] 88 mg/dL Normal 70-99 [facility] Comment on above: Performed By: #### 2 4321-2 #### [facility] [address] [place] [address] Potassium [Moles/Vol] 3.7 mmol/L Normal 3.6-5.1 [facility] Comment on above: Performed By: #### 2 4321-2 #### [facility] [address] [place] [address] Sodium [Moles/Vol] 139 mmol/L Normal 136-145 [facility] Comment on above: Performed By: #### 2 4321-2 #### [facility] [address] [place] [address] Urea nitrogen [Mass/Vol] 23 mg/dL High 8-20 [facility] Comment on above: Performed By: #### 2 4321-2 #### [facility] [address] [place] [address] Urea nitrogen/Creatinine [Mass ratio] 22.8 mg/mg High 12.0-20.0 [facility] Comment on above: Performed By: #### 2 4321-2 #### [facility] [address] [place] [address] Hemogram and platelets WO di fferential panel (Bld)Ordered By: Marlin Guthrie on 05-28-2024 Erythrocyte distribution width (RBC) [Ratio] 12 % 11.0 - 14.8 % [facility] Hematocrit (Bld) [Volume fraction] 34.4 % 34.3 - 47.9 % [facility] [employer] Hemoglobin (Bld) [Mass/Vol] 11.4 g/dL Low 12.0 - 16.0 g/dL [facility] Interpretation and review of laboratory results Abnormal [facility] MCH (RBC) [Entitic mass] 29.2 pg [facility] MCHC (RBC) [Mass/Vol] 33.1 g/dL 30.8 - 35.3 g/dL [facility] MCV (RBC) [Entitic vol] 88.2 fL [facility] Platelet mean volume (Bld) [Entitic vol] 9.5 fL [facility] th Platelets (Bld) [#/Vol] 294 10*3/uL [facility] RBC (Bld) [#/Vol] 3.9 10*6/uL [facility] WBC (Bld) [#/Vol] 10.4 10*3/uL High [facility] Hemogram and platelets WO di fferential panel (Bld)on 05-28-2024 Erythrocyte distribution width (RBC) [Ratio] 12.0 % Normal 11.0-14.8 [facility] Comment on above: Performed By: #### 2 4317-0 #### [facility] [address] [place] [address] Hematocrit (Bld) [Volume fraction] 34.4 % Normal 34.3-47.9 [facility] Comment on above: Performed By: #### 2 4317-0 #### [facility] [address] [place] [address] Hemoglobin (Bld) [Mass/Vol] 11.4 g/dL Low 12.0-16.0 [facility] Comment on above: Performed By: #### 2 4317-0 #### [facility] [address] [place] [address] MCH 29.2 pcg Normal 27.0-34.0 [facility] Comment on above: Performed By: #### 2 4317-0 #### [facility] [address] [place] [address]73 MCHC (RBC) [Mass/Vol] 33.1 g/dL Normal 30.8-35.3 [facility] Comment on above: Performed By: #### 2 4317-0 #### [facility] [address] [place] [address] MCV (RBC) [Entitic vol] 88.2 fL Normal 80.0-97.0 [facility] Comment on above: Performed By: #### 2 4317-0 #### [facility] [address] [place] [address] Platelet mean volume (Bld) [Entitic vol] 9.5 fL Normal 6.2-12.1 [facility] Comment on above: Performed By: #### 2 4317-0 #### [facility] [address] [place] [address] Platelets (Bld) [#/Vol] 294 10*3/uL Normal 142-424 [facility] Comment on above: Performed By: #### 2 4317-0 #### [facility] [address] [place] [address] 19018 RBC (Bld) [#/Vol] 3.90 10*6/uL Normal 3.74-5.34 [facility] Comment on above: Performed By: #### 2 4317-0 #### [facility] [address] [place] [address] WBC (Bld) [#/Vol] 10.4 10*3/uL High 4.6-10.2 [facility] Comment on above: Performed By: #### 2 4317-0 #### [facility] [address] [place] [address] Laboratory - Specimen inform ationon 05-28-2024 Specimen source Nom (Unsp spec) Hold for add-ons. [facility] Comment on above: Auto resulted. No Panel Informationon 05-28 [facility] Glucose Auto test strip (Bld ) [Mass/Vol]on 04-19-2024 Glucose [Mass/Vol] 85 mg/dL 70 - 99 mg/dL [facility] [employer] Interpretation and review of laboratory results Normal [facility] Glucose [Mass/Vol] 85 mg/dL Normal 70-99 [facility] Comment on above: Performed By: #### 2 340-8 #### [facility] [address] [place] [address] Basic metabolic 2000 panelOr dered By: Rui Padilla on 03-27-2024 Anion gap [Moles/Vol] 9 mmol/L Normal 6-18 [facility] Comment on above: Performed By: #### 2 4321-2 #### [facility] [address] [place] [address] Calcium [Mass/Vol] 8.8 mg/dL Low 8.9-10.3 [facility] Comment on above: Performed By: #### 2 4321-2 #### [facility] [address] [place] [address] Chloride [Moles/Vol] 107 mmol/L Normal 98-107 [facility] Comment on above: Performed By: #### 2 4321-2 #### [facility] [address] [place] [address] CO2 [Moles/Vol] 24 mmol/L Normal 22-32 [facility] Comment on above: Performed By: #### 2 4321-2 #### [facility] [address] [place] [address] Creatinine [Mass/Vol] 1.23 mg/dL Normal 0.60-1.30 [facility] Comment on above: Performed By: #### 2 4321-2 #### [facility] [address] [place] [address] GFR/1.73 sq M.predicted among non-blacks MDRD (S/P/Bld) [Vol rate/Area] 49 mL/min/{1.73_m2} Low >=60 [facility] Comment on above: Calculation based on the?Chronic Kidney Disease Epidemiology Collaboration (CKD-EPI) equation refit?without adjustment for race. Result Comment: Calc ulation based on the?Chronic Kidney Disease Epidemiology Collaboration (CKD-EPI) equation refit?without adjustment for race. Performed By: #### 2 4321-2 #### [facility] [address] [place] [address] Glucose [Mass/Vol] 85 mg/dL Normal 70-[address] [facility] Comment on above: Performed By: #### 2 4321-2 #### [facility] [address] [place] [address] Potassium [Moles/Vol] 4.6 mmol/L Normal 3.6-5.[address] [facility] Comment on above: Performed By: #### 2 4321-2 #### [facility] [address] [place] [address] Sodium [Moles/Vol] 140 mmol/L Normal 136-[address] [facility] Comment on above: Performed By: #### 2 4321-2 #### [facility] [address] [place] [address]1467 Urea nitrogen [Mass/Vol] 24 mg/dL High 8-[address] [facility] Comment on above: Performed By: #### 2 4321-2 #### [facility] [address] [place] [address]56 Urea nitrogen/Creatinine [Mass ratio] 19.5 mg/mg Normal 12.0-20.[address] [facility] Comment on above: Performed By: #### 2 4321-2 #### [facility] [address] [place] [address] 34162 CBC W Differential panel, me thod unspecified (Bld)Ordered By: Rui Padilla on 03-27-2024 Basophils (Bld) [#/Vol] 0.04 10*3/uL Normal 0.00-0.[address] [facility] Comment on above: Performed By: #### 6 9742-5 #### [facility] [address] [place] [address] 72096 Basophils/100 WBC (Bld) 0.8 % Normal 0.0-2.[address] [facility] Comment on above: Performed By: #### 6 9742-5 #### [facility] [address] [place] [address] 15926 Eosinophils (Bld) [#/Vol] 0.28 10*3/uL Normal 0.00-0.[address] [facility] Comment on above: Performed By: #### 6 9742-5 #### [facility] [address] [place] [address]8816 Eosinophils/100 WBC (Bld) 5.7 % Normal 0.0-7.[address] [facility] Comment on above: Performed By: #### 6 9742-5 #### [facility] [address] [place] [address]74 Erythrocyte distribution width (RBC) [Ratio] 12.3 % Normal 11.0-14.[address] [facility] Comment on above: Performed By: #### 6 9742-5 #### [facility] [address] [place] [address]78 Hematocrit (Bld) [Volume fraction] 31.8 % Low 34.3-47.[address] [facility] Comment on above: Performed By: #### 6 9742-5 #### [facility] [address] [place] [address]7041 Hemoglobin (Bld) [Mass/Vol] 10.6 g/dL Low 12.0-16.[address] [facility] Comment on above: Performed By: #### 6 9742-5 #### [facility] [address] [place] [address] 28369 Immature granulocytes (Bld) [#/Vol] 0.01 10*3/uL Normal 0.00-0.[address] [facility] Comment on above: Performed By: #### 6 9742-5 #### [facility] [address] [place] [address] 99971 Immature granulocytes/100 WBC (Bld) 0.2 % Normal 0.0-1.[address] [facility] Comment on above: Performed By: #### 6 9742-5 #### [facility] [address] [place] [address] 71074 Lymphocytes (Bld) [#/Vol] 1.46 10*3/uL Normal 1.00-4.[address] [facility] Comment on above: Performed By: #### 6 9742-5 #### [facility] [address] [place] [address] 41300 Lymphocytes/100 WBC (Bld) 29.6 % Normal 17.9-49.[address] [facility] Comment on above: Performed By: #### 6 9742-5 #### [facility] [address] [place] [address] 15025 MCHC (RBC) [Mass/Vol] 33.3 g/dL Normal 30.8-35.[address] [facility] Comment on above: Performed By: #### 6 9742-5 #### [facility] [address] [place] [address] 08751 MCV (RBC) [Entitic vol] 86.9 fL Normal 80.0-97.[address] [facility] Comment on above: Performed By: #### 6 9742-5 #### [facility] [address] [place] [address] 22560 Monocytes (Bld) [#/Vol] 0.45 10*3/uL Normal 0.00-0.[address] [facility] Comment on above: Performed By: #### 6 9742-5 #### [facility] [address] [place] [address] 09864 Monocytes/100 WBC (Bld) 9.1 % Normal 0.0-12.[address] [facility] Comment on above: Performed By: #### 6 9742-5 #### [facility] [address] [place] [address] 68475 Neutrophils/100 WBC (Bld) 54.6 % Normal 38.1-75.[address] [facility] Comment on above: Performed By: #### 6 9742-5 #### [facility] [address] [place] [address] 95827 Platelet mean volume (Bld) [Entitic vol] 10.1 fL Normal 6.2-12.[address] [facility] Comment on above: Performed By: #### 6 9742-5 #### [facility] [address] [place] [address] 77187 Platelets (Bld) [#/Vol] 220 10*3/uL Normal 142-[address] [facility] Comment on above: Performed By: #### 6 9742-5 #### [facility] [address] [place] [address] 36916 RBC (Bld) [#/Vol] 3.66 10*6/uL Low 3.74-5.[address] [facility] Comment on above: Performed By: #### 6 9742-5 #### [facility] [address] [place] [address] 17892 WBC (Bld) [#/Vol] 4.9 10*3/uL Normal 4.6-10.[address] [facility] Comment on above: Performed By: #### 6 9742-5 #### [facility] [address] [place] [address] 91667 CBC W Diff pnl,unspecified Bld 29.0 pcg 27.0-34.[address] [facility] CBC W Diff pnl,unspecified Bld 2.70 K/mcL 1.80-7.[address] [facility] CBC W Differential panel, me thod unspecified (Bld)on 03-27-2024 MCH 29.0 pcg Normal 27.0-34.0 [facility] Comment on above: Performed By: #### 6 9742-5 #### [facility] [address] [place] [address] Neutrophils Absolute 2.70 K/mcL Normal 1.80-7.70 [facility] Comment on above: Performed By: #### 6 9742-5 #### [facility] [address] [place] [address] BI MAMMOGRAM SCREENING TOMOS YNTHESIS BILATERALon 09-02-2023 BI MAMMOGRAM SCREENING TOMOSYNTHESIS BILATERAL [...] IS VERY IMPORTANT TO YOUR HEALTH. THE [place] [employer] GUIDELINES RECOMMEND THAT WOMEN 40 [...] INSULINon 04-24-2022 Insulin 17.1 uIU/mL Normal 2.6-24.9 [facility] Comment on above: Performed By: #### I EDWARD #### [facility] [address] [address] [address] Keven Reyez CBC AUTO DIFFon 04-23-2022 BASO # 0.0 103/ul Normal 0.0-0.1 [facility] Comment on above: Performed By: #### C BC #### [facility] [address] [place] [address] Dr. Keven Reyez Basophils/100 WBC (Bld) 0.5 % Normal 0.2-2.0 [facility] Comment on above: Performed By: #### C BC #### [facility] [address] [place] [address] Dr. Keven Reyez EO # 0.4 103/ul Normal 0.0-0.7 [facility] Comment on above: Performed By: #### C BC #### [facility] [address] [place] [address] Dr. Keven Reyez Eosinophils/100 WBC (Bld) 4.5 % Normal 0.9-7.0 [facility] Comment on above: Performed By: #### C BC #### [facility] [address] [place] [address] Dr. Keven Reyez Erythrocyte distribution width (RBC) [Ratio] 13.6 % Normal 11.0-15.0 [facility] Comment on above: Performed By: #### C BC #### [facility] [address] [place] [address] Dr. Keven Reyez Hematocrit (Bld) [Volume fraction] 34.7 % Critically low 36.0-48.0 [facility] Comment on above: Performed By: #### C BC #### [facility] [address] [place] [address] Dr. Keven Reyez Hemoglobin (Bld) [Mass/Vol] 11.3 g/dL Critically low 12.0-16.0 [facility] Comment on above: Performed By: #### C BC #### [facility] [address] [place] [address] Dr. Keven Reyez IG # 0.03 10e3/ul Normal 0.00-0.03 [facility] Comment on above: Performed By: #### C BC #### [facility] [address] [place] [address] Dr. Keven Reyez IG % 0.4 % Normal 0.0-0.5 [facility] Comment on above: Performed By: #### C BC #### [facility] [address] [place] [address] Dr. Keven Reyez LYMPH # 1.5 103/ul Normal 1.2-3.8 [facility] Comment on above: Performed By: #### C BC #### [facility] [address] [place] [address] Dr. Keven Reyez Lymphocytes/100 WBC (Bld) 19.5 % Critically low 20.5-60.0 [facility] Comment on above: Performed By: #### C BC #### [facility] [address] [place] [address] Dr. Keven Reyez MANUAL DIFF REQ NO Normal [facility] Comment on above: Performed By: #### C BC #### [facility] [address] [place] [address] Dr. Keven Reyez MCH (RBC) [Entitic mass] 27.2 pg Normal 26.7-34.0 [facility] Comment on above: Performed By: #### C BC #### [facility] [address] [place] [address] Dr. Keven Reyez MCHC (RBC) [Mass/Vol] 32.6 g/dL Normal 29.9-35.2 [facility] Comment on above: Performed By: #### C BC #### [facility] [address] [place] [address] Dr. Keven Reyez MCV (RBC) [Entitic vol] 83.6 fL Normal 81.0-99.0 [facility] Comment on above: Performed By: #### C BC #### [facility] [address] [place] [address] Dr. Keven Reyez MONO # 0.6 103/ul Normal 0.3-0.8 [facility] Comment on above: Performed By: #### C BC #### [facility] [address] [place] [address] Dr. Keven Reyez Monocytes/100 WBC (Bld) 8.2 % Normal 1.7-12.0 [facility] Comment on above: Performed By: #### C BC #### [facility] [address] [address] [address] Keven Reyez NEUT # 5.2 103/ul Normal 1.4-6.5 [facility] Comment on above: Performed By: #### C BC #### [facility] [address] [place] [address] Dr. Keven Reyez Neutrophils/100 WBC (Bld) 66.9 % Normal 43.0-75.0 [facility] Comment on above: Performed By: #### C BC #### [facility] [address] [place] [address] Dr. Keven Reyez Platelet mean volume (Bld) [Entitic vol] 9.1 fL Critically low 9.5-13.5 [facility] Comment on above: Performed By: #### C BC #### [facility] [address] [place] [address] Dr. Keven Reyez PLT 242 103/ul Normal 150-450 [facility] Comment on above: Performed By: #### C BC #### [facility] [address] [place] [address] Dr. Keven Reyez RBC 4.15 106/ul Critically low 4.20-5.40 [facility] Comment on above: Performed By: #### C BC #### [facility] [address] [place] [address] Dr. Keven Reyez WBC 7.8 103/ul Normal 4.0-11.0 [facility] Comment on above: Performed By: #### C BC #### [facility] [address] [place] [address] Dr. Keven Reyez FREE THYROXINE INDEX T7on FTI 2.81 Normal 1.30-4.50 [facility] Comment on above: Performed By: #### I EDWARD #### [facility] [address] [address] [address] Keven Reyez T3U 36.0 % Normal 30.0-39.0 [facility] Comment on above: Performed By: #### I EDWARD #### [facility] [address] [address] [address] Keven Reyez T4 [Mass/Vol] 7.80 ug/dL Normal 4.80-13.90 [facility] Comment on above: Performed By: #### I EDWARD #### [facility] [address] [address] [address] Keven Reyez GLYCOHEMOGLOBIN A1Con 2022 ADA RECOMMENDATION SEE BELOW Normal [facility] Comment on above: Result Comment: ADA RECOMMENDED LIMIT 4.0 - 6.0 ADA THERAPEUTIC TARGET < 7.0 ACTION SUGGESTED > 7.0 Performed By: #### A 1C #### [facility] [address] [address] [address] Keven Reyez Glucose [Mass/Vol] 111 mg/dL Normal [facility] Comment on above: Performed By: #### A 1C #### [facility] [address] [address] [address] Keven Reyez HbA1c (Bld) [Mass fraction] 5.5 % Normal 4.5-6.2 [facility] Comment on above: Performed By: #### A 1C #### [facility] [address] [place] [address] Dr. Keven Reyez IRONon 04-23-2022 Iron [Mass/Vol] 36.0 ug/dL Critically low 50.0-170.0 [facility] Comment on above: Performed By: #### I EDWARD #### [facility] [address] [address] [address] Keven Reyez LIPID PROFILEon 04-23-2022 CHOL-HDL RATIO NORM SEE BELOW Normal [facility] Comment on above: Result Comment: 3.3 - 4.4 LOW RISK 4.4 - 7.1 AVERAGE RISK 7.1 - 11.0 MODERATE RISK >11.0 HIGH RISK Performed By: #### I EDWARD #### [facility] [address] [address] [address] Keven Reyez Cholesterol [Mass/Vol] 132 mg/dL Normal <=200 [facility] Comment on above: Performed By: #### I EDWARD #### [facility] [address] [address] [address] Keven Reyez Cholesterol in HDL [Mass/Vol] 61 mg/dL Critically high 40-60 [facility] Comment on above: Performed By: #### I EDWARD #### [facility] [address] [address] [address] Keven Reyez Cholesterol in LDL [Mass/Vol] 51.8 mg/dL Normal [facility] Comment on above: Performed By: #### I EDWARD #### [facility] [address] [address] [address] Keven Reyez Cholesterol.total/Ch olesterol in HDL [Mass ratio] 2.2 {ratio} Normal [facility] Comment on above: Performed By: #### I EDWARD #### [facility] [address] [place] [address] Dr. Keven Reyez HDL NORMAL > or = 60 mg/dl - LOW CARDIOVASCULAR RISK <40 mg/dl - HIGH CARDIOVASCULAR RISK Normal [facility] Comment on above: Performed By: #### I EDWARD #### [facility] [address] [place] [address] Dr. Keven Reyez LDL CALC NORMAL SEE BELOW Normal [facility] Comment on above: Result Comment: <100 mg/dl OPTIMAL 100 - 129 mg/dl NEAR OR ABOVE OPTIMAL 130 - 159 mg/dl BORDERLINE HIGH 160 - 189 mg/dl HIGH >190 mg/dl VERY HIGH Performed By: #### I EDWARD #### [facility] [address] [address] [address] Keven Reyez Triglyceride [Mass/Vol] 96 mg/dL Normal <=150 [facility] Comment on above: Performed By: #### I EDWARD #### [facility] [address] [address] [address] Keven Reyez VLDL CALC 19.2 mg/dL Normal [facility] Comment on above: Performed By: #### I EDWARD #### [facility] [address] [place] [address] Dr. Keven Reyez PROF 14(COMP METB)on 023 Albumin [Mass/Vol] 3.6 g/dL Normal 3.4-5.0 [facility] Comment on above: Performed By: #### I EDWARD #### [facility] [address] [place] [address] Dr. Keven Reyez Albumin/Globulin [Mass ratio] 1.1 {ratio} Normal [facility] Comment on above: Performed By: #### I EDWARD #### [facility] [address] [place] [address] Dr. Keven Reyez ALP [Catalytic activity/Vol] 71 U/L Normal 46-116 [facility] Comment on above: Performed By: #### I EDWARD #### [facility] [address] [place] [address] Dr. Keven Reyez ALT [Catalytic activity/Vol] 36 U/L Normal 14-59 [facility] Comment on above: Performed By: #### I EDWARD #### [facility] [address] [place] [address] Dr. Keven Reyez Anion gap [Moles/Vol] 13.7 mmol/L Normal [facility] Comment on above: Performed By: #### I EDWARD #### [facility] [address] [place] [address] Dr. Keven Reyez AST [Catalytic activity/Vol] 23 U/L Normal 15-37 [facility] Comment on above: Performed By: #### I EDWARD #### [facility] [address] [place] [address] Dr. Keven Reyez Bilirubin [Mass/Vol] 0.3 mg/dL Normal 0.2-1.0 [facility] Comment on above: Performed By: #### I EDWARD #### [facility] [address] [place] [address] Dr. Keven Reyez Calcium [Mass/Vol] 9.2 mg/dL Normal 8.5-10.1 [facility] Comment on above: Performed By: #### I EDWARD #### [facility] [address] [address] [address] Keven Reyez Chloride [Moles/Vol] 106 mmol/L Normal 98-107 [facility] Comment on above: Performed By: #### I EDWARD #### [facility] [address] [place] [address] Dr. Keven Reyez CO2 [Moles/Vol] 26.2 mmol/L Normal 21.0-32.0 [facility] Comment on above: Performed By: #### I EDWARD #### [facility] [address] [place] [address] Dr. Keven Reyez Creatinine [Mass/Vol] 0.93 mg/dL Normal 0.55-1.02 [facility] Comment on above: Performed By: #### I EDWARD #### [facility] [address] [place] [address] Dr. Keven Reyez EGFR-AF NAMIBIAN >60 Normal >=60 [facility] Comment on above: Performed By: #### I EDWARD #### [facility] [address] [place] [address] Dr. Keven Reyez EGFR-NON AF NAMIBIAN >60 Normal >=60 [facility] Comment on above: Performed By: #### I EDWARD #### [facility] [address] [place] [address] Dr. Keven Reyez Globulin (S) [Mass/Vol] 3.2 g/dL Normal [facility] Comment on above: Performed By: #### I EDWARD #### [facility] [address] [place] [address] Dr. Keven Reyez Glucose [Mass/Vol] 100 mg/dL Normal 74-106 [facility] Comment on above: Performed By: #### I EDWARD #### [facility] [address] [place] [address] Dr. Keven Reyez Potassium [Moles/Vol] 4.9 mmol/L Normal 3.5-5.1 [facility] Comment on above: Performed By: #### I EDWARD #### [facility] [address] [place] [address] Dr. Keven Reyez Protein [Mass/Vol] 6.8 g/dL Normal 6.4-8.2 [facility] Comment on above: Performed By: #### I EDWARD #### [facility] [address] [place] [address] Dr. Keven Reyez Sodium [Moles/Vol] 141 mmol/L Normal 136-145 [facility] Comment on above: Performed By: #### I EDWARD #### [facility] [address] [place] [address] Dr. Keven Reyez Urea nitrogen [Mass/Vol] 18.0 mg/dL Normal 7.0-18.0 [facility] Comment on above: Performed By: #### I EDWARD #### [facility] [address] [place] [address] Dr. Keven Reyez Urea nitrogen/Creatinine [Mass ratio] 19.4 mg/mg Normal [facility] Comment on above: Performed By: #### I EDWARD #### [facility] [address] [place] [address] Dr. Keven Reyez TSHon 04-23-2022 TSH 0.830 uIU/mL Normal 0.358-3.740 [facility] Comment on above: Performed By: #### I EDWARD #### [facility] [address] [place] [address] Dr. Keven Reyez VITAMIN D 25 OHon 04-23-2022 VIT D 25-OH 38.5 ng/mL Normal [facility] Comment on above: Performed By: #### I EDWARD #### [facility] [address] [place] [address] Dr. Keven Reyez VIT D RANGES SEE BELOW Normal [facility] Comment on above: Result Comment: <20 ng/mL Vit D deficient 20 - <30 ng/mL Vit D insufficient 30 - 100 ng/mL Vit D sufficient >100 ng/mL Potential Toxicity Performed By: #### I EDWARD #### [facility] [address] [place] [address] Dr. Keven Reyez [facility] SARS-CoV-2 (COVID-19) RNA TAYLOR+probe Ql (Unsp spec) Not detected Normal NOT DETECTED [facility] Comment on above: Result Comment: This test is not yet approved or cleared by the [place] FDA. When there are no FDA-approved or cleared tests available, and other criteria are met, FDA can make tests available under an emergency access mechanism called an Emergency Use Authorization (EUA). The EUA for this test is supported by the [place] of Health and Human Service's (HHS's) declaration [...] SARS-CoV-2. Performed By: #### I EDWARD #### [facility] [address] [place] [address] Dr. Keven Reyez INFLUENZA A AND B [facility] 08-18 [facility] SEE BELOW Normal [facility] Comment on above: Result Comment: Nega tive for Flu A protein angiten. Infection due to Flu A cannot be ruled out. Flu A angiten in the sample may be below the detection limit of the test. Performed By: #### I NFLUAB #### [facility] [address] [place] [address] Dr. Keven [facility] SEE BELOW Normal [facility] Comment on above: Result Comment: Nega tive for Flu B protein antigen. Infection due to Flu B cannot be ruled out. Flu B antigen in the sample may be below the detection limit of the test. Performed By: #### I NFLUAB #### [facility] [address] [place] [address] Dr. Keven Reyez INFLUENZA A AG Negative Normal NEGATIVE SEE COMMENT [facility] Comment on above: Performed By: #### I NFLUAB #### [facility] [address] [place] [address] Dr. Keven Reyez INFLUENZA B AG Negative Normal NEGATIVE SEE COMMENT [facility] Comment on above: Performed By: #### I NFLUAB #### [facility] [address] [address] [address] Keven Reyez INTERNAL CONTROLS Within Normal Limits Normal Within Normal Limits [facility] Comment on above: Performed By: #### I NFLUAB #### [facility] [address] [address] [address] Keven Reyez XR DEXA BONE DENSITYon [...] SILVANA VEGA Date: 2021-05-28 10:25 Normal [facility] INSULINon 05-23-2021 Insulin 7.2 uIU/mL Normal 2.6-24.9 [facility] Comment on above: Performed By: #### I NSULIN #### [facility] [address] [place] [address] Dr. Keven Reyez CBC AUTO DIFFon 05-22-2021 BASO # 0.1 103/ul Normal 0.0-0.1 [facility] Comment on above: Performed By: #### I EDWARD #### [facility] [address] [address] [address] Keven Reyez Basophils/100 WBC (Bld) 0.9 % Normal 0.2-2.0 [facility] Comment on above: Performed By: #### I EDWARD #### [facility] [address] [address] [address] Keven Reyez EO # 0.3 103/ul Normal 0.0-0.7 [facility] Comment on above: Performed By: #### I EDWARD #### [facility] [address] [address] [address] Keven Reyez Eosinophils/100 WBC (Bld) 3.6 % Normal 0.9-7.0 [facility] Comment on above: Performed By: #### I EDWARD #### [facility] [address] [address] [address] Keven Reyez Erythrocyte distribution width (RBC) [Ratio] 12.7 % Normal 11.0-15.0 [facility] Comment on above: Performed By: #### I EDWARD #### [facility] [address] [place] [address] Dr. Keven Reyez Hematocrit (Bld) [Volume fraction] 37.0 % Normal 36.0-48.0 [facility] Comment on above: Performed By: #### I EDWARD #### [facility] [address] [place] [address] Dr. Keven Reyez Hemoglobin (Bld) [Mass/Vol] 11.7 g/dL Critically low 12.0-16.0 [facility] Comment on above: Performed By: #### I EDWARD #### [facility] [address] [place] [address] Dr. Keven Reyez IG # 0.06 10e3/ul Critically high 0.00-0.03 [facility] Comment on above: Performed By: #### I EDWARD #### [facility] [address] [place] [address] Dr. Keven Reyez IG % 0.9 % Critically high 0.0-0.5 [facility] Comment on above: Performed By: #### I EDWARD #### [facility] [address] [address] [address] Keven Reyez LYMPH # 1.9 103/ul Normal 1.2-3.8 [facility] Comment on above: Performed By: #### I EDWARD #### [facility] [address] [place] [address] Dr. Keven Reyez Lymphocytes/100 WBC (Bld) 27.1 % Normal 20.5-60.0 [facility] Comment on above: Performed By: #### I EDWARD #### [facility] [address] [place] [address] Dr. Keven Reyez MANUAL DIFF REQ NO Normal [facility] Comment on above: Performed By: #### I EDWARD #### [facility] [address] [place] [address] Dr. Keven Reyez MCH (RBC) [Entitic mass] 27.6 pg Normal 26.7-34.0 [facility] Comment on above: Performed By: #### I EDWARD #### [facility] [address] [place] [address] Dr. Keven Reyez MCHC (RBC) [Mass/Vol] 31.6 g/dL Normal 29.9-35.2 [facility] Comment on above: Performed By: #### I EDWARD #### [facility] [address] [place] [address] Dr. Keven Reyez MCV (RBC) [Entitic vol] 87.3 fL Normal 81.0-99.0 [facility] Comment on above: Performed By: #### I EDWARD #### [facility] [address] [place] [address] Dr. Keven Reyez MONO # 0.6 103/ul Normal 0.3-0.8 [facility] Comment on above: Performed By: #### I EDWARD #### [facility] [address] [place] [address] Dr. Keven Reyez Monocytes/100 WBC (Bld) 8.6 % Normal 1.7-12.0 [facility] Comment on above: Performed By: #### I EDWARD #### [facility] [address] [place] [address] Dr. Keven Reyez NEUT # 4.1 103/ul Normal 1.4-6.5 [facility] Comment on above: Performed By: #### I EDWARD #### [facility] [address] [place] [address] Dr. Keven Reyez Neutrophils/100 WBC (Bld) 58.9 % Normal 43.0-75.0 [facility] Comment on above: Performed By: #### I EDWARD #### [facility] [address] [address] [address] Keven Reyez Platelet mean volume (Bld) [Entitic vol] 9.8 fL Normal 9.5-13.5 [facility] Comment on above: Performed By: #### I EDWARD #### [facility] [address] [address] [address] Keven Reyez PLT 265 103/ul Normal 150-450 [facility] Comment on above: Performed By: #### I EDWARD #### [facility] [address] [address] [address] Keven Reyez RBC 4.24 106/ul Normal 4.20-5.40 [facility] Comment on above: Performed By: #### I EDWARD #### [facility] [address] [address] [address] Keven Reyez WBC 6.9 103/ul Normal 4.0-11.0 [facility] Comment on above: Performed By: #### I EDWARD #### [facility] [address] [address] [address] Keven Reyez FREE THYROXINE INDEX T7on FTI 2.81 Normal [facility] Comment on above: Performed By: #### T 7, TSH, CMP, LIPID #### [facility] [address] [place] [address] Dr. Keven Reyez T3U 36.0 % Normal 23.5-40.5 [facility] Comment on above: Performed By: #### T 7, TSH, CMP, LIPID #### [facility] [address] [address] [address] Keven Reyez T4 [Mass/Vol] 7.80 ug/dL Normal 5.53-11.00 [facility] Comment on above: Performed By: #### T 7, TSH, CMP, LIPID #### [facility] [address] [address] [address] Keven Reyez GLYCOHEMOGLOBIN A1Con 2021 ADA RECOMMENDATION ADA THERAPEUTIC TARGET 6.0 - 7.0 ACTION SUGGESTED > 7.0 Normal [facility] Comment on above: Performed By: #### I EDWARD #### [facility] [address] [address] [address] Keven Reyez Glucose [Mass/Vol] 117 mg/dL Normal [facility] Comment on above: Performed By: #### I EDWARD #### [facility] [address] [address] [address] Keven Reyez HbA1c (Bld) [Mass fraction] 5.7 % Normal <=6.0 [facility] Comment on above: Performed By: #### I EDWARD #### [facility] [address] [address] [address] Keven Reyez IRONon 05-22-2021 Iron [Mass/Vol] 48.0 ug/dL Normal 37.0-170.0 [facility] Comment on above: Performed By: #### I EDWARD #### [facility] [address] [address] [address] Keven Reyez LIPID PROFILEon 05-22-2021 CHOL-HDL RATIO NORM SEE BELOW Normal [facility] Comment on above: Result Comment: 3.3 - 4.4 LOW RISK 4.4 - 7.1 AVERAGE RISK 7.1 - 11.0 MODERATE RISK >11.0 HIGH RISK Performed By: #### T 7, TSH, CMP, LIPID #### [facility] [address] [address] [address] Keven Reyez Cholesterol [Mass/Vol] 153 mg/dL Normal <=200 [facility] Comment on above: Performed By: #### T 7, TSH, CMP, LIPID #### [facility] [address] [address] [address] Keven Reyez Cholesterol in HDL [Mass/Vol] 72 mg/dL Normal [facility] Comment on above: Performed By: #### T 7, TSH, CMP, LIPID #### [facility] [address] [address] [address] Keven Reyez Cholesterol in LDL [Mass/Vol] 63.0 mg/dL Normal [facility] Comment on above: Performed By: #### T 7, TSH, CMP, LIPID #### [facility] [address] [address] [address] Keven Reyez Cholesterol.total/Ch olesterol in HDL [Mass ratio] 2.1 {ratio} Normal [facility] Comment on above: Performed By: #### T 7, TSH, CMP, LIPID #### [facility] [address] [address] [address] Keven Reyez HDL NORMAL > or = 60 mg/dl - LOW CARDIOVASCULAR RISK <40 mg/dl - HIGH CARDIOVASCULAR RISK Normal [facility] Comment on above: Performed By: #### T 7, TSH, CMP, LIPID #### [facility] [address] [address] [address] Keven Reyez LDL CALC NORMAL SEE BELOW Normal [facility] Comment on above: Result Comment: <100 mg/dl OPTIMAL 100 - 129 mg/dl NEAR OR ABOVE OPTIMAL 130 - 159 mg/dl BORDERLINE HIGH 160 - 189 mg/dl HIGH >190 mg/dl VERY HIGH Performed By: #### T 7, TSH, CMP, LIPID #### [facility] [address] [address] [address] Keven Reyez Triglyceride [Mass/Vol] 90 mg/dL Normal <=150 [facility] Comment on above: Performed By: #### T 7, TSH, CMP, LIPID #### [facility] [address] [place] [address] Dr. Keven Reyez VLDL CALC 18.0 mg/dL Normal [facility] Comment on above: Performed By: #### T 7, TSH, CMP, LIPID #### [facility] [address] [address] [address] Keven Reyez PROF 14(COMP METB)on 022 Albumin [Mass/Vol] 3.9 g/dL Normal 3.5-5.0 [facility] Comment on above: Performed By: #### T 7, TSH, CMP, LIPID #### [facility] [address] [address] [address] Keven Reyez Albumin/Globulin [Mass ratio] 1.3 {ratio} Normal [facility] Comment on above: Performed By: #### T 7, TSH, CMP, LIPID #### [facility] [address] [address] [address] Keven Reyez ALP [Catalytic activity/Vol] 85 U/L Normal 38-126 [facility] Comment on above: Performed By: #### T 7, TSH, CMP, LIPID #### [facility] [address] [address] [address] Keven Reyez ALT [Catalytic activity/Vol] 25 U/L Normal 9-52 [facility] Comment on above: Performed By: #### T 7, TSH, CMP, LIPID #### [facility] [address] [address] [address] Keven Reyez Anion gap [Moles/Vol] 14.7 mmol/L Normal [facility] Comment on above: Performed By: #### T 7, TSH, CMP, LIPID #### [facility] [address] [place] [address] Dr. Keven Reyez AST [Catalytic activity/Vol] 14 U/L Normal 14-36 [facility] Comment on above: Performed By: #### T 7, TSH, CMP, LIPID #### [facility] [address] [address] [address] Keven Reyez Bilirubin [Mass/Vol] 0.3 mg/dL Normal 0.2-1.3 [facility] Comment on above: Performed By: #### T 7, TSH, CMP, LIPID #### [facility] [address] [address] [address] Keven Reyez Calcium [Mass/Vol] 9.3 mg/dL Normal 8.4-10.2 [facility] Comment on above: Performed By: #### T 7, TSH, CMP, LIPID #### [facility] [address] [address] [address] Keven Reyez Chloride [Moles/Vol] 107 mmol/L Normal 98-107 [facility] Comment on above: Performed By: #### T 7, TSH, CMP, LIPID #### [facility] [address] [address] [address] Keven Reyez CO2 [Moles/Vol] 25.2 mmol/L Normal 22.0-30.0 [facility] Comment on above: Performed By: #### T 7, TSH, CMP, LIPID #### [facility] [address] [address] [address] Keven Reyez Creatinine [Mass/Vol] 1.13 mg/dL Critically high 0.52-1.04 [facility] Comment on above: Performed By: #### T 7, TSH, CMP, LIPID #### [facility] [address] [address] [address] Keven Reyez EGFR-AF [place]AM[place] 59 mL/min/1.73m2 Critically low >=60 [facility] Comment on above: Performed By: #### T 7, TSH, CMP, LIPID #### [facility] [address] [place] [address] Dr. Keven Reyez EGFR-NON AF [place] 49 mL/min/1.73m2 Critically low >=60 [facility] Comment on above: Performed By: #### T 7, TSH, CMP, LIPID #### [facility] [address] [place] [address] Dr. Keven Reyez Globulin (S) [Mass/Vol] 3.1 g/dL Normal [facility] Comment on above: Performed By: #### T 7, TSH, CMP, LIPID #### [facility] [address] [place] [address] Dr. Keven Reyez Glucose [Mass/Vol] 102 mg/dL Normal 74-106 [facility] Comment on above: Performed By: #### T 7, TSH, CMP, LIPID #### [facility] [address] [place] [address] Dr. Keven Reyez Potassium [Moles/Vol] 4.9 mmol/L Normal 3.4-5.0 [facility] Comment on above: Performed By: #### T 7, TSH, CMP, LIPID #### [facility] [address] [place] [address] Dr. Keven Reyez Protein [Mass/Vol] 7.0 g/dL Normal 6.1-8.2 [facility] Comment on above: Performed By: #### T 7, TSH, CMP, LIPID #### [facility] [address] [address] [address] Keven Reyez Sodium [Moles/Vol] 142 mmol/L Normal 137-145 [facility] Comment on above: Performed By: #### T 7, TSH, CMP, LIPID #### [facility] [address] [place] [address] Dr. Keven Reyez Urea nitrogen [Mass/Vol] 24.0 mg/dL Critically high 7.0-17.0 [facility] Comment on above: Performed By: #### T 7, TSH, CMP, LIPID #### [facility] [address] [address] [address] Keven Reyez Urea nitrogen/Creatinine [Mass ratio] 21.2 mg/mg Normal [facility] Comment on above: Performed By: #### T 7, TSH, CMP, LIPID #### [facility] [address] [place] [address] Dr. Keven Reyez TSHon 05-22-2021 TSH 0.985 uIU/mL Normal 0.470-4.680 [facility] Comment on above: Performed By: #### T 7, TSH, CMP, LIPID #### [facility] [address] [place] [address] Dr. Keven Reyez TSH RANGE SEE BELOW Normal [facility] Comment on above: Result Comment: <0.3 4 UIU/ml HYPERTHYROID 0.34-5.60 UIU/ml EUTHYROID >5.60 UIU/ml HYPOTHYROID Performed By: #### T 7, TSH, CMP, LIPID #### [facility] [address] [place] [address] Dr. Keven Reyez SCREENING MAMMOGRAM W/MANJULA, BILATERAL*on 04-17-2021 SCREENING MAMMOGRAM W/MANJULA, BILATERAL* CLINICAL HISTORY: Screening Mammogram COMPARISON: [facility] from 2020, 2018, 2018 TECHNIQUE: 2D and 3D mammogram imaging of both breasts was performed. RESULT: DENSITY: There are scattered areas of fibroglandular density. There is no suspicious mass, asymmetry, architectural distortion, or calcification. No significant change since the prior mammograms. IMPRESSION: BIRADS 1 : NEGATIVE, NORMAL INTERVAL FOLLOW UP FOLLOW-UP: 12 months DENSITY: Scattered MAMMOGRAPHY IS VERY IMPORTANT TO YOUR HEALTH. THE CURRENT [place] [employer] AND [employer] GUIDELINES RECOMMENDS ANNUAL MAMMOGRAPHY BEGINNING AT AGE 38 THIS FACILITY USES A REMINDER SYSTEM TO ENSURE ALL PATIENTS RECEIVE REMINDER NOTIFICATIONS AT THE APPROPRIATE TIME BASED ON THE RECOMMENDATIONS OF THIS EXAM. 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 Accredited by the ACR and FDA. Report reported and signed by Hernán Whitley on 04/21/2021 1249 Normal [facility] Specialist Vital Signs Date Time Vital Sign Value Performing Clinician Facility 05-28-2024 14:50-0500 Body temperature 97.9 [degF] Elias Soria MD Work Phone: [facility] 05-28-2024 14:50-0500 Diastolic blood pressure 73 mm[Hg] Elias Soria MD Work Phone: [facility] 05-28-2024 14:50-0500 Heart rate 82 /min Elias Soria MD Work Phone: [facility] 05-28-2024 14:50-0500 Respiratory rate 14 /min Elias Soria MD Work Phone: [facility] 05-28-2024 14:50-0500 SaO2% (BldA) [Mass fraction] 92 % Elias Soria MD Work Phone: [facility] 05-28-2024 14:50-0500 Systolic blood pressure 111 mm[Hg] Elias Soria MD Work Phone: [facility] 05-28-2024 10:44-0500 Body height 149.9 cm Elias Soria MD Work Phone: [facility] 05-28-2024 10:44-0500 Body mass index (BMI) [Ratio] 28.48 kg/m2 Elias Soria MD Work Phone: [facility] 05-28-2024 10:44-0500 Body weight 63.96 kg Elias Soria MD Work Phone: [facility] 04-19-2024 12:36-0500 Body temperature 97.2 [degF] Rogelio Wilson MD Work Phone: [facility] 04-19-2024 12:36-0500 Diastolic blood pressure 85 mm[Hg] Rogelio Wilson MD Work Phone: [facility] 04-19-2024 12:36-0500 Heart rate 86 /min Rogelio Wilson MD Work Phone: [facility] 04-19-2024 12:36-0500 Respiratory rate 15 /min Rogelio Wilson MD Work Phone: [facility] 04-19-2024 12:36-0500 SaO2% (BldA) [Mass fraction] 92 % Rogelio Wilson MD Work Phone: [facility] 04-19-2024 12:36-0500 Systolic blood pressure 150 mm[Hg] Rogelio Wilson MD Work Phone: [facility] 04-19-2024 07:05-0500 Body height 149.9 cm Rogelio Wilson MD Work Phone: [facility] 04-19-2024 07:05-0500 Body mass index (BMI) [Ratio] 29.08 kg/m2 Rogelio Wilson MD Work Phone: [facility] 04-19-2024 07:05-0500 Body weight 65.3 kg Rogelio Wilson MD Work Phone: [facility] 03-27-2024 12:33-0500 Body height 151.13 cm Rui Padilla MD [facility] 03-27-2024 12:33-0500 Body mass index (BMI) [Ratio] 29.87 kg/m2 Rui Padilla MD [facility] 03-27-2024 12:33-0500 Body temperature 97.9 [degF] Rui Padilla MD [facility] 03-27-2024 12:33-0500 Body weight 68.22 kg Rui Padilla MD [facility] 03-27-2024 12:33-0500 Diastolic blood pressure 88 mm[Hg] Rui Padilla MD [facility] 03-27-2024 12:33-0500 Heart rate 79 /min Rui Padilla MD [facility] 03-27-2024 12:33-0500 SaO2% (BldA) [Mass fraction] 99 % Rui Padilla MD [facility] 03-27-2024 12:33-0500 Systolic blood pressure 126 mm[Hg] Rui Padilla MD [facility] 02-22-2024 13:41-0500 Body height 152.4 cm Rogelio Wilson MD [facility] 02-22-2024 13:41-0500 Body mass index (BMI) [Ratio] 29.29 kg/m2 Rogelio Wilson MD [facility] 02-22-2024 13:41-0500 Body weight 68.04 kg Rogelio Wilson MD [facility] Encounters Encounter Date Encounter Type Care Provider Facility Start: 06-12-2024 Postop follow up vis it related to original px [facility] Start: 06-12-2024 ambulatory Doroteo Mckayley [facility] Start: 06-05-2024 End: 06-05-2024 Telephone encounter Luna E Eduarda LANDEROS Work Phone: [facility] Start: 05-31-2024 ambulatory Adis E Gerkin [facility] Start: 05-29-2024 ambulatory Adis E Gerkin [facility] Start: 05-28-2024 ambulatory [facility] E [facility] Start: 05-28-2024 ambulatory Adis E [facility]kin [facility] Start: 05-28-2024 ambulatory [facility] Start: 05-27-2024 Evaluation and manag ement of inpatient JOCY ELDER [facility] Start: 05-27-2024 End: 05-28-2024 Emergency department patient visit Elias Soria MD Work Phone: [facility] Comment on above: Wound dehiscence (Pr imary Dx); Fall, initial encounter Start: 05-27-2024 End: 05-28-2024 Evaluation and management of inpatient Elias Soria MD Work Phone: [facility] Start: 05-15-2024 ambulatory Rogelio Wilson [facility] Start: 04-27-2024 End: 04-27-2024 Encounter identifier Rogelio Wilson Work Phone: [facility] Start: 04-27-2024 ambulatory Rogelio Wilson [facility] Start: 04-25-2024 End: 04-25-2024 Encounter identifier Rogelio Wilson Work Phone: [facility] Start: 04-25-2024 ambulatory Rogelio Wilson [facility] Start: 04-20-2024 End: 04-20-2024 Encounter identifier Rogelio Wilson Work Phone: [facility] Start: 04-20-2024 ambulatory [facility]io [facility] Start: 04-19-2024 End: 04-19-2024 Encounter identifier Doroteo Dove Work Phone: [facility] GARCIA Start: 04-19-2024 End: 04-19-2024 ambulatory Rogelio Wilson [facility] Start: 04-19-2024 End: 04-19-2024 Evaluation and management of inpatient Rogelio Wilson MD Work Phone: [facility] Start: 04-19-2024 End: 04-19-2024 Subsequent hospital visit by physician Rogelio Wilson MD Work Phone: [facility] Comment on above: Unilateral primary o steoarthritis, left knee (Primary Dx) Start: 04-19-2024 ambulatory Doroteo Dove [facility] Start: 03-27-2024 End: 03-27-2024 Encounter for other preprocedural examination Rui Padilla Work Phone: [facility] Start: 03-27-2024 End: 03-27-2024 Encounter for preprocedural cardiovascular examination Rui Padilla Work Phone: [facility] Start: 03-27-2024 End: 03-27-2024 Encounter identifier Andry Owusu Work Phone: [facility] [place] Start: 03-27-2024 End: 03-27-2024 Office outpatient new 45 minutes Rui Padilla Work Phone: [facility] Start: 03-27-2024 ambulatory Rogelio Wilson [facility] Start: 03-27-2024 ambulatory Andry Owusu [facility] Start: 02-22-2024 End: 02-22-2024 Encounter identifier Rogelio Wilson Work Phone: [facility] [place] Start: 02-22-2024 End: 02-22-2024 Office outpatient new 45 minutes Rogelio Wilson Work Phone: [facility] [place] Start: 02-22-2024 ambulatory Rogelio Wilson [facility] Start: 02-22-2024 ambulatory Rogelio Wilson [facility] Start: 09-02-2023 End: 09-02-2023 ambulatory LUNA E HIPOLITOMAT Not Available Start: 04-28-2022 Encounter for genera l adult medical examination without abnormal findings DR JOCY ELDER [facility] Start: 04-23-2022 End: 04-24-[address] JOCY ELDER Facility:[facility] Start: 04-23-2022 End: 04-24-2022 Encounter for general adult medical examination without abnormal findings DR JOCY ELDER Facility:[facility] Start: 08-18-2021 End: 08-18-[address] JOCY ELDER Facility:[facility] Start: 05-28-2021 End: 05-29-[address] JOCY ELDER Facility:[facility] Start: 05-22-2021 End: 05-23-[address] JOCY ELDER Facility:[facility] Encounter for other preprocedural examination Rui Padilla MD [facility] Encounter for preprocedural cardiovascular examination Rui Padilla MD [facility] Procedures Date Procedure Procedure Detail Performing Clinician Start: 06-12-2024 Radiologic examinati on knee 3 views Rogelio Wilson Start: 05-28-2024 Basic metabolic pane l calcium total Adis Ratliff MD Work Phone: Start: 05-28-2024 GREEN YELLOW PST Gideon Soria MD Work Phone: Start: 05-28-2024 LAVENDER - EDTA Elias Soria MD Work Phone: Start: 05-28-2024 RAINBOW DRAW G1 Elias Soria MD Work Phone: Start: 04-19-2024 End: 04-19-2024 Arthrp [...] actvity direct pt contact each 15 min uRi Padilla MD Start: 02-22-2024 End: 02-22-2024 Intermittent Compression Device - SELF PAY Rogelio Wilson MD Start: 02-22-2024 End: 02-22-2024 No Charge Rogelio Wilson MD Start: 02-22-2024 End: 02-22-2024 Radiologic exam knee complete 4/more views Rogelio Wilson MD Start: 09-02-2023 Mammography Luna pretty DO Work Phone: Plan of Treatment Date Care Activity Detail Author Start: 2033 RSV Immunization Patients 60+ Years Old (1 - 1-dose 75+ series) RSV Immunization Patients 60+ Years Old (1 - 1-dose 75+ series) [facility] Start: 09-01-2025 Screening for malign ant neoplasm of breast Breast Cancer Screening [facility] Start: 05-28-2025 Falls Risk Assessment Falls Risk Ass essment Mine Start: 05-28-2025 Hypertension/CHF/CAD Annual BMP Blood Test Hypertension/CHF/CAD Annual BMP Blood Test Mine Start: 04-19-2025 Falls Risk Assessment Falls Risk Ass essment Mine Start: 03-27-2025 Hypertension/CHF/CAD Annual BMP Blood Test Hypertension/CHF/CAD Annual BMP Blood Test [facility] Start: 09-14-2024 End: 09-14-2024 Professional / ancillary services management 09/14/2024 3:00 PM EDT Ancillary Procedure [facility] [address] [place] [address] [facility] Start: 09-01-2024 Screening for malign ant neoplasm of breast Mammogram [facility] Start: 06-01-2024 PankajChrissie lobo [facility] Work Phone: Start: 05-28-2024 End: 05-28-2024 INCISION DRAINAGE EXTREMITY LOWER INCISION DRAINAGE EXTREMITY LOWER Dehiscence of operative wound, initial encounter 05/28/2024 11:03 AM EST [facility] Start: 04-19-2024 Chrissie Lira LTKA,TJO [facility] Work Phone: Start: 04-19-2024 End: 04-19-2024 Arthrp kne condyle&platu medial&lat compartments ARTHROPLASTY KNEE TOTAL Unilateral primary osteoarthritis, left knee Pain in left knee 04/19/2024 8:44 AM EST [facility] Start: 03-27-2024 End: 03-27-2024 [facility] Start: 03-21-2024 Adolescent depressio n screening assessment Depression Screening Mine Start: 03-21-2024 Hepatitis C screening Hepatitis C Sc reening Mine Start: 03-21-2024 Lipid panel Cholesterol Sc reening (Lipid Panel) Mine Start: 03-21-2024 Medicare Annual Well ness Visit Medicare Annual Wellness Visit Mine Start: 03-21-2024 Screening for malign ant neoplasm of colon Colorectal Cancer Screening: Colonoscopy [facility] Start: 03-21-2024 Screening for osteoporosis Osteoporosis Screening (Bone Density Screening) [facility] Start: 03-21-2024 Social Influencers o f Health Screening Social Influencers of Health Screening [facility] Start: 12-05-2023 COVID-19 Vaccine ( season) COVID-19 Vaccine ( season) [facility] Start: 12-05-2023 COVID-19 Vaccine ( season) COVID-19 Vaccine () [facility] Start: 12-05-2023 Influenza vaccination Influenza Vacc ine (#1) [facility] Start: 2023 Pneumococcal Vaccine : 65+ Years (1 of 1 - PCV) Pneumococcal Vaccine: 65+ Years (1 of 1 - PCV) [facility] Start: 02-07-2008 Pneumococcal Vaccine : 50+ Years (1 of 1 - PCV) Pneumococcal Vaccine: 50+ Years (1 of 1 - PCV) [facility] Start: 02-07-2008 Zoster Vaccines (1 of 2) Zoste r Vaccines (1 of 2) [facility] Start: 1977 DTaP,Tdap,and Td Vaccines (1 - Tdap) DTaP,Tdap,and Td Vaccines (1 - Tdap) [facility] Start: 1960 Screening for malign ant neoplasm of colon [facility] End: 05-28-2024 ECG 12 lead - Procedural (No Charge) ECG 12 lead - Procedural (No Charge) ECG Routine Once for 1 Occurrences starting 05/28/2024 until 05/28/2024 [facility] Work Phone: Comment on above: Once for 1 Occurrenc es starting 05/28/2024 until 05/28/2024 End: 05-27-2024 Study Interpretation of outside study [facility] Comment on above: Once for 1 Occurrenc es starting 05/27/2024 until 05/27/2024 Payers Date Payer Category Payer Private Health Insurance [facility] [id number] 2023 Unknown [id number] 2023 Commercial Indemnity [employer] [facility] [id number] 2023 Medicare [id number] 2023 Unknown [employer] [place] [employer] [place] [id number] 2023-Present [id number] [employer] [place] [address] [id number] 2023 Medicare [id number] 2023 Unknown [id number] 1958 Unknown [id number] 2.16.840.1.473076.3.579. 2.593 1958 Unknown [id number] 2.16.840.1.348974.3.579. 2.593 1958 Unknown [id number] 2.16.840.1.601285.3.579. 2.593 1958 Unknown [id number] 2.16.840.1.786017.3.579. 2.593 1958 Unknown [id number] 2.16.840.1.093378.3.579. 2.1259 1958 Unknown [id number] 2.16.840.1.149003.3.579. 2.9 1958 Unknown [id number] 2.16.840.1.060425.3.579. 2.1313 1958 Unknown [id number] 2.16.840.1.478906.3.579. 2.1313 1958 Unknown [id number] 2.16.840.1.241205.3.579. 2.1313 1958 Unknown [id number] 2.16.840.1.302262.3.579. 2.1313 1958 Unknown [id number] 2.16.840.1.231335.3.579. 2.1313 1958 Unknown [id number] 2.16.840.1.595363.3.579. 2.1313 1958 Unknown [id number] 2.16.840.1.389039.3.579. 2.1142 1958 Unknown [id number] 2.16.840.1.767085.3.579. 2.1142 1958 Unknown [id number] 2.16.840.1.174962.3.579. 2.1142 1958 Unknown [id number] 2.16.840.1.613837.3.579. 2.1313 1958 Unknown [id number] 2.16.840.1.749002.3.579. 2.1313 1958 Unknown [id number] 2.16.840.1.147248.3.579. 2.1313 1958 Unknown [id number] 2.16.840.1.737547.3.579. 2.1313 1958 Unknown [id number] 2.16.840.1.099863.3.579. 2.1314 1958 Unknown [id number] 2.16.840.1.390890.3.579. 2.1314 1958 Unknown [id number] 2.16.840.1.694773.3.579. 2.1314 1958 Unknown [id number] 2.16.840.1.210964.3.579. 2.1314 1958 Unknown [id number] 2.16.840.1.087448.3.579. 2.1314 Self-pay [id number] Unknown [id number] Unknown [id number] Social History Date Type Detail Facility Start: 02-22-2024 Alcohol intake Alcohol Use Details [facility] Start: 02-22-2024 Tobacco use and exposure Non-Smoking Tobacco Use Details [facility] Start: 1960 Sex Assigned At Female [facility] Start: 12-08-2019 Sexual Orientation [facility] Start: 02-22-2024 End: 04-27-2024 Tobacco smoking status [facility]IS Unknown if ever smoked [facility] Start: 07-25-2019 Sexual Orientation Straight or heterosexual [facility] Start: 04-17-2024 Tobacco smoking stat NHIS Never smoked tobacco [facility] Start: 04-17-2024 Tobacco use and exposure Smokeless tobacco non-user [facility] Start: 04-17-2024 End: 05-28-2024 Alcoholic beverage intake Current drinker of alcohol (finding) [facility] Start: 04-19-2024 End: 05-28-2024 History of Social function [facility] Start: 04-19-2024 End: 05-28-2024 Interpersonal Safety [facility] Start: 04-17-2024 Alcohol Comment once in a while [facility] Start: 04-14-2024 Gender identity Identifies as female gender (finding) [facility] Start: 08-14-2022 Sexual Orientation Bisexual [facility] Start: 03-20-2024 Sex Female (finding) [facility] Start: 1960 Sex assigned at Not on file [facility] NEGATED: Highlighted rowStart: 02-22-2024 Tobacco smoking status NHIS Never smoker [facility] NEGATED: Highlighted rowStart: 03-27-2024 Tobacco smoking status NHIS Unknown if ever smoked 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 [employer] Sz 2 - Sna - [id number] ()[id number] [id number])[id number], [id number] FDA Start: 04-19-2024 Klassic Knee Tib ial Baseplate Sz 1 - Sna - [id number] ()[id number] [id number], [id number] FDA Start: 04-19-2024 Klassic Sombrero Patella Sz 1 7mm - Sna - [id number] ()[id number] [id number](21)[id number], [id number] FDA Start: 04-19-2024 Klassic Tibial Insert Ultra-Ps Sz 1 10mm - Sna - [id number] ()[id number] [id number]()[id number], [id number] FDA Start: 04-19-2024 Clinical Notes 02-22-2024 to 06-05-2024 [facility] 9:14 AM ESTTelephone Encounter - [facility] - 06/05/2024 9:14 AM ESTMegan Shira, PT - 05/28/2024 2:50 PM ESTMegan Shira, PT - 05/28/2024 9:16 AM EST Note Date & Type Note Facility 06-05-2024 Telephone encounter Note Letter sent out on 06/05/24 to reschedule due to provider out of office. [facility] 06-05-2024 Miscellaneous Notes Letter sent out on 06/05/24 to reschedule due to provider out of office. documented in this encounter [facility] 05-28-2024 History of Present illness Narrative [facility] Physical Therapy Evaluation PT Discharge Recommendations: Home independent, Outpatient PT Distance Ambulated (ft): 200 Device: Rolling walker LLE Weight Bearing Status: As Tolerated L Knee Flexion 0-140: 5-80 Strength RLE R Ankle Dorsiflexion: 5/5 R Ankle Plantar Flexion: 5/5 Strength LLE L Knee Flexion: 4-/5 L Knee Extension: 4-/5 L Ankle Dorsiflexion: 5/5 L Ankle Plantar Flexion: 5/5 PT - OK to Discharge: Yes AM-PAC: * Rogelio Wilson MD - Primary * Lonnie Skinner MD - Fellow Procedure(s): Left knee irrigation and debridement Day of Surgery Fall prevention education provided including use of call light in hospital, use of appropriate assistive device, safe mobility techniques, and safety measures at home. Continue PT as per POC. In to see pt with RN permission. Pt is pleasant and agreeable to PT services. Pt came into the ED late last night on 05/27/24 from an outside ED following a GLF causing her L knee incision to dehis. Pt is now s/p L knee I&D with wound closure. Pt states she was doing very well in OPPT and had 115 degrees of L knee flexion. Pt is discouraged that she has now had this fall and setback. Emotional support and encouragement provided. Pt's and family member present for session and all education. PT educated pt in regards to B LE venous return exercises, knee protocol HEP to begin POD1 with handout, and use of foam pillow under heel when resting to encourage knee extension. Pt gave verbal understanding. See below for complete mobility performance details with all PT goals met this date. RN notified. Pt left supine in bed with B DVT pumps on, call light/phone within reach and all needs met. Patient Active Problem List Diagnosis Unilateral primary osteoarthritis, left knee Wound dehiscence Past Medical History: Past Surgical History: Past Medical History: Diagnosis Date Arthritis Cancer (CMS/HCC) skin-leg and face Chronic cough GERD (gastroesophageal reflux disease) Hiatal hernia HL (hearing loss) bilateral hearing aids Hyperlipidemia Hypertension Hypothyroidism Wears glasses Past Surgical History: Procedure Laterality Date CHOLECYSTECTOMY ROTATOR CUFF REPAIR Right TONSILLECTOMY WISDOM TOOTH EXTRACTION Objective 05/28/24 1450 General Family/Caregiver Present Yes PT Time Calculation PT Start Time 1450 PT Stop Time 1522 PT Time Calculation (min) 32 min Precautions Medical Precautions Fall Risk Safety Interventions Call agustin within reach;Gait belt LLE Weight Bearing Status As Tolerated Pain Assessment Pain Assessment 0-10 Pain Score 8 FACES Pain Scale - Revised 0 Pain Type Surgical pain Pain Location Incision Pain Orientation Left Pain Descriptors Burning Pain Interventions Repositioned;RN notified (Comment);Ambulation/increased activity Cognition Arousal/Alertness Appropriate responses to stimuli Orientation Level Oriented X4 Following Commands Follows all commands and directions without difficulty Home Living Type of Home House Lives With Spouse Home Adaptive Equipment Walker - rolling;Cane Home Layout Two level;Able to live on main level with bedroom/bathroom Home Access Stairs to enter without rails Entrance Stairs-Rails None Entrance Stairs-Number of Steps 3 Prior Function Level of [place] Independent with mobility and functional transfers Prior Function Comments Pt had a primary L TKA on 04/19/24 which she states she was recovering very well from. Unfortunately, pt was at work when her feet became tangled in an extension cord and she had a GLF onto the L knee causing her incision to dehis. Sensation Light Touch No apparent deficits Bed Mobility Sitting to Lying Assistance Standby assistance Lying to Sitting Assistance Standby assistance Transfers Sit to Stand Assistance Standby assistance Toilet Transfer Assistance Standby assistance Ambulation Walking Assistance Standby assistance Device Rolling walker Distance Ambulated (ft) 200 Comments Pt ambulating with steady, step-through gait pattern Stairs 4 steps: Assistance Contact guard 4 steps: Deficit Verbal cueing Device Hand held assist;Single point cane Stairs Comments VC's for sequencing. Pt was steady throughout. Pt's present for stair training stating that is how they performed it after her previous surgery. Strength RLE R Ankle Dorsiflexion 5/5 R Ankle Plantar Flexion 5/5 LLE Assessment LLE Assessment Comments (+) SLR AROM LLE (degrees) L Knee Flexion 0-140 5-80 Strength LLE L Knee Flexion 4-/5 L Knee Extension 4-/5 L Ankle Dorsiflexion 5/5 L Ankle Plantar Flexion 5/5 PT Assessment PT Assessment Results Decreased strength;Decreased range of motion;Impaired gait;Decreased mobility;Pain Prognosis Excellent Evaluation/Treatment Tolerance Patient tolerated treatment well Medical Staff Made Aware Yes Comments Eleonora RN notified of (+) void when up to BR and all PT goals met Plan Treatment/Interventions Functional transfer training;LE strengthening/ROM;Patient/family training;Bed mobility;Equipment eval/education;Gait training;Continued evaluation;Compensatory technique education PT Plan Skilled PT PT Frequency 7 days per week PT Duration of Sessions PRN PT Treatments per day 1-2 times per day PT Discharge Recommendations Home independent;Outpatient PT PT - Evaluation Status Complete PT - OK to Discharge Yes PT Evaluation Time Entry PT Evaluation (Moderate) Time Entry 15 Treatment performed during evaluation: Gait Training Gait Training Time Entry: 17 Gait Training Activity 1: gait training with FWW Gait Training Activity 2: stair training with L SPC/R CUSTOMS APPRAISER Therapeutic Activity Therapeutic Activity 1: education Therapeutic Activity 2: bed mobility Therapeutic Activity 3: STS and toilet transfer training Goals and Education Goals: Education: Encounter Problems Encounter Problems (Active) There are no active problems. Encounter Problems (Resolved) Template: Physical Therapy Problem: PT Short Term Goals Dates: Start: 05/28/24 Resolved: 05/28/24 Goal: Pt will perform bed mobility with CGA (Resolved) Dates: Start: 05/28/24 Expected End: 05/28/24 Resolved: 05/28/24 Outcomes Date/Time User Outcome 05/28/24 1601 Jossy Shira, PT Completed Goal: Pt will perform transfers with SBA/FWW (Resolved) Dates: Start: 05/28/24 Expected End: 05/28/24 Resolved: 05/28/24 Outcomes Date/Time User Outcome 05/28/24 1601 Jossy Shira, PT Completed Goal: Pt will ambulate x150 ft with SBA/FWW (Resolved) Dates: Start: 05/28/24 Expected End: 05/28/24 Resolved: 05/28/24 Outcomes Date/Time User Outcome 05/28/24 1601 Jossy Silva PT Completed Goal: Pt will ascend/descend stairs with CGA/LRAD (Resolved) Dates: Start: 05/28/24 Expected End: 05/28/24 Resolved: 05/28/24 Outcomes Date/Time User Outcome 05/28/24 1601 Jossy Silva PT Completed Goal: Pt will indicate understanding of knee protocol HEP to begin POD1 (Resolved) Dates: Start: 05/28/24 Expected End: 05/28/24 Resolved: 05/28/24 Outcomes Date/Time User Outcome 05/28/24 1601 Jossy Silva PT Completed Education Documentation Explain call button use, taught by Jossy Silva PT at 05/28/2024 4:01 PM. Learner: Patient Readiness: Acceptance Method: Explanation Response: Verbalizes Understanding Teach fall prevention measures, taught by Jossy Silva PT at 05/28/2024 4:01 PM. Learner: Patient Readiness: Acceptance Method: Explanation Response: Verbalizes Understanding Home Exercise Program, taught by Jossy Silva PT at 05/28/2024 4:01 PM. Learner: Family, Patient Readiness: Acceptance Method: Explanation, Demonstration, Handout Response: Verbalizes Understanding Mobility Training, taught by Jossy Silva PT at 05/28/2024 4:01 PM. Learner: Family, Patient Readiness: Acceptance Method: Explanation, Demonstration, Handout Response: Verbalizes Understanding Education Comments No comments found. Patient to surgery today for Left knee wound I&D and wound closure. Per PACU nurse, patient may be able to discharge later today per the Orthopedic service. Physical Therapy Consult received for PT eval/treat. Original plan was for pt to go to OR tomorrow for a L knee I&D and wound closure, however, plan has changed per RN and pt will go to OR today instead. Will evaluate post-operatively as appropriate. Problem: Sensory: Acute Pain Goal: Pain level will improve or be tolerable Outcome: Progressing Goal: Ability to develop a pain control plan will improve Outcome: Progressing Goals: Identify possible barriers to meeting goals/advancing plan of care: Stability of the patient: Problem: Sensory: Acute Pain Goal: Pain level will improve or be tolerable Outcome: Progressing Goal: Ability to develop a pain control plan will improve Outcome: Progressing End of Shift Summary: [facility] Progress Note Assessment and Plan Patient is a 64 yo female sp 04/19/[address] Wilson now s/p a fall on 05/27/24 with subsequent wound dehiscence of the superficial closure 05/07 a mechanical GLF. - Pain control - WBAT, no left knee ROM, to remain in knee immobilizer when out of bed - PT/OT - DVT ppx - lovenox until surgical debridement and closure - Medical co-management per [facility] - NPO at [facility] - Planning for OR on 05/29/24 for I&D and wound closure - Follow-up with Dr. Wilson after surgery Subjective Patient did well overnight, tolerating diet. Pain and nausea well controlled. Objective Vitals: 05/28/24 0614 BP: 106/69 Pulse: 75 Resp: 13 Temp: 36.8 C (98.2 F) SpO2: 97% Left Lower Extremity Exam: Open superficial incision, this does not appear to go deep to the capsule, 80% of incision is open There is no drainage There is appropriate post operative swelling and tenderness around the incision Extremity is neurovascularly intact distally History of Present Illness This is a pleasant 64-year-old female with past medical history of left total knee arthroplasty closed with tissue adhesive on April 19. Earlier today she had a mechanical ground-level fall onto her left knee sustaining wound dehiscence. She was seen in outside ER and was transferred here per patient preference at this is the location of her orthopedist. Denies any other injuries. Underwent x-rays at outside facility Physical Exam ED Triage Vitals Temp Pulse Resp BP -- -- -- -- SpO2 Temp src Heart Rate Source Patient Position -- -- -- -- BP Location FiO2 (%) -- -- CONSTITUTIONAL: Well appearing. EYES: Conjunctiva and lids normal. HENT: External ears and nose normal in appearance. RESPIRATORY: No respiratory distress. CARDIOVASCULAR: Regular rate and rhythm. Pedal pulses intact GASTROINTESTINAL: Abdomen non-distended. NEUROLOGICAL: Awake, alert and appropriately conversant. PSYCHOLOGICAL: The patient's mood and affect are appropriate. INTEGUMENTARY: Warm and dry. See clinical media MSK: No gross deformity. No bony tenderness compartments soft. Able to flex and extend knee Medical Decsion Making Will discuss with orthopedics superficial appearing wound dehiscence disposition pending their recommendation {Test Considered But Not Performed - Discussed management with physician/healthcare provider/other source -: Yes, orthopedics ED Course as of 05/28/24 0537 Sat May 27, [id number] Left message with Dr. Dill [ZO] 2306 I discussed with orthopedics they viewed images of wound they recommend admission to the hospital due to dehiscence with plan for operative intervention on Wednesday [ZO] 2337 Discussed with gen med who accepts admission [ZO] ED Course User Index [ZO] Elias Soria MD Clinical Impressions as of 05/28/24 0537 Wound dehiscence Fall, initial encounter Elias Soria MD 05/27/242209 Elias Soria MD 05/27/24 2310 Elias Soria MD 05/27/24 2337 Elias Soria MD 05/28/2437 documented in this encounter [facility] 05-28-2024 Hospital course Narrative Discharge Final Diagnosis: Left Knee Wound dehiscence Hospital Course (include Reason for Hospitalization): The patient was admitted early on 05/28/24 due to a Left knee wound dehiscence following a mechanical fall in the afternoon of 05/27/24. She is status/post Left TKA on 04/19/[address] Wilson. She was seen and evaluated on rounds by the Orthopedic service several hours after admission. Originally surgery was anticipated on 05/29/24, but this was changed to 05/28/24 by the Orthopedic service following their evaluation. She was subsequently taken to the OR where a Left knee wound I&D and wound closure was performed by Dr. Wilson. He indicated that the patient may be discharged following the procedure, and discharge instructions from the Orthopedic service were completed. The patient experienced no medical issues while hospitalized, and her chronic home medications were continued on discharge. Procedures Performed: Procedure(s): Left knee irrigation and debridement Test Results Pending At Discharge: Issues Requiring Follow-Up Care: Patient to follow up with Dr. Wilson as directed. Outpatient Follow-Up Care: No future appointments. Discharge Medication List: Your medication list START taking these medications Instructions Last Dose Given Next Dose Due cefadroxil 500 mg capsule Take 1 capsule (500 mg total) by mouth 2 (two) times a day. oxyCODONE 5 mg immediate release tablet Commonly known as: ROXICODONE Take 1-2 tablets (5-10 mg total) by mouth every 4 (four) hours if needed for moderate pain or severe pain for up to 7 days. Dx: Z96.6 Max Daily Amount: 60 mg CONTINUE taking these medications Instructions Last Dose Given Next Dose Due aspirin 81 mg EC tablet Take 1 tablet (81 mg total) by mouth 1 (one) time each day. aspirin 81 mg chewable tablet Chew 1 tablet (81 mg total) 2 (two) times a day for 6 weeks. carvediloL 25 mg tablet Commonly known as: COREG Take 2 tablets (50 mg total) by mouth 2 (two) times a day. cloNIDine 0.1 mg tablet Commonly known as: CATAPRES Take 1 tablet (0.1 mg total) by mouth 3 (three) times a day. hydroCHLOROthiazide 25 mg tablet Commonly known as: HYDRODIURIL Take 1 tablet (25 mg total) by mouth 1 (one) time each day. HYDROcodone-acetaminophen 5-325 mg per tablet Commonly known as: NORCO Take 1 tablet by mouth every 6 (six) hours if needed (pain). irbesartan 150 mg tablet Commonly known as: AVAPRO Take 1 tablet (150 mg total) by mouth 1 (one) time each day. lansoprazole [address] capsule Commonly known as: PREVACID Take 1 capsule (30 mg total) by mouth 1 (one) time each day. levothyroxine 75 mcg tablet Commonly known as: SYNTHROID, LEVOTHROID Take 1 tablet (75 mcg total) by mouth 1 (one) time each day before breakfast. meloxicam 15 mg tablet Commonly known as: MOBIC Take 1 tablet (15 mg total) by mouth 1 (one) time each day. pantoprazole 40 mg EC tablet Commonly known as: PROTONIX Take 1 tablet (40 mg total) by mouth 1 (one) time each day with dinner. potassium chloride 20 mEq CR tablet Commonly known as: KLOR-CON M20 Take 1 tablet (20 mEq total) by mouth 2 (two) times a day with meals. semaglutide 0.25 mg/0.5 mL injection pen Commonly known as: WEGOVY Inject 0.5 mg under the skin every 7 (seven) days. Mondays simvastatin 20 mg tablet Commonly known as: ZOCOR Take 1 tablet (20 mg total) by mouth at bedtime. SUMAtriptan 50 mg tablet Commonly known as: IMITREX Take 1 tablet (50 mg total) by mouth 1 (one) time if needed for migraine. tiZANidine 4 mg tablet Commonly known as: ZANAFLEX Take 2 tablets (8 mg total) by mouth at bedtime. tiZANidine 4 mg tablet Commonly known as: ZANAFLEX Take 1 tablet (4 mg total) by mouth 1 (one) time each day. venlafaxine XR 150 mg 24 hr capsule Commonly known as: EFFEXOR-XR Take 1 capsule (150 mg total) by mouth 1 (one) time each day. venlafaxine XR 75 mg 24 hr capsule Commonly known as: EFFEXOR-XR Take 1 capsule (75 mg total) by mouth 1 (one) time each day. Where to Get Your Medications These medications were sent to [id number] - [place], [place] - [address] [place] [address] cefadroxil 500 mg capsule oxyCODONE 5 mg immediate release tablet Patient Condition and Disposition at Time of Discharge: Physical Exam Discharge Instructions: Discharge Procedure Orders Discharge Diet: Return to previous diet Order Specific Question Answer Comments General Instructions for your diet at home Return to previous diet Weight Bearing As Tolerated Order Specific Question Answer Comments Weight Bearing Status Full Weight Bearing Restricted weight-bearing extremity Left Lower Extremity LLE Weight-bearing as tolerated Notify Provider - Incision/Wound Drainage or Bleeding Order Comments: If you experience more than normal drainage, bleeding and/or foul odor from your incision/wound Constipation Precaution Order Comments: Pain medications can be constipating. Drink plenty of fluids and take over the counter stool softeners if you are having trouble having a bowel movement Follow-up: Order Specific Question Answer Comments Instructions for follow-up: Follow-up in 6 weeks. Call [phone] for appointment. Elevation of Operative Extremity Order Comments: Keep operative extremity elevated as much as possible Order Specific Question Answer Comments Side? Left Upper or lower extremity Lower May shower after dressing is removed documented in this encounter [facility] 05-28-[address] [facility] MEDICAL ADMISSION INITIAL VISIT Chief complaint: Left Knee Wound Dehiscence Patient Name : Chrissie Lira Patient : 1960 Patient Admit Date : 05/27/2024 Admission Diagnosis : Left Knee Wound Dehiscence Chief Complaint Patient presents with Post-op Problem Patient with left knee surgery about 6 weeks ago and fell this evening and wound reopened. Patient seen at OSH and preferred to be seen at [facility]. Bleeding controlled. Bandage reapplied. Provider Name : Adis Ratliff MD Date Of Service : 05/28/24 IMPRESSION AND PLAN : Left Knee Wound Dehiscence: Due to mechanical fall 05/27/24. Status/post Left TKA on 04/19/24. Surgery planned on 05/29 per the Orthopedic service. Defer primary management as well as management of antibiotics to the primary surgical service per protocol. Labs and EKG ordered on admission. I have seen the patient personally today and have reviewed available labs and imaging results, as documented below in the RESULTS section. Prescription drug management has been provided, as outlined in the impression and plan. Awaiting review of medications by the medication historian. Prophylaxis For Prevention of Deep Vein Thrombosis ( DVT ) Single dose of Lovenox ordered for the AM on 05/28. Mechanical VTE prophylaxis also ordered. Patient should be encouraged regarding venous return exercises and ambulation. Preoperative medical risk stratification indicates patient is scheduled for surgery at acceptable risk pending review of labs. The patient reported that she tolerated her Left TKA without medical issue. This patient has no active cardiac conditions and would be considered at a low risk for a major adverse cardiac event ( MACE ) based on an RCRI score of 0-1. This patient's activity level is at or above 4 METs and would be considered at an acceptable cardiac risk based on ACC / AHA Guidelines. Obstructive Sleep Apnea Risk: Patient determined to be at intermediate risk for MOISÉS based on screening at the time of PAT for her Left TKA on 04/19/24. This places the patient at elevated risk for postoperative respiratory complications including hypoxemia and hypoventilation. They will require appropriate monitoring on the NA MOISÉS protocol. Respiratory Therapy has been consulted. Hypertension (I10): Chronic condition, present on admission. The patient is at risk for blood pressure fluctuations prior to and following surgery due to blood loss, fluid loss, pain, anxiety, and medications such as opioid pain medications. The patient's home prescription antihypertensive medications will be reordered with hold parameters. As needed clonidine has been added. Hyperlipidemia (E78.5): Chronic condition, present on admission. Treated with a statin which will be reordered to reduce the risk of perioperative cardiovascular events. Hypothyroidism (E03.9): Chronic condition, present on admission. Treated with thyroid hormone replacement therapy which will be reordered. Appears euthyroid clinically. Gastroesophageal Reflux Disease (K21.9): Chronic condition, present on admission. Controlled with a PPI which will be reordered. Hearing Loss: Chronic condition, present on admission. Uses hearing aides bilaterally as she needs them. Obesity (E66.09): Chronic condition, present on admission. Patient will require appropriate monitoring of their respiratory status while hospitalized due to an elevated risk of MOISÉS, hypoxemia, and hypoventilation. No documented history of MOISÉS is noted. DVT prophylaxis as noted above. HISTORY OF PRESENT ILLNESS : Chrissie Lira, 64 y.o. female presenting from emergency room with chief complaint of Left knee wound dehiscence. The patient is status/post Left TKA by Dr. Wilson on 04/19/24. 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 She denied hitting or head during the fall. She noted increased left knee pain and that her left knee wound had opened along its length. She was seen at her local ED where X-rays were performed. She was then transferred to [facility] ED for further evaluation at her request. Following an initial evaluation the ED physician spoke with Dr. Wilson's service who requested admission for anticipated surgery on 05/29/24. MEDICAL ILLNESSES : Past Medical History: Diagnosis Date Arthritis Cancer (CMS/HCC) skin-leg and face Chronic cough GERD (gastroesophageal reflux disease) Hiatal hernia HL (hearing loss) bilateral hearing aids Hyperlipidemia Hypertension Hypothyroidism Wears glasses PAST MEDICAL HISTORY : SURGERIES : Past Surgical History: Procedure Laterality Date CHOLECYSTECTOMY ROTATOR CUFF REPAIR Right TONSILLECTOMY WISDOM TOOTH EXTRACTION MEDICATIONS No current facility-administered medications on file prior to encounter. Current Outpatient Medications on File Prior to Encounter Medication Sig Dispense Refill aspirin 81 mg chewable tablet Chew 1 tablet (81 mg total) 2 (two) times a day for 6 weeks. 84 each 0 aspirin 81 mg EC tablet Take 1 tablet (81 mg total) by mouth 1 (one) time each day. carvediloL (COREG) 25 mg tablet Take 2 tablets (50 mg total) by mouth 2 (two) times a day. cloNIDine (CATAPRES) 0.1 mg tablet Take 1 tablet (0.1 mg total) by mouth 3 (three) times a day. hydroCHLOROthiazide (HYDRODIURIL) 25 mg tablet Take 1 tablet (25 mg total) by mouth 1 (one) time each day. HYDROcodone-acetaminophen (NORCO) 5-325 mg per tablet Take 1 tablet by mouth every 6 (six) hours if needed (pain). irbesartan (AVAPRO) 150 mg tablet Take 1 tablet (150 mg total) by mouth 1 (one) time each day. lansoprazole (PREVACID) [address] capsule Take 1 capsule (30 mg total) by mouth 1 (one) time each day. levothyroxine (SYNTHROID, LEVOTHROID) 75 mcg tablet Take 1 tablet (75 mcg total) by mouth 1 (one) time each day before breakfast. meloxicam (MOBIC) 15 mg tablet Take 1 tablet (15 mg total) by mouth 1 (one) time each day. pantoprazole (PROTONIX) 40 mg EC tablet Take 1 tablet (40 mg total) by mouth 1 (one) time each day with dinner. potassium chloride (KLOR-CON M20) 20 mEq CR tablet Take 1 tablet (20 mEq total) by mouth 2 (two) times a day with meals. semaglutide (WEGOVY) 0.25 mg/0.5 mL injection pen Inject 0.5 mg under the skin every 7 (seven) days. Mondays simvastatin (ZOCOR) 20 mg tablet Take 1 tablet (20 mg total) by mouth at bedtime. SUMAtriptan (IMITREX) 50 mg tablet Take 1 tablet (50 mg total) by mouth 1 (one) time if needed for migraine. tiZANidine (ZANAFLEX) 4 mg tablet Take 1 tablet (4 mg total) by mouth 1 (one) time each day. tiZANidine (ZANAFLEX) 4 mg tablet Take 2 tablets (8 mg total) by mouth at bedtime. venlafaxine XR (EFFEXOR-XR) 150 mg 24 hr capsule Take 1 capsule (150 mg total) by mouth 1 (one) time each day. venlafaxine XR (EFFEXOR-XR) 75 mg 24 hr capsule Take 1 capsule (75 mg total) by mouth 1 (one) time each day. (Not in a hospital admission) Allergies : Capital with codeine [acetaminophen-codeine], Iodinated contrast media, and Sulfa (sulfonamide antibiotics) Family History : Negative for surgical or anesthetic complications, premature coronary artery disease, bleeding disorders, or thrombophilia. Social History : Social History Tobacco Use Smoking status: Never Smokeless tobacco: Never Vaping Use Vaping status: Never Used Substance Use Topics Alcohol use: Yes Comment: once in a while Drug use: Never SUBJECTIVE/REVIEW OF SYSTEMS The patient was seen in their room on the inpatient unit. She was sitting up in bed working with staff prior to visit and appeared comfortable during the visit. Constitutional: Denies fever Head/Neck: Denies headache Eye: Denies eye pain Ear/Nose/Mouth/Throat: Denies sore throat Neurologic: Denies focal weakness Cardiovascular: Denies chest pain or pressure Respiratory: Denies shortness of breath or dyspnea Gastrointestinal: Denies abdominal pain or cramping Genitourinary: Denies urinary retention or incomplete voiding Skin: Denies rash VITALS : Visit Vitals BP 123/79 Pulse 71 Temp 36.8 C (98.3 F) (Oral) Resp 16 Ht 1.499 m (59 ) Wt 64.9 kg (143 lb) SpO2 100% BMI 28.88 kg/m OB Status Postmenopausal Smoking Status Never BSA 1.6 m PHYSICAL EXAM : General - No acute distress; Alert and conversational Skin - Normal skin temperature; no rashes on exposed skin surfaces Eyes -Pupils equal; Anicteric Sclerae ENMT - Hearing Intact; Oropharynx grossly clear with moist mucosa Neck- Normal range of motion; No gross thyromegaly Cardiac - No tachycardia noted; Regular Rate and Rhythm; Respiratory - Clear to auscultation bilaterally; No accessory respiratory muscle use noted; No Wheezing Abdominal - Non-tender to palpation; Soft with positive bowel sounds and no obvious mass Musculoskeletal - No clubbing of digits noted; No cyanosis of digits noted; Left knee dressing in place; defer further exam to the Orthopedic service Psychiatric/Neuro- Appropriate affect, Alert and oriented, No gross motor deficit RESULTS : EKG INDEPENDENTLY INTERPRETED : Pending LABS ORDERED : BMP, CBC ADDITIONAL RELEVANT RESULTS AND/OR RECORDS REVIEWED : LABS CBC Lab Results Component Value Date WBC 4.9 03/27/2024 HGB 10.6 (L) 03/27/2024 HCT 31.8 (L) 03/27/2024 MCV 86.9 03/27/2024 PLT 220 03/27/2024 CMP Lab Results Component Value Date NA 140 03/27/2024 K 4.6 03/27/2024 CL 107 03/27/2024 CO2 24 03/27/2024 BUN 24 (H) 03/27/2024 CREATININE 1.23 03/27/2024 GLUCOSE 85 04/19/2024 No lab exists for component: LABALBU GLUCOSE Glucose POCT Date Value Ref Range Status 04/19/2024 85 70 - 99 mg/dL Final Glucose Date Value Ref Range Status 03/27/2024 85 70 - 99 mg/dL Final COAGULATION TESTS LIPID PANEL THYROID TESTS No results found for: TSH URINE ANALYSIS No results found for: URINE URINE CULTURE No results found for: URINECX BLOOD CULTURE No results found for: BLOODCX IMAGING No image results found. STRESS TEST No results found for this or any previous visit. ECHOCARDIOGRAM No results found for this or any previous visit. CATHETERIZATION No results found for this or any previous visit. ELECTROPHYSIOLOGY RESULT No results found for this or any previous visit. VASCULAR RESULT No results found for this or any previous visit. A copy of this report has been made available to the referring physician in the hospital's EMR. Adis Ratliff MD [facility] 05-28-[address] [facility] MEDICAL ADMISSION INITIAL VISIT Chief complaint: Left Knee Wound Dehiscence Patient Name : Chrissie Lira Patient : 1960 Patient Admit Date : 05/27/2024 Admission Diagnosis : Left Knee Wound Dehiscence Chief Complaint Patient presents with Post-op Problem Patient with left knee surgery about 6 weeks ago and fell this evening and wound reopened. Patient seen at OSH and preferred to be seen at [facility]. Bleeding controlled. Bandage reapplied. Provider Name : Adis Ratliff MD Date Of Service : 05/28/24 IMPRESSION AND PLAN : Left Knee Wound Dehiscence: Due to mechanical fall 05/27/24. Status/post Left TKA on 04/19/24. Surgery planned on 05/29 per the Orthopedic service. Defer primary management as well as management of antibiotics to the primary surgical service per protocol. Labs and EKG ordered on admission. I have seen the patient personally today and have reviewed available labs and imaging results, as documented below in the RESULTS section. Prescription drug management has been provided, as outlined in the impression and plan. Awaiting review of medications by the medication historian. Prophylaxis For Prevention of Deep Vein Thrombosis ( DVT ) Single dose of Lovenox ordered for the AM on 05/28. Mechanical VTE prophylaxis also ordered. Patient should be encouraged regarding venous return exercises and ambulation. Preoperative medical risk stratification indicates patient is scheduled for surgery at acceptable risk pending review of labs. The patient reported that she tolerated her Left TKA without medical issue. This patient has no active cardiac conditions and would be considered at a low risk for a major adverse cardiac event ( MACE ) based on an RCRI score of 0-1. This patient's activity level is at or above 4 METs and would be considered at an acceptable cardiac risk based on ACC / AHA Guidelines. Obstructive Sleep Apnea Risk: Patient determined to be at intermediate risk for MOISÉS based on screening at the time of PAT for her Left TKA on 04/19/24. This places the patient at elevated risk for postoperative respiratory complications including hypoxemia and hypoventilation. They will require appropriate monitoring on the [facility] MOISÉS protocol. Respiratory Therapy has been consulted. Hypertension (I10): Chronic condition, present on admission. The patient is at risk for blood pressure fluctuations prior to and following surgery due to blood loss, fluid loss, pain, anxiety, and medications such as opioid pain medications. The patient's home prescription antihypertensive medications will be reordered with hold parameters. As needed clonidine has been added. Hyperlipidemia (E78.5): Chronic condition, present on admission. Treated with a statin which will be reordered to reduce the risk of perioperative cardiovascular events. Hypothyroidism (E03.9): Chronic condition, present on admission. Treated with thyroid hormone replacement therapy which will be reordered. Appears euthyroid clinically. Gastroesophageal Reflux Disease (K21.9): Chronic condition, present on admission. Controlled with a PPI which will be reordered. Hearing Loss: Chronic condition, present on admission. Uses hearing aides bilaterally as she needs them. Obesity (E66.09): Chronic condition, present on admission. Patient will require appropriate monitoring of their respiratory status while hospitalized due to an elevated risk of MOISÉS, hypoxemia, and hypoventilation. No documented history of MOISÉS is noted. DVT prophylaxis as noted above. HISTORY OF PRESENT ILLNESS : Chrissie Lira, 64 y.o. female presenting from emergency room with chief complaint of Left knee wound dehiscence. The patient is status/post Left TKA by Dr. Wilson on 04/19/24. 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 She denied hitting or head during the fall. She noted increased left knee pain and that her left knee wound had opened along its length. She was seen at her local ED where X-rays were performed. She was then transferred to [facility] ED for further evaluation at her request. Following an initial evaluation the ED physician spoke with Dr. Wilson's service who requested admission for anticipated surgery on 05/29/24. MEDICAL ILLNESSES : Past Medical History: Diagnosis Date Arthritis Cancer (CMS/HCC) skin-leg and face Chronic cough GERD (gastroesophageal reflux disease) Hiatal hernia HL (hearing loss) bilateral hearing aids Hyperlipidemia Hypertension Hypothyroidism Wears glasses PAST MEDICAL HISTORY : SURGERIES : Past Surgical History: Procedure Laterality Date CHOLECYSTECTOMY ROTATOR CUFF REPAIR Right TONSILLECTOMY WISDOM TOOTH EXTRACTION MEDICATIONS No current facility-administered medications on file prior to encounter. Current Outpatient Medications on File Prior to Encounter Medication Sig Dispense Refill aspirin 81 mg chewable tablet Chew 1 tablet (81 mg total) 2 (two) times a day for 6 weeks. 84 each 0 aspirin 81 mg EC tablet Take 1 tablet (81 mg total) by mouth 1 (one) time each day. carvediloL (COREG) 25 mg tablet Take 2 tablets (50 mg total) by mouth 2 (two) times a day. cloNIDine (CATAPRES) 0.1 mg tablet Take 1 tablet (0.1 mg total) by mouth 3 (three) times a day. hydroCHLOROthiazide (HYDRODIURIL) 25 mg tablet Take 1 tablet (25 mg total) by mouth 1 (one) time each day. HYDROcodone-acetaminophen (NORCO) 5-325 mg per tablet Take 1 tablet by mouth every 6 (six) hours if needed (pain). irbesartan (AVAPRO) 150 mg tablet Take 1 tablet (150 mg total) by mouth 1 (one) time each day. lansoprazole (PREVACID) [address] capsule Take 1 capsule (30 mg total) by mouth 1 (one) time each day. levothyroxine (SYNTHROID, LEVOTHROID) 75 mcg tablet Take 1 tablet (75 mcg total) by mouth 1 (one) time each day before breakfast. meloxicam (MOBIC) 15 mg tablet Take 1 tablet (15 mg total) by mouth 1 (one) time each day. pantoprazole (PROTONIX) 40 mg EC tablet Take 1 tablet (40 mg total) by mouth 1 (one) time each day with dinner. potassium chloride (KLOR-CON M20) 20 mEq CR tablet Take 1 tablet (20 mEq total) by mouth 2 (two) times a day with meals. semaglutide (WEGOVY) 0.25 mg/0.5 mL injection pen Inject 0.5 mg under the skin every 7 (seven) days. Mondays simvastatin (ZOCOR) 20 mg tablet Take 1 tablet (20 mg total) by mouth at bedtime. SUMAtriptan (IMITREX) 50 mg tablet Take 1 tablet (50 mg total) by mouth 1 (one) time if needed for migraine. tiZANidine (ZANAFLEX) 4 mg tablet Take 1 tablet (4 mg total) by mouth 1 (one) time each day. tiZANidine (ZANAFLEX) 4 mg tablet Take 2 tablets (8 mg total) by mouth at bedtime. venlafaxine XR (EFFEXOR-XR) 150 mg 24 hr capsule Take 1 capsule (150 mg total) by mouth 1 (one) time each day. venlafaxine XR (EFFEXOR-XR) 75 mg 24 hr capsule Take 1 capsule (75 mg total) by mouth 1 (one) time each day. (Not in a hospital admission) Allergies : Capital with codeine [acetaminophen-codeine], Iodinated contrast media, and Sulfa (sulfonamide antibiotics) Family History : Negative for surgical or anesthetic complications, premature coronary artery disease, bleeding disorders, or thrombophilia. Social History : Social History Tobacco Use Smoking status: Never Smokeless tobacco: Never Vaping Use Vaping status: Never Used Substance Use Topics Alcohol use: Yes Comment: once in a while Drug use: Never SUBJECTIVE/REVIEW OF SYSTEMS The patient was seen in their room on the inpatient unit. She was sitting up in bed working with staff prior to visit and appeared comfortable during the visit. Constitutional: Denies fever Head/Neck: Denies headache Eye: Denies eye pain Ear/Nose/Mouth/Throat: Denies sore throat Neurologic: Denies focal weakness Cardiovascular: Denies chest pain or pressure Respiratory: Denies shortness of breath or dyspnea Gastrointestinal: Denies abdominal pain or cramping Genitourinary: Denies urinary retention or incomplete voiding Skin: Denies rash VITALS : Visit Vitals BP 123/79 Pulse 71 Temp 36.8 C (98.3 F) (Oral) Resp 16 Ht 1.499 m (59 ) Wt 64.9 kg (143 lb) SpO2 100% BMI 28.88 kg/m OB Status Postmenopausal Smoking Status Never BSA 1.6 m PHYSICAL EXAM : General - No acute distress; Alert and conversational Skin - Normal skin temperature; no rashes on exposed skin surfaces Eyes -Pupils equal; Anicteric Sclerae ENMT - Hearing Intact; Oropharynx grossly clear with moist mucosa Neck- Normal range of motion; No gross thyromegaly Cardiac - No tachycardia noted; Regular Rate and Rhythm; Respiratory - Clear to auscultation bilaterally; No accessory respiratory muscle use noted; No Wheezing Abdominal - Non-tender to palpation; Soft with positive bowel sounds and no obvious mass Musculoskeletal - No clubbing of digits noted; No cyanosis of digits noted; Left knee dressing in place; defer further exam to the Orthopedic service Psychiatric/Neuro- Appropriate affect, Alert and oriented, No gross motor deficit RESULTS : EKG INDEPENDENTLY INTERPRETED : Pending LABS ORDERED : BMP, CBC ADDITIONAL RELEVANT RESULTS AND/OR RECORDS REVIEWED : LABS CBC Lab Results Component Value Date WBC 4.9 03/27/2024 HGB 10.6 (L) 03/27/2024 HCT 31.8 (L) 03/27/2024 MCV 86.9 03/27/2024 PLT 220 03/27/2024 CMP Lab Results Component Value Date NA 140 03/27/2024 K 4.6 03/27/2024 CL 107 03/27/2024 CO2 24 03/27/2024 BUN 24 (H) 03/27/2024 CREATININE 1.23 03/27/2024 GLUCOSE 85 04/19/2024 No lab exists for component: LABALBU GLUCOSE Glucose POCT Date Value Ref Range Status 04/19/2024 85 70 - 99 mg/dL Final Glucose Date Value Ref Range Status 03/27/2024 85 70 - 99 mg/dL Final COAGULATION TESTS LIPID PANEL THYROID TESTS No results found for: TSH URINE ANALYSIS No results found for: URINE URINE CULTURE No results found for: URINECX BLOOD CULTURE No results found for: BLOODCX IMAGING No image results found. STRESS TEST No results found for this or any previous visit. ECHOCARDIOGRAM No results found for this or any previous visit. CATHETERIZATION No results found for this or any previous visit. ELECTROPHYSIOLOGY RESULT No results found for this or any previous visit. VASCULAR RESULT No results found for this or any previous visit. A copy of this report has been made available to the referring physician in the hospital's EMR. Adis Ratliff MD documented in this encounter [facility] 04-19-2024 History of Present illness Narrative Discharge instructions and follow-up plan reviewed, patient verbalizes understanding. Pt denies any other questions, concerns or complaints at this time.Pt escorted with wheelchair. [facility] Physical Therapy Evaluation PT Discharge Recommendations: Outpatient [...] her spouse participated in caregiver training for CUSTOMS APPRAISER with stair negotiation. Both parties verbalized understanding [...] of Steps 3 Prior Function Level of [place] Independent with mobility and functional transfers Ambulation [...] (Comment) (Spouse present for caregiver training on CUST[employer]S APPRAISER as he and her children will be with her at the house to assist her into and out of her home. Spouse demonstrated C[employer] APPRAISER with PT present for cueing.) Device Hand held assist Number of Stairs 3 Stairs Comments Pt demonstrated confidence with CUSTOMS APPRAISER from within session RLE Assessment RLE Assessment [...] with spouse present for caregiver training with CUSTOMS APPRAISER 2/2 no railings at home Other Activity [...] No comments found. documented in this encounter [facility] 04-19-[address] [facility], A Member of [facility] OPERATIVE REPORT PATIENT NAME: Chrissie Lira DATE OF : 1960 [facility]#: [id number] SURGEON: Rogelio Wilson MD DATE OF SERVICE: 04/19/2024 DATE OF SURGERY: 04/19/2024 PREOPERATIVE DIAGNOSIS: OA left knee (M17.12) POSTOPERATIVE DIAGNOSIS: OA left knee (M17.12) PROCEDURE: Primary Left Total Knee Arthroplasty (59697) Femoral Component: TJO Klassic Nonporous , Size: 2 Tibial Component: TJO Klassic Knee System Tibial Baseplate, Nonporous Size: 1 Patella Component: TJO Klassic Knee System , Sombrero Size: 1 Polyethylene: TJO Klassic Knee System, Ultra-PS Std Poly Size: 1 ; 10mm Fixation: Biomet Bone Cement ATTENDING SURGEON: Rogelio Wilson MD ENVELOPE ADDRESSER: Doroteo Dove PA-C INDICATIONS: Patient is a [...] Thickness and size are reconstructed with a [employer] Size: 1 140 Proof Sailogy Knee System . The knee flexed and [...] awake, alert, and stable in good condition. ENVELOPE ADDRESSER/ATTENDING PARTICIPATION: Doroteo Dove PA-C assisted with proper [...] By: Rogelio Wilson MD on 04/19/2024 10:49:[address] [facility], A Member of [facility] OPERATIVE REPORT PATIENT NAME: Chrissie Lira DATE OF : 1960 [facility]#: [id number] SURGEON: Rogelio Wilson MD DATE OF SERVICE: 04/19/2024 DATE OF SURGERY: 04/19/2024 REF 5105.02.000 LOT [id number] Klassic Femur, Nonporous size 2 Femur, Nonporous, size 2 Use By 2028-10-14 () [id number] () 852513 (10) [id number] REF 5201.01.000 LOT [id number] Klassic Tibial Baseplate for Primary or Revision, Nonporous, size 1 size 1 Uncoated knee tibia prosthesis, metallic Use By 2028-09-20 () [id number] () 197042 (10) [id number] REF 5501.01.007 LOT [id number] Klassic Knee Sombrero Patella, Size 1, 7mm Size 1, 7mm Polyethylene patella prosthesis Use By 2033-09-19 () [id number] () 727490 (10) [id number] REF 5301.01.010 LOT [id number] Klassic Knee Tibial Insert, Ultra-PS, Size 1, 10 mm, Final Packed, Sterile Size 1, 10 mm Tibial insert Use By 2033-06-02 () [id number] () 229888 (10) [id number] Patient's DOS medications reviewed Confirmed no changes in medications, skin, or new infections since PAT phone call documented in this encounter [facility] 04-19-2024 Surgery Surgical operation note [facility], A Member of [facility] OPERATIVE REPORT PATIENT NAME: Chrissie Lira DATE OF : 1960 [facility]#: [id number] SURGEON: Rogelio Wilson MD DATE OF SERVICE: 04/19/2024 DATE OF SURGERY: 04/19/2024 PREOPERATIVE DIAGNOSIS: OA left knee (M17.12) POSTOPERATIVE DIAGNOSIS: OA left knee (M17.12) PROCEDURE: Primary Left Total Knee Arthroplasty (10379) Femoral Component: TJO Klassic Nonporous , Size: 2 Tibial Component: TJO Klassic Knee System Tibial Baseplate, Nonporous Size: 1 Patella Component: TJO Klassic Knee System , Sombrero Size: 1 Polyethylene: TJO Klassic Knee System, Ultra-PS Std Poly Size: 1 ; 10mm Fixation: Biomet Bone Cement ATTENDING SURGEON: Rogelio Wilson MD ENVELOPE ADDRESSER: Doroteo Dove PA-C INDICATIONS: Patient is a [...] Thickness and size are reconstructed with a SomGTIro Size: 1 [employer] Knee System . The knee flexed and [...] awake, alert, and stable in good condition. ENVELOPE ADDRESSER/ATTENDING PARTICIPATION: Doroteo Dove PA-C assisted with proper [...] By: Rogelio Wilson MD on 04/19/2024 10:49:[address] [facility], A Member of [facility] OPERATIVE REPORT PATIENT NAME: Chrissie Lira DATE OF : 1960 CSN#: [id number] SURGEON: Rogelio Wilson MD DATE OF SERVICE: 04/19/2024 DATE OF SURGERY: 04/19/2024 REF 5105.02.000 LOT [id number] Klassic Femur, Nonporous size 2 Femur, Nonporous, size 2 Use By 2028-10-14 () [id number] (17) 489242 (10) [id number] REF 5201.01.000 LOT [id number] Klassic Tibial Baseplate for Primary or Revision, Nonporous, size 1 size 1 Uncoated knee tibia prosthesis, metallic Use By 2028-09-20 () [id number] (17) 120359 (10) [id number] REF 5501.01.007 LOT [id number] Klassic Knee Sombrero Patella, Size 1, 7mm Size 1, 7mm Polyethylene patella prosthesis Use By 2033-09-19 () [id number] (17) 703813 (10) [id number] REF 5301.01.010 LOT [id number] Klassic Knee Tibial Insert, Ultra-PS, Size 1, 10 mm, Final Packed, Sterile Size 1, 10 mm Tibial insert Use By 2033-06-02 () [id number] (17) 341215 (10) [id number] [facility] 04-19-2024 History and physical note History and Physical Update ( H&P completed within the previous thirty days ) I personally reviewed the History and Physical, performed and orthopedic exam, and spoke with the patient prior to surgery. No apparent changes have occurred in the patient's condition since the History and Physical was completed. [employer] Work Phone: 04-19-2024 History and physical note History and Physical Update ( H&P completed within the previous thirty days ) I personally reviewed the History and Physical, performed and orthopedic exam, and spoke with the patient prior to surgery. No apparent changes have occurred in the patient's condition since the History and Physical was completed. documented in this encounter [facility] 04-18-2024 Nurse Note Patient's DOS medications reviewed Confirmed no changes in medications, skin, or new infections since PAT phone call [facility] 04-17-2024 Hospital course Narrative Pre-Surgery Instructions: Medication [...] prior to your surgery. Check in at services account manager desk [address] [facility], [place], operated [facility], [place] [address]. Meds per [facility] med recc NPO per [facility] If Outpatient, [...] can discharge you. documented in this encounter [facility] 03-27-2024 Evaluation note Type assessment Preoperative clearan ce (Z01.818)Patient presents prior to an elective MAJOR surgery. Preoperative medical risk stratification indicates patient is at an acceptable risk. Prescription drug management provided at [facility] verbally and in writing. assessment Osteoarthritis [...] of PO or PRN Clonidine.BP CHECK AT [facility] ACCEPTABLE FOR SURGERY. assessment GERD without [...] Use of the ACCP guidelines is recommended. [employer] Work Phone: 1(405) 327-665012-23-2024 History of Present illness Narrative* Encounter Date [...] Tylenol, Meloxicam and hydrocodone with minimal relief. [employer] Work Phone: [phone] 402-485611-19-2024 Evaluation note* Type Assessment Date assessment assessment [facility] Phone: 1(280) 663-926511-19-2024 History of Present illness Narrative* Encounter Date [...] Meloxicam and hydrocodone with minimal relief. [facility] Phone: Consult note* Clinical Note Date No Information [facility]: Discharge summary* Clinical Note Date No Information [facility] Phone: Evaluation note* Type Assessment Date No Information [facility]: Evaluation note* Diagnosis Unilateral primary osteoarthritis, left knee- Primary Unilateral primary osteoarthritis, left knee [facility] Wound dehiscence- Primary Disruption of external operation (surgical) wound Wound dehiscence Disruption of external operation (surgical) wound Fall, initial encounter [facility] Clinical Note Date No Information [facility]: Hospital Discharge instructions* Attachments The following attachments cannot be sent through Care Everywhere. * Sleep Apnea: General Info (Nigerien) * DVT (Deep Vein Thrombosis) (Nigerien) * Fall Prevention (Nigerien) * Incentive Spirometer: General Info (Nigerien) [facility]* Date Instruction Additional Infor mation No Information [facility]: Progress note* Clinical Note Date No Information [facility] Phone: Reason for referral (narrative)* Reason For Referral No Information [facility] Work Phone: Summary Purpose Family History No Family [...] therapy to prevent/treat cardiac or respiratory arrest. Date Activated Date Inactivated Comments 05/28/2024 1:04 PM 05/28/2024 6:15 PM This is orde r is used when code status has not been discussed with the patient, or code status is otherwise unknown/unconfirmed To update the patient's code status, place a code status order. Do not modify or discontinue any currently active code status orders. Provide all therapy to prevent/treat cardiac or respiratory arrest. Date Activated Date Inactivated Comments 05/27/2024 11:46 PM 05/28/2024 1:04 PM This is ord er is used when code status has not been discussed with the patient, or code status is otherwise unknown/unconfirmed To update the patient's code status, place a code status order. Do not modify or discontinue any currently active code status orders. Date Activated Date Inactivated Comments 04/19/2024 12:07 [...] section and content) DATE CREATED AUTHOR 04/21/2021 [facility] dical Specialist DATE CREATED AUTHOR AUTHOR'S ORGANIZ ATION 04/29/2022 [facility] DATE CREATED AUTHOR AUTHOR'S ORGANIZ ATION 09/06/2023 [facility] dical Specialists EPIC DATE CREATED AUTHOR AUTHOR'S ORGANIZ ATION 05/31/2024 [facility] DATE CREATED AUTHOR AUTHOR'S ORGANIZ ATION 06/08/2024 [facility] DATE CREATED AUTHOR AUTHOR'S ORGANIZ ATION 06/08/2024 [facility] DATE CREATED AUTHOR AUTHOR'S ORGANIZ ATION 06/13/2024 [facility] Reason for Visit (unrecogniz ed section and content) Specialty Diagnoses / Procedures Referred By Eliecer narvaez Referred To Contact Diagnoses Unilateral primary osteoarthritis, left knee Pain in left knee M17.12 M25.562 Procedures TX ARTHROPLASTY KNEE CONDYLE&PLATEAU MED/LAT CPTS W/WO PATELLA RESURFACING TX ARTHROPLASTY KNEE CONDYLE&PLATEAU MED/LAT CPTS W/WO PATELLA RESURFACING Left total knee arthroplasty Rogelio Wilson MD [address] [place] [address] [facility] [place] [address] [place] [address] Referral ID Status Reason Start Date Expiration Date Visits Re quested Visits Authorized [id number] 1 1 Reason Comments Post-op Problem Patient with left kn ee surgery about 6 weeks ago and fell this evening and wound reopened. Patient seen at [facility] and preferred to be seen at [facility]. Bleeding controlled. Bandage reapplied. Specialty Diagnoses / Procedures Referred By Eliecer narvaez Referred To Contact Diagnoses Wound dehiscence Fall, initial encounter Procedures . Adis Ratliff MD [address] [place] [address] Phone: tel: fax: [facility] [address] [place] [address] Phone: tel: Referral ID Status Reason Start Date Expiration Date Visits Re quested Visits Authorized [id number] 1 1 Ordered Prescriptions (unrec ognized section [...] for 6 weeks. 84 each 04/20/2024 06/01/2024 Prescription Sig Dispense Quantity Refills Last Filled Start Date End Date oxyCODONE (ROXICODONE) 5 mg immediate release tablet Take 1-2 tablets (5-10 mg total) by mouth every 4 (four) hours if needed for moderate pain or severe pain for up to 7 days. Dx: Z96.6 Max Daily Amount: 60 mg 20 tablet 05/28/2024 cefadroxil 500 mg capsule Take 1 capsule (500 mg total) by mouth 2 (two) times a day. 20 capsule 05/28/2024 Scheduled Active and Recently Administ ered Medications [...] Indication: Prophylaxis-Surgical 0850 (Given - Provid er: LYNNE Currie) ceFAZolin (ANCEF) 2 gram/20 mL IV syringe [...] dose, Preprocedure 0853 (Given - Provid er: LYNNE Currie) lactated Ringer's infusion (COMPLETED) 100 mL/hr, intravenous, Once, On Wed04/19/24 at 0730, For 1 dose, Preprocedure 0752 (New Bag - Prov ider: Amirt Garsia RN) lidocaine (PF) (XYLOCAINE-MPF) 1 % [...] Prophylaxis: Orthopedic 0853 (Given - Provid er: Geni Wilburn [facility]) Continuous Medication Order 04/17/2024 04/18/2024 04/19/2024 lactated [...] 0925, Intraprocedure 0925 (Given - Provid er: Rogeloi Wilson MD - Comment: Route: injection) HYDROmorphone (DILAUDID) injection 0.5 mg 0.5 mg, intravenous, Every 5 min PRN, severe pain or when therapies for moderate pain were not effective, Starting on Wed04/19/24 at 0955, For 5 doses, Recovery (only) 1027 (Given - Provid er: Kati Gonzalez RN)1057 (Given - Provider: Kati Gonzalez RN) labetalol [...] Recovery (only), 2nd Line Option: -ONLY give TX if patient is unable to take orally. -If inadequate response within 30 minutes, proceed to next-line agent or contact provider if no further options ordered. promethazine (PHENERGAN) tablet 25 mg(Linked Group 4) 25 mg, oral, Every 6 hours PRN, nausea, vomiting, Starting on Wed04/19/24 at 0955, Recovery (only), 2nd Line Option: -Give TX if patient is unable to take orally. [...] 0955, Recovery (only), 2nd Line Option: -Give TX if patient is unable to take orally. -If inadequate response within 30 minutes, proceed to next-line agent or contact provider if no further options ordered. Or promethazine (PHENERGAN) suppository 25 mgJump to med 25 mg, rectal, Every 12 hours PRN, nausea, vomiting, Starting on Wed04/19/24 at 0955, Recovery (only), 2nd Line Option: -ONLY give TX if patient is unable to take orally. -If inadequate response within 30 minutes, proceed to next-line agent or contact provider if no further options ordered. Scheduled Medication Order 05/26/2024 05/27/2024 05/28/2024 aspirin EC tablet 81 mg 81 mg, oral, Daily, First dose on 05/28/24 at 2100, Do not crush, chew, or split. atorvastatin (LIPITOR) tablet 10 mg 10 mg, oral, Nightly, First dose on 05/28/24 at 2100 carvediloL (COREG) tablet 50 mg 50 mg, oral, 2 times daily, First dose on 05/28/24 at 1330, Hold for SBP < 110 1433 (Given - Provid er: Eleonora Tovar RN) ceFAZolin (ANCEF) 1 g in sterile water 10 mL IV syringe (COMPLETED) 1 g, intravenous, Administer over 3 Minutes, Once, On 05/27/24 at 2345, For 1 dose, Indication: Prophylaxis-Surgical 2351 (Given - Provider: Kushal Angelo RN) ceFAZolin (ANCEF) 1 gram/10 mL IV syringe 1 g (CANCELED) 1 g, intravenous, Administer over 3 Minutes, Every 8 hours, First dose on 05/28/24 at 0800, For 2 days, Indication: Surgical Site 0855 (Given - Provid er: Eleonora Tovar RN)1103 (JUN Hold - Provider: Automatic Transfer Provider - Reason: Patient not available)1301 (MAR Unhold - Provider: Automatic Transfer Provider) ceFAZolin (ANCEF) 2 gram/20 mL IV syringe 2 g 2 g, intravenous, Administer over 3 Minutes, Every 8 hours, First dose on 05/28/24 at 2000, For 2 doses, Recovery & On Unit, Indication: Prophylaxis-Surgical celecoxib (CeleBREX) capsule 200 mg 200 mg, oral, Daily, First dose on Wed05/29/24 at 0900, Recovery & On Unit cloNIDine (CATAPRES) tablet 0.1 mg 0.1 mg, oral, 3 times daily, First dose on 05/28/24 at 1400, Hold for SBP < 110 1434 (Given - Provid er: Eleonora Tovar RN) hydroCHLOROthiazide (HYDRODIURIL) tablet 25 mg 25 mg, oral, Daily, First dose on 05/29/24 at 0900, Hold for SBP < 110 ibuprofen (ADVIL,MOTRIN) tablet 400 mg (COMPLETED) 400 mg, oral, Once, On 05/27/24 at 2245, For 1 dose, Administer with food or milk to decrease GI upset 2238 (Given - Provider: Bethanie Au, JEAN) levothyroxine (SYNTHROID, LEVOTHROID) tablet 75 mcg 75 mcg, oral, Every morning before breakfast, First dose on 05/29/24 at 0700, ORAL ROUTE: take on an empty stomach and separate from other medications. ENTERAL TUBE ROUTE: If newly initiated enteral nutrition duration is over 5 days, hold enteral nutrition 1 hour before and after drug administration, per ASPEN guidelines. losartan (COZAAR) tablet 50 mg 50 mg, oral, Daily, First dose on Wed05/29/24 at 0900, Hold for SBP < 110 oxyCODONE-acetaminophen (PERCOCET) 5-325 mg per tablet 1 tablet (COMPLETED) 1 tablet, oral, Once, On 05/28/24 at 0000, For 1 dose 2356 (Given - Provider: Dodie Bullock RN) pantoprazole (PROTONIX) EC tablet 40 mg 40 mg, oral, Daily with dinner, First dose on 05/28/24 at 1700, Do not crush, chew, or split. 1700 (Canceled Entry - Provider: Automatic Discharge Provider - Comment: Automatically canceled at discontinue of medication order) potassium chloride (KLOR-CON M20) CR tablet 20 mEq 20 mEq, oral, 2 times daily with meals, First dose on 05/28/24 at 1700, Best given with food and plenty of water to minimize gastric irritation. Tablet may be swallowed whole (do not crush/chew/suck on) OR broken in half and each half swallowed separately OR dissolved (whole tablet) in ~4 ounces of water (allow ~2 minutes to dissolve, stir well and administer immediately). 1700 (Canceled Entry - Provider: Automatic Discharge Provider - Comment: Automatically canceled at discontinue of medication order) senna (SENOKOT) tablet 8.6 mg 8.6 mg (1 tablet), oral, 2 times daily, First dose on 05/28/24 at 0015 0015 (Canceled Entry - Provider: Automatic Discharge Provider - Comment: Automatically canceled at discontinue of medication order)0854 (Not Given - Provider: Eleonora Tovar RN - Reason: Other)1103 (MAR Hold - Provider: Automatic Transfer Provider - Reason: Patient not available)1301 (MAR Unhold - Provider: Automatic Transfer Provider) sodium chloride 0.9 % flush 10 mL(Linked Group 1) 10 mL, intravenous, 2 times daily, First dose on 05/28/24 at 0015 0015 (Canceled Entry - Provider: Automatic Discharge Provider - Comment: Automatically canceled at discontinue of medication order)0855 (Given - Provider: Eleonora Tovar RN)1103 (MAR Hold - Provider: Automatic Transfer Provider - Reason: Patient not available)1301 (MAR Unhold - Provider: Automatic Transfer Provider) sodium chloride 0.9 % flush 10 mL(Linked Group 2) 10 mL, intravenous, 2 times daily, First dose on 05/28/24 at 1330, Recovery & On Unit 1330 (Canceled Entry - Provider: Automatic Discharge Provider - Comment: Automatically canceled at discontinue of medication order) tiZANidine (ZANAFLEX) tablet 4 mg 4 mg, oral, Daily, First dose on Wed05/29/24 at 0900 tiZANidine (ZANAFLEX) tablet 8 mg 8 mg, oral, Nightly, First dose on Wed05/28/24 at 2100 venlafaxine XR (EFFEXOR-XR) 24 hr capsule 150 mg 150 mg, oral, Daily, First dose on Wed05/29/24 at 0900, Capsule may be swallowed whole, or may be opened and its contents sprinkled on applesauce if consumed immediately without chewing. Do not crush or chew. venlafaxine XR (EFFEXOR-XR) 24 hr capsule 75 mg 75 mg, oral, Daily, First dose on Wed05/29/24 at 0900, Capsule may be swallowed whole, or may be opened and its contents sprinkled on applesauce if consumed immediately without chewing. Do not crush or chew. PRN Medication Order 05/26/2024 05/27/202405/2805/28/2024 albuterol 2.5 mg /3 mL (0.083 %) nebulizer solution 2.5 mg 2.5 mg, nebulization, Every 4 hours PRN, wheezing, shortness of breath, Starting on 05/27/24 at 2352 1103 ([facility] Hold - Pro vider: Automatic Transfer Provider - Reason: Patient not available)1301 ([facility] Unhold - Provider: Automatic Transfer Provider) aluminum-magnesium hydroxide-simethicone (MAALOX) 200-200-20 mg/5 mL suspension 30 mL 30 mL, oral, 4 times daily PRN, indigestion, heartburn, Starting on 05/27/24 at 2347 1103 ([facility] Hold - Pro vider: Automatic Transfer Provider - Reason: Patient not available)1301 ([facility] Unhold - Provider: Automatic Transfer Provider) bisacodyL (DULCOLAX) suppository 10 mg 10 mg, rectal, Daily PRN, constipation, If magnesium hydroxide ineffective, Starting on 05/27/24 at 2347 1103 ([facility] Hold - Pro vider: Automatic Transfer Provider - Reason: Patient not available)1301 ([facility] Unhold - Provider: Automatic Transfer Provider) cloNIDine (CATAPRES) tablet 0.1 mg 0.1 mg, oral, Every 8 hours PRN, high blood pressure, for SBP more than 150 or DBP more than 100, Starting on 05/27/24 at 2357 1103 ([facility] Hold - Pro vider: Automatic Transfer Provider - Reason: Patient not available)1301 ([facility] Unhold - Provider: Automatic Transfer Provider) diphenhydrAMINE (BENADRYL) capsule 25 mg 25 mg, oral, Every 6 hours PRN, itching, Starting on 05/27/24 at 2347 1103 ([facility] Hold - Pro vider: Automatic Transfer Provider - Reason: Patient not available)1301 ([facility] Unhold - Provider: Automatic Transfer Provider) fentaNYL (PF) (SUBLIMAZE) injection 50 mcg (CANCELED) 50 mcg, intravenous, Every 5 min PRN, severe pain, severe pain or when therapies for moderate pain were not effective, Starting on 05/28/24 at 1137, For 3 doses, Recovery (only) 1158 (Given - Provid er: Kati Gonzalez RN)1211 (Given - Provider: Kati Gonzalez RN) HYDROcodone-acetaminophen (NORCO) 5-325 mg per tablet 1 tablet(Linked Group 3) 1 tablet, oral, Every 4 hours PRN, moderate pain, Starting on 05/27/24 at 2355 1103 (MAR Hold - Pro vider: Automatic Transfer Provider - Reason: Patient not available)1301 (MAR Unhold - Provider: Automatic Transfer Provider)1433 (See Alternative - Provider: Eleonora Tovar RN) HYDROcodone-acetaminophen (NORCO) 5-325 mg per tablet 2 tablet(Linked Group 3) 2 tablet, oral, Every 4 hours PRN, severe pain, Starting on 05/27/24 at 2355 1103 (MAR Hold - Pro vider: Automatic Transfer Provider - Reason: Patient not available)1301 ([facility] Unhold - Provider: Automatic Transfer Provider)1433 (Given - Provider: Eleonora Tovar RN) HYDROmorphone (DILAUDID) injection 0.5 mg 0.5 mg, intravenous, Every 2 hours PRN, severe pain, For severe breakthrough pain not relieved with oral pain medication, Starting on 05/27/24 at 2347 0136 (Given - Provid er: Haile Mazariegos RN)1103 (MAR Hold - Provider: Automatic Transfer Provider - Reason: Patient not available)1301 ([facility] Unhold - Provider: Automatic Transfer Provider) HYDROmorphone (DILAUDID) injection 0.5 mg (CANCELED) 0.5 mg, intravenous, As needed, severe pain, every 20min, Starting on 05/28/24 at 1232, For 2 doses, Recovery (only) 1235 (Given - Provid er: Kati Gonzalez RN) magnesium hydroxide (MILK OF MAGNESIA) 400 mg/5 mL suspension 30 mL 30 mL, oral, 2 times daily PRN, constipation, Starting on 05/27/24 at 2347, Follow dose with 8 oz of water. 1103 (MAR Hold - Pro vider: Automatic Transfer Provider - Reason: Patient not available)1301 ([facility] Unhold - Provider: Automatic Transfer Provider) naloxone (NARCAN) injection 0.4 mg 0.4 mg, intravenous, Once as needed, opioid reversal, respiratory depression, Starting on 05/27/24 at 2347, For 1 dose 1103 (MAR Hold - Pro vider: Automatic Transfer Provider - Reason: Patient not available)1301 ([facility] Unhold - Provider: Automatic Transfer Provider) NON FORMULARY (CANCELED) As needed, Starting on 05/28/24 at 1133, Intraprocedure 1133 (Given - Provid er: Rogelio Wilson MD - Comment: prontosan) ondansetron (PF) (ZOFRAN) injection 4 mg (CANCELED) 4 mg, intravenous, Every 6 hours PRN, nausea, vomiting, Starting on 05/27/24 at 2347 1103 (JUN Hold - Pro vider: Automatic Transfer Provider - Reason: Patient not available)1117 (Given - Provider: Juan Bryan MD)1301 ([facility] Unhold - Provider: Automatic Transfer Provider) ondansetron (PF) (ZOFRAN) injection 4 mg(Linked Group 4) 4 mg, intravenous, Every 8 hours PRN, vomiting, nausea, Starting on 05/28/24 at 1304, Recovery & On Unit, -ONLY give IV if patient is unable to take orally. -If inadequate response within 30 minutes, proceed to next-line agent or contact provider if no further options ordered. ondansetron ODT (ZOFRAN-ODT) disintegrating tablet 4 mg(Linked Group 4) 4 mg, oral, Every 8 hours PRN, vomiting, nausea, Starting on 05/28/24 at 1304, Recovery & On Unit, -Give IV if patient is unable to take orally. -If inadequate response within 30 minutes, proceed to next-line agent or contact provider if no further options ordered. For ODT tablets: -Do not remove from blister pack until just before administering. -Patient should allow tablet to dissolve on tongue. oxyCODONE (ROXICODONE) immediate release tablet 5 mg (COMPLETED) 5 mg, oral, Once as needed, moderate pain or when therapies for mild pain were not effective, Starting on 05/28/24 at 1137, For 1 dose, Recovery (only) 1215 (Given - Provid er: Kati Gonzalez RN) Oxygen Therapy, Adult inhalation, As needed, shortness of breath, Starting on 05/27/24 at 2343, Device: Nasal Cannula, Rate in liters per minute: 1 lpm, Titrate Oxygen to keep O2 Sat. at or above: 90% 1103 ([facility] Hold - Pro vider: Automatic Transfer Provider - Reason: Patient not available)1301 ([facility] Unhold - Provider: Automatic Transfer Provider) polyethylene glycol (MIRALAX) packet 17 g 17 g, oral, Daily PRN, constipation, Starting on 05/27/24 at 2347 1103 ([facility] Hold - Pro vider: Automatic Transfer Provider - Reason: Patient not available)1301 ([facility] Unhold - Provider: Automatic Transfer Provider) sodium chloride 0.9 % flush 10 mL(Linked Group 1) 10 mL, intravenous, As needed, line care, Starting on 05/27/24 at 2343 1103 ([facility] Hold - Pro vider: Automatic Transfer Provider - Reason: Patient not available)1301 ([facility] Unhold - Provider: Automatic Transfer Provider) sodium chloride 0.9 % flush 10 mL(Linked Group 2) 10 mL, intravenous, As needed, line care, Starting on 05/28/24 at 1304, Recovery & On Unit sodium chloride 0.9 % irrigation solution (CANCELED) As needed, Starting on 05/28/24 at 1132, Intraprocedure 1132 (Given - Provid er: Rogelio Wilson MD) SUMAtriptan (IMITREX) tablet 50 mg 50 mg, oral, Daily PRN, migraine, Starting on 05/28/24 at 1304, For 1 dose, Do not exceed 2 doses in 24 hours and do not exceed 200 mg in 24 hours. traZODone (DESYREL) tablet 25 mg 25 mg, oral, Nightly PRN, sleep, Starting on 05/27/24 at 2347 1103 ([facility] Hold - Pro vider: Automatic Transfer Provider - Reason: Patient not available)1301 ([facility] Unhold - Provider: Automatic Transfer Provider) vancomycin (VANCOCIN) vial for injection (CANCELED) As needed, Starting on 05/28/24 at 1132, Intraprocedure 1132 (Given - Provid er: Rogelio Wilson MD) Linked Groups Order Group 1: Insert peripheral IV (CANCELED) STAT, Once, On 05/27/24 at 2344, For 1 occurrence And Maintain IV access (CANCELED) Until discontinued, Starting on 05/27/24 at 2344, Until Specified And Saline lock IV (CANCELED) Routine, Once, On 05/27/24 at 2344, For 1 occurrence And sodium chloride 0.9 % flush 10 mLJump to med 10 mL, intravenous, 2 times daily, First dose on 05/28/24 at 0015 And sodium chloride 0.9 % flush 10 mLJump to med 10 mL, intravenous, As needed, line care, Starting on 05/27/24 at 2343 Group 2: Insert peripheral IV (CANCELED) STAT, Once, On 05/28/24 at 1305, For 1 occurrence, Recovery & On Unit And Maintain IV access (CANCELED) Until discontinued, Starting on 05/28/24 at 1305, Until Specified, Recovery & On Unit And Saline lock IV (CANCELED) Routine, Once, On 05/28/24 at 1305, For 1 occurrence, When tolerating PO fluids, Recovery & On Unit And sodium chloride 0.9 % flush 10 mLJump to med 10 mL, intravenous, 2 times daily, First dose on 05/28/24 at 1330, Recovery & On Unit And sodium chloride 0.9 % flush 10 mLJump to med 10 mL, intravenous, As needed, line care, Starting on 05/28/24 at 1304, Recovery & On Unit Group 3: HYDROcodone-acetaminophen (NORCO) 5-325 mg per tablet 1 tabletJump to med 1 tablet, oral, Every 4 hours PRN, moderate pain, Starting on 05/27/24 at 2355 Or HYDROcodone-acetaminophen (NORCO) 5-325 mg per tablet 2 tabletJump to med 2 tablet, oral, Every 4 hours PRN, severe pain, Starting on 05/27/24 at 2355 Group 4: ondansetron ODT (ZOFRAN-ODT) disintegrating tablet 4 mgJump to med 4 mg, oral, Every 8 hours PRN, vomiting, nausea, Starting on 05/28/24 at 1304, Recovery & On Unit, -Give IV if [...] 8 hours PRN, vomiting, nausea, Starting on 05/28/24 at 1304, Recovery & On Unit, -ONLY give IV if patient is unable to take orally. -If inadequate response within 30 minutes, proceed to next-line agent or contact provider if no further options ordered. Care Teams (unrecognized sec tion and content) Rigging Worker Relationship Specialty Start Date End Date Jocy Elder MD [address] [place] [id number] PCP - General Family Medicine 09/02/23 Rigging Worker Relationship Specialty Start Date End Date Jocy Elder MD [address] [place] [address] PCP - General Family Medicine 04/14/24 FOR [...] BE BASED ON THE PRIMARY CLINICAL RECORDS. [facility]. provides no warranty or guarantee of the accuracy or completeness of information in this document.
[2024-11-03 11:12] LABS: Hematocrit 35.3 % (36.0-48.0); Hemoglobin 11.9 g/dL (12.0-16.0); Immature Granulocytes Abs Auto 0.02 10^3/uL (0.00-0.03); Immature Granulocytes Pct Auto 0.3 % (0.0-0.5); Lymphocytes Absolute Auto 1.7 10^3/uL (1.2-3.8); Mean Corpuscular HGB Conc 33.7 g/dL (29.9-35.2); Mean Corpuscular Hemoglobin 28.6 pg (26.7-34.0); Mean Corpuscular Volume 84.9 fL (81.0-99.0); Platelet Count 231 10^3/uL (150-450); Red Blood Count 4.16 10^6/uL (4.20-5.40); White Blood Count 5.8 10^3/uL (4.0-11.0)
[2024-11-03 11:38] LABS: Alanine Aminotransferase 21 U/L (14-59); Albumin Globulin Ratio 1.1; Albumin Level 3.6 g/dL (3.4-5.0); Alkaline Phosphatase 90 U/L (46-116); Anion Gap 10.7; Aspartate Amino Transferase 14 U/L (15-37); Blood Urea Nitrogen 22.0 mg/dL (7.0-18.0); Calcium 9.3 mg/dL (8.5-10.1); Carbon Dioxide 30.1 mmol/L (21.0-32.0); Chloride 104 mmol/L (98-107); Cholesterol 127 mg/dL (<=200); Estimated GFR (African America >60 (>=60 mL/min/1.73m^2); Estimated GFR (Non-African Ame 55 (>=60 mL/min/1.73m^2); Free T3 1.58 pg/mL (2.18-3.98); Globulin 3.2 g/dL; Glucose 86 mg/dL (74-106); HDL Cholesterol 60 mg/dL (40-60); Potassium 4.8 mmol/L (3.5-5.1); Sodium 140 mmol/L (136-145); Thyroid Stimulating Hormone 1.110 uIU/mL (0.358-3.740); Total Protein 6.8 g/dL (6.4-8.2); Triglycerides 93 mg/dL (<=150); VLDL CHOLESTEROL 18.6 mg/dL
== END 2024-11-03 10:25 | disposition home or self-care (01) ==
PROVIDERS: PCP Family Medicine; Visit Provider Family Medicine
DX: Z01.89 Encounter for other specified special examinations (principal); Z12.11 Encounter for screening for malignant neoplasm of colon; R53.83 Other fatigue; I10 Essential (primary) hypertension; E78.5 Hyperlipidemia, unspecified; E11.9 Type 2 diabetes mellitus without complications
CPT/HCPCS: 36415; 80053; 80061; 83036; 84436; 84443; 84481; 85025

== ENCOUNTER 2024-12-07 12:06 | Outpatient (OUT) | payer MEDICARE, OTHER, SELFPAY ==
--- OUTSIDE RECORDS SUMMARY | 2024-12-07 12:13 | XMS_ITS | CCD ---
Author Organization [facility] Care Team Providers Care Robotics Application Engineer Name Role Phone DR JOCY ELDER Admitting [...] Unavailable TED, DR SANDRA Primary Care Unavailable GARY, DR SILVANA King Consulting Unavailable LUNA LERNER Attending Unavailable LUNA LERNER Referring Unavailable LUNA LERNER Referring Unavailable Rogelio Wilson MD Unavailable Unavailable Rogelio Wilson MD Unavailable Unavailable Rui Padilla MD Unavailable Unavailable Rui Padilla MD Unavailable Unavailable Rui Padilla MD Unavailable Unavailable Jocy Elder MD Primary Care Provider [phone] Rogelio Wilson MD Unavailable Unavailable Rogelio Wilson MD Unavailable Unavailable Rogelio Wilson MD Unavailable Unavailable Rogelio Wilson MD Unavailable Unavailable Rogelio Wilson MD Unavailable Unavailable Rogelio Wilson MD Unavailable Unavailable Adis Ratliff Attending Unavailable Adis Ratliff Referring Unavailable Jocy Elder Primary Care Unavailable Rogelio Wilson Referring Unavailable Jocy Elder Primary Care Unavailable Rui Padilla Attending Unavailable Jocy Elder MD Primary Care Provider JOCY ELDER Primary Care Unavailable JOCY ELDER Primary Care Unavailable ROGELIO WILSON Consulting Unavailable ROGELIO WILSON Attending Unavailable ADIS RATLIFF Admitting Unavailable ROGELIO WILSON Consulting Unavailable ROGELIO WILSON Consulting Unavailable [facility] Consulting Unavailable HOY, JOCY Primary Care Unavailable PALMERSTSAFIAROGELIO Admitting Unavailable ROGELIO WILSON Attending Unavailable Rogelio Wilson M Attending Unavailable Palmerst, Rogelio M Referring Unavailable Hoy, Jocy M Primary Care Unavailable Rogelio Wilson M Attending Unavailable Palmerst, Rogelio M Referring Unavailable Hoy, Jocy M Primary Care Unavailable Rogelio Wilson M Attending Unavailable Palmerst, Rogelio M Referring Unavailable Hoy, Jocy M Primary Care Unavailable HurstRogelio M Attending Unavailable Hurst, Rogelio M Referring Unavailable Hoy, Jocy M Primary Care Unavailable PalmerstRogelio M Attending Unavailable Palmerst, Rogelio M Referring Unavailable Hoy, Jocy M Primary Care Unavailable Gerkin, Adis E Admitting Unavailable Hurst, Rogelio M Attending Unavailable Hoy, Jocy M Primary Care Unavailable Gerkin, Adis E Admitting Unavailable HurstRogelio M Attending Unavailable Hoy, Jocy M Primary Care Unavailable Doroteo Dove Attending Unavailable Doroteo Dove Referring Unavailable Hoy, Jocy M Primary Care Unavailable PalmerstRogelio Attending Unavailable Hoy, Jocy M Referring Unavailable Hoy, Jocy M Primary Care Unavailable Rogelio Wilson Attending Unavailable Rogelio Wilson M Referring Unavailable Hoy, Jocy M Primary Care Unavailable Andry Owusu Attending Unavailable Hurst, Rogelio M Referring Unavailable Hoy, Jocy M Primary Care Unavailable Rogelio Wilson Attending Unavailable Palmerst, Rogelio M Referring Unavailable Hoy, Jocy M Primary Care Unavailable Doroteo Dove Attending Unavailable Palmerst, Rogelio M Referring Unavailable Hoy, Jocy M Primary Care Unavailable Gerkin, Adis E Admitting Unavailable Gerkin, Adis E Attending Unavailable Hoy, Jocy M Primary Care Unavailable Palmerst, Rogelio M Consulting Unavailable Gerkin, Adis E Admitting Unavailable Lonnie Skinner Attending Unavailable Hoy, Jocy M Primary Care Unavailable Hurst, Rogelio M Consulting Unavailable Gerkin, Adis E Admitting Unavailable Palmerst, Rogelio M Attending Unavailable Hoy, Jocy M Primary Care Unavailable Rogelio Wilson M Attending Unavailable Palmerst, Rogelio M Referring Unavailable Hoy, Jocy M Primary Care Unavailable Gerkin, Adis E Admitting Unavailable Gerkin, Adis E Attending Unavailable Jocy Elder Primary Care Unavailable Rogelio Wilson Consulting Unavailable Jocy Elder MD Primary Care Provider [phone] Allergies Allergy Classification Reported Allergen(s) Allergy Type Date of Onset Reaction(s) Facility (1 source) Sulfamethoxazole / Trimethoprim Drug Allergy 08-22-19 17 [facility] Repository (12 sources) Iodine; Translations: [iodine] Drug Allergy 02-22-20 24 Other [facility] (13 sources) Sulfonamides (Antibiotic); Translations: [Sulfa (Sulfonamide Antibiotics)] propensity to adverse reactions to drug 02-22-20 24 DifficultyBre athing, Hives, Rash [facility] (14 sources) Codeine; Translations: [codeine] Drug Allergy 09-02-19 24 Tight chest [facility] (3 sources) Acetaminophen / Codeine; Translations: [ACETAMINOPHEN-CODE INE] Drug Allergy 04-17-19 25 Other [facility] (6 sources) Sulfonamides (Antibiotic) Drug Allergy 09-02-19 24 Swelling, Rash [facility] (7 sources) Iodinated Contrast Media; Translations: [IODINATED CONTRAST MEDIA] Drug Allergy 09-02-19 24 Swelling, Rash [facility] Medications Current Medications Medication Drug Class(es) Dates [...] End: 04-19-2024 ALPRAZolam 0.25 mg oral tablet (4 sources) Benzodiazepine ALPRAZolam (Xanax) 0.25 MG tablet every 12 (twelve) hours Active calcium carbonate 1250 mg / cholecalciferol 1000 unt / vitamin k 0.4 mg chewable tablet (4 sources) Vitamin D Calcium-Vitamin D-Vitamin K (Calcium + D) 500-1000-40 MG-UNT-MCG chewable tablet Orally Active cefadroxil 500 mg oral capsule (1 source) Cephalosporin Antibacterial Start: 05-28-19 take 1 capsule by mouth twice daily [...] 3 doses. 3 capsule 04/19/2024 04/20/2024 Active citalopram 10 mg oral tablet (2 sources) Serotonin Reuptake Inhibitor citalopram (CeleXA) 10 MG tablet Take 10 mg by mouth Active cloNIDine hydrochloride 0.1 mg oral tablet (18 sources) Central alpha-2 Adrenergic Agonist Start: 07-25-2023 End: 12-06-2024 take 1 tablet by mouth in the morning, then take 1 tablet by mouth in the evening, then take 1 tablet by mouth at bedtime cloNIDine (Catapres) 0.1 MG tablet Take 0.1 mg by mouth in the morning and 0.1 mg in the evening and 0.1 mg before bedtime. 07/25/2023 12/06/2024 Discontinued Start: 07-25-2023 End: 05-28-2024 take 0.1 mg by mouth every eight hours as needed for hypertension 0.1 mg, oral, Every 8 hours PRN, high blood pressure, for SBP more than 150 or DBP more than 100, Starting on 05/27/24 at 2357 hydroCHLOROthiazide 25 mg or al tablet (17 sources) Thiazide Diuretic Start: 05-29-2024 End: 05-28-2024 Start: 07-28-2023 take 1 tablet by jarrett th once daily hydroCHLOROthiazide (HYDRODiuril) 25 MG tablet Take 25 mg by mouth Daily 07/28/2023 Active irbesartan 150 mg oral tablet (16 sources) Angiotensin 2 Receptor Vijay Start: 08-28-2023 irbesartan (Avapro) 150 MG tablet 08/28/2023 Active lansoprazole 30 mg delayed release oral capsule (16 sources) Proton Pump Inhibitor Start: 06-17-2023 take 1 capsule by mouth once daily before mealtime lansoprazole (Prevacid) [address] capsule take 1 capsule by mouth once daily BEFORE A MEAL 06/17/2023 Active levothyroxine sodium 0.075 mg oral tablet (17 sources) l-Thyroxine Start: 05-29-2024 End: 05-28-2024 Start: 01-18-2024 take 1 tablet by jarrett th once daily before breakfast levothyroxine (SYNTHROID, LEVOTHROID) 75 mcg tablet Take 1 tablet (75 mcg total) by mouth 1 (one) time each day before breakfast. 01/18/2024 Active take 1 tablet by jarrett th once daily in the morning liothyronine sodium 0.005 mg oral tablet (2 sources) l-Triiodothyronine Start: 11-06-2024 Cytomel 5 M CG tablet 1 (one) time each day at the same time 11/06/2024 Active losartan potassium 50 mg oral tablet (1 source) Angiotensin 2 Receptor Vijay Start: 05-29-2024 End: 05-28-2024 Start: 05-29-2024 End: 05-28-2024 meloxicam 15 mg oral tablet (16 sources) Nonsteroidal Anti-inflammatory Drug Start: 01-18-2024 take [...] mild pain were not effective, Starting on Wed05/28/24 at 1137, For 1 dose, Recovery (only) Start: 04-25-2024 End: 05-01-2024 take 1 tablet by mouth every four to six hours as needed oxycodone 5 mg tablet take 1 tablet by oral route every 4 - 6 hours as needed 5 MG - No Longer Active 7 day [id number] Start: 04-19-2024 End: 04-26-2024 oxyCODONE (ROXICODONE) 5 mg immediate release tablet Take 1-2 tablets (5-10 mg total) by mouth every 4 (four) hours if needed for moderate pain or severe pain for up to 7 days. Max Daily Amount: 60 mg 40 tablet 04/19/2024 04/26/2024 Active Start: 04-19-2024 End: 04-19-2024 5 mg, oral, Every 4 hours [facility] N, Breakthrough pain, Starting on Wed04/19/24 at 1206, Recovery & On Unit, May consider scheduled oxyCODONE instead of PRN Comment on above: 7 day [id number] semaglutide (UD) INJECTION (10 sources) Start: 03-27-20 inject 0.2 mL by subcutaneous injection once semaglutide (UD) INJECTION TAKE 0.2 ML SQ EVERY Wednesday - Active semaglutide (WEGOVY) 0.25 mg/0.5 mL injection pen (2 sources) Start: 03-22-20 semaglutide (WEGOVY) 0.25 mg/0.5 mL injection pen Inject 0.5 mg under the skin every 7 (seven) days. Mondays03/22/2024 Active simvastatin 20 mg oral tablet (16 sources) HMG-CoA Reductase Inhibitor Start: 01-18-20 take 1 tablet by mouth at bedtime simvastatin (ZOCOR) 20 mg tablet Take 1 tablet (20 mg total) by mouth at bedtime. 01/18/2024 Active tiZANidine 4 mg oral tablet (20 sources) Central alpha-2 Adrenergic Agonist Start: 05-29-19 [...] - Active take 2 tablets by [facility] at bedtime tiZANidine (ZANAFLEX) 4 mg tablet Take 2 tablets (8 mg total) by mouth at bedtime. Active 24 hr venlafaxine 75 mg extended release oral capsule (20 sources) Serotonin and Norepinephrine Reuptake Inhibitor Start: 05-29-2024 End: 05-28-2024 Start: 05-29-2024 End: 05-28-2024 Start: 04-03-2024 take 1 capsule by mo uth once daily venlafaxine XR (EFFEXOR-XR) 150 mg 24 hr capsule Take 1 capsule (150 mg total) by mouth 1 (one) time each day. 04/03/2024 Active Start: 03-27-2024 venlafaxine 75 mg tablet TAKE 225MG DAILY EVERY AM - Active Start: 11-02-2022 Effexor XR 75 MG 24 hr capsule 1 (one) time each day at the same time 11/02/2022 Active Completed/Discontinued Medications Medication Drug Class(es) Dates Sig (Normalized) Sig (Original) Acetaminophen / HYDROcodone (3 sources) Opioid Agonist Start: 05-27-2024 End: 05-28-2024 HYDROcodone-acetam inophen (NORCO) 5-325 mg per tablet 1 tablet Start: 01-18-2024 take 1 tablet by jarrett th every six hours as needed HYDROcodone-acetaminophen (NORCO) [...] Wed04/19/24 at 0730, For 1 dose, Preprocedure carvedilol 25 mg oral tablet (17 sources) alpha-Adrenergic Vijay, beta-Adrenergic Vijay Start: 05-28-2024 End: 05-28-2024 take 50 mg by mouth twice daily 50 mg, oral, 2 times daily, First dose on 05/28/24 at 1330, Hold for SBP Start: 03-27-2024 take 1 tablet by jarrett th twice daily carvedilol 25 mg tablet take 1 by oral route 2 times every day 1 - Active Start: 07-25-2023 take 2 tablets by mo uth in the morning carvedilol (Coreg) 25 MG tablet Take 50 mg by mouth in the morning and 50 mg before bedtime. 07/25/2023 Active ceFAZolin (ANCEF) 1 g in sterile [...] 05-28-2024 End: 05-28-2024 Start: 04-19-2024 End: 04-19-2024 diphenhydrAMINE hydrochloride 25 mg oral capsule (2 [...] on 05/27/24 at 2347 Start: 04-19-2024 End: 01-15-2025 0.5 mg, intravenous, Every 5 min PRN, [...] End: 04-19-2024 inhalation, Continuous, Star ting on Wed04/19/24 at 1015, Recovery (only), Device: Nasal Cannula, Titrate Oxygen to keep O2 Sat. at or above: 92% pantoprazole 40 mg delayed release oral tablet (13 sources) Proton Pump Inhibitor Start: 03-27-2024 End: 05-28-2024 polyethylene glycol 3350 07217 mg powder for oral solution (1 source) Osmotic Laxative Start: 05-27-2024 End: 05-28-2024 17 g, oral, Daily PRN, constipation, Starting on 05/27/24 at 2347 microencapsulated potassium chloride 20 meq extended release oral tablet (13 sources) Start: 03-07-2024 End: 05-28-2024 Promethazine (1 source) Phenothiazine Start: 04-19-2024 End: 04-19-2024 take 1 tablet by mouth every six hours as needed promethazine (PHENERGAN) tablet 25 mg sennosides, retirement 8.6 mg oral tablet (1 source) Start: [...] 10 mL SUMAtriptan 50 mg oral tablet (7 sources) Serotonin-1b and Serotonin-1d Receptor Agonist Start: 01-18-2024 End: 05-28-2024 traMADol hydrochloride 50 mg oral tablet (8 sources) Opioid Agonist Start: 04-25-2024 End: 05-01-2024 take 1-2 tablets by mouth every six hours as needed tramadol 50 mg tablet take 1-2 tablet by oral route every 6 hours as needed - No Longer Active 7 day [id number] Start: 04-19-2024 End: 04-26-2024 take 50-100 mg by mouth every six hours as needed traMADoL (ULTRAM) 50 mg tablet Take 1-2 tablets (50-100 mg total) by mouth every 6 (six) hours if needed for moderate pain for up to 7 days. Max Daily Amount: 400 mg 40 tablet 04/19/2024 04/26/2024 Active Comment on above: 7 day [id number] traZODone hydrochloride 50 mg oral tablet (1 [...] Translations: [ESSENTIAL PRIMARY HYPERTENSION] Onset: 08-20-2021 Chronic Menopausal disorders (2 sources) Atrophy of vagina; Translations: [Postmenopausal atrophic vaginitis] 11-30-2024 Chronic Osteoarthritis (20 sources) Unilateral primary osteoarthritis, left knee; Translations: [Osteoarthritis of left knee joint] Onset: 02-22-2024 Chronic Other connective tissue disease (1 source) Presence of left artificial knee joint; Translations: [Presence of left artificial knee joint] Onset: 06-12-2024 Chronic Other non-traumatic joint disorders (20 sources) Pain in left knee Episodic Other nutritional; endocrine; and metabolic disorders (20 sources) Other obesity Chronic Other screening for suspected conditions (not mental disorders or infectious disease) (6 sources) Encounter for screening for osteoporosis; Translations: [Patient encounter status] Onset: 05-28-2021 Episodic Residual codes; unclassified (20 sources) Other specified health status Episodic Thyroid disorders (20 sources) Hypothyroidism, unspecified Chronic Past or Other Problems Problem Classification Problem Date Documented Da te Episodic/Chronic Other bone disease and musculoskeletal deformities (1 source) Other specified disorders of bone density and structure, unspecified site; Translations: [OTH D/O BONE DEN STRUCT UNS SITE] Onset: 05-29-2021 Episodic Other upper respiratory infections (4 sources) Acute sinusitis, unspecified; Translations: [ACUTE SINUSITIS UNSPECIFIED] Onset: 08-18-2021 Episodic Results Test Name Value Interpretation Reference Range Facility Basic metabolic 2000 panelon 05-28-2024 Anion gap [Moles/Vol] 10 mmol/L 6 - 18 [facility] Calcium [Mass/Vol] 9.3 mg/dL 8.9 - 10. 3 mg/dL [facility] Chloride [Moles/Vol] 104 mmol/L 98 - 10 7 mmol/L [facility] CO2 [Moles/Vol] 25 mmol/L 22 - 32 mmol/L [facility] Creatinine [Mass/Vol] 1.01 mg/dL 0.60 - 1.30 mg/dL [facility] GFR/1.73 sq M.predicted among non-blacks MDRD (S/P/Bld) [Vol rate/Area] 62 mL/min/{1.73_m2} - PINF [facility] Comment on above: Calculation based on the Chronic Kidney Disease Epidemiology Collaboration (CKD-EPI) equation refit without adjustment for race. Glucose [Mass/Vol] 88 mg/dL 70 - 99 mg/dL [facility] Interpretation and review of laboratory results Abnormal [facility] Potassium [Moles/Vol] 3.7 mmol/L 3.6 - 5.1 mmol/L [facility] Sodium [Moles/Vol] 139 mmol/L 136 - 145 mmol/L [facility] Urea nitrogen [Mass/Vol] 23 mg/dL High 8 - 20 mg/dL [facility] Urea nitrogen/Creatinine [Mass ratio] 22.8 mg/mg High 12.0 - 20.0 [facility] Anion gap [Moles/Vol] 10 mmol/L Normal 6-18 [facility] Comment on above: Performed By: #### 2 4321-2 #### [facility] [address] [facility] [place] [address] Calcium [Mass/Vol] 9.3 mg/dL Normal 8.9-10.3 [facility] Comment on above: Performed By: #### 2 4321-2 #### [facility] [address] [place] [address] Chloride [Moles/Vol] 104 mmol/L Normal 98-107 [facility] Comment on above: Performed By: #### 2 4321-2 #### [facility] [address] [facility] [place] [address] CO2 [Moles/Vol] 25 mmol/L Normal 22-32 [facility] Comment on above: Performed By: #### 2 4321-2 #### [facility] [address] [facility] [place] [address] Creatinine [Mass/Vol] 1.01 mg/dL Normal 0.60-1.30 [facility] Comment on above: Performed By: #### 2 4321-2 #### [facility] [address] [facility] [place] [address] GFR/1.73 sq M.predicted among non-blacks MDRD (S/P/Bld) [Vol rate/Area] 62 mL/min/{1.73_m2} Normal >=60 [facility] Comment on above: Result Comment: Calc ulation based on the?Chronic Kidney Disease Epidemiology Collaboration (CKD-EPI) equation refit?without adjustment for race. Performed By: #### 2 4321-2 #### [facility] [address] [facility] [place] [address] Glucose [Mass/Vol] 88 mg/dL Normal 70-99 [facility] Comment on above: Performed By: #### 2 4321-2 #### [facility] [address] [place] [address] Potassium [Moles/Vol] 3.7 mmol/L Normal 3.6-5.1 [facility] Comment on above: Performed By: #### 2 4321-2 #### [facility] [address] [place] [address] Sodium [Moles/Vol] 139 mmol/L Normal 136-145 [facility] Comment on above: Performed By: #### 2 4321-2 #### [facility] [address] [place] [address] Urea nitrogen [Mass/Vol] 23 mg/dL High 8-20 [facility] Comment on above: Performed By: #### 2 4321-2 #### [facility] [address] [place] [address] Urea nitrogen/Creatinine [Mass ratio] 22.8 mg/mg High 12.0-20.0 [facility] Comment on above: Performed By: #### 2 4321-2 #### [facility] [address] [place] [address] Hemogram and platelets WO di fferential panel (Bld)Ordered By: Marlin Guthrie on 05-28-2024 Erythrocyte distribution width (RBC) [Ratio] 12 % 11.0 - 14.8 % [facility] Hematocrit (Bld) [Volume fraction] 34.4 % 34.3 - 47.9 % [facility] Hemoglobin (Bld) [Mass/Vol] 11.4 g/dL Low 12.0 - 16.0 g/dL [facility] Interpretation and review of laboratory results Abnormal [facility] MCH (RBC) [Entitic mass] 29.2 pg [facility] MCHC (RBC) [Mass/Vol] 33.1 g/dL 30.8 - 35.3 g/dL [facility] MCV (RBC) [Entitic vol] 88.2 fL [facility] Platelet mean volume (Bld) [Entitic vol] 9.5 fL [facility] th Platelets (Bld) [#/Vol] 294 10*3/uL [facility] RBC (Bld) [#/Vol] 3.9 10*6/uL [facility] WBC (Bld) [#/Vol] 10.4 10*3/uL High [facility] Hemogram and platelets WO di fferential panel (Bld)on 05-28-2024 Erythrocyte distribution width (RBC) [Ratio] 12.0 % Normal 11.0-14.8 [facility] Comment on above: Performed By: #### 2 4317-0 #### [facility] [address] [place] [address] Hematocrit (Bld) [Volume fraction] 34.4 % Normal 34.3-47.9 [facility] Comment on above: Performed By: #### 2 4317-0 #### [facility] [address] [place] [address] Hemoglobin (Bld) [Mass/Vol] 11.4 g/dL Low 12.0-16.0 [facility] Comment on above: Performed By: #### 2 4317-0 #### [facility] [address] [place] [address] MCH 29.2 pcg Normal 27.0-34.0 [facility] Comment on above: Performed By: #### 2 4317-0 #### [facility] [address] [place] [address] MCHC (RBC) [Mass/Vol] 33.1 g/dL Normal 30.8-35.3 [facility] Comment on above: Performed By: #### 2 4317-0 #### [facility] [address] [place] [address] MCV (RBC) [Entitic vol] 88.2 fL Normal 80.0-97.0 [facility] Comment on above: Performed By: #### 2 4317-0 #### [facility] [address] [place] [address] Platelet mean volume (Bld) [Entitic vol] 9.5 fL Normal 6.2-12.1 [facility] Comment on above: Performed By: #### 2 4317-0 #### [facility] [address] [place] [address] Platelets (Bld) [#/Vol] 294 10*3/uL Normal 142-424 [facility] Comment on above: Performed By: #### 2 4317-0 #### [facility] [address] [place] [address] RBC (Bld) [#/Vol] 3.90 10*6/uL Normal 3.74-5.34 [facility] Comment on above: Performed By: #### 2 4317-0 #### [facility] [address] [place] [address] WBC (Bld) [#/Vol] 10.4 10*3/uL High 4.6-10.2 [facility] Comment on above: Performed By: #### 2 4317-0 #### [facility] [address] [place] [address] Laboratory - Specimen inform ationon 05-28-2024 Specimen source Nom (Unsp spec) Hold for add-ons. [facility] Comment on above: Auto resulted. No Panel Informationon 05-28 [facility] Glucose Auto test strip (Bld ) [Mass/Vol]on 04-19-2024 Glucose [Mass/Vol] 85 mg/dL 70 - 99 mg/dL [facility] Interpretation and review of laboratory results Normal [facility] Glucose [Mass/Vol] 85 mg/dL Normal 70-99 [facility] Comment on above: Performed By: #### 2 340-8 #### [facility] [address] [place] [address] Basic metabolic 2000 panelOr dered By: Rui Padilla on 03-27-2024 Anion gap [Moles/Vol] 9 mmol/L Normal 6-18 [facility] Comment on above: Performed By: #### 2 4321-2 #### [facility] [address] [facility] [place] [address] Calcium [Mass/Vol] 8.8 mg/dL Low 8.9-10.3 [facility] Comment on above: Performed By: #### 2 4321-2 #### [facility] [address] [place] [address] Chloride [Moles/Vol] 107 mmol/L Normal 98-107 [facility] Comment on above: Performed By: #### 2 4321-2 #### [facility] [address] [place] [address] CO2 [Moles/Vol] 24 mmol/L Normal 22-32 [facility] Comment on above: Performed By: #### 2 4321-2 #### [facility] [address] [place] [address] Creatinine [Mass/Vol] 1.23 mg/dL Normal 0.60-1.30 [facility] Comment on above: Performed By: #### 2 4321-2 #### [facility] [address] [place] [address] GFR/1.73 sq M.predicted among non-blacks MDRD (S/P/Bld) [Vol rate/Area] 49 mL/min/{1.73_m2} Low >=60 [facility] Comment on above: Calculation based on the?Chronic Kidney Disease Epidemiology Collaboration (CKD-EPI) equation refit?without adjustment for race. Result Comment: Calc ulation based on the?Chronic Kidney Disease Epidemiology Collaboration (CKD-EPI) equation refit?without adjustment for race. Performed By: #### 2 4321-2 #### [facility] [address] [place] [address] Glucose [Mass/Vol] 85 mg/dL Normal 70-99 [facility] Comment on above: Performed By: #### 2 4321-2 #### [facility] [address] [facility] [place] [address] Potassium [Moles/Vol] 4.6 mmol/L Normal 3.6-5.1 [facility] Comment on above: Performed By: #### 2 4321-2 #### [facility] [address] [facility] [place] [address] Sodium [Moles/Vol] 140 mmol/L Normal 136-145 [facility] Comment on above: Performed By: #### 2 4321-2 #### [facility] [address] [place] [address] Urea nitrogen [Mass/Vol] 24 mg/dL High 8-20 [facility] Comment on above: Performed By: #### 2 4321-2 #### [facility] [address] [facility] [place] [address] Urea nitrogen/Creatinine [Mass ratio] 19.5 mg/mg Normal 12.0-20.0 [facility] Comment on above: Performed By: #### 2 4321-2 #### [facility] [address] [place] [address] [facility] Differential panel, me thod unspecified (Bld)Ordered By: Rui Padilla on 03-27-2024 Basophils (Bld) [#/Vol] 0.04 10*3/uL Normal 0.00-0.20 [facility] Comment on above: Performed By: #### 6 9742-5 #### [facility] [address] [place] [address] 46922 Basophils/100 WBC (Bld) 0.8 % Normal 0.0-2.0 [facility] Comment on above: Performed By: #### 6 9742-5 #### [facility] [address] [place] [address] 39293 Eosinophils (Bld) [#/Vol] 0.28 10*3/uL Normal 0.00-0.70 [facility] Comment on above: Performed By: #### 6 9742-5 #### [facility] [address] [place] [address] 27687 Eosinophils/100 WBC (Bld) 5.7 % Normal 0.0-7.0 [facility] Comment on above: Performed By: #### 6 9742-5 #### [facility] [address] [place] [address] 62703 Erythrocyte distribution width (RBC) [Ratio] 12.3 % Normal 11.0-14.8 [facility] Comment on above: Performed By: #### 6 9742-5 #### [facility] [address] [place] [address] 80092 Hematocrit (Bld) [Volume fraction] 31.8 % Low 34.3-47.9 [facility] Comment on above: Performed By: #### 6 9742-5 #### [facility] [address] [place] [address] 82667 Hemoglobin (Bld) [Mass/Vol] 10.6 g/dL Low 12.0-16.0 [facility] Comment on above: Performed By: #### 6 9742-5 #### [facility] [address] [place] [address] 12212 Immature granulocytes (Bld) [#/Vol] 0.01 10*3/uL Normal 0.00-0.10 [facility] Comment on above: Performed By: #### 6 9742-5 #### [facility] [address] [place] [address] 26874 Immature granulocytes/100 WBC (Bld) 0.2 % Normal 0.0-1.2 [facility] Comment on above: Performed By: #### 6 9742-5 #### [facility] [address] [place] [address] 38301 Lymphocytes (Bld) [#/Vol] 1.46 10*3/uL Normal 1.00-4.80 [facility] Comment on above: Performed By: #### 6 9742-5 #### [facility] [address] [place] [address] 54959 Lymphocytes/100 WBC (Bld) 29.6 % Normal 17.9-49.6 [facility] Comment on above: Performed By: #### 6 9742-5 #### [facility] [address] [place] [address] 81812 MCHC (RBC) [Mass/Vol] 33.3 g/dL Normal 30.8-35.3 [facility] Comment on above: Performed By: #### 6 9742-5 #### [facility] [address] [place] [address] 40654 MCV (RBC) [Entitic vol] 86.9 fL Normal 80.0-97.0 [facility] Comment on above: Performed By: #### 6 9742-5 #### [facility] [address] [place] [address] 61044 Monocytes (Bld) [#/Vol] 0.45 10*3/uL Normal 0.00-0.90 [facility] Comment on above: Performed By: #### 6 9742-5 #### [facility] [address] [place] [address] 06811 Monocytes/100 WBC (Bld) 9.1 % Normal 0.0-12.0 [facility] Comment on above: Performed By: #### 6 9742-5 #### [facility] [address] [place] [address] 59915 Neutrophils/100 WBC (Bld) 54.6 % Normal 38.1-75.5 [facility] Comment on above: Performed By: #### 6 9742-5 #### [facility] [address] [place] [address] 22782 Platelet mean volume (Bld) [Entitic vol] 10.1 fL Normal 6.2-12.1 [facility] Comment on above: Performed By: #### 6 9742-5 #### [facility] [address] [place] [address] 17046 Platelets (Bld) [#/Vol] 220 10*3/uL Normal 142-424 [facility] Comment on above: Performed By: #### 6 9742-5 #### [facility] [address] [place] [address] 05437 RBC (Bld) [#/Vol] 3.66 10*6/uL Low 3.74-5.34 [facility] Comment on above: Performed By: #### 6 9742-5 #### [facility] [address] [place] [address] [place] [address] WBC (Bld) [#/Vol] 4.9 10*3/uL Normal 4.6-10.2 [facility] Comment on above: Performed By: #### 6 9742-5 #### [facility] [address] [place] [address] CBC W Diff pnl,unspecified Bld 29.0 pcg 27.0-34.0 [facility] CBC W Diff pnl,unspecified Bld 2.70 K/mcL 1.80-7.70 [facility] CBC W Differential panel, me thod unspecified (Bld)on 03-27-2024 MCH 29.0 pcg Normal 27.0-34.0 [facility] Comment on above: Performed By: #### 6 9742-5 #### [facility] [address] [place] [address] 26072 Neutrophils Absolute 2.70 K/mcL Normal 1.80-7.70 [facility] Comment on above: Performed By: #### 6 9742-5 #### [facility] [address] [place] [address] 35389 BI MAMMOGRAM SCREENING TOMOS YNTHESIS BILATERALon 09-02-2023 [...] IS VERY IMPORTANT TO YOUR HEALTH. THE [place] GUIDELINES RECOMMEND THAT WOMEN [...] INSULINon 04-24-2022 Insulin 17.1 uIU/mL Normal 2.6-24.9 [facility] Comment on above: Performed By: #### I EDWARD #### [facility] [address] [place] [address] Dr. Keven Reyez CBC AUTO DIFFon 04-23-2022 BASO # 0.0 103/ul Normal 0.0-0.1 [facility] Comment on above: Performed By: #### C BC #### [facility] [address] [place] [address] Dr. Keven Reyez Basophils/100 WBC (Bld) 0.5 % Normal 0.2-2.0 [facility] Comment on above: Performed By: #### C BC #### [facility] [address] [place] [address] Dr. Keven Reyez EO # 0.4 103/ul Normal 0.0-0.7 [facility] Comment on above: Performed By: #### C BC #### [facility] [address] [place] [address] Dr. Keven Reyez Eosinophils/100 WBC (Bld) 4.5 % Normal 0.9-7.0 [facility] Comment on above: Performed By: #### C BC #### [facility] [address] [place] [address] Dr. Keven Reyez Erythrocyte distribution width (RBC) [Ratio] 13.6 % Normal 11.0-15.0 [facility] Comment on above: Performed By: #### C BC #### [facility] [address] [place] [address] Dr. Keven Reyez Hematocrit (Bld) [Volume fraction] 34.7 % Critically low 36.0-48.0 [facility] Comment on above: Performed By: #### C BC #### [facility] [address] [place] [address] Dr. Keven Reyez Hemoglobin (Bld) [Mass/Vol] 11.3 g/dL Critically low 12.0-16.0 [facility] Comment on above: Performed By: #### C BC #### [facility] [address] [place] [address] Dr. Keven Reyez IG # 0.03 10e3/ul Normal 0.00-0.03 [facility] Comment on above: Performed By: #### C BC #### [facility] [address] [place] [address] Dr. Keven Reyez IG % 0.4 % Normal 0.0-0.5 [facility] Comment on above: Performed By: #### C BC #### [facility] [address] [place] [address] Dr. Keven Reyez LYMPH # 1.5 103/ul Normal 1.2-3.8 [facility] Comment on above: Performed By: #### C BC #### [facility] [address] [place] [address] Dr. Keven Reyez Lymphocytes/100 WBC (Bld) 19.5 % Critically low 20.5-60.0 [facility] Comment on above: Performed By: #### C BC #### [facility] [address] [place] [address] Dr. Keven Reyez MANUAL DIFF REQ NO Normal [facility] Comment on above: Performed By: #### C BC #### [facility] [address] [place] [address] Dr. Keven Reyez MCH (RBC) [Entitic mass] 27.2 pg Normal 26.7-34.0 [facility] Comment on above: Performed By: #### C BC #### [facility] [address] [place] [address] Dr. Keven Reyez MCHC (RBC) [Mass/Vol] 32.6 g/dL Normal 29.9-35.2 [facility] Comment on above: Performed By: #### C BC #### [facility] [address] [address] [address] Keven Reyez MCV (RBC) [Entitic vol] 83.6 fL Normal 81.0-99.0 [facility] Comment on above: Performed By: #### C BC #### [facility] [address] [address] [address] Keven Reyez MONO # 0.6 103/ul Normal 0.3-0.8 [facility] Comment on above: Performed By: #### C BC #### [facility] [address] [address] [address] Keven Reyez Monocytes/100 WBC (Bld) 8.2 % Normal 1.7-12.0 [facility] Comment on above: Performed By: #### C BC #### [facility] [address] [place] [address] Dr. Keven Reyez NEUT # 5.2 103/ul Normal 1.4-6.5 [facility] Comment on above: Performed By: #### C BC #### [facility] [address] [place] [address] Dr. Keven Reyez Neutrophils/100 WBC (Bld) 66.9 % Normal 43.0-75.0 [facility] Comment on above: Performed By: #### C BC #### [facility] [address] [address] [address] Keven Reyez Platelet mean volume (Bld) [Entitic vol] 9.1 fL Critically low 9.5-13.5 [facility] Comment on above: Performed By: #### C BC #### [facility] [address] [address] [address] Keven Reyez PLT 242 103/ul Normal 150-450 [facility] Comment on above: Performed By: #### C BC #### [facility] [address] [place] [address] Dr. Keven Reyez RBC 4.15 106/ul Critically low 4.20-5.40 [facility] Comment on above: Performed By: #### C BC #### [facility] [address] [address] [address] Keven Reyez WBC 7.8 103/ul Normal 4.0-11.0 [facility] Comment on above: Performed By: #### C BC #### [facility] [address] [address] [address] Keven Reyez FREE THYROXINE INDEX T7on FTI 2.81 Normal 1.30-4.50 [facility] Comment on above: Performed By: #### I EDWARD #### [facility] [address] [place] [address] Dr. Keven Reyez T3U 36.0 % Normal 30.0-39.0 [facility] Comment on above: Performed By: #### I EDWARD #### [facility] [address] [place] [address] Dr. Keven Reyez T4 [Mass/Vol] 7.80 ug/dL Normal 4.80-13.90 [facility] Comment on above: Performed By: #### I EDWARD #### [facility] [address] [place] [address] Dr. Keven Reyez GLYCOHEMOGLOBIN A1Con 2022 ADA RECOMMENDATION SEE BELOW Normal [facility] Comment on above: Result Comment: ADA RECOMMENDED LIMIT 4.0 - 6.0 ADA THERAPEUTIC TARGET < 7.0 ACTION SUGGESTED > 7.0 Performed By: #### A 1C #### [facility] [address] [place] [address] Dr. Keven Reyez Glucose [Mass/Vol] 111 mg/dL Normal [facility] Comment on above: Performed By: #### A 1C #### [facility] [address] [place] [address] Dr. Keven Reyez HbA1c (Bld) [Mass fraction] 5.5 % Normal 4.5-6.2 [facility] Comment on above: Performed By: #### A 1C #### [facility] [address] [place] [address] Dr. Keven Reyez IRONon 04-23-2022 Iron [Mass/Vol] 36.0 ug/dL Critically low 50.0-170.0 [facility] Comment on above: Performed By: #### I EDWARD #### [facility] [address] [address] [address] Keven Reyez LIPID PROFILEon 04-23-2022 CHOL-HDL RATIO NORM SEE BELOW Normal [facility] Comment on above: Result Comment: 3.3 - 4.4 LOW RISK 4.4 - 7.1 AVERAGE RISK 7.1 - 11.0 MODERATE RISK >11.0 HIGH RISK Performed By: #### I EDWARD #### [facility] [address] [address] [address] Keven Reyez Cholesterol [Mass/Vol] 132 mg/dL Normal <=200 [facility] Comment on above: Performed By: #### I EDWARD #### [facility] [address] [address] [address] Keven Reyez Cholesterol in HDL [Mass/Vol] 61 mg/dL Critically high 40-60 [facility] Comment on above: Performed By: #### I EDWARD #### [facility] [address] [address] [address] Keven Reyez Cholesterol in LDL [Mass/Vol] 51.8 mg/dL Normal [facility] Comment on above: Performed By: #### I EDWARD #### [facility] [address] [address] [address] Keven Reyez Cholesterol.total/Ch olesterol in HDL [Mass ratio] 2.2 {ratio} Normal [facility] Comment on above: Performed By: #### I EDWARD #### [facility] [address] [address] [address] Keven Reyez HDL NORMAL > or = 60 mg/dl - LOW CARDIOVASCULAR RISK <40 mg/dl - HIGH CARDIOVASCULAR RISK Normal [facility] Comment on above: Performed By: #### I EDWARD #### [facility] [address] [address] [address] Keven Reyez LDL CALC NORMAL SEE BELOW Normal [facility] Comment on above: Result Comment: <100 mg/dl OPTIMAL 100 - 129 mg/dl NEAR OR ABOVE OPTIMAL 130 - 159 mg/dl BORDERLINE HIGH 160 - 189 mg/dl HIGH >190 mg/dl VERY HIGH Performed By: #### I EDWARD #### [facility] [address] [place] [address] Dr. Keven Reyez Triglyceride [Mass/Vol] 96 mg/dL Normal <=150 [facility] Comment on above: Performed By: #### I EDWARD #### [facility] [address] [place] [address] Dr. Keven Reyez VLDL CALC 19.2 mg/dL Normal [facility] Comment on above: Performed By: #### I EDWARD #### [facility] [address] [place] [address] Dr. Keven Reyez PROF 14(COMP METB)on 023 Albumin [Mass/Vol] 3.6 g/dL Normal 3.4-5.0 [facility] Comment on above: Performed By: #### I EDWARD #### [facility] [address] [place] [address] Dr. Keven Reyez Albumin/Globulin [Mass ratio] 1.1 {ratio} Normal [facility] Comment on above: Performed By: #### I EDWARD #### [facility] [address] [place] [address] Dr. Keven Reyez ALP [Catalytic activity/Vol] 71 U/L Normal 46-116 [facility] Comment on above: Performed By: #### I EDWARD #### [facility] [address] [place] [address] Dr. Keven Reyez ALT [Catalytic activity/Vol] 36 U/L Normal 14-59 [facility] Comment on above: Performed By: #### I EDWARD #### [facility] [address] [place] [address] Dr. Keevn Reyez Anion gap [Moles/Vol] 13.7 mmol/L Normal [facility] Comment on above: Performed By: #### I EDWARD #### [facility] [address] [place] [address] Dr. Keven Reyez AST [Catalytic activity/Vol] 23 U/L Normal 15-37 [facility] Comment on above: Performed By: #### I EDWARD #### [facility] [address] [address] [address] Keven Reyez Bilirubin [Mass/Vol] 0.3 mg/dL Normal 0.2-1.0 [facility] Comment on above: Performed By: #### I EDWARD #### [facility] [address] [address] [address] Keven Reyez Calcium [Mass/Vol] 9.2 mg/dL Normal 8.5-10.1 [facility] Comment on above: Performed By: #### I EDWARD #### [facility] [address] [address] [address] Keven Reyez Chloride [Moles/Vol] 106 mmol/L Normal 98-107 [facility] Comment on above: Performed By: #### I EDWARD #### [facility] [address] [place] [address] Dr. Keven Reyez CO2 [Moles/Vol] 26.2 mmol/L Normal 21.0-32.0 [facility] Comment on above: Performed By: #### I EDWARD #### [facility] [address] [place] [address] Dr. Keven Reyez Creatinine [Mass/Vol] 0.93 mg/dL Normal 0.55-1.02 [facility] Comment on above: Performed By: #### I EDWARD #### [facility] [address] [place] [address] Dr. Keven Reyez EGFR-AF [place] >60 Normal >=60 [facility] Comment on above: Performed By: #### I EDWARD #### [facility] [address] [place] [address] Dr. Keven Reyez EGFR-NON AF [place] >60 Normal >=60 [facility] Comment on above: Performed By: #### I EDWARD #### [facility] [address] [place] [address] Dr. Keven Reyez Globulin (S) [Mass/Vol] 3.2 g/dL Normal [facility] Comment on above: Performed By: #### I EDWARD #### [facility] [address] [place] [address] Dr. Keven Reyez Glucose [Mass/Vol] 100 mg/dL Normal 74-106 [facility] Comment on above: Performed By: #### I EDWARD #### [facility] [address] [address] [address] Keven Reyez Potassium [Moles/Vol] 4.9 mmol/L Normal 3.5-5.1 [facility] Comment on above: Performed By: #### I EDWARD #### [facility] [address] [address] [address] Keven Reyez Protein [Mass/Vol] 6.8 g/dL Normal 6.4-8.2 [facility] Comment on above: Performed By: #### I EDWARD #### [facility] [address] [address] [address] Keven Reyez Sodium [Moles/Vol] 141 mmol/L Normal 136-145 [facility] Comment on above: Performed By: #### I EDWARD #### [facility] [address] [address] [address] Keven Reyez Urea nitrogen [Mass/Vol] 18.0 mg/dL Normal 7.0-18.0 [facility] Comment on above: Performed By: #### I EDWARD #### [facility] [address] [address] [address] Keven Reyez Urea nitrogen/Creatinine [Mass ratio] 19.4 mg/mg Normal [facility] Comment on above: Performed By: #### I EDWARD #### [facility] [address] [address] [address] Keven Reyez TSHon 04-23-2022 TSH 0.830 uIU/mL Normal 0.358-3.740 [facility] Comment on above: Performed By: #### I EDWARD #### [facility] [address] [address] [address] Keven Reyez VITAMIN D 25 OHon 04-23-2022 VIT D 25-OH 38.5 ng/mL Normal [facility] Comment on above: Performed By: #### I EDWARD #### [facility] [address] [place] [address] Dr. Keevn Reyez VIT D RANGES SEE BELOW Normal [facility] Comment on above: Result Comment: <20 ng/mL Vit D deficient 20 - <30 ng/mL Vit D insufficient 30 - 100 ng/mL Vit D sufficient >100 ng/mL Potential Toxicity Performed By: #### I EDWARD #### [facility] [address] [place] [address] Dr. Keven Reyez Covid-19 PCR ([facility])on 08-03 SARS-CoV-2 (COVID-19) RNA TAYLOR+probe Ql (Unsp spec) Not detected Normal NOT DETECTED [facility] Comment on above: Result Comment: This test is not yet approved or cleared by the [place] FDA. When there are no FDA-approved or cleared tests available, and other criteria are met, FDA can make tests available under an emergency access mechanism called an Emergency Use Authorization (EUA). The EUA for this test is supported by the [employer] Analyst of Health and Human Service's (HHS's) declaration [...] SARS-CoV-2. Performed By: #### I EDWARD #### [facility] [address] [place] [address] Dr. Keven Reyez INFLUENZA A AND B AGon 08-18 INFLUANEGH SEE BELOW Normal [facility] Comment on above: Result Comment: Nega tive for Flu A protein angiten. Infection due to Flu A cannot be ruled out. Flu A angiten in the sample may be below the detection limit of the test. Performed By: #### I NFLUAB #### [facility] [address] [place] [address] Dr. Keven Reyez INFLUBNEGH SEE BELOW Normal [facility] Comment on above: Result Comment: Nega tive for Flu B protein antigen. Infection due to Flu B cannot be ruled out. Flu B antigen in the sample may be below the detection limit of the test. Performed By: #### I NFLUAB #### [facility] [address] [place] [address] Dr. Keven Reyez INFLUENZA A AG Negative Normal NEGATIVE SEE COMMENT [facility] Comment on above: Performed By: #### I NFLUAB #### [facility] [address] [place] [address] Dr. Keven Reyez INFLUENZA B AG Negative Normal NEGATIVE SEE COMMENT [facility] Comment on above: Performed By: #### I NFLUAB #### [facility] [address] [place] [address] Dr. Keven Reyez INTERNAL CONTROLS Within Normal Limits Normal Within Normal Limits [facility] Comment on above: Performed By: #### I NFLUAB #### [facility] [address] [place] [address] Dr. Keven Reyez XR DEXA BONE DENSITYon [...] SILVANA VEGA Date: 2021-05-28 10:25 Normal [facility] INSULINon 05-23-2021 Insulin 7.2 uIU/mL Normal 2.6-24.9 [facility] Comment on above: Performed By: #### I NSULIN #### [facility] [address] [place] [address] Dr. Keven Reyez CBC AUTO DIFFon 05-22-2021 BASO # 0.1 103/ul Normal 0.0-0.1 [facility] Comment on above: Performed By: #### I EDWARD #### [facility] [address] [address] [address] Keven Reyez Basophils/100 WBC (Bld) 0.9 % Normal 0.2-2.0 [facility] Comment on above: Performed By: #### I EDWARD #### [facility] [address] [address] [address] Keven Reyez EO # 0.3 103/ul Normal 0.0-0.7 [facility] Comment on above: Performed By: #### I EDWARD #### [facility] [address] [place] [address] Dr. Keven Reyez Eosinophils/100 WBC (Bld) 3.6 % Normal 0.9-7.0 [facility] Comment on above: Performed By: #### I EDWARD #### [facility] [address] [place] [address] Dr. Keven Reyez Erythrocyte distribution width (RBC) [Ratio] 12.7 % Normal 11.0-15.0 [facility] Comment on above: Performed By: #### I EDWARD #### [facility] [address] [place] [address] Dr. Keven Reyez Hematocrit (Bld) [Volume fraction] 37.0 % Normal 36.0-48.0 [facility] Comment on above: Performed By: #### I EDWARD #### [facility] [address] [place] [address] Dr. Keven Reyez Hemoglobin (Bld) [Mass/Vol] 11.7 g/dL Critically low 12.0-16.0 [facility] Comment on above: Performed By: #### I EDWARD #### [facility] [address] [place] [address] Dr. Keven Reyez IG # 0.06 10e3/ul Critically high 0.00-0.03 [facility] Comment on above: Performed By: #### I EDWARD #### [facility] [address] [place] [address] Dr. Keven Reyez IG % 0.9 % Critically high 0.0-0.5 [facility] Comment on above: Performed By: #### I EDWARD #### [facility] [address] [place] [address] Dr. Keven Reyez LYMPH # 1.9 103/ul Normal 1.2-3.8 [facility] Comment on above: Performed By: #### I EDWARD #### [facility] [address] [place] [address] Dr. Keven Reyez Lymphocytes/100 WBC (Bld) 27.1 % Normal 20.5-60.0 [facility] Comment on above: Performed By: #### I EDWARD #### [facility] [address] [place] [address] Dr. Keven Reyez MANUAL DIFF REQ NO Normal [facility] Comment on above: Performed By: #### I EDWARD #### [facility] [address] [place] [address] Dr. Keven Reyez MCH (RBC) [Entitic mass] 27.6 pg Normal 26.7-34.0 [facility] Comment on above: Performed By: #### I EDWARD #### [facility] [address] [place] [address] Dr. Keven Reyez MCHC (RBC) [Mass/Vol] 31.6 g/dL Normal 29.9-35.2 [facility] Comment on above: Performed By: #### I EDWARD #### [facility] [address] [place] [address] Dr. Keven Reyez MCV (RBC) [Entitic vol] 87.3 fL Normal 81.0-99.0 [facility] Comment on above: Performed By: #### I EDWARD #### [facility] [address] [place] [address] Dr. Keven Reyez MONO # 0.6 103/ul Normal 0.3-0.8 [facility] Comment on above: Performed By: #### I EDWARD #### [facility] [address] [place] [address] Dr. Keven Reyez Monocytes/100 WBC (Bld) 8.6 % Normal 1.7-12.0 [facility] Comment on above: Performed By: #### I EDWARD #### [facility] [address] [place] [address] Dr. Keven Reyez NEUT # 4.1 103/ul Normal 1.4-6.5 [facility] Comment on above: Performed By: #### I EDWARD #### [facility] [address] [place] [address] Dr. Keven Reyez Neutrophils/100 WBC (Bld) 58.9 % Normal 43.0-75.0 [facility] Comment on above: Performed By: #### I EDWARD #### [facility] [address] [place] [address] Dr. Keven Reyez Platelet mean volume (Bld) [Entitic vol] 9.8 fL Normal 9.5-13.5 [facility] Comment on above: Performed By: #### I EDWARD #### [facility] [address] [place] [address] Dr. Keven Reyez PLT 265 103/ul Normal 150-450 [facility] Comment on above: Performed By: #### I EDWARD #### [facility] [address] [place] [address] Dr. Keven Reyez RBC 4.24 106/ul Normal 4.20-5.40 [facility] Comment on above: Performed By: #### I EDWARD #### [facility] [address] [place] [address] Dr. Keven Reyez WBC 6.9 103/ul Normal 4.0-11.0 [facility] Comment on above: Performed By: #### I EDWARD #### [facility] [address] [place] [address] Dr. Keven Reyez FREE THYROXINE INDEX T7on FTI 2.81 Normal [facility] Comment on above: Performed By: #### T 7, TSH, CMP, LIPID #### [facility] [address] [place] [address] Dr. Keven Reyez T3U 36.0 % Normal 23.5-40.5 [facility] Comment on above: Performed By: #### T 7, TSH, CMP, LIPID #### [facility] [address] [address] [address] Keven Reyez T4 [Mass/Vol] 7.80 ug/dL Normal 5.53-11.00 [facility] Comment on above: Performed By: #### T 7, TSH, CMP, LIPID #### [facility] [address] [address] [address] Keven Reyez GLYCOHEMOGLOBIN A1Con 2021 ADA RECOMMENDATION ADA THERAPEUTIC TARGET 6.0 - 7.0 ACTION SUGGESTED > 7.[address] [facility] Comment on above: Performed By: #### I EDWARD #### [facility] [address] [address] [address] Keven Reyez Glucose [Mass/Vol] 117 mg/dL Normal [facility] Comment on above: Performed By: #### I EDWARD #### [facility] [address] [address] [address] Keven Reyez HbA1c (Bld) [Mass fraction] 5.7 % Normal <=6.0 [facility] Comment on above: Performed By: #### I EDWARD #### [facility] [address] [address] [address] Keven Reyez IRONon 05-22-2021 Iron [Mass/Vol] 48.0 ug/dL Normal 37.0-170.0 [facility] Comment on above: Performed By: #### I EDWARD #### [facility] [address] [address] [address] Keven Reyez LIPID PROFILEon 05-22-2021 CHOL-HDL RATIO NORM SEE BELOW Normal [facility] Comment on above: Result Comment: 3.3 - 4.4 LOW RISK 4.4 - 7.1 AVERAGE RISK 7.1 - 11.0 MODERATE RISK >11.0 HIGH RISK Performed By: #### T 7, TSH, CMP, LIPID #### [facility] [address] [place] [address] Dr. Keven Reyez Cholesterol [Mass/Vol] 153 mg/dL Normal <=200 [facility] Comment on above: Performed By: #### T 7, TSH, CMP, LIPID #### [facility] [address] [address] [address] Keven Reyez Cholesterol in HDL [Mass/Vol] 72 mg/dL Normal [facility] Comment on above: Performed By: #### T 7, TSH, CMP, LIPID #### [facility] [address] [address] [address] Keven Reyez Cholesterol in LDL [Mass/Vol] 63.0 mg/dL Normal [facility] Comment on above: Performed By: #### T 7, TSH, CMP, LIPID #### [facility] [address] [address] [address] Keven Reyez Cholesterol.total/Ch olesterol in HDL [Mass ratio] 2.1 {ratio} Normal [facility] Comment on above: Performed By: #### T 7, TSH, CMP, LIPID #### [facility] [address] [address] [address] Keven Reyez HDL NORMAL > or = 60 mg/dl - LOW CARDIOVASCULAR RISK <40 mg/dl - HIGH CARDIOVASCULAR RISK Normal [facility] Comment on above: Performed By: #### T 7, TSH, CMP, LIPID #### [facility] [address] [address] [address] Keven Reyez LDL CALC NORMAL SEE BELOW Normal [facility] Comment on above: Result Comment: <100 mg/dl OPTIMAL 100 - 129 mg/dl NEAR OR ABOVE OPTIMAL 130 - 159 mg/dl BORDERLINE HIGH 160 - 189 mg/dl HIGH >190 mg/dl VERY HIGH Performed By: #### T 7, TSH, CMP, LIPID #### [facility] [address] [address] [address] Keven Reyez Triglyceride [Mass/Vol] 90 mg/dL Normal <=150 [facility] Comment on above: Performed By: #### T 7, TSH, CMP, LIPID #### [facility] [address] [address] [address] Keven Reyez VLDL CALC 18.0 mg/dL Normal [facility] Comment on above: Performed By: #### T 7, TSH, CMP, LIPID #### [facility] [address] [place] [address] Dr. Keven Reyez PROF 14(COMP METB)on 022 Albumin [Mass/Vol] 3.9 g/dL Normal 3.5-5.0 [facility] Comment on above: Performed By: #### T 7, TSH, CMP, LIPID #### [facility] [address] [place] [address] Dr. Keven Reyez Albumin/Globulin [Mass ratio] 1.3 {ratio} Normal [facility] Comment on above: Performed By: #### T 7, TSH, CMP, LIPID #### [facility] [address] [place] [address] Dr. Keven Reyez ALP [Catalytic activity/Vol] 85 U/L Normal 38-126 [facility] Comment on above: Performed By: #### T 7, TSH, CMP, LIPID #### [facility] [address] [place] [address] Dr. Keven Reyez ALT [Catalytic activity/Vol] 25 U/L Normal 9-52 [facility] Comment on above: Performed By: #### T 7, TSH, CMP, LIPID #### [facility] [address] [place] [address] Dr. Keven Reyez Anion gap [Moles/Vol] 14.7 mmol/L Normal [facility] Comment on above: Performed By: #### T 7, TSH, CMP, LIPID #### [facility] [address] [place] [address] Dr. Keven Reyez AST [Catalytic activity/Vol] 14 U/L Normal 14-36 [facility] Comment on above: Performed By: #### T 7, TSH, CMP, LIPID #### [facility] [address] [place] [address] Dr. Keven Reyez Bilirubin [Mass/Vol] 0.3 mg/dL Normal 0.2-1.3 [facility] Comment on above: Performed By: #### T 7, TSH, CMP, LIPID #### [facility] [address] [place] [address] Dr. Keven Reyez Calcium [Mass/Vol] 9.3 mg/dL Normal 8.4-10.2 [facility] Comment on above: Performed By: #### T 7, TSH, CMP, LIPID #### [facility] [address] [address] [address] Keven Reyez Chloride [Moles/Vol] 107 mmol/L Normal 98-107 [facility] Comment on above: Performed By: #### T 7, TSH, CMP, LIPID #### [facility] [address] [address] [address] Keven Reyez CO2 [Moles/Vol] 25.2 mmol/L Normal 22.0-30.0 [facility] Comment on above: Performed By: #### T 7, TSH, CMP, LIPID #### [facility] [address] [place] [address] Dr. Keven Reyez Creatinine [Mass/Vol] 1.13 mg/dL Critically high 0.52-1.04 [facility] Comment on above: Performed By: #### T 7, TSH, CMP, LIPID #### [facility] [address] [address] [address] Keven Reyez EGFR-AF [place] 59 mL/min/1.73m2 Critically low >=60 [facility] Comment on above: Performed By: #### T 7, TSH, CMP, LIPID #### [facility] [address] [place] [address] Dr. Keven Reyez EGFR-NON AF [place] 49 mL/min/1.73m2 Critically low >=60 [facility] Comment on above: Performed By: #### T 7, TSH, CMP, LIPID #### [facility] [address] [address] [address] Keven Reyez Globulin (S) [Mass/Vol] 3.1 g/dL Normal [facility] Comment on above: Performed By: #### T 7, TSH, CMP, LIPID #### [facility] [address] [address] [address] Keven Reyez Glucose [Mass/Vol] 102 mg/dL Normal 74-106 [facility] Comment on above: Performed By: #### T 7, TSH, CMP, LIPID #### [facility] [address] [place] [address] Dr. Keven Reyez Potassium [Moles/Vol] 4.9 mmol/L Normal 3.4-5.0 [facility] Comment on above: Performed By: #### T 7, TSH, CMP, LIPID #### [facility] [address] [place] [address] Dr. Keven Reyez Protein [Mass/Vol] 7.0 g/dL Normal 6.1-8.2 [facility] Comment on above: Performed By: #### T 7, TSH, CMP, LIPID #### [facility] [address] [place] [address] Dr. Keven Reyez Sodium [Moles/Vol] 142 mmol/L Normal 137-145 [facility] Comment on above: Performed By: #### T 7, TSH, CMP, LIPID #### [facility] [address] [place] [address] Dr. Keven Reyez Urea nitrogen [Mass/Vol] 24.0 mg/dL Critically high 7.0-17.0 [facility] Comment on above: Performed By: #### T 7, TSH, CMP, LIPID #### [facility] [address] [place] [address] Dr. Keven Reyez Urea nitrogen/Creatinine [Mass ratio] 21.2 mg/mg Normal [facility] Comment on above: Performed By: #### T 7, TSH, CMP, LIPID #### [facility] [address] [place] [address] Dr. Keven Reyez TSHon 05-22-2021 TSH 0.985 uIU/mL Normal 0.470-4.680 [facility] Comment on above: Performed By: #### T 7, TSH, CMP, LIPID #### [facility] [address] [place] [address] Dr. Keven Reyez TSH RANGE SEE BELOW Normal [facility] Comment on above: Result Comment: <0.3 4 UIU/ml HYPERTHYROID 0.34-5.60 UIU/ml EUTHYROID >5.60 UIU/ml HYPOTHYROID Performed By: #### T 7, TSH, CMP, LIPID #### [facility] [address] [address] [address] Keven Reyez SCREENING MAMMOGRAM W/MANJULA, BILATERAL*on [...] VERY IMPORTANT TO YOUR HEALTH. THE CURRENT [place] [employer] AND [employer]WORK GUIDELINES RECOMMENDS ANNUAL MAMMOGRAPHY BEGINNING AT AGE 38 THIS FACILITY USES A REMINDER SYSTEM TO ENSURE ALL PATIENTS RECEIVE REMINDER NOTIFICATIONS AT THE APPROPRIATE TIME BASED ON THE RECOMMENDATIONS OF THIS EXAM. 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 Accredited by the ACR and FDA. Report reported and signed by Hernán Whitley on 04/21/2021 1249 Normal [facility] [employer] Vital Signs Date Time Vital Sign Value Performing Clinician Facility 12-06-2024 10:37-0400 Body mass index (BMI) [Ratio] 25.7 kg/m2 [employer] DO Work Phone: [facility] 12-06-2024 10:37-0400 Body weight 61.69 kg Qufenqi DO Work Phone: [facility] 12-06-2024 10:37-0400 Diastolic blood pressure 80 mm[Hg] Qufenqi DO Work Phone: [facility] 12-06-2024 10:37-0400 Systolic blood pressure 122 mm[Hg] [employer]en[employer] DO Work Phone: [facility] 05-28-2024 14:50-0500 Body temperature 97.9 [degF] Elias Soria MD Work Phone: [facility] 05-28-2024 14:50-0500 Diastolic blood pressure 73 mm[Hg] Elias Soria MD Work Phone: [facility] 05-28-2024 14:50-0500 Heart rate 82 /min Elias Soria MD Work Phone: [facility] 05-28-2024 14:50-0500 Respiratory rate 14 /min Elias Soria MD Work Phone: [facility] [employer] 05-28-2024 14:50-0500 SaO2% (BldA) [Mass fraction] 92 % Elias Soria MD Work Phone: [facility] 05-28-2024 14:50-0500 Systolic blood pressure 111 mm[Hg] Elias Soria MD Work Phone: [facility] 05-28-2024 10:44-0500 Body height 149.9 cm Elias Soria MD Work Phone: [facility] 05-28-2024 10:44-0500 Body mass index (BMI) [Ratio] 28.48 kg/m2 Elias Soria MD Work Phone: [facility] 05-28-2024 10:44-0500 Body weight 63.96 kg Elias Soria MD Work Phone: [facility] 04-19-2024 12:36-0500 Body temperature 97.2 [degF] Rogelio Wilson MD Work Phone: [facility] 04-19-2024 12:36-0500 Diastolic blood pressure 85 mm[Hg] Rogelio Wilson MD Work Phone: [facility] 04-19-2024 12:36-0500 Heart rate 86 /min Rogelio Wilson MD Work Phone: [facility] 04-19-2024 12:36-0500 Respiratory rate 15 /min Rogelio Wilson MD Work Phone: [facility] 04-19-2024 12:36-0500 SaO2% (BldA) [Mass fraction] 92 % Rogelio Wilson MD Work Phone: [facility] 04-19-2024 12:36-0500 Systolic blood pressure 150 mm[Hg] Rogelio Wilson MD Work Phone: [facility] 04-19-2024 07:05-0500 Body height 149.9 cm Rogelio Wilson MD Work Phone: [employer] [facility] 04-19-2024 07:05-0500 Body mass index (BMI) [Ratio] 29.08 kg/m2 Rogelio Wilson MD Work Phone: [facility] [employer] [facility] 04-19-2024 07:05-0500 Body weight 65.3 kg Rogelio Wilson MD Work Phone: [facility] 03-27-2024 12:33-0500 Body height 151.13 cm Rui Padilla MD [facility] 03-27-2024 12:33-0500 Body mass index (BMI) [Ratio] 29.87 kg/m2 Rui Padilla MD [facility] 03-27-2024 12:33-0500 Body temperature 97.9 [degF] Rui Padilla MD [facility] 03-27-2024 12:33-0500 Body weight 68.22 kg Rui Padilla MD [facility] 03-27-2024 12:33-0500 Diastolic blood pressure 88 mm[Hg] Rui Padilla MD [facility] 03-27-2024 12:33-0500 Heart rate 79 /min Rui Padilla MD [facility] 03-27-2024 12:33-0500 SaO2% (BldA) [Mass fraction] 99 % Rui Padilla MD [facility] 03-27-2024 12:33-0500 Systolic blood pressure 126 mm[Hg] Rui Padilla MD [facility] 02-22-2024 13:41-0500 Body height 152.4 cm Rogelio Wilson MD [facility] 02-22-2024 13:41-0500 Body mass index (BMI) [Ratio] 29.29 kg/m2 Rogelio Wilson MD [facility] 02-22-2024 13:41-0500 Body weight 68.04 kg Rogelio Wilson MD [facility] Encounters Encounter Date Encounter Type Care Provider Facility Start: 12-06-2024 End: 12-06-2024 Bamboo flowsheet Luna Musa Rinkes DO Work Phone: [facility] Start: 12-06-2024 End: 12-06-2024 Bamboo flowsheet Luna Musa Rinkes DO Work Phone: [facility] Start: 12-06-2024 End: 12-06-2024 Office outpatient visit 25 minutes Luna Arnoldkes DO Work Phone: [facility] Comment on above: Vaginal atrophy; Encounter for screening mammogram for breast cancer Start: 06-12-2024 Postop follow up vis it related to original px [facility] Start: 06-12-2024 ambulatory Doroteo Zamarripa [facility] Start: 06-05-2024 End: 06-05-2024 Telephone encounter Luna Lerner DO Work Phone: [facility] Start: 05-31-2024 ambulatory Adis E Gerkin [facility] Start: 05-29-2024 ambulatory Adis E Gerkin [facility] Start: 05-28-2024 ambulatory [facility] Start: 05-28-2024 ambulatory [facility] E [facility] Start: 05-27-2024 Evaluation and manag ement of inpatient JOCY ELDER [facility] Start: 05-27-2024 ambulatory [facility] Start: 05-27-2024 End: 05-28-2024 Emergency department patient visit Elias Soria MD Work Phone: [facility] Comment on above: Wound dehiscence (Pr imary Dx); Fall, initial encounter Start: 05-27-2024 End: 05-28-2024 Evaluation and management of inpatient Elias Soria MD Work Phone: [facility] Start: 05-15-2024 ambulatory Rogelio M Hurst [facility] Start: 04-27-2024 End: 04-27-2024 Encounter identifier Rogelio Wilson Work Phone: [facility] Start: 04-27-2024 ambulatory Rogelio Wilson [facility] Start: 04-25-2024 End: 04-25-2024 Encounter identifier Rogelio Wilson Work Phone: [facility] Start: 04-25-2024 ambulatory Rogelio Wilson [facility] Start: 04-20-2024 End: 04-20-2024 Encounter identifier Rogelio Wilson Work Phone: [facility] Start: 04-20-2024 ambulatory Rogelio Wilson [facility] Start: 04-19-2024 End: 04-19-2024 Encounter identifier Doroteo Dove Work Phone: [facility] Start: 04-19-2024 End: 04-19-2024 ambulatory JOCY ELDER [facility] Start: 04-19-2024 End: 04-19-2024 Evaluation and management of inpatient Rogelio Wilson MD Work Phone: [facility] Start: 04-19-2024 End: 04-19-2024 Subsequent hospital visit by physician Rogelio Wilson MD Work Phone: [facility] Comment on above: Unilateral primary o steoarthritis, left knee (Primary Dx) Start: 04-19-2024 ambulatory Doroteo [facility]ove [facility] Start: 03-27-2024 End: 03-27-2024 Encounter for other preprocedural examination Rui Padilla Work Phone: [facility] Start: 03-27-2024 End: 03-27-2024 Encounter for preprocedural cardiovascular examination Rui Padilla Work Phone: [facility] Start: 03-27-2024 End: 03-27-2024 Encounter identifier Andry Owusu Work Phone: [facility] Start: 03-27-2024 End: 03-27-2024 Office outpatient new 45 minutes Rui Padilla Work Phone: [facility] Start: 03-27-2024 ambulatory [facility] Start: 03-27-2024 ambulatory [facility]ry [facility] Start: 02-22-2024 End: 02-22-2024 Encounter identifier Rogelio Wilson Work Phone: [facility] Start: 02-22-2024 End: 02-22-2024 Office outpatient new 45 minutes [facility] Start: 02-22-2024 ambulatory [facility]io Wilson [facility] Start: 02-22-2024 ambulatory [facility]io Wilson [facility] Start: 09-02-2023 End: 09-02-2023 ambulatory LUNA E HIPOLITOJAMES Not Available Start: 04-28-2022 Encounter for genera l adult medical examination without abnormal findings DR JOCY ELDER [facility] Start: 04-23-2022 End: 04-24-[address] JOCY ELDER Facility:[facility] Start: 04-23-2022 End: 04-24-2022 Encounter for general adult medical examination without abnormal findings DR JOCY ELDER Facility:[facility] Start: 08-18-2021 End: 08-18-[address] JOCY ELDER Facility:[facility] Start: 05-28-2021 End: 05-29-[address] JOCY ELDER Facility:[facility] Start: 05-22-2021 End: 05-23-[address] JOCY ELDER Facility:[facility] Encounter for other preprocedural examination Rui Padilla MD [facility] Encounter for preprocedural cardiovascular examination Rui Padilla MD [facility] Procedures Date Procedure Procedure Detail Performing [...] Years Old (1 - 1-dose 75+ series) [facility] Start: 09-01-2025 Screening for malign ant neoplasm of breast Breast Cancer Screening [facility] Start: 05-28-2025 Falls Risk Assessment Falls Risk Ass essment [facility] Start: 05-28-2025 Hypertension/CHF/CAD Annual BMP Blood Test Hypertension/CHF/CAD Annual BMP Blood Test [facility] Start: 04-19-2025 Falls Risk Assessment Falls Risk Ass essment [facility] Start: 03-27-2025 Hypertension/CHF/CAD Annual BMP Blood Test Hypertension/CHF/CAD Annual BMP Blood Test [facility] Start: 12-06-2024 End: 12-06-2024 Professional / ancillary services management 12/06/2024 12:00 PM EDT Ancillary Procedure [facility] [address] [place] [id number] [facility] Start: 12-06-2024 End: 12-06-2024 Patient encounter procedure 12/06/2024 10:30 AM EDT Office Visit [facility] [address] [place] [address] Luna Lerner DO [address] [place] [address] Vaginal atrophy; Encounter for screening mammogram for breast cancer [facility] Comment on above: Vaginal atrophy; Encounter for screening mammogram for breast cancer Start: 12-04-2024 Influenza vaccination Influenza Vacc ine (#1) [facility] Start: 09-14-2024 End: 09-14-2024 Professional / ancillary services management 09/14/2024 3:00 PM EDT Ancillary Procedure [facility] [place] [address] [place] [id number] [facility] [place] Start: 09-01-2024 Screening for malign ant neoplasm of breast Mammogram [facility] Start: 06-01-2024 Chrissie Lira iamaurice [facility] Work Phone: Start: 05-28-2024 End: 05-28-2024 INCISION DRAINAGE EXTREMITY LOWER INCISION DRAINAGE EXTREMITY LOWER Dehiscence of operative wound, initial encounter 05/28/2024 11:03 AM EST [facility] Start: 04-19-2024 Chrissie Lira TJO [facility] Work Phone: Start: 04-19-2024 End: 04-19-2024 Arthrp kne condyle&platu medial&lat compartments ARTHROPLASTY KNEE TOTAL Unilateral primary osteoarthritis, left knee Pain in left knee 04/19/2024 8:44 AM EST [facility] Start: 03-27-2024 End: 03-27-2024 [facility] Start: 03-21-2024 Adolescent depressio n screening assessment Depression Screening [facility] Start: 03-21-2024 Hepatitis C screening Hepatitis C Sc reening [facility] Start: 03-21-2024 Lipid panel Cholesterol Sc reening (Lipid Panel) [facility] Start: 03-21-2024 Medicare Annual Well ness Visit Medicare Annual Wellness Visit [facility] Start: 03-21-2024 Screening for malign ant neoplasm of colon Colorectal Cancer Screening: Colonoscopy [facility] Start: 03-21-2024 Screening for osteoporosis Osteoporosis Screening (Bone Density Screening) [facility] Start: 03-21-2024 Social Influencers o f Health Screening Social Influencers of Health Screening [facility] Start: 12-05-2023 COVID-19 Vaccine ( season) COVID-19 Vaccine ( season) [facility] Start: 12-05-2023 COVID-19 Vaccine ( season) COVID-19 Vaccine ( season) [facility] Start: 12-05-2023 Influenza vaccination Influenza Vacc ine (#1) [facility] Start: 2023 Pneumococcal Vaccine : 65+ Years (1 of 1 - PCV) Pneumococcal Vaccine: 65+ Years (1 of 1 - PCV) [facility] Start: 02-07-2008 Pneumococcal Vaccine : 50+ Years (1 of 1 - PCV) Pneumococcal Vaccine: 50+ Years (1 of 1 - PCV) [facility] Start: 02-07-2008 Pneumococcal Vaccine : 65+ Years (1 of 1 - PCV) Pneumococcal Vaccine: 65+ Years (1 of 1 - PCV) [facility] Start: 02-07-2008 Zoster Vaccines (1 of 2) Zoste r Vaccines (1 of 2) [facility] Start: 1977 DTaP,Tdap,and Td Vaccines (1 - Tdap) DTaP,Tdap,and Td Vaccines (1 - Tdap) [facility] Start: 1958 Screening for malign ant neoplasm of colon [facility] DBT Breast - bilater al screening Bilateral screening mammogram with tomosynthesis Imaging Routine Encounter for screening mammogram for breast cancer Ordered: 12/06/2024 [employer] Work Phone: Comment on above: Ordered: 12/06/2024 End: 05-28-2024 ECG 12 lead - Procedural (No Charge) ECG 12 lead - Procedural (No Charge) ECG Routine Once for 1 Occurrences starting 05/28/2024 until 05/28/2024 [facility] Work Phone: Comment on above: Once for 1 Occurrenc es starting 05/28/2024 until 05/28/2024 End: 05-27-2024 Study Interpretation of outside study [facility] Comment on above: Once for 1 Occurrenc es starting 05/27/2024 until 05/27/2024 Payers Date Payer Category Payer Unknown [id number] 2023 Commercial Indemnity [facility] [id number] 2023 Medicare [id number]. 1.13.502. [id number] 2023 Private Health Insurance 1.2 .840.422808.1.13.693. [id number] 2023 Unknown [facility] [id number] 2023-Present [address] [place] [address] 1.2.840.938437.1.13.502. 2.7.3.039825.315 2023 Medicare [id number] 2023 Unknown [id number] 1960 Unknown [id number] 2.16.840.1.767906.3.579. 2.593 1958 Unknown [id number] 2.16.840.1.384858.3.579. 2.593 1958 Unknown [id number] 2.16.840.1.053889.3.579. 2.593 1958 Unknown [id number] 2.16.840.1.217619.3.579. 2.593 1958 Unknown [id number] 2.16.840.1.696925.3.579. 2.1259 1958 Unknown [id number] 2.16.840.1.954724.3.579. 2.1259 1958 Unknown [id number] 2.16.840.1.614079.3.579. 2.1314 1958 Unknown [id number] 2.16.840.1.826019.3.579. 2.1143 1958 Unknown [id number] 2.16.840.1.444719.3.579. 2.1143 1958 Unknown [id number] 2.16.840.1.014049.3.579. 2.1143 1958 Unknown [id number] 2.16.840.1.824060.3.579. 2.1314 1958 Unknown [id number] 2.16.840.1.195773.3.579. 2.1314 1958 Unknown [id number] 2.16.840.1.730612.3.579. 2.1314 1958 Unknown [id number] 2.16.840.1.830064.3.579. 2.1314 1958 Unknown [id number] 2.16.840.1.749592.3.579. 2.1313 1958 Unknown [id number] 2.16.840.1.961317.3.579. 2.1313 1958 Unknown [id number] 2.16.840.1.819127.3.579. 2.1313 1958 Unknown [id number] 2.16.840.1.852776.3.579. 2.1313 1958 Unknown [id number] 2.16.840.1.140101.3.579. 2.1313 1958 Unknown [id number] 2.16.840.1.122396.3.579. 2.1313 1958 Unknown [id number] 2.16.840.1.940885.3.579. 2.1313 1958 Unknown [id number] 2.16.840.1.251809.3.579. 2.1313 1958 Unknown [id number] 2.16.840.1.823404.3.579. 2.1313 1958 Unknown [id number] 2.16.840.1.372607.3.579. 2.1313 1958 Unknown [id number] 2.16.840.1.149300.3.579. 2.1313 Self-pay [id number] Unknown [id number] Unknown [id number] Social History Date Type Detail Facility Start: 02-22-2024 Alcohol intake Alcohol Use Details [facility] Start: 02-22-2024 Tobacco use and exposure Non-Smoking Tobacco Use Details [facility] Start: 1960 Sex Assigned At Female [facility] Start: 12-08-2019 Sexual Orientation Choose not to disclose [facility] Start: 02-22-2024 End: 04-27-2024 Tobacco smoking status NHIS Unknown if ever smoked [facility] Start: 07-25-2019 Sexual Orientation Straight or heterosexual [facility] Start: 04-17-2024 Tobacco smoking stat NHIS Never [...] 08-14-2022 Sexual Orientation Bisexual [facility] Start: 03-20-2024 Sex Female (finding) [facility] Start: 1960 Sex assigned at Not on file [facility] NEGATED: Highlighted rowStart: 02-22-2024 Tobacco smoking status NHIS Never smoker [facility] NEGATED: Highlighted rowStart: 03-27-2024 Tobacco smoking status NHIS Unknown if ever smoked [facility] Medical Equipment Procedure Code Equipment Code Equipment Origin al Text Equipment Identifier Dates Cement Bone Biom et R 1x40 [facility] Sna - [id number] ()[id number] [id number])[id number]()CHIQUITA, [id number] FDA Start: 04-19-2024 Femur Terrazzo Layer Sz 2 - Sna - [id number] ()[id number](1 7)[id number])[id number] 4()CHIQUITA, [id number] FDA Start: 04-19-2024 Klassic Knee Tib ial Baseplate Sz 1 - Sna - [id number] ()[id number](1 7)[id number])[id number] 9()CHIQUITA [id number] FDA Start: 04-19-2024 Klassic Sombrero Patella Sz 1 7mm - Sna - [id number] (01)[id number](1 7)[id number](10)[id number] 12(21)NA, [id number] FDA Start: 04-19-2024 Klassic Tibial Insert Ultra-Ps Sz 1 10mm - Sna - [id number] (01)[id number](1 7)[id number](10)[id number] 7(21)NA, [id number]_imp FDA Start: 04-19-2024 Clinical Notes 02-22-2024 to 12-06-2024 Luna Lerner, DO - 12/06/2024 10:30 AM ED[facility]elephone [facility] 9:14 AM ESTTelephone Encounter - summer - 06/05/2024 9:14 AM EST Note Date & Type Note Facility 12-06-2024 History of Present illness Narrative Images from the original note were not included. Luna Lerner, [facility] Patient: Chrissie Lira : [...] Review Audit Reviewed by Shira Suazo MA ([employer] Traffic [employer] Specialist) on 12/06/24 at 1036 Medication Order Taking? Sig Documenting Provider Last Dose Status ALPRAZolam (Xanax) 0.25 MG tablet [id number] every 12 (twelve) hours Luna Lerner DO Active Calcium-Vitamin D-Vitamin K (Calcium + D) 500-1000-40 MG-UNT-MCG chewable tablet [id number] Orally Luna Lerner DO Active carvedilol (Coreg) 25 MG tablet [id number] Take 50 mg by mouth in the morning and 50 mg before bedtime. Luna Lerner DO Active citalopram (CeleXA) 10 MG tablet [id number] Yes Take 10 mg by mouth Luna Lerner DO Active Discontinued 12/06/24 1035 Cytomel 5 MCG tablet [id number] Yes 1 (one) time each day at the same time Luna Lerner DO Active Effexor XR 75 MG 24 hr capsule [id number] 1 (one) time each day at the same time Luna Lerner DO Active hydroCHLOROthiazide (HYDRODiuril) 25 MG tablet [id number] Take 25 mg by mouth Daily Luna Lerner DO Active irbesartan (Avapro) 150 MG tablet [id number] Luna Lerner DO Active lansoprazole (Prevacid) [address] capsule [id number] take 1 capsule by mouth once daily BEFORE A MEAL Luna Lerner DO Active levothyroxine (Synthroid, Levoxyl) 75 MCG tablet [id number] Take 75 mcg by mouth in the morning. Take on an empty stomach.. Luna Lerner DO Active meloxicam (Mobic) 15 MG tablet [id number] Take 15 mg by mouth Daily Luna Musa HipolitojamesDO Active simvastatin (Zocor) 20 MG tablet [id number] 1 (one) time each day at the same time Luna Lencho Lerner DO Active SUMAtriptan (Imitrex) 50 MG tablet [id number] Take 50 mg by mouth Daily as needed Luna E DO Eduarda Active tiZANidine (Zanaflex) 4 MG tablet [id number] take 1 tablet by mouth every morning and 2 tablets at bedtime Luna Musa HipolitojamesDO Active Past Medical History: Diagnosis Date Dry [...] to gross testing, coordination, and gait are normal or at baseline unless noted below. General Examination: [...] patient is to contact the office with any changes to her gynecological condition. The patient is to return in 1 year or as needed ICD-10-CM 1. Vaginal atrophy N95.2 2. Encounter for screening mammogram for breast cancer Z12.31 documented in this encounter [facility] 06-05-2024 Telephone encounter Note Letter sent out on 06/05/24 to reschedule due to provider out of office. [facility] 06-05-2024 Miscellaneous Notes Letter sent out on 06/05/24 to reschedule due to provider out of office. documented in this encounter [facility] 05-28-2024 History of Present illness Narrative [facility] Physical Therapy Evaluation PT Discharge Recommendations: Home [...] of Steps 3 Prior Function Level of [place] Independent with mobility and functional transfers Prior [...] Medical Staff Made Aware Yes Comments JEAN Crews notified of (+) void when up to [...] Activity 2: stair training with L SPC/R MEDICAL SPECIALIST Therapeutic Activity Therapeutic Activity 1: education Therapeutic [...] Outcomes Date/Time User Outcome 05/28/24 1601 Jossy Silva, PT Completed Goal: Pt will perform transfers with SBA/FWW (Resolved) Dates: Start: 05/28/24 Expected End: 05/28/24 Resolved: 05/28/24 Outcomes Date/Time User Outcome 05/28/24 1601 Jossy Silva PT Completed Goal: Pt will ambulate x150 [...] subsequent wound dehiscence of the superficial closure 2/2 a mechanical GLF. - Pain control - WBAT, no left knee ROM, to remain in knee immobilizer when out of bed - PT/OT - DVT ppx - lovenox until surgical debridement and closure - Medical co-management per [facility] - NPO at [facility] - Planning for OR on 05/29/24 for [...] [id number] message [address] Dill [ZO] 7629 I discussed with orthopedics they viewed images [...] MD 05/27/24 2310 Elias Soria MD 05/27/24 233 Elias Soria MD 05/28/24 0537 documented in this encounter [facility] 05-28-2024 Hospital course Narrative Discharge Final Diagnosis: [...] Your Medications These medications were sent to [id number] - [place], [place] - [address] [place] [address] cefadroxil 500 mg capsule oxyCODONE 5 mg [...] for follow-up: Follow-up in 6 weeks. Call [phone] for appointment. Elevation of Operative Extremity Order Comments: Keep operative extremity elevated as much as possible Order Specific Question Answer Comments Side? Left Upper or lower extremity Lower May shower after dressing is removed documented in this encounter [facility] 05-28-2024 History and physical note [facility] MEDICAL ADMISSION INITIAL VISIT Chief complaint: Left Knee Wound Dehiscence Patient Name : Chrissie Lira Patient : 1960 Patient Admit Date : 05/27/2024 Admission Diagnosis : Left Knee Wound Dehiscence Chief Complaint Patient presents with Post-op Problem Patient with left knee surgery about 6 weeks ago and fell this evening and wound reopened. Patient seen at OSH and preferred to be seen at [facility]. Bleeding controlled. Bandage reapplied. Provider Name : [...] They will require appropriate monitoring on the [facility] MOISÉS protocol. Respiratory Therapy has been consulted. [...] were performed. She was then transferred to [facility] ED for further evaluation at her request. [...] in the hospital's EMR. Adis Ratliff MD [facility] 05-28-2024 History and physical note [facility] MEDICAL ADMISSION INITIAL VISIT Chief complaint: Left Knee Wound Dehiscence Patient Name : Chrissie Lira Patient : 1960 Patient Admit Date : 05/27/2024 Admission Diagnosis : Left Knee Wound Dehiscence Chief Complaint Patient presents with Post-op Problem Patient with left knee surgery about 6 weeks ago and fell this evening and wound reopened. Patient seen at OSH and preferred to be seen at [facility]. Bleeding controlled. Bandage reapplied. Provider Name : [...] were performed. She was then transferred to [facility] ED for further evaluation at her request. [...] Adis Ratliff MD documented in this encounter [facility] 04-19-2024 History of Present illness Narrative Discharge instructions and follow-up plan reviewed, patient verbalizes understanding. Pt denies any other questions, concerns or complaints at this time.Pt escorted with wheelchair. [facility] Physical Therapy Evaluation PT Discharge Recommendations: [...] her spouse participated in caregiver training for MEDICAL SPECIALIST with stair negotiation. Both parties verbalized understanding [...] of Steps 3 Prior Function Level of [place] Independent with mobility and functional transfers Ambulation [...] (Comment) (Spouse present for caregiver training on MEDICAL SPECIALIST as he and her children will be with her at the house to assist her into and out of her home. Spouse demonstrated MEDICAL SPECIALIST with PT present for cueing.) Device Hand held assist Number of Stairs 3 Stairs Comments Pt demonstrated confidence with MEDICAL SPECIALIST from within session RLE Assessment RLE Assessment [...] with spouse present for caregiver training with MEDICAL SPECIALIST 2/ no railings at home Other Activity Other [...] Education Documentation Body Mechanics, taught by Precious Kasper, PT at 04/19/2024 2:59 PM. Learner: Significant Other, Patient Readiness: Eager Method: Explanation, Demonstration, Handout Response: Verbalizes Understanding, Demonstrated Understanding Home Exercise Program, taught by Precious Kasper, PT at 04/19/2024 2:59 PM. Learner: Significant Other, Patient Readiness: Eager Method: Explanation, Demonstration, Handout Response: Verbalizes Understanding, Demonstrated Understanding Mobility Training, taught by Precious Kasper PT at 04/19/2024 2:59 PM. Learner: Significant Other, Patient Readiness: Eager Method: Explanation, Demonstration, Handout Response: Verbalizes Understanding, Demonstrated Understanding Education Comments No comments found. documented in this encounter [facility] 04-19-2024 Procedure note [facility], A Member of [facility] OPERATIVE REPORT PATIENT NAME: Chrissie Lira DATE OF : 1960 [facility]#: [id number] SURGEON: Rogelio Wilson MD DATE OF SERVICE: 04/19/2024 DATE OF SURGERY: 04/19/2024 PREOPERATIVE DIAGNOSIS: OA left knee (M17.12) POSTOPERATIVE DIAGNOSIS: OA left knee (M17.12) PROCEDURE: Primary Left Total Knee Arthroplasty (93928) Femoral Component: TJO Klassic Nonporous , Size: 2 Tibial Component: TJO Klassic Knee System Tibial Baseplate, Nonporous Size: 1 Patella Component: TJO Klassic Knee System , Sombrero Size: 1 Polyethylene: TJO Klassic Knee System, Ultra-PS Std Poly Size: 1 ; 10mm Fixation: Biomet Bone Cement ATTENDING SURGEON: Rogelio Wilson MD BILINGUAL MEDICAL RECEPTIONIST: Doroteo Dove PA-C INDICATIONS: Patient is a [...] Thickness and size are reconstructed with a [facility] Size: 1 [facility] Knee System . The knee flexed [...] 2 femoral component is placed. A TJO Zoobeassic Knee System Sombrero Size: 1 patellar component [...] awake, alert, and stable in good condition. BILINGUAL MEDICAL RECEPTIONIST/ATTENDING PARTICIPATION: Doroteo Dove PA-C assisted with proper [...] By: Rogelio Wilson MD on 04/19/2024 10:49:40 [facility], A Member of [facility] OPERATIVE REPORT PATIENT NAME: Chrissie Lira DATE OF : 1960 CSN#: [id number] SURGEON: Rogelio Wilson MD DATE OF SERVICE: 04/19/2024 DATE OF SURGERY: 04/19/2024 REF 5105.02.000 LOT [id number] Klassic Femur, Nonporous size 2 Femur, Nonporous, size 2 Use By 2028-10-14 () [id number] () 322555 (10) [id number] REF 5201.01.000 LOT [id number] Klassic Tibial Baseplate for Primary or Revision, Nonporous, size 1 size 1 Uncoated knee tibia prosthesis, metallic Use By 2028-09-20 () [id number] () 468704 (10) [id number] REF 5501.01.007 LOT [id number] Klassic Knee Sombrero Patella, Size 1, 7mm Size 1, 7mm Polyethylene patella prosthesis Use By 2033-09-19 () [id number] () 069819 (10) [id number] REF 5301.01.010 LOT [id number] Klassic Knee Tibial Insert, Ultra-PS, Size 1, 10 mm, Final Packed, Sterile Size 1, 10 mm Tibial insert Use By 2033-06-02 () [id number] () 369124 (10) [id number] Patient's DOS medications reviewed Confirmed no changes in medications, skin, or new infections since PAT phone call documented in this encounter [facility] 04-19-2024 Surgery Surgical operation note [facility], A Member of [facility] OPERATIVE REPORT PATIENT NAME: Chrissie Lira DATE OF : 1960 [facility]#: [id number] SURGEON: Rogelio Wilson MD DATE OF SERVICE: 04/19/2024 DATE OF SURGERY: 04/19/2024 PREOPERATIVE DIAGNOSIS: OA left knee (M17.12) POSTOPERATIVE DIAGNOSIS: OA left knee (M17.12) PROCEDURE: Primary Left Total Knee Arthroplasty (06567) Femoral Component: TJO Klassic Nonporous , Size: 2 Tibial Component: TJO Klassic Knee System Tibial Baseplate, Nonporous Size: 1 Patella Component: TJO Klassic Knee System , Sombrero Size: 1 Polyethylene: TJO Klassic Knee System, Ultra-PS Std Poly Size: 1 ; 10mm Fixation: Biomet Bone Cement ATTENDING SURGEON: Rogelio Wilson MD BILINGUAL MEDICAL RECEPTIONIST: Doroteo Dove PA-C INDICATIONS: Patient is a [...] Thickness and size are reconstructed with a [employer] [facility] Size: 1 [facility] Knee System . The knee flexed [...] A well-balanced arthroplasty is obtained with a [employer] Zoobe[employer] Knee System, Ultra-PS Std Poly Size: 1 ; 10mm tibial polyethylene insert. Trials are removed. The bony ends are lavaged and irrigated with pulsatile lavage. Sclerotic bone is punched to enhance cement intrusion. Polymethylmethacrylate is mixed and pressurized. A [facility]JO [facility] Knee System, Ultra-PS Std Poly Size: 1 ; 10mm tibial polyethylene is placed. A Size: 2 femoral component is placed. A TJO Zoobeassic Knee System Sombrero Size: 1 patellar component [...] awake, alert, and stable in good condition. BILINGUAL MEDICAL RECEPTIONIST/ATTENDING PARTICIPATION: Doroteo Dove PA-C assisted with proper [...] By: Rogelio Wilson MD on 04/19/2024 10:49:40 [facility], A Member of [facility] OPERATIVE REPORT PATIENT NAME: Chrissie Lira DATE OF : 1960 CSN#: [id number] SURGEON: Rogelio Wilson MD DATE OF SERVICE: 04/19/2024 DATE OF SURGERY: 04/19/2024 REF 5105.02.000 LOT [id number] Klassic Femur, Nonporous size 2 Femur, Nonporous, size 2 Use By 2028-10-14 () [id number] (17) 568061 (10) L450029-9 REF 5201.01.000 LOT [id number] Klassic Tibial Baseplate for Primary or Revision, Nonporous, size 1 size 1 Uncoated knee tibia prosthesis, metallic Use By 2028-09-20 () [id number] (17) 659487 (10) [id number] REF 5501.01.007 LOT [id number] Klassic Knee Sombrero Patella, Size 1, 7mm Size 1, 7mm Polyethylene patella prosthesis Use By 2033-09-19 () [id number] (17) 275190 (10) [id number] REF 5301.01.010 LOT [id number] Klassic Knee Tibial Insert, Ultra-PS, Size 1, 10 mm, Final Packed, Sterile Size 1, 10 mm Tibial insert Use By 2033-06-02 () [id number] (17) 413881 (10) [id number] [facility] 04-19-2024 History and physical note History and Physical Update ( H&P completed within the previous thirty days ) I personally reviewed the History and Physical, performed and orthopedic exam, and spoke with the patient prior to surgery. No apparent changes have occurred in the patient's condition since the History and Physical was completed. [facility] Work Phone: 04-19-2024 History and physical note History and Physical Update ( H&P completed within the previous thirty days ) I personally reviewed the History and Physical, performed and orthopedic exam, and spoke with the patient prior to surgery. No apparent changes have occurred in the patient's condition since the History and Physical was completed. documented in this encounter [facility] 04-18-2024 Nurse Note Patient's DOS medications reviewed Confirmed no changes in medications, skin, or new infections since PAT phone call [facility] 04-17-2024 Hospital course Narrative Pre-Surgery Instructions: Medication [...] prior to your surgery. Check in at bilingual medical receptionist desk [address], [place] [address]. Meds per [facility] med recc NPO per [...] can discharge you. documented in this encounter [facility] 03-27-2024 Evaluation note Type assessment Preoperative clearan ce (Z01.818)Patient presents prior to an elective MAJOR surgery. Preoperative medical risk stratification indicates patient is at an acceptable risk. Prescription drug management provided at [facility] verbally and in writing. assessment Osteoarthritis of [...] of PO or PRN Clonidine.BP CHECK AT [facility] ACCEPTABLE FOR SURGERY. assessment GERD without esophag [...] Use of the ACCP guidelines is recommended. [facility] Work Phone: 1(575) 902-478912-23-2024 History of Present illness Narrative* Encounter Date [...] Meloxicam and hydrocodone with minimal relief. [facility] Phone: 1(680) 995-979011-19-2024 Evaluation note* Type Assessment Date assessment assessment [facility] Phone: 1(738) 399-579811-19-2024 History of Present illness Narrative* Encounter Date [...] Meloxicam and hydrocodone with minimal relief. [facility] Phone: Consult note* Clinical Note Date No Information [facility]: Discharge summary* Clinical Note Date No Information [facility] Phone: Evaluation note* Type Assessment Date No Information [facility]: Evaluation note* Diagnosis Unilateral primary osteoarthritis, left knee- Primary Unilateral primary osteoarthritis, left knee documented in this encounter [facility] note* Diagnosis Wound dehiscence- Primary Disruption of external operation (surgical) wound Wound dehiscence Disruption of external operation (surgical) wound Fall, initial encounter [facility] Diagnosis Vaginal atrophy Postmenopausal atrophic vaginitis Encounter for screening mammogram for breast cancer [facility] Clinical Note Date No Information [facility] Phone: Hospital Discharge instructions* Attachments The following attachments cannot be sent through Care Everywhere. * Sleep Apnea: General Info (Romanian) * DVT (Deep Vein Thrombosis) (Romanian) * Fall Prevention (Romanian) * Incentive Spirometer: General Info (Romanian) [facility] Date Instruction Additional Infor mation No Information [facility] Work Phone: Progress note* Clinical Note Date No Information [facility] Work Phone: Reason for referral (narrative)* Reason For Referral No Information [facility] Work Phone: Summary Purpose Family History Family Member Type Diagnosis Age [...] Maternal Grandmother Problem (finding) Cancer Advance Directives Directive Yes / No Effective [...] section and content) DATE CREATED AUTHOR 04/21/2021 [facility] dical Specialist DATE CREATED AUTHOR AUTHOR'S ORGANIZ ATION 04/29/2022 [facility] DATE CREATED AUTHOR AUTHOR'S ORGANIZ ATION 09/06/2023 [facility] dical Specialists EPIC DATE CREATED AUTHOR AUTHOR'S ORGANIZ ATION 05/31/2024 [facility] DATE CREATED AUTHOR AUTHOR'S ORGANIZ ATION 06/08/2024 [facility] DATE CREATED AUTHOR AUTHOR'S ORGANIZ ATION 06/13/2024 [facility] DATE CREATED AUTHOR AUTHOR'S ORGANIZ ATION 11/25/2024 [facility] Reason for Visit (unrecogniz ed section and content) Specialty Diagnoses / Procedures Referred By Eliecer narvaez Referred To Contact Diagnoses Unilateral primary osteoarthritis, left knee Pain in left knee M17.12 M25.562 Procedures VA ARTHROPLASTY KNEE CONDYLE&PLATEAU MED/LAT CPTS W/WO PATELLA RESURFACING VA ARTHROPLASTY KNEE CONDYLE&PLATEAU MED/LAT CPTS W/WO PATELLA RESURFACING Left total knee arthroplasty Rogelio Wilson MD [address] [place] [address] [facility] [place] [address] [place] [address] Referral ID Status Reason Start Date Expiration Date Visits Re quested Visits Authorized [id number] 1 1 Reason Comments Post-op Problem Patient with left kn ee surgery about 6 weeks ago and fell this evening and wound reopened. Patient seen at OSH and preferred to be seen at [facility]. Bleeding controlled. Bandage reapplied. Specialty Diagnoses / Procedures Referred By Contac t Referred To Contact Diagnoses Wound dehiscence Fall, initial encounter Procedures . Adis Ratliff MD [address] [place] [address] Phone: tel: fax: Vee Valladares Anthon [address] [place] [address] Phone: tel: Referral ID Status Reason Start Date Expiration Date Visits Re quested Visits Authorized [id number] 1 Reason Comments Gynecologic Exam Denies concerns. Den ies bowel/bladder/breast concerns. Denies vaginal bleeding/spotting. Ordered Prescriptions (unrec ognized section and content) [...] Recovery (only), 2nd Line Option: -ONLY give VA if patient is unable to take orally. -If inadequate response within 30 minutes, proceed to next-line agent or contact provider if no further options ordered. promethazine (PHENERGAN) tablet 25 mg(Linked Group 4) 25 mg, oral, Every 6 hours PRN, nausea, vomiting, Starting on Wed04/19/24 at 0955, Recovery (only), 2nd Line Option: -Give VA if patient is unable to take orally. [...] 0955, Recovery (only), 2nd Line Option: -Give VA if patient is unable to take orally. -If inadequate response within 30 minutes, proceed to next-line agent or contact provider if no further options ordered. Or promethazine (PHENERGAN) suppository 25 mgJump to med 25 mg, rectal, Every 12 hours PRN, nausea, vomiting, Starting on Wed04/19/24 at 0955, Recovery (only), 2nd Line Option: -ONLY give VA if patient is unable to take orally. [...] (Given - Provid er: Eleonora Tovar RN)1103 (MAR Hold - Provider: [...] 25 mg, oral, Daily, First dose on Wed05/29/24 at 0900, Hold for SBP < 110 ibuprofen (ADVIL,MOTRIN) tablet 400 mg (COMPLETED) 400 mg, oral, Once, On 05/27/24 at 2245, For 1 dose, Administer with food or milk to decrease GI upset 2238 (Given - Provider: Bethanie Au RN) levothyroxine (SYNTHROID, LEVOTHROID) tablet 75 mcg 75 mcg, oral, Every morning before breakfast, First dose on Wed05/29/24 at 0700, ORAL ROUTE: take on an [...] 8 mg, oral, Nightly, First dose on 05/28/24 at 2100 venlafaxine XR (EFFEXOR-XR) 24 hr capsule 150 mg 150 mg, oral, Daily, First dose on Wed05/29/24 at 0900, Capsule may be swallowed whole, or may be opened and its contents sprinkled on applesauce if consumed immediately without chewing. Do not crush or chew. venlafaxine XR (EFFEXOR-XR) 24 hr capsule 75 mg 75 mg, oral, Daily, First dose on 05/29/24 at 0900, Capsule may be swallowed whole, or may be opened and its contents sprinkled on applesauce if consumed immediately without chewing. Do not crush or chew. PRN Medication Order 05/26/2024 05/27/2024 05/28/2024 albuterol 2.5 mg /3 mL (0.083 %) nebulizer solution 2.5 mg 2.5 mg, nebulization, Every 4 hours PRN, wheezing, shortness of breath, Starting on 05/27/24 at 2352 1103 ([facility] Hold - Pro vider: Automatic Transfer Provider - Reason: Patient not available)1301 ([facility] Unhold - Provider: Automatic Transfer Provider) aluminum-magnesium hydroxide-simethicone (MAALOX) 200-200-20 mg/5 mL suspension 30 mL 30 mL, oral, 4 times daily PRN, indigestion, heartburn, Starting on 05/27/24 at 2347 1103 ([facility] Hold - Pro vider: Automatic Transfer Provider - Reason: Patient not available)1301 ([facility] Unhold - Provider: Automatic Transfer Provider) bisacodyL (DULCOLAX) suppository 10 mg 10 mg, rectal, Daily PRN, constipation, If magnesium hydroxide ineffective, Starting on 05/27/24 at 2347 1103 ([facility] Hold - Pro vider: Automatic Transfer Provider - Reason: Patient not available)1301 ([facility] Unhold - Provider: Automatic Transfer Provider) cloNIDine (CATAPRES) tablet 0.1 mg 0.1 mg, oral, Every 8 hours PRN, high blood pressure, for SBP more than 150 or DBP more than 100, Starting on 05/27/24 at 2357 1103 ([facility] Hold - Pro vider: Automatic Transfer Provider - Reason: Patient not available)1301 ([facility] Unhold - Provider: Automatic Transfer Provider) diphenhydrAMINE (BENADRYL) capsule 25 mg 25 mg, oral, Every 6 hours PRN, itching, Starting on 05/27/24 at 2347 1103 ([facility] Hold - Pro vider: Automatic Transfer Provider - Reason: Patient not available)1301 ([facility] Unhold - Provider: Automatic Transfer Provider) fentaNYL [...] pain, Starting on 05/27/24 at 2355 1103 ([facility] Hold - Pro vider: Automatic Transfer Provider - Reason: Patient not available)1301 ([facility] Unhold - Provider: Automatic Transfer Provider)1433 (See Alternative - Provider: Eleonora Tovar RN) HYDROcodone-acetaminophen (NORCO) 5-325 mg per tablet 2 tablet(Linked Group 3) 2 tablet, oral, Every 4 hours PRN, severe pain, Starting on 05/27/24 at 2355 1103 ([facility] Hold - Pro vider: Automatic Transfer Provider - Reason: Patient not available)1301 ([facility] Unhold - Provider: Automatic Transfer Provider)1433 (Given - Provider: Eleonora Tovar RN) HYDROmorphone (DILAUDID) injection 0.5 mg 0.5 mg, intravenous, Every 2 hours PRN, severe pain, For severe breakthrough pain not relieved with oral pain medication, Starting on 05/27/24 at 2347 0136 (Given - Provid er: Haile Mazariegos RN)1103 ([facility] Hold - Provider: Automatic Transfer Provider - Reason: Patient not available)1301 ([facility] Unhold - Provider: Automatic Transfer Provider) HYDROmorphone [...] dose with 8 oz of water. 1103 ([facility] Hold - Pro vider: Automatic Transfer Provider - Reason: Patient not available)1301 ([facility] Unhold - Provider: Automatic Transfer Provider) naloxone (NARCAN) injection 0.4 mg 0.4 mg, intravenous, Once as needed, opioid reversal, respiratory depression, Starting on 05/27/24 at 2347, For 1 dose 1103 ([facility] Hold - Pro vider: Automatic Transfer Provider - Reason: Patient not available)1301 ([facility] Unhold - Provider: Automatic Transfer Provider) NON FORMULARY (CANCELED) As needed, Starting on 05/28/24 at 1133, Intraprocedure 1133 (Given - Provid er: Rogelio Wilson MD - Comment: prontosan) ondansetron (PF) (ZOFRAN) injection 4 mg (CANCELED) 4 mg, intravenous, Every 6 hours PRN, nausea, vomiting, Starting on 05/27/24 at 2347 1103 ([facility] Hold - Pro vider: Automatic Transfer Provider - Reason: Patient not available)1117 (Given - Provider: Juan Bryan MD)1301 ([facility] Unhold - Provider: Automatic Transfer Provider) ondansetron [...] O2 Sat. at or above: 90% 1103 ([facility] Hold - Pro vider: Automatic Transfer Provider - Reason: Patient not available)1301 ([facility] Unhold - Provider: Automatic Transfer Provider) polyethylene glycol (MIRALAX) packet 17 g 17 g, oral, Daily PRN, constipation, Starting on 05/27/24 at 2347 1103 ([facility] Hold - Pro vider: Automatic Transfer Provider - Reason: Patient not available)1301 ([facility] Unhold - Provider: Automatic Transfer Provider) sodium chloride 0.9 % flush 10 mL(Linked Group 1) 10 mL, intravenous, As needed, line care, Starting on 05/27/24 at 2343 1103 ([facility] Hold - Pro vider: Automatic Transfer Provider - Reason: Patient not available)1301 ([facility] Unhold - Provider: Automatic Transfer Provider) sodium [...] sleep, Starting on 05/27/24 at 2347 1103 ([facility] Hold - Pro vider: Automatic Transfer Provider - Reason: Patient not available)1301 ([facility] Unhold - Provider: Automatic Transfer Provider) vancomycin [...] Care Teams (unrecognized sec tion and content) Robotics Application Engineer Relationship Specialty Start Date End Date Jocy Elder MD PCP - General Family Medicine 09/02/23 Robotics Application Engineer Relationship Specialty Start Date End Date Jocy Elder MD [address] [place] [address] PCP - General Family Medicine 09/02/23 Robotics Application Engineer Relationship Specialty Start Date End Date Jocy Elder MD [address] [place] [address] PCP - General Family Medicine 04/14/24 FOR [...] BE BASED ON THE PRIMARY CLINICAL RECORDS. [facility]. provides no warranty or guarantee of the accuracy or completeness of information in this document.
[2024-12-07 13:24] LABS: Free T3 3.79 pg/mL (2.18-3.98); Thyroid Stimulating Hormone 0.058 uIU/mL (0.358-3.740)
== END 2024-12-07 12:07 | disposition home or self-care (01) ==
LOC: LAB 12:08
PROVIDERS: PCP Family Medicine; Visit Provider Family Medicine
DX: R94.6 Abnormal results of thyroid function studies (principal)
CPT/HCPCS: 36415; 84436; 84443; 84481

== ENCOUNTER 2024-12-18 10:41 | Outpatient (OUT) | payer MEDICARE, OTHER, SELFPAY ==
--- OUTSIDE RECORDS SUMMARY | 2024-12-06 10:30 | XMS_ITS | Encounter Summary ---
Author Organization [facility] Address [address] [place] [address] Care Team Providers Care Peer Tutor Name Role Phone Boone Elder MD Primary Care Provider [phone] Reason for Visit * Reason Comments Gynecologic Exam Denies concerns. Den ies bowel/bladder/breast concerns. Denies vaginal bleeding/spotting. Encounter Details Date Type Department Care Team (Late st Contact Info) Description 12/06/2024 10:30 AM EDT Office Visit [facility] [address] [facility] [address] [place] [phone] Luna Lerner DO [address] [facility] [address] [place] [address] Vaginal atrophy; Encounter for screening mammogram for breast cancer Social History Tobacco Use Types Packs/Day Years Used Date Smoking Tobacco: Never Assessed Comments No Sex and Gender Information Value Date Recorded Sex Assigned at Not on file Legal Sex Female 7:03 PM EDT Gender Identity Not on file Sexual Orientation Not on file documented as of this encounter Last Filed Vital Signs Vital Sign Reading Time Taken Comments Blood Pressure 122/80 12/06/2024 10:37 AM EDT Pulse - - Temperature - - Respiratory Rate - - Oxygen Saturation - - Inhaled Oxygen Concentration - - Weight 61.7 kg (136 lb) 12/06/2024 10:37 AM EDT Height - - Body Mass Index 25.7 09/02/2023 11:17 AM EDT documented in this encounter Progress Notes * DO Ada Medina 12/06/2024 10:30 AM EDT Images from the original note were not included. Luna Lerner D.O. Obstetrics and Gynecology Patient: Chrissie Lira : 1960 (64 y.o.) Yearly Wellness Exam Date: 12/06/2024 Reason for Visit - Chief Complaint Patient presents with Gynecologic Exam Denies concerns. Denies bowel/bladder/breast concerns. Denies vaginal bleeding/spotting. Visit Vitals OB Status Postmenopausal Allergies Allergen Reactions Codeine Other Reaction(s): CHEST PAIN Iodinated Contrast Media Other Reaction(s): unknown Sulfa Antibiotics Other Reaction(s): Unknown History of Present Illness, Associated Treatments and Results - OB History Para Term AB Living 1 1 1 0 0 1 SAB IAB Ectopic Multiple Live Births 0 0 0 0 1 # Outcome Date GA Lbr Kael/2nd Weight Sex Type Anes PTL Lv 1 Term F Vag-Spont PRINCESS Obstetric Comments Pap smear 09/02/23 [facility]nl Mammogram 09/02/23 wnl @ [facility] Review of Systems - General: Chills denies. Allergy/Immunology: Rash Denies. ENT: Denies Difficulty swallowing. Endocrine: Denies Cold intolerance denies. Heat intolerance denied. Respiratory: Denies Chest pain denies. Shortness of breath denies. Breast: Denies Bloody nipple discharge denies. Breast lump denies. Cardiovascular: Denies Chest pain. Gastrointestinal: Abdominal pain denies. Blood in stool denies. Hematology: Easy bruising denies. Prolonged bleeding denies. Women Only: Breast lump denies. Vaginal bleeding between periods is denied. Vaginal discharge/itching denied. Genitourinary: Blood in urine denies. Painful urination denies. Incontinence denies. Skin: Hair changes. Neurologic: Seizures denied. Stroke denies. Psychiatric: Anxiety denies. Depressed mood denies. Medication Documentation Review Audit Reviewed by Shira Suazo MA (Travel Agency Manager) on 12/06/24 at 1036 Medication Order Taking? Sig Documenting Provider Last Dose Status ALPRAZolam (Xanax) 0.25 MG tablet [id number] every 12 (twelve) hours Luna Lerner, DO Active Calcium-Vitamin D-Vitamin K (Calcium + D) 500-1000-40 MG-UNT-MCG chewable tablet [id number] Orally Luna Lerner DO Active carvedilol (Coreg) 25 MG tablet [id number] Take 50 mg by mouth in the morning and 50 mg before bedtime. Luna Lerner DO Active citalopram (CeleXA) 10 MG tablet [id number] Yes Take 10 mg by mouth Luna Lerner DO Active Discontinued 12/06/24 1035 Cytomel 5 MCG tablet [id number] Yes 1 (one) time each day at the same time Luna Lerner DO Active Effexor XR 75 MG 24 hr capsule [id number] 1 (one) time each day at the same time Luna Lerner DO Active hydroCHLOROthiazide (HYDRODiuril) 25 MG tablet [id number] Take 25 mg by mouth Daily Luna Lerner DO Active irbesartan (Avapro) 150 MG tablet [id number] Luna Lerner DO Active lansoprazole (Prevacid) [address] capsule [id number] take 1 capsule by mouth once daily BEFORE A MEAL Luna Lerner DO Active levothyroxine (Synthroid, Levoxyl) 75 MCG tablet [id number] Take 75 mcg by mouth in the morning. Takeon an empty stomach.. Luna Lerner DO Active meloxicam (Mobic) 15 MG tablet [id number] Take 15 mg by mouth Daily Luna Lerner DO Active simvastatin (Zocor) 20 MG tablet [id number] 1 (one) time each day at the same time Luna Lerner DO Active SUMAtriptan (Imitrex) 50 MG tablet [id number] Take 50 mg by mouth Daily as needed Luna Lerner DO Active tiZANidine (Zanaflex) 4 MG tablet [id number] take 1 tablet by mouth every morning and 2 tablets at bedtime Luna Lerner DO Active Past Medical History: Diagnosis Date Dry eyes Glaucoma Hypertension Past Surgical History: Procedure Laterality Date BASAL CELL CARCINOMA EXCISION CATARACT EXTRACTION EYE SURGERY TOTAL KNEE ARTHROPLASTY Left 2024 VAGINAL DELIVERY Family History Problem Relation Name Age of Onset Other (colon) Mother Breast cancer Maternal Grandmother Diabetes Maternal Grandfather Heart disease Paternal Grandfather Physical Exam - General appearance, mentation, extraocular movements, facial strength and movement, hearing, upper and lower extremity strength and tone, sensation to gross testing, coordination, and gait are normalor at baseline unless noted below. General Examination: GENERAL APPEARANCE: alert oriented well developed, well nourished. HEAD: normocephalic atraumatic. EYES: sclera anicteric. EARS: no obvious hearing deficit. SKIN: warm and dry. HEART: regular rate and rhythm. LUNGS: clear to auscultation bilaterally. CHEST: axillary nodes grossly normal. BREASTS: no masses palpable bilaterally, normal nipples bilaterally. ABDOMEN: soft, nontender, nondistended, no masses palpable. BACK: no costovertebral angle tenderness, no obvious scoliosis/kyphosis. FEMALE GENITOURINARY: atrophic vaginal mucosa, cervix absent of lesions, nontender, uterus AV, mobile, ovaries nonpalpable and nontender. EXTREMITIES: no edema. NEUROLOGIC: alert and oriented. PSYCH: cooperative with exam. Diagnoses and all orders for this visit: Vaginal atrophy Encounter for screening mammogram for breast cancer - Bilateral screening mammogram with tomosynthesis Pelvic and breast exam completed. Findings of today's exam discussed with the patient. Continue MSBE. Ca/Vit D recommendations reviewed with the patient. The patient is to contact the office with anychanges to her gynecological condition. The patient is to return in 1 year or as needed ICD-10-CM 1. Vaginal atrophy N95.2 2. Encounter for screening mammogram for breast cancer Z12.31 documented in this encounter Plan of Treatment Upcoming Encounters Date Type Department Care Team (Late st Contact Info) Description 12/13/2025 10:45 AM EDT Office Visit [facility] [address] [place] [address] Luna Lerner DO [address] [place] [address] 12/13/2025 11:30 AM EDT Ancillary Procedure [facility] [address] [place] [address] Scheduled Orders Name Type Priority Associated Diagnoses Orde r Schedule Bilateral screening mammogram with tomosynthesis Imaging Routine Encounter for screening mammogram for breast cancer Ordered: 12/06/2024 documented as of this encounter Visit Diagnoses Diagnosis Vaginal atrophy Postmenopausal atrophic vaginitis Encounter for screening mammogram for breast cancer documented in this encounter Care Teams Peer Tutor Relationship Specialty Start Date End Date Boone Elder MD PCP - General Family Medicine 09/02/23 documented as of this encounter
--- OUTSIDE RECORDS SUMMARY | 2024-12-06 12:00 | XMS_ITS | Encounter Summary ---
Author Organization [facility] Address [address] [place] [address] Care Team Providers Care Tobacco Stemmer Name Role Phone Boone Elder MD Primary Care Provider [phone] Encounter Details Date Type Department Care Team (Late st Contact Info) Description 12/06/2024 12:00 PM EDT Ancillary Procedure [facility] [address] [place] [phone] Social History Tobacco Use Types Packs/Day Years Used Date Smoking Tobacco: Never Assessed Comments No Sex and Gender Information Value Date Recorded Sex Assigned at Not on file Legal Sex Female 7:03 PM EDT Gender Identity Not on file Sexual Orientation Not on file documented as of this encounter Plan of Treatment Upcoming Encounters Date Type Department Care Team (Late Contact Info) Description 12/13/2025 10:45 AM EDT Office Visit [facility] [facility] [address] [place] [phone] Luna Lerner DO [address] [place] [address] 12/13/2025 11:30 AM EDT Ancillary Procedure [facility] [address] [place] [address] documented as of this encounter Procedures Procedure Name Priority Date/Time Associated Diagnosis Comments BI MAMMOGRAM SCREENING TOMOSYNTHESIS BILATERAL Routine 12/06/2024 11:47 AM EDT Encounter for screening mammogram for breast cancer documented in this encounter Results * Bilateral screening mammogram with tomosynthesis (12/06/2024 11:47 AM EDT) Anatomical Region Laterality Modality Breast Bilateral Mammography 12/07/2024 8:25 AM EDT Impressions 12/07/2024 8:39 AM EDT BI-RADS 1- NEGATIVE. ROUTINE FOLLOW-UP MAMMOGRAPHY IS SUGGESTED IN ONE YEAR. DENSITY: There are scattered areas of fibroglandular density. 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 Accredited by the ACR and FDA. MAMMOGRAPHY IS VERY IMPORTANT TO YOUR HEALTH. THE [employer] GUIDELINES RECOMMEND THAT WOMEN 40 [...] APPROPRIATE TIME FOR ANY PENDING ADDITIONAL VIEWS. ELECTRONICALLY SIGNED BY: DO Peter Patel 12/07/2024 8:39 AM EDT BI MAMMOGRAM SCREENING TOMOSYNTHESIS BILATERAL:12/06/2024 11:14 AM CLINICAL HISTORY:screening. COMPARISONS: April 17, 2021 through September 02, 2023. TECHNIQUE: Routine full field 3D breast tomosynthesis was performed bilaterally. CAD analysis was performed and used in the interpretation. FINDINGS: Scattered fibroglandular densities are noted with stable asymmetry. There are no developing masses, suspicious microcalcifications, or areas of architectural distortion identified on today's examination. There is no significant change when compared to the prior examinations identified, given differences in technique and positioning. Procedure Note Filomena Kirk DO - 12/07/2024 BI MAMMOGRAM SCREENING TOMOSYNTHESIS BILATERAL:12/06/2024 11:14 AM CLINICAL HISTORY:screening. COMPARISONS: April 17, 2021 through September 02, 2023. TECHNIQUE: Routine full field 3D breast tomosynthesis was performedbilaterally. CAD analysis was performed and used in the interpretation. FINDINGS: Scattered fibroglandular densities are noted with stable asymmetry. There are no developing masses, suspicious microcalcifications, or areasof architectural distortion identified on today's examination. There is no significant change when compared to the prior examinationsidentified, given differences in technique and positioning. IMPRESSION: BI-RADS 1- NEGATIVE. ROUTINE FOLLOW-UP MAMMOGRAPHY IS SUGGESTED IN ONE YEAR. DENSITY: There are scattered areas of fibroglandular density. 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 Accredited by the ACR and FDA. MAMMOGRAPHY IS VERY IMPORTANT TO YOUR HEALTH. THE [employer] [employer] RECOMMEND THAT WOMEN 40 YEARS [...] THEAPPROPRIATE TIME FOR ANY PENDING ADDITIONAL VIEWS. ELECTRONICALLY SIGNED BY: Filomena Kirk DO Luna Lerner DO IMG BI PROCEDURES Final Res ult documented in this encounter Visit Diagnoses Not on filedocumented in this encounter Care Teams Tobacco Stemmer Relationship Specialty Start Date End Date Boone Elder MD PCP - General Family Medicine 09/02/23 documented as of this encounter
--- OUTSIDE RECORDS SUMMARY | 2024-12-18 10:43 | XMS_ITS | Encounter Summary ---
Author Organization [facility] Address [address] [place] [address] Care Team Providers Care Perinatal Technician Name Role Phone Boone Elder MD Primary Care Provider [phone] Encounter Details Date Type Department Care Team (Late Contact Info) Description 12/06/2024 Bamboo flowsheet [facility] [address] [place] [address] Luna Lerner, DO [address] [place] [address] Social History Tobacco Use Types Packs/Day Years [...] Description 12/13/2025 10:45 AM EDT Office Visit [facility] [address] [place] [address] Luna Lerner DO [address] [place] [address] 12/13/2025 11:30 AM EDT Ancillary Procedure [facility] [address] [place] [address] documented as of this encounter Visit Diagnoses Not on filedocumented in this encounter Care Teams Perinatal Technician Relationship Specialty Start Date End Date Boone Elder MD PCP - General Family Medicine 09/02/23 documented as of this encounter
--- OUTSIDE RECORDS SUMMARY | 2024-12-18 10:43 | XMS_ITS | Encounter Summary ---
Author Organization [facility] Address [address] [place] [address] Care Team Providers Care Voice Professor Name Role Phone Boone Elder MD Primary Care Provider [phone] Encounter Details Date Type Department Care Team (Latest Contact Info) Description 12/06/2024 Travel Social History Tobacco Use Types Packs/Day Years [...] 12/13/2025 10:45 AM EDT Office Visit [facility] [address] [place] [address] Luna Lerner DO [address] [place] [address] 12/13/2025 11:30 AM EDT Ancillary Procedure [facility] [place] [facility] [address] [place] [address] documented as of this encounter Visit Diagnoses Not on filedocumented in this encounter Care Teams Voice Professor Relationship Specialty Start Date End Date Boone Elder MD PCP - General Family Medicine 09/02/23 documented as of this encounter
--- OUTSIDE RECORDS SUMMARY | 2024-12-18 10:44 | XMS_ITS | Clinical Summary ---
Author Organization [facility] Address [address] [place] [address] Care Team Providers Care Mine Foreman Name Role Phone Boone Elder MD Primary Care Provider [phone] Allergies Active Allergy Reactions Criticality Noted Date Comments Codeine 09/02/2023 Other Reaction(s): CHEST PAIN Iodinated Contrast Media 09/02/2023 Other Reaction(s): unknown Sulfa Antibiotics 09/02/2023 Other Reaction(s): Unknown Medications ALPRAZolam (Xanax) 0.25 MG tablet every 12 (twelve) hours Active Calcium-Vitami n D-Vitamin K (Calcium + D) 500-1000-40 MG-UNT-MCG chewable tablet Orally Active carvedilol (Coreg) 25 MG tablet Take 50 mg by mouth in the morning and 50 mg before bedtime. 4 Active hydroCHLOROthi azide (HYDRODiuril) 25 MG tablet Take 25 mg by mouth Daily 4 Active irbesartan (Avapro) 150 MG tablet 4 Active lansoprazole (Prevacid) [address] capsule take 1 capsule by mouth once daily BEFORE A MEAL 4 Active levothyroxine (Synthroid, Levoxyl) 75 MCG tablet [...] time each day at the same time 3 Active citalopram (CeleXA) 10 MG tablet Take 10 mg by mouth Active Cytomel 5 MCG tablet 1 (one) time each day at the same time 5 Active cloNIDine (Catapres) 0.1 MG tablet Take 0.1 mg by mouth in the morning and 0.1 mg in the evening and 0.1 mg before bedtime. 4 12/07/19 25 Discontinued Encounters Date Type Department Care Team Description 12/06/2024 12:00 PM EDT Ancillary Procedure [facility] [address] [place] [address] 12/06/2024 10:30 AM EDT Office Visit [facility] [address] [place] [address] Luna Lerner DO Vaginal atrophy; Encounter for screening mammogram for breast cancer 12/06/2024 Bamboo flowsheet [facility] [address] [place] [address] Luna Lerner DO 12/06/2024 Travel from Last 3 Months Family History Medical History Relation Name Comments [...] (136 lb) 12/06/2024 10:37 AM EDT Height 154.9 cm (5' 1 ) 09/02/2023 11:17 AM EDT Body Mass Index 25.7 09/02/2023 11:17 AM EDT Plan of Treatment Upcoming Encounters Date Type Department Care Team (Late st Contact Info) Description 12/13/2025 10:45 AM EDT Office Visit [facility] [address] [place] [address] Luna Lerner DO [address] [place] [address] 12/13/2025 11:30 AM EDT Ancillary Procedure [facility] [address] [place] [address] Health Maintenance Due Date Last Done Comments CT Colonography 1958 Colonoscopy 1960 Colorectal Cancer Screening 1960 FIT-DNA 1958 FIT 1958 FOBT 1960 Sigmoidoscopy 1960 Pneumococcal Vaccine: 65+ Ye ars (1 of 1 - PCV) 02/07/2008 Influenza Vaccine (#1) 2024 Mammogram 12/06/2025 12/06/2024, 08/05, 08/19/2022, Additional history exists Cervical Cancer Screening Discontinued HPV/Cotest Discontinued 09/02/2023, 08/03, 04/17/2021, Additional history exists Pap Smear Discontinued Procedures Procedure Name Priority Date/Time Associated Diagnosis Comments BI MAMMOGRAM SCREENING TOMOSYNTHESIS BILATERAL Routine 12/06/2024 11:47 AM EDT Encounter for screening mammogram for breast cancer THINPREP IMAGING PAP W/REFL HPV MRNA E6/E7 Routine 09/02/2023 1:18 PM EDT Screening for malignant neoplasm of cervix from Last 3 Months or Most Recently Relevant to Health Maintenance Results * Bilateral screening mammogram with tomosynthesis (12/06/2024 11:47 AM EDT) Anatomical Region Laterality Modality Breast Bilateral Mammography 12/07/2024 8:25 AM EDT Impressions 12/07/2024 8:39 AM EDT BI-RADS 1- NEGATIVE. ROUTINE FOLLOW-UP MAMMOGRAPHY IS SUGGESTED IN ONE YEAR. DENSITY: There are scattered areas of fibroglandular density. 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 Accredited by the ACR and FDA. MAMMOGRAPHY IS VERY IMPORTANT TO YOUR HEALTH. THE [employer] GUIDELINES RECOMMEND THAT WOMEN 40 [...] IS VERY IMPORTANT TO YOUR HEALTH. THE [employer]IN[employer] RECOMMEND THAT WOMEN 40 YEARS [...] DO IMG BI PROCEDURES Final Res ult * THINPREP IMAGING PAP W/REFL HPV MRNA [...] components cannot be reported in this patient. 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 (ALWAYS MESSAGE) [facility] Comment: EXPLANATORY NOTE: The [...] Performing Organization Information Site ID: [id number] Name: [facility] Address: [address] [place] [address] Director: Jose Eduardo Sen MD Luna Lerner DO LAB CYTOLOGY ORDERABLES Fin al Result [facility]ST from Last 3 Months or Most Recently Relevant to Health Maintenance Insurance MEDIC[facility] [place] [id number] Care Teams Mine Foreman Relationship Specialty Start Date End Date Boone Elder MD PCP - General Family Medicine 09/02/23
--- OUTSIDE RECORDS SUMMARY | 2024-12-18 11:06 | XMS_ITS | CCD ---
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 Role Phone DR JOCY ELDER Admitting [...] Unavailable GARY, DR SILVANA King Consulting Unavailable Rogelio Wilson MD Unavailable Unavailable Rogelio Wilson MD Unavailable Unavailable Rui Padilla MD Unavailable Unavailable Rui Padilla MD Unavailable Unavailable Rui Padilla MD Unavailable Unavailable Jocy Elder MD Primary Care Provider [phone] Rogelio Wilson MD Unavailable Unavailable Rogelio Wilson MD Unavailable Unavailable Rogelio Wilson MD Unavailable Unavailable Rogelio Wilson MD Unavailable Unavailable Rogelio Wilson MD Unavailable Unavailable Rogelio Wilson MD Unavailable Unavailable Adis Ratliff Attending Unavailable Gaudencio Adis E Referring Unavailable Jocy Elder M Primary Care Unavailable Rogelio Wilson M Referring Unavailable Jocy Elder M Primary Care Unavailable Rui Padilla Attending Unavailable Jocy Elder MD Primary Care Provider JOCY ELDER Primary Care Unavailable CHASIDY ELDERLAS Primary Care Unavailable ROGELIO WILSON Consulting Unavailable ROGELIO WILSON Attending Unavailable ADIS RATLIFF Admitting Unavailable FRANCOIS WILSONSON Consulting Unavailable ROGELIO WILSON Consulting Unavailable CONSULTANTS, [facility] Consulting Unavailable HOY, JOCY Primary Care Unavailable HURST, ROGELIO Admitting Unavailable ROGELIO WILSON Attending Unavailable PalmerstRogelio M Attending Unavailable Hurst, Rogelio M Referring Unavailable Hoy, Jocy M Primary Care Unavailable PalmerstRogelio M Attending Unavailable Hurst, Rogelio M Referring Unavailable Hoy, Joyc M Primary Care Unavailable PalmerstRogelio M Attending Unavailable Palmerst, Rogelio M Referring Unavailable Hoy, Jocy M Primary Care Unavailable Rogelio Wilson M Attending Unavailable Hurst, Rogelio M Referring Unavailable Hoy, Jocy M Primary Care Unavailable PalmerstRogelio M Attending Unavailable Hurst, Rogelio M Referring [...] Primary Care Unavailable PalmerstRogelio M Attending Unavailable Hoy, Jocy M Referring Unavailable Hoy, Jocy M Primary Care Unavailable Rogelio Wilson M Attending Unavailable Rogelio Wilson M Referring Unavailable Hoy, Jocy M Primary Care Unavailable Andry Owusu Attending Unavailable Palmerst, Rogelio M Referring Unavailable Hoy, Jocy M Primary Care Unavailable PalmerstRogelio M Attending Unavailable Palmerst, Rogelio M Referring Unavailable Hoy, Jocy M Primary Care Unavailable Doroteo Dove Attending Unavailable Palmerst, Rogelio M Referring Unavailable Hoy, Jocy M Primary Care Unavailable Gerkin, Adis E Admitting Unavailable Gerkin, Adis E Attending Unavailable Hoy, Jocy M Primary Care Unavailable PalmerstFrancoisRogelio M Consulting Unavailable Gerkin, Adis E Admitting Unavailable Lonnie Skinner Attending Unavailable Hoy, Jocy M Primary Care Unavailable Palmerst, Rogelio M Consulting Unavailable Gerkin, Adis E Admitting Unavailable Hurst, Rogelio M Attending Unavailable Hoy, Jocy M Primary Care Unavailable Rogelio Wilson M Attending Unavailable Palmerst, Rogelio M Referring Unavailable Hoy, Jocy M Primary Care Unavailable Gerkin, Adis E Admitting Unavailable Gerkin, Adis E Attending Unavailable Hoy, Jocy M Primary Care Unavailable Palmerst Rogelio M Consulting Unavailable Jocy Elder MD Primary Care Provider [phone] LUNA LERNER Attending Unavailable LUNA LERNER Referring Unavailable Allergies Allergy Classification Reported Allergen(s) Allergy Type Date of Onset Reaction(s) Facility (1 source) Sulfamethoxazole / Trimethoprim Drug Allergy 08-22-19 17 [facility] (12 sources) Iodine; Translations: [iodine] Drug Allergy 02-22-20 24 Other [facility] (13 sources) Sulfonamides (Antibiotic); Translations: [Sulfa (Sulfonamide Antibiotics)] propensity to adverse reactions to drug 02-22-20 24 DifficultyBre athing, Hives, Rash [facility] (14 sources) Codeine; Translations: [codeine] Drug Allergy 09-02-19 24 Tight chest [facility] (3 sources) Acetaminophen / Codeine; Translations: [ACETAMINOPHEN-CODE INE] Drug Allergy 04-17-19 25 Other [facility] (6 sources) Sulfonamides (Antibiotic) Drug Allergy 09-02-19 24 Swelling, Rash [facility] (7 sources) Iodinated Contrast Media; Translations: [IODINATED CONTRAST MEDIA] Drug Allergy 09-02-19 24 Swelling, Rash [facility] Medications Current Medications Medication Drug Class(es) [...] MG - No Longer Active 7 day [id number] Start: 04-19-2024 End: 04-26-2024 oxyCODONE (ROXICODONE) 5 mg immediate release tablet Take 1-2 tablets (5-10 mg total) by mouth every 4 (four) hours if needed for moderate pain or severe pain for up to 7 days. Max Daily Amount: 60 mg 40 tablet 04/19/2024 04/26/2024 Active Start: 04-19-2024 End: 04-19-2024 5 mg, oral, Every 4 hours OK N, Breakthrough pain, Starting on Wed04/19/24 at 1206, [facility], May consider scheduled oxyCODONE instead of PRN Comment on above: 7 day [id number] semaglutide (UD) INJECTION (10 sources) Start: 03-27-20 [...] - Active take 2 tablets by mo ut at bedtime tiZANidine (ZANAFLEX) 4 mg tablet [...] Start: 07-25-2023 take 2 tablets by mo [facility] in the morning carvedilol (Coreg) 25 MG [...] Start: 03-27-2024 End: 05-28-2024 polyethylene glycol 3350 02229 mg powder for oral solution (1 source) Osmotic Laxative Start: 05-27-2024 End: 05-28-2024 17 g, oral, Daily PRN, constipation, Starting on 05/27/24 at 2347 microencapsulated potassium chloride 20 meq extended release oral tablet (13 sources) Start: 03-07-2024 End: 05-28-2024 Promethazine (1 source) Phenothiazine Start: 04-19-2024 End: 04-19-2024 take 1 tablet by mouth every six hours as needed promethazine (PHENERGAN) tablet 25 mg sennosides, group home 8.6 mg oral tablet (1 source) Start: [...] needed - No Longer Active 7 day [id number] Start: 04-19-2024 End: 04-26-2024 take 50-100 mg by mouth every six hours as needed traMADoL (ULTRAM) 50 mg tablet Take 1-2 tablets (50-100 mg total) by mouth every 6 (six) hours if needed for moderate pain for up to 7 days. Max Daily Amount: 400 mg 40 tablet 04/19/2024 04/26/2024 Active Comment on above: 7 day [id number] traZODone hydrochloride 50 mg oral tablet (1 [...] gap [Moles/Vol] 10 mmol/L 6 - 18 [facility] Calcium [Mass/Vol] 9.3 mg/dL 8.9 - 10. 3 mg/dL [facility] Chloride [Moles/Vol] 104 mmol/L 98 - 10 7 mmol/L [facility] CO2 [Moles/Vol] 25 mmol/L 22 - 32 mmol/L [facility] Creatinine [Mass/Vol] 1.01 mg/dL 0.60 - 1.30 mg/dL [facility] GFR/1.73 sq M.predicted among non-blacks MDRD (S/P/Bld) [Vol rate/Area] 62 mL/min/{1.73_m2} - [facility] Comment on above: Calculation based on the Chronic Kidney Disease Epidemiology Collaboration (CKD-EPI) equation refit without adjustment for race. Glucose [Mass/Vol] 88 mg/dL 70 - 99 mg/dL [facility] Interpretation and review of laboratory results Abnormal [facility] Potassium [Moles/Vol] 3.7 mmol/L 3.6 - 5.1 mmol/L [facility] Sodium [Moles/Vol] 139 mmol/L 136 - 145 mmol/L [facility] Urea nitrogen [Mass/Vol] 23 mg/dL High 8 - 20 mg/dL [facility] Urea nitrogen/Creatinine [Mass ratio] 22.8 mg/mg High 12.0 - 20.0 [facility] Anion gap [Moles/Vol] 10 mmol/L Normal 6-18 [facility] Comment on above: Performed By: #### 2 4321-2 #### [facility] [address] [place] [address] Calcium [Mass/Vol] 9.3 mg/dL Normal 8.9-10.3 [facility] Comment on above: Performed By: #### 2 4321-2 #### [facility] [address] [place] [address] Chloride [Moles/Vol] 104 mmol/L Normal 98-107 [facility] Comment on above: Performed By: #### 2 4321-2 #### [facility] [address] [place] [address] CO2 [Moles/Vol] 25 mmol/L Normal 22-32 [facility] Comment on above: Performed By: #### 2 4321-2 #### [facility] [address] [place] [address] Creatinine [Mass/Vol] 1.01 mg/dL Normal 0.60-1.30 [facility] Comment on above: Performed By: #### 2 4321-2 #### [facility] [address] [place] [address] GFR/1.73 sq M.predicted among non-blacks MDRD (S/P/Bld) [Vol rate/Area] 62 mL/min/{1.73_m2} Normal >=60 [facility] Comment on above: Result Comment: Calc ulation based on the?Chronic Kidney Disease Epidemiology Collaboration (CKD-EPI) equation refit?without adjustment for race. Performed By: #### 2 4321-2 #### [facility] [address] [facility] [place] [address] Glucose [Mass/Vol] 88 mg/dL Normal 70-99 [facility] Comment on above: Performed By: #### 2 4321-2 #### [facility] [address] [place] [address] Potassium [Moles/Vol] 3.7 mmol/L Normal 3.6-5.1 [facility] Comment on above: Performed By: #### 2 4321-2 #### [facility] [address] [place] [address] Sodium [Moles/Vol] 139 mmol/L Normal 136-145 [facility] Comment on above: Performed By: #### 2 4321-2 #### [facility] [address] [place] [address] Urea nitrogen [Mass/Vol] 23 mg/dL High 8-20 [facility] Comment on above: Performed By: #### 2 4321-2 #### [facility] [address] [place] [address] Urea nitrogen/Creatinine [Mass ratio] 22.8 mg/mg High 12.0-20.0 [facility] Comment on above: Performed By: #### 2 4321-2 #### [facility] [address] [facility] [place] [address] Hemogram and platelets WO di fferential panel (Bld)Ordered By: Marlin Guthrie on 05-28-2024 Erythrocyte distribution width (RBC) [Ratio] 12 % 11.0 - 14.8 % [facility] Hematocrit (Bld) [Volume fraction] 34.4 % 34.3 - 47.9 % [facility] Hemoglobin (Bld) [Mass/Vol] 11.4 g/dL Low 12.0 - 16.0 g/dL [facility] Interpretation and review of laboratory results Abnormal [facility] MCH (RBC) [Entitic mass] 29.2 pg [facility] MCHC (RBC) [Mass/Vol] 33.1 g/dL 30.8 - 35.3 g/dL [facility] MCV (RBC) [Entitic vol] 88.2 fL [facility] Platelet mean volume (Bld) [Entitic vol] 9.5 fL [facility] th Platelets (Bld) [#/Vol] 294 10*3/uL [facility] RBC (Bld) [#/Vol] 3.9 10*6/uL [facility] WBC (Bld) [#/Vol] 10.4 10*3/uL High [facility] Hemogram and platelets WO di fferential panel (Bld)on 05-28-2024 Erythrocyte distribution width (RBC) [Ratio] 12.0 % Normal 11.0-14.8 [facility] Comment on above: Performed By: #### 2 4317-0 #### [facility] [address] [place] [address] Hematocrit (Bld) [Volume fraction] 34.4 % Normal 34.3-47.9 [facility] Comment on above: Performed By: #### 2 4317-0 #### [facility] [address] [place] [address] Hemoglobin (Bld) [Mass/Vol] 11.4 g/dL Low 12.0-16.0 [facility] Comment on above: Performed By: #### 2 4317-0 #### [facility] [address] [place] [address] MCH 29.2 pcg Normal 27.0-34.0 [facility] Comment on above: Performed By: #### 2 4317-0 #### [facility] [address] [place] [address] MCHC (RBC) [Mass/Vol] 33.1 g/dL Normal 30.8-35.3 [facility] Comment on above: Performed By: #### 2 4317-0 #### [facility] [address] [place] [address] MCV (RBC) [Entitic vol] 88.2 fL Normal 80.0-97.0 [facility] Comment on above: Performed By: #### 2 4317-0 #### [facility] [address] [place] [address] Platelet mean volume (Bld) [Entitic vol] 9.5 fL Normal 6.2-12.1 [facility] Comment on above: Performed By: #### 2 4317-0 #### [facility] [address] [place] [address] Platelets (Bld) [#/Vol] 294 10*3/uL Normal 142-424 [facility] Comment on above: Performed By: #### 2 4317-0 #### [facility] [address] [place] [address] RBC (Bld) [#/Vol] 3.90 10*6/uL Normal 3.74-5.34 [facility] Comment on above: Performed By: #### 2 4317-0 #### [facility] [address] [place] [address] WBC (Bld) [#/Vol] 10.4 10*3/uL High 4.6-10.2 [facility] Comment on above: Performed By: #### 2 4317-0 #### [facility] [address] [place] [address] Laboratory - Specimen inform ationon 05-28-2024 Specimen source Nom (Unsp spec) Hold for add-ons. [employer] Comment on above: Auto resulted. No Panel Informationon 05-28 [employer] Glucose Auto test strip (Bld ) [Mass/Vol]on 04-19-2024 Glucose [Mass/Vol] 85 mg/dL 70 - 99 mg/dL [facility] Interpretation and review of laboratory results Normal [facility] [employer] Glucose [Mass/Vol] 85 mg/dL Normal 70-99 [facility] Comment on above: Performed By: #### 2 340-8 #### [facility] [address] [facility] [place] [address] Basic metabolic 2000 panelOr dered By: Rui Padilla on 03-27-2024 Anion gap [Moles/Vol] 9 mmol/L Normal 6-18 [facility] Comment on above: Performed By: #### 2 4321-2 #### [facility] [address] [facility] [place] [address] Calcium [Mass/Vol] 8.8 mg/dL Low 8.9-10.3 [facility] Comment on above: Performed By: #### 2 4321-2 #### [facility] [address] [facility] [place] [address] Chloride [Moles/Vol] 107 mmol/L Normal 98-107 [facility] Comment on above: Performed By: #### 2 4321-2 #### [facility] [address] [facility] [place] [address] CO2 [Moles/Vol] 24 mmol/L Normal 22-32 [facility] Comment on above: Performed By: #### 2 4321-2 #### [facility] [address] [facility] [place] [address] Creatinine [Mass/Vol] 1.23 mg/dL Normal 0.60-1.30 [facility] Comment on above: Performed By: #### 2 4321-2 #### [facility] [address] [facility] [place] [address] GFR/1.73 sq M.predicted among non-blacks MDRD (S/P/Bld) [Vol rate/Area] 49 mL/min/{1.73_m2} Low >=60 [facility] Comment on above: Calculation based on the?Chronic Kidney Disease Epidemiology Collaboration (CKD-EPI) equation refit?without adjustment for race. Result Comment: Calc ulation based on the?Chronic Kidney Disease Epidemiology Collaboration (CKD-EPI) equation refit?without adjustment for race. Performed By: #### 2 4321-2 #### [facility] [address] [facility] [place] [address] Glucose [Mass/Vol] 85 mg/dL Normal 70-99 [facility] Comment on above: Performed By: #### 2 4321-2 #### [facility] [address] [place], [place] [address] [place] [address] Potassium [Moles/Vol] 4.6 mmol/L Normal 3.6-5.1 [facility] Comment on above: Performed By: #### 2 4321-2 #### [facility] [address] [facility] [place] [address] Sodium [Moles/Vol] 140 mmol/L Normal 136-145 [facility] Comment on above: Performed By: #### 2 4321-2 #### [facility] [address] [facility] [place] [address] Urea nitrogen [Mass/Vol] 24 mg/dL High 8-20 [facility] Comment on above: Performed By: #### 2 4321-2 #### [facility] [address] [facility] [place] [address] Urea nitrogen/Creatinine [Mass ratio] 19.5 mg/mg Normal 12.0-20.0 [facility] Comment on above: Performed By: #### 2 4321-2 #### [facility] [address] [place] [address] CBC W Differential panel, me thod unspecified (Bld)Ordered By: Rui Padilla on 03-27-2024 Basophils (Bld) [#/Vol] 0.04 10*3/uL Normal 0.00-0.20 [facility] Comment on above: Performed By: #### 6 9742-5 #### [facility] [address] [place] [address] Basophils/100 WBC (Bld) 0.8 % Normal 0.0-2.0 [facility] Comment on above: Performed By: #### 6 9742-5 #### [facility] [address] [place] [address] Eosinophils (Bld) [#/Vol] 0.28 10*3/uL Normal 0.00-0.70 [facility] Comment on above: Performed By: #### 6 9742-5 #### [facility] [address] [place] [address] Eosinophils/100 WBC (Bld) 5.7 % Normal 0.0-7.0 [facility] Comment on above: Performed By: #### 6 9742-5 #### [facility] [address] [place] [address] Erythrocyte distribution width (RBC) [Ratio] 12.3 % Normal 11.0-14.8 [facility] Comment on above: Performed By: #### 6 9742-5 #### [facility] [address] [place] [address] Hematocrit (Bld) [Volume fraction] 31.8 % Low 34.3-47.9 [facility] Comment on above: Performed By: #### 6 9742-5 #### [facility] [address] [place] [address] Hemoglobin (Bld) [Mass/Vol] 10.6 g/dL Low 12.0-16.0 [facility] Comment on above: Performed By: #### 6 9742-5 #### [facility] [address] [place] [address] Immature granulocytes (Bld) [#/Vol] 0.01 10*3/uL Normal 0.00-0.10 [facility] Comment on above: Performed By: #### 6 9742-5 #### [facility] [address] [place] [address] Immature granulocytes/100 WBC (Bld) 0.2 % Normal 0.0-1.2 [facility] Comment on above: Performed By: #### 6 9742-5 #### [facility] [address] [place] [address] Lymphocytes (Bld) [#/Vol] 1.46 10*3/uL Normal 1.00-4.80 [facility] Comment on above: Performed By: #### 6 9742-5 #### [facility] [address] [place] [address] Lymphocytes/100 WBC (Bld) 29.6 % Normal 17.9-49.6 [facility] Comment on above: Performed By: #### 6 9742-5 #### [facility] [address] [place] [address] MCHC (RBC) [Mass/Vol] 33.3 g/dL Normal 30.8-35.3 [facility] Comment on above: Performed By: #### 6 9742-5 #### [facility] [address] [place] [address] MCV (RBC) [Entitic vol] 86.9 fL Normal 80.0-97.0 [facility] Comment on above: Performed By: #### 6 9742-5 #### [facility] [address] [place] [address] Monocytes (Bld) [#/Vol] 0.45 10*3/uL Normal 0.00-0.90 [facility] Comment on above: Performed By: #### 6 9742-5 #### [facility] [address] [place] [address] Monocytes/100 WBC (Bld) 9.1 % Normal 0.0-12.0 [facility] Comment on above: Performed By: #### 6 9742-5 #### [facility] [address] [place] [address] Neutrophils/100 WBC (Bld) 54.6 % Normal 38.1-75.5 [facility] Comment on above: Performed By: #### 6 9742-5 #### [facility] [address] [place] [address] Platelet mean volume (Bld) [Entitic vol] 10.1 fL Normal 6.2-12.1 [facility] Comment on above: Performed By: #### 6 9742-5 #### [facility] [address] [place] [address] Platelets (Bld) [#/Vol] 220 10*3/uL Normal 142-424 [facility] Comment on above: Performed By: #### 6 9742-5 #### [facility] [address] [place] [address] RBC (Bld) [#/Vol] 3.66 10*6/uL Low 3.74-5.34 [facility] Comment on above: Performed By: #### 6 9742-5 #### [facility] [address] [place] [address] WBC (Bld) [#/Vol] 4.9 10*3/uL Normal 4.6-10.2 [facility] Comment on above: Performed By: #### 6 9742-5 #### [facility] [address] [place] [address] CBC W Diff pnl,unspecified Bld 29.0 pcg 27.0-34.0 [facility] CBC W Diff pnl,unspecified Bld 2.70 K/mcL 1.80-7.70 [facility] CBC W Differential panel, me thod unspecified (Bld)on 03-27-2024 MCH 29.0 pcg Normal 27.0-34.0 [facility] Comment on above: Performed By: #### 6 9742-5 #### [facility] [address] [place] [address] Neutrophils Absolute 2.70 K/mcL Normal 1.80-7.70 Moun brice [facility] Comment on above: Performed By: #### 6 9742-5 #### [facility] [address] [place] [address] INSULINon 04-24-2022 Insulin 17.1 uIU/mL Normal 2.6-24.9 [facility] Comment on above: Performed By: #### I EDWARD #### [facility] [address] [place] [address] Dr. Keven Reyez CBC AUTO DIFFon 04-23-2022 BASO # 0.0 103/ul Normal 0.0-0.1 [facility] Comment on above: Performed By: #### C BC #### [facility] [address] [address] [address] Keven Reyez Basophils/100 WBC (Bld) 0.5 % Normal 0.2-2.0 [facility] Comment on above: Performed By: #### C BC #### [facility] [address] [place] [address] Dr. Keven Reyez EO # 0.4 103/ul Normal 0.0-0.7 [facility] Comment on above: Performed By: #### C BC #### [facility] [address] [place] [address] Dr. Keven Reyez Eosinophils/100 WBC (Bld) 4.5 % Normal 0.9-7.0 [facility] Comment on above: Performed By: #### C BC #### [facility] [address] [place] [address] Dr. Keven Reyez Erythrocyte distribution width (RBC) [Ratio] 13.6 % Normal 11.0-15.0 [facility] Comment on above: Performed By: #### C BC #### [facility] [address] [place] [address] Dr. Keven Reyez Hematocrit (Bld) [Volume fraction] 34.7 % Critically low 36.0-48.0 [facility] Comment on above: Performed By: #### C BC #### [facility] [address] [place] [address] Dr. Keven Reyez Hemoglobin (Bld) [Mass/Vol] 11.3 g/dL Critically low 12.0-16.0 [facility] Comment on above: Performed By: #### C BC #### [facility] [address] [place] [address] Dr. Keven Reyez IG # 0.03 10e3/ul Normal 0.00-0.03 [facility] Comment on above: Performed By: #### C BC #### [facility] [address] [place] [address] Dr. Keven Reyez IG % 0.4 % Normal 0.0-0.5 [facility] Comment on above: Performed By: #### C BC #### [facility] [address] [place] [address] Dr. Keven Reyez LYMPH # 1.5 103/ul Normal 1.2-3.8 [facility] Comment on above: Performed By: #### C BC #### [facility] [address] [place] [address] Dr. Keven Reyez Lymphocytes/100 WBC (Bld) 19.5 % Critically low 20.5-60.0 [facility] Comment on above: Performed By: #### C BC #### [facility] [address] [place] [address] Dr. Keven Reyez MANUAL DIFF REQ NO Normal [facility] Comment on above: Performed By: #### C BC #### [facility] [address] [place] [address] Dr. Keven Reyez MCH (RBC) [Entitic mass] 27.2 pg Normal 26.7-34.0 [facility] Comment on above: Performed By: #### C BC #### [facility] [address] [place] [address] Dr. Keven Reyez MCHC (RBC) [Mass/Vol] 32.6 g/dL Normal 29.9-35.2 [facility] Comment on above: Performed By: #### C BC #### [facility] [address] [place] [address] Dr. Keven Reyez MCV (RBC) [Entitic vol] 83.6 fL Normal 81.0-99.0 [facility] Comment on above: Performed By: #### C BC #### [facility] [address] [place] [address] Dr. Keven Reyez MONO # 0.6 103/ul Normal 0.3-0.8 [facility] Comment on above: Performed By: #### C BC #### [facility] [address] [place] [address] Dr. Keven Reyez Monocytes/100 WBC (Bld) 8.2 % Normal 1.7-12.0 [facility] [facility] Comment on above: Performed By: #### C BC #### [facility] [address] [place] [address] Dr. Keven Reyez NEUT # 5.2 103/ul Normal 1.4-6.5 [facility] Comment on above: Performed By: #### C BC #### [facility] [address] [place] [address] Dr. Keven Reyez Neutrophils/100 WBC (Bld) 66.9 % Normal 43.0-75.0 [facility] Comment on above: Performed By: #### C BC #### [facility] [address] [address] [address] Keven Reyez Platelet mean volume (Bld) [Entitic vol] 9.1 fL Critically low 9.5-13.5 [facility] Comment on above: Performed By: #### C BC #### [facility] [address] [address] [address] Keven Reyez PLT 242 103/ul Normal 150-450 [facility] Comment on above: Performed By: #### C BC #### [facility] [address] [address] [address] Keven Reyez RBC 4.15 106/ul Critically low 4.20-5.40 [facility] Comment on above: Performed By: #### C BC #### [facility] [address] [place] [address] Dr. Keven Reyez WBC 7.8 103/ul Normal 4.0-11.0 [facility] Comment on above: Performed By: #### C BC #### [facility] [address] [address] [address] Keven Reyez FREE THYROXINE INDEX T7on FTI 2.81 Normal 1.30-4.50 [facility] Comment on above: Performed By: #### I EDWARD #### [facility] [address] [place] [address] Dr. Keven Reyez T3U 36.0 % Normal 30.0-39.0 [facility] Comment on above: Performed By: #### I EDWARD #### [facility] [address] [place] [address] Dr. Keven Reyez T4 [Mass/Vol] 7.80 ug/dL Normal 4.80-13.90 [facility] Comment on above: Performed By: #### I EDWARD #### [facility] [address] [place] [address] Dr. Keven Reyez GLYCOHEMOGLOBIN A1Con 2022 ADA RECOMMENDATION SEE BELOW Normal [facility] Comment on above: Result Comment: ADA RECOMMENDED LIMIT 4.0 - 6.0 ADA THERAPEUTIC TARGET < 7.0 ACTION SUGGESTED > 7.0 Performed By: #### A 1C #### [facility] [address] [place] [address] Dr. Keven Reyez Glucose [Mass/Vol] 111 mg/dL Normal [facility] Comment on above: Performed By: #### A 1C #### [facility] [address] [place] [address] Dr. Keven Reyez HbA1c (Bld) [Mass fraction] 5.5 % Normal 4.5-6.2 [facility] Comment on above: Performed By: #### A 1C #### [facility] [address] [place] [address] Dr. Keven Reyez IRONon 04-23-2022 Iron [Mass/Vol] 36.0 ug/dL Critically low 50.0-170.0 [facility] Comment on above: Performed By: #### I EDWARD #### [facility] [address] [place] [address] Dr. Keven Reyez LIPID PROFILEon 04-23-2022 CHOL-HDL RATIO NORM SEE BELOW Normal [facility] Comment on above: Result Comment: 3.3 - 4.4 LOW RISK 4.4 - 7.1 AVERAGE RISK 7.1 - 11.0 MODERATE RISK >11.0 HIGH RISK Performed By: #### I EDWARD #### [facility] [address] [place] [address] Dr. Keven Reyez Cholesterol [Mass/Vol] 132 mg/dL Normal <=200 [facility] Comment on above: Performed By: #### I EDWARD #### [facility] [address] [place] [address] Dr. Keven Reyez Cholesterol in HDL [Mass/Vol] 61 mg/dL Critically high 40-60 [facility] Comment on above: Performed By: #### I EDWARD #### [facility] [address] [place] [address] Dr. Keven Reyez Cholesterol in LDL [Mass/Vol] 51.8 mg/dL Normal [facility] Comment on above: Performed By: #### I EDWARD #### [facility] [address] [address] [address] Keven Reyez Cholesterol.total/Ch olesterol in HDL [Mass ratio] 2.2 {ratio} Normal [facility] Comment on above: Performed By: #### I EDWARD #### [facility] [address] [address] [address] Keven Reyez HDL NORMAL > or = 60 mg/dl - LOW CARDIOVASCULAR RISK <40 mg/dl - HIGH CARDIOVASCULAR RISK Normal [facility] Comment on above: Performed By: #### I EDWARD #### [facility] [address] [address] [address] Keven Reyez LDL CALC NORMAL SEE BELOW Normal [facility] Comment on above: Result Comment: <100 mg/dl OPTIMAL 100 - 129 mg/dl NEAR OR ABOVE OPTIMAL 130 - 159 mg/dl BORDERLINE HIGH 160 - 189 mg/dl HIGH >190 mg/dl VERY HIGH Performed By: #### I EDWARD #### [facility] [address] [address] [address] Keven Reyez Triglyceride [Mass/Vol] 96 mg/dL Normal <=150 [facility] Comment on above: Performed By: #### I EDWARD #### [facility] [address] [address] [address] Keven Reyez VLDL CALC 19.2 mg/dL Normal [facility] Comment on above: Performed By: #### I EDWARD #### [facility] [address] [address] [address] Keven Reyze PROF 14(COMP METB)on 023 Albumin [Mass/Vol] 3.6 g/dL Normal 3.4-5.0 [facility] Comment on above: Performed By: #### I EDWARD #### [facility] [address] [address] [address] Keven Reyez Albumin/Globulin [Mass ratio] 1.1 {ratio} Normal [facility] Comment on above: Performed By: #### I EDWARD #### [facility] [address] [address] [address] Keven Reyez ALP [Catalytic activity/Vol] 71 U/L Normal 46-116 [facility] Comment on above: Performed By: #### I EDWARD #### [facility] [address] [address] [address] Keven Reyez ALT [Catalytic activity/Vol] 36 U/L Normal 14-59 [facility] Comment on above: Performed By: #### I EDWARD #### [facility] [address] [address] [address] Keven Reyez Anion gap [Moles/Vol] 13.7 mmol/L Normal [facility] Comment on above: Performed By: #### I EDWARD #### [facility] [address] [address] [address] Keven Reyez AST [Catalytic activity/Vol] 23 U/L Normal 15-37 [facility] Comment on above: Performed By: #### I EDWARD #### [facility] [address] [place] [address] Dr. Keven Reyez Bilirubin [Mass/Vol] 0.3 mg/dL Normal 0.2-1.0 [facility] Comment on above: Performed By: #### I EDWARD #### [facility] [address] [address] [address] Keven Reyez Calcium [Mass/Vol] 9.2 mg/dL Normal 8.5-10.1 [facility] Comment on above: Performed By: #### I EDWARD #### [facility] [address] [place] [address] Dr. Keven Reyez Chloride [Moles/Vol] 106 mmol/L Normal 98-107 [facility] Comment on above: Performed By: #### I EDWARD #### [facility] [address] [address] [address] Keven Reyez CO2 [Moles/Vol] 26.2 mmol/L Normal 21.0-32.0 [facility] Comment on above: Performed By: #### I EDWARD #### [facility] [address] [address] [address] Keven Reyez Creatinine [Mass/Vol] 0.93 mg/dL Normal 0.55-1.02 [facility] Comment on above: Performed By: #### I EDWARD #### [facility] [address] [address] [address] Keven Reyez EGFR-AF LITHUANIAN >60 Normal >=60 [facility] Comment on above: Performed By: #### I EDWARD #### [facility] [address] [place] [address] Dr. Keven Reyez EGFR-NON AF LITHUANIAN >60 Normal >=60 [facility] Comment on above: Performed By: #### I EDWARD #### [facility] [address] [address] [address] Keven Reyez Globulin (S) [Mass/Vol] 3.2 g/dL Normal [facility] Comment on above: Performed By: #### I EDWARD #### [facility] [address] [place] [address] Dr. Keven Reyez Glucose [Mass/Vol] 100 mg/dL Normal 74-106 [facility] Comment on above: Performed By: #### I EDWARD #### [facility] [address] [address] [address] Keven Reyez Potassium [Moles/Vol] 4.9 mmol/L Normal 3.5-5.1 [facility] Comment on above: Performed By: #### I EDWARD #### [facility] [address] [place] [address] Dr. Keven Reyez Protein [Mass/Vol] 6.8 g/dL Normal 6.4-8.2 [facility] Comment on above: Performed By: #### I EDWARD #### [facility] [address] [place] [address] Dr. Keven Reyez Sodium [Moles/Vol] 141 mmol/L Normal 136-145 [facility] Comment on above: Performed By: #### I EDWARD #### [facility] [address] [place] [address] Dr. Keven Reyez Urea nitrogen [Mass/Vol] 18.0 mg/dL Normal 7.0-18.0 [facility] Comment on above: Performed By: #### I EDWARD #### [facility] [address] [place] [address] Dr. Keven Reyez Urea nitrogen/Creatinine [Mass ratio] 19.4 mg/mg Normal [facility] Comment on above: Performed By: #### I EDWARD #### [facility] [address] [place] [address] Dr. Keven Reyez TSHon 04-23-2022 TSH 0.830 uIU/mL Normal 0.358-3.740 [facility] Comment on above: Performed By: #### I EDWARD #### [facility] [address] [address] [address] Keven Reyez VITAMIN D 25 OHon 04-23-2022 VIT D 25-OH 38.5 ng/mL Normal [facility] Comment on above: Performed By: #### I EDWARD #### [facility] [address] [place] [address] Dr. Keven Reyez VIT D RANGES SEE BELOW Normal [facility] Comment on above: Result Comment: <20 ng/mL Vit D deficient 20 - <30 ng/mL Vit D insufficient 30 - 100 ng/mL Vit D sufficient >100 ng/mL Potential Toxicity Performed By: #### I EDWARD #### [facility] [address] [place] [address] Dr. Keven Reyez Covid-19 PCR ([facility])on 08-03 SARS-CoV-2 (COVID-19) RNA TAYLOR+probe Ql (Unsp spec) Not detected Normal NOT DETECTED [facility] Comment on above: Result Comment: This test is not yet approved or cleared by the [place] FDA. When there are no FDA-approved or cleared tests available, and other criteria are met, FDA can make tests available under an emergency access mechanism called an Emergency Use Authorization (EUA). The EUA for this test is supported by the [place] of Health and Human Service's (HHS's) declaration [...] SARS-CoV-2. Performed By: #### I EDWARD #### [facility] [address] [place] [address] Dr. Keven Reyez INFLUENZA A AND B AGon 08-18 [facility] SEE BELOW Normal [facility] Comment on above: Result Comment: Nega tive for Flu A protein angiten. Infection due to Flu A cannot be ruled out. Flu A angiten in the sample may be below the detection limit of the test. Performed By: #### I NFLUAB #### [facility] [address] [place] [address] Dr. Keven [facility] Normal [facility] Comment on above: Result Comment: Nega tive for Flu B protein antigen. Infection due to Flu B cannot be ruled out. Flu B antigen in the sample may be below the detection limit of the test. Performed By: #### I NFLUAB #### [facility] [address] [place] [address] Dr. Keven Reyez INFLUENZA A AG Negative Normal NEGATIVE SEE COMMENT [facility] Comment on above: Performed By: #### I NFLUAB #### [facility] [address] [place] [address] Dr. Keven Reyez INFLUENZA B AG Negative Normal NEGATIVE SEE COMMENT [facility] Comment on above: Performed By: #### I NFLUAB #### [facility] [address] [place] [address] Dr. Keven Reyez INTERNAL CONTROLS Within Normal Limits Normal Within Normal Limits [facility] Comment on above: Performed By: #### I NFLUAB #### [facility] [address] [place] [address] Dr. Keven Reyez XR DEXA BONE DENSITYon [...] SILVANA VEGA Date: 2021-05-28 10:25 Normal [facility] INSULINon 05-23-2021 Insulin 7.2 uIU/mL Normal 2.6-24.9 [facility] Comment on above: Performed By: #### I NSULIN #### [facility] [address] [place] [address] Dr. Keven Reyez CBC AUTO DIFFon 05-22-2021 BASO # 0.1 103/ul Normal 0.0-0.1 [facility] Comment on above: Performed By: #### I EDWARD #### [facility] [address] [place] [address] Dr. Keven Reyez Basophils/100 WBC (Bld) 0.9 % Normal 0.2-2.0 [facility] Comment on above: Performed By: #### I EDWARD #### [facility] [address] [place] [address] Dr. Keven Reyez EO # 0.3 103/ul Normal 0.0-0.7 [facility] Comment on above: Performed By: #### I EDWARD #### [facility] [address] [place] [address] Dr. Keven Reyez Eosinophils/100 WBC (Bld) 3.6 % Normal 0.9-7.0 [facility] Comment on above: Performed By: #### I EDWARD #### [facility] [address] [place] [address] Dr. Keven Reyez Erythrocyte distribution width (RBC) [Ratio] 12.7 % Normal 11.0-15.0 [facility] Comment on above: Performed By: #### I EDWARD #### [facility] [address] [place] [address] Dr. Keven Reyez Hematocrit (Bld) [Volume fraction] 37.0 % Normal 36.0-48.0 [facility] Comment on above: Performed By: #### I EDWARD #### [facility] [address] [place] [address] Dr. Keven Reyez Hemoglobin (Bld) [Mass/Vol] 11.7 g/dL Critically low 12.0-16.0 [facility] Comment on above: Performed By: #### I EDWARD #### [facility] [address] [place] [address] Dr. Keven Reyez IG # 0.06 10e3/ul Critically high 0.00-0.03 [facility] Comment on above: Performed By: #### I EDWARD #### [facility] [address] [place] [address] Dr. Keven Reyez IG % 0.9 % Critically high 0.0-0.5 [facility] Comment on above: Performed By: #### I EDWARD #### [facility] [address] [place] [address] Dr. Keven Reyez LYMPH # 1.9 103/ul Normal 1.2-3.8 [facility] Comment on above: Performed By: #### I EDWARD #### [facility] [address] [place] [address] Dr. Keven Reyez Lymphocytes/100 WBC (Bld) 27.1 % Normal 20.5-60.0 [facility] Comment on above: Performed By: #### I EDWARD #### [facility] [address] [place] [address] Dr. Keven Reyez MANUAL DIFF REQ NO Normal [facility] Comment on above: Performed By: #### I EDWARD #### [facility] [address] [place] [address] Dr. Keven Reyez MCH (RBC) [Entitic mass] 27.6 pg Normal 26.7-34.0 [facility] Comment on above: Performed By: #### I EDWARD #### [facility] [address] [place] [address] Dr. Keven Reyez MCHC (RBC) [Mass/Vol] 31.6 g/dL Normal 29.9-35.2 [facility] Comment on above: Performed By: #### I EDWARD #### [facility] [address] [place] [address] Dr. Keven Reyez MCV (RBC) [Entitic vol] 87.3 fL Normal 81.0-99.0 [facility] Comment on above: Performed By: #### I EDWARD #### [facility] [address] [place] [address] Dr. Keven Reyez MONO # 0.6 103/ul Normal 0.3-0.8 [facility] Comment on above: Performed By: #### I EDWARD #### [facility] [address] [place] [address] Dr. Keven Reyez Monocytes/100 WBC (Bld) 8.6 % Normal 1.7-12.0 [facility] Comment on above: Performed By: #### I EDWARD #### [facility] [address] [place] [address] Dr. Keven Reyez NEUT # 4.1 103/ul Normal 1.4-6.5 [facility] Comment on above: Performed By: #### I EDWARD #### [facility] [address] [place] [address] Dr. Keven Reyez Neutrophils/100 WBC (Bld) 58.9 % Normal 43.0-75.0 [facility] Comment on above: Performed By: #### I EDWARD #### [facility] [address] [place] [address] Dr. Keven Reyez Platelet mean volume (Bld) [Entitic vol] 9.8 fL Normal 9.5-13.5 [facility] Comment on above: Performed By: #### I EDWARD #### [facility] [address] [place] [address] Dr. Keven Reyez PLT 265 103/ul Normal 150-450 [facility] Comment on above: Performed By: #### I EDWARD #### [facility] [address] [place] [address] Dr. Keven Reyez RBC 4.24 106/ul Normal 4.20-5.40 [facility] Comment on above: Performed By: #### I EDWARD #### [facility] [address] [address] [address] Keven Reyez WBC 6.9 103/ul Normal 4.0-11.0 [facility] Comment on above: Performed By: #### I EDWARD #### [facility] [address] [address] [address] Keven Reyez FREE THYROXINE INDEX T7on FTI 2.81 Normal [facility] Comment on above: Performed By: #### T 7, TSH, CMP, LIPID #### [facility] [address] [address] [address] Keven Reyez T3U 36.0 % Normal 23.5-40.5 [facility] Comment on above: Performed By: #### T 7, TSH, CMP, LIPID #### [facility] [address] [address] [address] Keven Reyez T4 [Mass/Vol] 7.80 ug/dL Normal 5.53-11.00 [facility] Comment on above: Performed By: #### T 7, TSH, CMP, LIPID #### [facility] [address] [address] [address] Keven Reyez GLYCOHEMOGLOBIN A1Con 2021 ADA RECOMMENDATION ADA THERAPEUTIC TARGET 6.0 - 7.0 ACTION SUGGESTED > 7.0 Normal [facility] Comment on above: Performed By: #### I EDWARD #### [facility] [address] [address] [address] Keven Reyez Glucose [Mass/Vol] 117 mg/dL Normal [facility] Comment on above: Performed By: #### I EDWARD #### [facility] [address] [address] [address] Keven Reyez HbA1c (Bld) [Mass fraction] 5.7 % Normal <=6.0 [facility] Comment on above: Performed By: #### I EDWARD #### [facility] [address] [address] [address] Keven Reyez IRONon 05-22-2021 Iron [Mass/Vol] 48.0 ug/dL Normal 37.0-170.0 [facility] Comment on above: Performed By: #### I EDWARD #### [facility] [address] [address] [address] Keven Reyez LIPID PROFILEon 05-22-2021 CHOL-HDL RATIO NORM SEE BELOW Normal [facility] Comment on above: Result Comment: 3.3 - 4.4 LOW RISK 4.4 - 7.1 AVERAGE RISK 7.1 - 11.0 MODERATE RISK >11.0 HIGH RISK Performed By: #### T 7, TSH, CMP, LIPID #### [facility] [address] [address] [address] Keven Reyez Cholesterol [Mass/Vol] 153 mg/dL Normal <=200 [facility] Comment on above: Performed By: #### T 7, TSH, CMP, LIPID #### [facility] [address] [address] [address] Keven Reyez Cholesterol in HDL [Mass/Vol] 72 mg/dL Normal [facility] Comment on above: Performed By: #### T 7, TSH, CMP, LIPID #### [facility] [address] [address] [address] Keven Reyez Cholesterol in LDL [Mass/Vol] 63.0 mg/dL Normal [facility] Comment on above: Performed By: #### T 7, TSH, CMP, LIPID #### [facility] [address] [address] [address] Keven Reyez Cholesterol.total/Ch olesterol in HDL [Mass ratio] 2.1 {ratio} Normal [facility] Comment on above: Performed By: #### T 7, TSH, CMP, LIPID #### [facility] [address] [address] [address] Keven Reyez HDL NORMAL > or = 60 mg/dl - LOW CARDIOVASCULAR RISK <40 mg/dl - HIGH CARDIOVASCULAR RISK Normal [facility] Comment on above: Performed By: #### T 7, TSH, CMP, LIPID #### [facility] [address] [address] [address] Keven Reyez LDL CALC NORMAL SEE BELOW Normal [facility] Comment on above: Result Comment: <100 mg/dl OPTIMAL 100 - 129 mg/dl NEAR OR ABOVE OPTIMAL 130 - 159 mg/dl BORDERLINE HIGH 160 - 189 mg/dl HIGH >190 mg/dl VERY HIGH Performed By: #### T 7, TSH, CMP, LIPID #### [facility] [address] [address] [address] Keven Reyez Triglyceride [Mass/Vol] 90 mg/dL Normal <=150 [facility] Comment on above: Performed By: #### T 7, TSH, CMP, LIPID #### [facility] [address] [address] [address] Keven Reyez VLDL CALC 18.0 mg/dL Normal [facility] Comment on above: Performed By: #### T 7, TSH, CMP, LIPID #### [facility] [address] [address] [address] Keven Reyez PROF 14(COMP METB)on 022 Albumin [Mass/Vol] 3.9 g/dL Normal 3.5-5.0 [facility] Comment on above: Performed By: #### T 7, TSH, CMP, LIPID #### [facility] [address] [address] [address] Keven Reyez Albumin/Globulin [Mass ratio] 1.3 {ratio} Normal [facility] Comment on above: Performed By: #### T 7, TSH, CMP, LIPID #### [facility] [address] [address] [address] Keven Reyez ALP [Catalytic activity/Vol] 85 U/L Normal 38-126 [facility] Comment on above: Performed By: #### T 7, TSH, CMP, LIPID #### [facility] [address] [address] [address] Keven Reyez ALT [Catalytic activity/Vol] 25 U/L Normal 9-52 [facility] Comment on above: Performed By: #### T 7, TSH, CMP, LIPID #### [facility] [address] [address] [address] Keven Reyez Anion gap [Moles/Vol] 14.7 mmol/L Normal [facility] Comment on above: Performed By: #### T 7, TSH, CMP, LIPID #### [facility] [address] [address] [address] Keven Reyez AST [Catalytic activity/Vol] 14 U/L Normal 14-36 [facility] Comment on above: Performed By: #### T 7, TSH, CMP, LIPID #### [facility] [address] [address] [address] Keven Reyez Bilirubin [Mass/Vol] 0.3 mg/dL Normal 0.2-1.3 [facility] Comment on above: Performed By: #### T 7, TSH, CMP, LIPID #### [facility] [address] [address] [address] Keven Reyez Calcium [Mass/Vol] 9.3 mg/dL Normal 8.4-10.2 [facility] Comment on above: Performed By: #### T 7, TSH, CMP, LIPID #### [facility] [address] [address] [address] Keven Reyez Chloride [Moles/Vol] 107 mmol/L Normal 98-107 [facility] Comment on above: Performed By: #### T 7, TSH, CMP, LIPID #### [facility] [address] [address] [address] Keven Reyez CO2 [Moles/Vol] 25.2 mmol/L Normal 22.0-30.0 [facility] Comment on above: Performed By: #### T 7, TSH, CMP, LIPID #### [facility] [address] [place] [address] Dr. Keven Reyez Creatinine [Mass/Vol] 1.13 mg/dL Critically high 0.52-1.04 [facility] Comment on above: Performed By: #### T 7, TSH, CMP, LIPID #### [facility] [address] [place] [address] Dr. Keven Reyez EGFR-AF LITHUANIAN 59 mL/min/1.73m2 Critically low >=60 [facility] Comment on above: Performed By: #### T 7, TSH, CMP, LIPID #### [facility] [address] [address] [address] Keven Reyez EGFR-NON AF LITHUANIAN 49 mL/min/1.73m2 Critically low >=60 [facility] Comment on above: Performed By: #### T 7, TSH, CMP, LIPID #### [facility] [address] [address] [address] Keven Reyez Globulin (S) [Mass/Vol] 3.1 g/dL Normal [facility] Comment on above: Performed By: #### T 7, TSH, CMP, LIPID #### [facility] [address] [address] [address] Keven Reyez Glucose [Mass/Vol] 102 mg/dL Normal 74-106 [facility] Comment on above: Performed By: #### T 7, TSH, CMP, LIPID #### [facility] [address] [place] [address] Dr. Keven Reyez Potassium [Moles/Vol] 4.9 mmol/L Normal 3.4-5.0 [facility] Comment on above: Performed By: #### T 7, TSH, CMP, LIPID #### [facility] [address] [address] [address] Keven Reyez Protein [Mass/Vol] 7.0 g/dL Normal 6.1-8.2 [facility] Comment on above: Performed By: #### T 7, TSH, CMP, LIPID #### [facility] [address] [address] [address] Keven Reyez Sodium [Moles/Vol] 142 mmol/L Normal 137-145 [facility] Comment on above: Performed By: #### T 7, TSH, CMP, LIPID #### [facility] [address] [address] [address] Keven Reyez Urea nitrogen [Mass/Vol] 24.0 mg/dL Critically high 7.0-17.0 [facility] Comment on above: Performed By: #### T 7, TSH, CMP, LIPID #### [facility] [address] [address] [address] Keven Reyez Urea nitrogen/Creatinine [Mass ratio] 21.2 mg/mg Normal [facility] Comment on above: Performed By: #### T 7, TSH, CMP, LIPID #### [facility] [id number] Keven Reyez TSHon 05-22-2021 TSH 0.985 uIU/mL Normal 0.470-4.680 [facility] Comment on above: Performed By: #### T 7, TSH, CMP, LIPID #### [facility] [address] [address] [address] Keven Reyez TSH RANGE SEE BELOW Normal [facility] Comment on above: Result Comment: <0.3 4 UIU/ml HYPERTHYROID 0.34-5.60 UIU/ml EUTHYROID >5.60 UIU/ml HYPOTHYROID Performed By: #### T 7, TSH, CMP, LIPID #### [facility] [address] [place], [place] [address] Dr. Keven Reyez SCREENING MAMMOGRAM W/MANJULA, BILATERAL*on [...] VERY IMPORTANT TO YOUR HEALTH. THE CURRENT [employer] GUIDELINES RECOMMENDS ANNUAL MAMMOGRAPHY BEGINNING AT AGE 38 THIS FACILITY USES A REMINDER SYSTEM TO ENSURE ALL PATIENTS RECEIVE REMINDER NOTIFICATIONS AT THE APPROPRIATE TIME BASED ON THE RECOMMENDATIONS OF THIS EXAM. 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 Accredited by the ACR and FDA. Report reported and signed by Hernán Whitley on 04/21/2021 1249 Normal [facility] Vital Signs Date Time Vital Sign Value Performing Clinician Facility 12-06-2024 10:37-0400 Body mass index (BMI) [Ratio] 25.7 kg/m2 Luna Lerner DO Work Phone: [facility] 12-06-2024 10:37-0400 Body weight 61.69 kg Luna Lerner DO Work Phone: [facility] 12-06-2024 10:37-0400 Diastolic blood pressure 80 mm[Hg] Luna Lerner DO Work Phone: [facility] 12-06-2024 10:37-0400 Systolic blood pressure 122 mm[Hg] Luna Lerner DO Work Phone: [facility] 05-28-2024 14:50-0500 Body temperature 97.9 [degF] Elias Soria MD Work Phone: [facility] 05-28-2024 14:50-0500 Diastolic blood pressure 73 mm[Hg] Elias Soria MD Work Phone: [facility] 05-28-2024 14:50-0500 Heart rate 82 /min Elias Soria MD Work Phone: [facility] 05-28-2024 14:50-0500 Respiratory rate 14 /min Elias Soria MD Work Phone: [facility] 05-28-2024 14:50-0500 SaO2% (BldA) [Mass fraction] 92 % Elias Soria MD Work Phone: [facility] 05-28-2024 14:50-0500 Systolic blood pressure 111 mm[Hg] Elias Soria MD Work Phone: [facility] 05-28-2024 10:44-0500 Body height 149.9 cm Elias Soria MD Work Phone: [facility] 05-28-2024 10:44-0500 Body mass index (BMI) [Ratio] 28.48 kg/m2 Elias Soria MD Work Phone: [facility] 05-28-2024 10:44-0500 Body weight 63.96 kg Elias Soria MD Work Phone: [facility] 04-19-2024 12:36-0500 Body temperature 97.2 [degF] Rogelio Wilson MD Work Phone: [employer] 04-19-2024 12:36-0500 Diastolic blood pressure 85 mm[Hg] Rogelio Wilson MD Work Phone: [facility] 04-19-2024 12:36-0500 Heart rate 86 /min Rogelio Wilson MD Work Phone: [employer] 04-19-2024 12:36-0500 Respiratory rate 15 /min Rogelio Wilson MD Work Phone: [employer] 04-19-2024 12:36-0500 SaO2% (BldA) [Mass fraction] 92 % Rogelio Wilson MD Work Phone: [employer] 04-19-2024 12:36-0500 Systolic blood pressure 150 mm[Hg] Rogelio Wilson MD Work Phone: [facility] 04-19-2024 07:05-0500 Body height 149.9 cm Rogelio Wilson MD Work Phone: [employer] 04-19-2024 07:05-0500 Body mass index (BMI) [Ratio] 29.08 kg/m2 Rogelio Wilson MD Work Phone: [facility] 04-19-2024 07:05-0500 Body weight 65.3 kg Rogelio Wilson MD Work Phone: [facility] 03-27-2024 12:33-0500 Body height 151.13 cm Rui Padilla MD [facility] 03-27-2024 12:33-0500 Body mass index (BMI) [Ratio] 29.87 kg/m2 Rui Padilla MD [facility] 03-27-2024 12:33-0500 Body temperature 97.9 [degF] Rui Padilla MD [facility] 03-27-2024 12:33-0500 Body weight 68.22 kg Rui Padilla MD [facility] 03-27-2024 12:33-0500 Diastolic blood pressure 88 mm[Hg] Rui Padilla MD [facility] 03-27-2024 12:33-0500 Heart rate 79 /min Rui Padilla MD [facility] 03-27-2024 12:33-0500 SaO2% (BldA) [Mass fraction] 99 % Rui Padilla MD [facility] 03-27-2024 12:33-0500 Systolic blood pressure 126 mm[Hg] Rui Padilla MD [facility] 02-22-2024 13:41-0500 Body height 152.4 cm Rogelio Wilson MD [facility] 02-22-2024 13:41-0500 Body mass index (BMI) [Ratio] 29.29 kg/m2 Rogelio Wilson MD [facility] 02-22-2024 13:41-0500 Body weight 68.04 kg Rogelio Wilson MD [facility] Encounters Encounter Date Encounter Type Care Provider Facility Start: 12-06-2024 End: 12-06-2024 Bamboo flowsheet Luna E Rinkes DO Work Phone: [facility] Start: 12-06-2024 End: 12-06-2024 Bamboo flowsheet Luna E Rinkes DO Work Phone: [facility] Start: 12-06-2024 End: 12-06-2024 Office outpatient visit 25 minutes Luna E Rinkes DO Work Phone: [facility] Comment on above: Vaginal atrophy; Encounter for screening mammogram for breast cancer Start: 12-06-2024 End: 12-06-2024 ambulatory LUNA E RINKES Not Available Start: 06-12-2024 Postop follow up vis it related to original px [facility]io [facility] Start: 06-12-2024 ambulatory Doroteo Dove [facility] Start: 06-05-2024 End: 06-05-2024 Telephone encounter Luna E Rinkes DO Work Phone: [facility] Start: 05-31-2024 ambulatory Adis E Gerkin [facility] Start: 05-29-2024 ambulatory Adis E [facility]kin [facility] Start: 05-28-2024 ambulatory [facility]is E [facility] Start: 05-28-2024 ambulatory Adis E Gerkin [facility] Start: 05-27-2024 Evaluation and manag ement of inpatient JOCY ELDER [facility] Start: 05-27-2024 ambulatory Adis E Gaudencio [facility] Start: 05-27-2024 End: 05-28-2024 Emergency department patient visit Elias Soria MD Work Phone: [facility] Comment on above: Wound dehiscence (Pr imary Dx); Fall, initial encounter Start: 05-27-2024 End: 05-28-2024 Evaluation and management of inpatient Elias Soria MD Work Phone: [facility] Start: 05-15-2024 ambulatory Rogelio Wilson [facility] Start: 04-27-2024 End: 04-27-2024 Encounter identifier Rogelio Wilson Work Phone: [facility] Start: 04-27-2024 ambulatory Rogelio Wilson [facility] Start: 04-25-2024 End: 04-25-2024 Encounter identifier Rogelio M Katie Work Phone: [facility] Start: 04-25-2024 ambulatory Rogelio Wilson [facility] Start: 04-20-2024 End: 04-20-2024 Encounter identifier Rogelio M Palmer Work Phone: [facility] Start: 04-20-2024 ambulatory Rogelio Wilson [facility] Start: 04-19-2024 End: 04-19-2024 Encounter identifier Dortoeo Dove Work Phone: [facility] Start: 04-19-2024 End: 04-19-2024 ambulatory JOCY ELDER [facility] Start: 04-19-2024 End: 04-19-2024 Evaluation and management of inpatient Rogelio Wilson MD Work Phone: [facility] Start: 04-19-2024 End: 04-19-2024 Subsequent hospital visit by physician Rogelio Wilson MD Work Phone: [facility] Comment on above: Unilateral primary o steoarthritis, left knee (Primary Dx) Start: 04-19-2024 ambulatory Doroteo Zamarripa [facility] Start: 03-27-2024 End: 03-27-2024 Encounter for other preprocedural examination Rui Padilla Work Phone: [facility] Start: 03-27-2024 End: 03-27-2024 Encounter for preprocedural cardiovascular examination Rui Padilla Work Phone: [facility] Start: 03-27-2024 End: 03-27-2024 Encounter identifier Andry Owusu Work Phone: [facility] Start: 03-27-2024 End: 03-27-2024 Office outpatient new 45 minutes Rui Padilla Work Phone: [facility] Start: 03-27-2024 ambulatory [facility] Start: 03-27-2024 ambulatory Andry wOusu [facility] Start: 02-22-2024 End: 02-22-2024 Encounter identifier [facility] Start: 02-22-2024 End: 02-22-2024 Office outpatient new 45 minutes Rogelio Wilson Work Phone: [facility] Start: 02-22-2024 ambulatory Rogelio Wilson [facility] Start: 02-22-2024 ambulatory Rogelio Wilson [facility] Start: 04-28-2022 Encounter for genera l adult medical examination without abnormal findings DR JOCY ELDER [facility] Start: 04-23-2022 End: 04-24-[address] JOCY ELDER Facility:[facility] Start: 04-23-2022 End: 04-24-2022 Encounter for general adult medical examination without abnormal findings DR JOCY ELDER Facility:[facility] Start: 08-18-2021 End: 08-18-[address] JOCY ELDER Facility:[facility] Start: 05-28-2021 End: 05-29-[address] JOCY ELDER Facility:[facility] Start: 05-22-2021 End: 05-23-[address] JOCY ELDER Facility:[facility] Encounter for other preprocedural examination Rui Padilla MD [facility] Encounter for preprocedural cardiovascular examination Rui Padilla MD [facility] Procedures Date Procedure Procedure Detail Performing [...] Years Old (1 - 1-dose 75+ series) [employer] Start: 09-01-2025 Screening for malign ant neoplasm of breast Breast Cancer Screening [employer] Start: 05-28-2025 Falls Risk Assessment Falls Risk Ass essment [employer] Start: 05-28-2025 Hypertension/CHF/CAD Annual BMP Blood Test Hypertension/CHF/CAD Annual BMP Blood Test [employer] Start: 04-19-2025 Falls Risk Assessment Falls Risk Ass essment [employer] Start: 03-27-2025 Hypertension/CHF/CAD Annual BMP Blood Test Hypertension/CHF/CAD Annual BMP Blood Test [employer] Start: 12-06-2024 End: 12-06-2024 Professional / ancillary services management 12/06/2024 12:00 PM EDT Ancillary Procedure [facility] [address] [place] [address] [facility] Start: 12-06-2024 End: 12-06-2024 Patient encounter procedure 12/06/2024 10:30 AM EDT Office Visit [facility] [address] [place] [address] Luna Lerner DO [address] [place] [address] Vaginal atrophy; Encounter for screening mammogram for breast cancer [facility] Comment on above: Vaginal atrophy; Encounter for screening mammogram for breast cancer Start: 12-04-2024 Influenza vaccination Influenza Vacc ine (#1) [facility] Start: 09-14-2024 End: 09-14-2024 Professional / ancillary services management 09/14/2024 3:00 PM EDT Ancillary Procedure [facility] [place] [address] [place] [address] [facility] Start: 09-01-2024 Screening for malign ant neoplasm of breast Mammogram [facility] Start: 06-01-2024 Pankaj, Chrissie [facility] Work Phone: Start: 05-28-2024 End: 05-28-2024 INCISION DRAINAGE EXTREMITY LOWER INCISION DRAINAGE EXTREMITY LOWER Dehiscence of operative wound, initial encounter 05/28/2024 11:03 AM EST [employer] Start: 04-19-2024 Pankaj, Chrissie LTKA,TJO [facility] Work Phone: Start: 04-19-2024 End: 04-19-2024 Arthrp kne condyle&platu medial&lat compartments ARTHROPLASTY KNEE TOTAL Unilateral primary osteoarthritis, left knee Pain in left knee 04/19/2024 8:44 AM EST [facility] Start: 03-27-2024 End: 03-27-2024 [facility] Start: 03-21-2024 Adolescent depressio n screening assessment Depression Screening [employer] Start: 03-21-2024 Hepatitis C screening Hepatitis C Sc reening [employer] Start: 03-21-2024 Lipid panel Cholesterol Sc reening (Lipid Panel) [employer] Start: 03-21-2024 Medicare Annual Well ness Visit Medicare Annual Wellness Visit [employer] Start: 03-21-2024 Screening for malign ant neoplasm of colon Colorectal Cancer Screening: Colonoscopy [employer] Start: 03-21-2024 Screening for osteoporosis Osteoporosis Screening (Bone Density Screening) [employer] Start: 03-21-2024 Social Influencers o f Health Screening Social Influencers of Health Screening [employer] Start: 12-05-2023 COVID-19 Vaccine ( season) COVID-19 Vaccine ( season) [employer] Start: 12-05-2023 COVID-19 Vaccine () COVID-19 Vaccine () [facility] Start: 12-05-2023 Influenza vaccination Influenza Vacc ine (#1) [facility] Start: 2023 Pneumococcal Vaccine : 65+ Years (1 of 1 - PCV) Pneumococcal Vaccine: 65+ Years (1 of 1 - PCV) [facility] Start: 02-07-2008 Pneumococcal Vaccine : 50+ Years (1 of 1 - PCV) Pneumococcal Vaccine: 50+ Years (1 of 1 - PCV) [facility] Start: 02-07-2008 Pneumococcal Vaccine : 65+ Years (1 of 1 - PCV) Pneumococcal Vaccine: 65+ Years (1 of 1 - PCV) [facility] Start: 02-07-2008 Zoster Vaccines (1 of 2) Zoste r Vaccines (1 of 2) [facility] Start: 1977 DTaP,Tdap,and Td Vaccines (1 - Tdap) DTaP,Tdap,and Td Vaccines (1 - Tdap) [facility] Start: 1960 Screening for malign ant neoplasm of colon [facility] DBT Breast - bilater al screening Bilateral screening mammogram with tomosynthesis Imaging Routine Encounter for screening mammogram for breast cancer Ordered: 12/06/[address] [facility] Work Phone: Comment on above: Ordered: 12/06/2024 End: 05-28-2024 ECG 12 lead - Procedural (No Charge) ECG 12 lead - Procedural (No Charge) ECG Routine Once for 1 Occurrences starting 05/28/2024 until 05/28/2024 [facility] Work Phone: Comment on above: Once for 1 Occurrenc es starting 05/28/2024 until 05/28/2024 End: 05-27-2024 Study Interpretation of outside study [facility] Comment on above: Once for 1 Occurrenc es starting 05/27/2024 until 05/27/2024 Payers Date Payer Category Payer Commercial Indemnity [employer] [id number] 2023 Medicare [id number] 2023 Private Health Insurance [id number] 2023 Unknown [employer] [place] [employer] [place] [id number] 2023-Present [address] [place] [address] [id number] [id number] 2023 Medicare [id number] 2023 Unknown [id number] 1958 Unknown [id number] 2.16.840.1.212777.3.579. 2.593 1958 Unknown [id number] 2.16.840.1.039236.3.579. 2.593 1958 Unknown [id number] 2.16.840.1.391463.3.579. 2.593 1958 Unknown [id number] 2.16.840.1.040962.3.579. 2.593 1958 Unknown [id number] 2.16.840.1.335294.3.579. 2.1314 1958 Unknown [id number] 2.16.840.1.383316.3.579. 2.1143 1958 Unknown [id number] 2.16.840.1.108814.3.579. 2.1143 1958 Unknown [id number] 2.16.840.1.834616.3.579. 2.114 1958 Unknown [id number] 2.16.840.1.412443.3.579. 2.1313 1958 Unknown [id number] 2.16.840.1.426666.3.579. 2.1313 1958 Unknown [id number] 2.16.840.1.663613.3.579. 2.1313 1958 Unknown [id number] 2.16.840.1.562547.3.579. 2.1313 1958 Unknown [id number] 2.16.840.1.386177.3.579. 2.1313 1958 Unknown [id number] 2.16.840.1.915247.3.579. 2.1313 1958 Unknown [id number] 2.16.840.1.946580.3.579. 2.1313 1958 Unknown [id number] 2.16.840.1.797686.3.579. 2.1313 1958 Unknown [id number] 2.16.840.1.533830.3.579. 2.1313 1958 Unknown [id number] 2.16.840.1.580854.3.579. 2.1313 1958 Unknown [id number] 2.16.840.1.047069.3.579. 2.1313 1958 Unknown [id number] 2.16.840.1.728882.3.579. 2.1313 1958 Unknown [id number] 2.16.840.1.594386.3.579. 2.1313 1958 Unknown [id number] 2.16.840.1.946017.3.579. 2.1313 1958 Unknown [id number] 2.16.840.1.766352.3.579. 2.1313 1958 Unknown [id number] 2.16.840.1.105511.3.579. 2.1259 1958 Unknown [id number] 2.16.840.1.488748.3.579. 2.1259 Self-pay [id number] Unknown [id number] Unknown [id number] Unknown [id number] Social History Date Type Detail Facility Start: 02-22-2024 Alcohol intake Alcohol Use Details [facility] Start: 02-22-2024 Tobacco use and exposure Non-Smoking Tobacco Use Details [facility] Start: 1960 Sex Assigned At Female [facility] Start: 12-08-2019 Sexual Orientation Choose not to disclose [facility] Start: 02-22-2024 End: 04-27-2024 Tobacco smoking status [facility] Unknown if [facility] Start: 07-25-2019 Sexual Orientation Straight or heterosexual [facility] Start: 04-17-2024 Tobacco smoking stat NHIS Never [...] Start: 08-14-2022 Sexual Orientation Bisexual [facility] Start: 03-20-2024 Sex Female (finding) [facility] Start: 1960 Sex assigned at Not on file [facility] NEGATED: Highlighted rowStart: 02-22-2024 Tobacco smoking status NHIS [facility] smoker [facility] NEGATED: Highlighted rowStart: 03-27-2024 Tobacco smoking status NHIS Unknown if ever smoked [facility] Medical Equipment Procedure Code Equipment Code Equipment Origin al Text Equipment Identifier Dates Cement Bone Biom et R 1x40 Us - Sna - [id number] ()[id number] [id number])[id number], [id number] FDA Start: 04-19-2024 Femur Roving Frame Tender Sz 2 - Sna - [id number] ()[id number] [id number](21)[id number], [id number] FDA Start: 04-19-2024 Klassic Knee Tib ial Baseplate Sz 1 - Sna - [id number] ()[id number] 7)[id number] 9(21)[id number], [id number] FDA Start: 04-19-2024 Klassic Sombrero Patella Sz 1 7mm - Sna - [id number] ()[id number] 7)[id number](21)[id number], [id number] FDA Start: 04-19-2024 Klassic Tibial Insert Ultra-Ps Sz 1 10mm - Sna - [id number] ()[id number] 7)[id number])[id number](21)[id number], [id number] FDA Start: 04-19-2024 Clinical Notes 02-22-2024 to 12-06-2024 Luna Lerner, - 12/06/2024 10:30 AM EDTTelephone Encounter - [facility] - 06/05/2024 9:14 AM ESTTelephone Encounter - [facility] - 06/05/2024 9:14 AM EST Note Date & Type Note Facility 12-06-2024 History of Present illness Narrative Images from the original note were not included. Luna Lerner D.O. Obstetrics and Gynecology Patient: Chrissie Rousseau : 1960 (64 y.o.) Yearly Wellness Exam [...] Review Audit Reviewed by Shira Suazo MA (Concrete Wall Grinder Operator) on 12/06/24 at 1036 Medication Order Taking? Sig Documenting Provider Last Dose Status ALPRAZolam (Xanax) 0.25 MG tablet [id number] every 12 (twelve) hours Luna Lerner, DO Active Calcium-Vitamin D-Vitamin K (Calcium + D) 500-1000-40 MG-UNT-MCG chewable tablet [id number] Orally Luna Lerner, DO Active carvedilol (Coreg) 25 MG tablet [id number] Take 50 mg by mouth in the morning and 50 mg before bedtime. Luna Lerner, DO Active citalopram (CeleXA) 10 MG tablet [id number] Yes Take 10 mg by mouth Luna Lerner DO Active Discontinued 12/06/24 1035 Cytomel 5 MCG tablet [id number] Yes 1 (one) time each day at the same time Luna Lerner DO Active Effexor XR 75 MG 24 hr capsule [id number] 1 (one) time each day at the same time Luna Lerner DO Active hydroCHLOROthiazide (HYDRODiuril) 25 MG tablet [id number] Take 25 mg by mouth Daily Luna Lerner DO Active irbesartan (Avapro) 150 MG tablet [id number] Luna Lerner DO Active lansoprazole (Prevacid) [address] capsule [id number] take 1 capsule by mouth once daily BEFORE A MEAL Luna Lerner DO Active levothyroxine (Synthroid, Levoxyl) 75 MCG tablet [id number] Take 75 mcg by mouth in the morning. Take on an empty stomach.. Luna Lerner DO Active meloxicam (Mobic) 15 MG tablet [id number] Take 15 mg by mouth Daily Luna Lerner DO Active simvastatin (Zocor) 20 MG tablet [id number] 1 (one) time each day at the same time Luna Lerner DO Active SUMAtriptan (Imitrex) 50 MG tablet [id number] Take 50 mg by mouth Daily as needed Luna Lerner DO Active tiZANidine (Zanaflex) 4 MG tablet [id number] take 1 tablet by mouth every morning [...] breast cancer Z12.31 documented in this encounter [facility] 06-05-2024 Telephone encounter Note Letter sent out on 06/05/24 to reschedule due to provider out of office. [facility] 06-05-2024 Miscellaneous Notes Letter sent out on 06/05/24 to reschedule due to provider out of office. documented in this encounter [facility] 05-28-2024 History of Present illness Narrative [facility] Physical Therapy Evaluation PT Discharge Recommendations: [...] of Steps 3 Prior Function Level of [place] Independent with mobility and functional transfers Prior [...] well Medical Staff Made Aware Yes Comments Eleonora, RN notified of (+) void when up [...] Activity 2: stair training with L SPC/R AIRCRAFT ASSEMBLER Therapeutic Activity Therapeutic Activity 1: education Therapeutic [...] Resolved: 05/28/24 Outcomes Date/Time User Outcome 05/28/24 160Maxine Silva PT Completed Goal: Pt will perform transfers with SBA/FWW (Resolved) Dates: Start: 05/28/24 Expected End: 05/28/24 Resolved: 05/28/24 Outcomes Date/Time User Outcome 05/28/24 160Maxine Silva PT Completed Goal: Pt will ambulate x150 ft with SBA/FWW (Resolved) Dates: Start: 05/28/24 Expected End: 05/28/24 Resolved: 05/28/24 Outcomes Date/Time User Outcome 05/28/24 160Maxine Silva PT Completed Goal: Pt will ascend/descend stairs with CGA/LRAD (Resolved) Dates: Start: 05/28/24 Expected End: 05/28/24 Resolved: 05/28/24 Outcomes Date/Time User Outcome 05/28/24 1601 Jossy Silva PT Completed Goal: Pt will indicate understanding of knee protocol HEP to begin POD1 (Resolved) Dates: Start: 05/28/24 Expected End: 05/28/24 Resolved: 05/28/24 Outcomes Date/Time User Outcome 05/28/24 160Maxine Silva PT Completed Education Documentation Explain call [...] Medical co-management per [facility] - NPO at [facility] tonight - Planning for OR on 05/29/24 for [...] as of 05/28/24 0537 Sat May 27, [address] Dill [ZO] 2304 I discussed with orthopedics they viewed images of wound they recommend admission to the hospital due to dehiscence with plan for operative intervention on Wednesday [ZO] 2337 Discussed with [facility] who accepts admission [ZO] ED Course User Index [ZO] Elias Soria MD Clinical Impressions as of 05/28/24 0537 Wound dehiscence Fall, initial encounter Elias Soria MD 05/27/242209 Elias Soria MD 05/27/24 2310 Elias Soria MD 05/27/24 2337 Elias Soria MD 05/28/24 0537 documented in this encounter [facility] 05-28-2024 Hospital course Narrative Discharge Final [...] Your Medications These medications were sent to [id number] - [place], [place] - [address] [place] [address] cefadroxil 500 mg capsule oxyCODONE 5 mg [...] for follow-up: Follow-up in 6 weeks. Call [phone] for appointment. Elevation of Operative Extremity Order Comments: Keep operative extremity elevated as much as possible Order Specific Question Answer Comments Side? Left Upper or lower extremity Lower May shower after dressing is removed documented in this encounter [facility] 05-28-2024 History and physical note [facility] MEDICAL ADMISSION INITIAL VISIT Chief complaint: Left Knee Wound Dehiscence Patient Name : Chrissie Rousseau Patient : 1960 Patient Admit Date : 05/27/2024 Admission Diagnosis : Left Knee Wound Dehiscence Chief Complaint Patient presents with Post-op Problem Patient with left knee surgery about 6 weeks ago and fell this evening and wound reopened. Patient seen at [facility] and [facility] to be seen at [facility] [facility]. Bleeding controlled. Bandage reapplied. Provider Name [...] They will require appropriate monitoring on the [facility] protocol. Respiratory Therapy has been consulted. [...] above. HISTORY OF PRESENT ILLNESS : Chrissie Rousseau, 64 y.o. female presenting from emergency room [...] were performed. She was then transferred to [facility] ED for further evaluation at her [...] in the hospital's EMR. Adis Ratliff MD [facility] 05-28-2024 History and physical note [facility] MEDICAL ADMISSION INITIAL VISIT Chief complaint: Left Knee Wound Dehiscence Patient Name : Chrissie Rousseau Patient : 1960 Patient Admit Date : 05/27/2024 Admission Diagnosis : Left Knee Wound Dehiscence Chief Complaint Patient presents with Post-op Problem Patient with left knee surgery about 6 weeks ago and fell this evening and wound reopened. Patient seen at OSH and preferred to be seen at [facility]. Bleeding controlled. Bandage reapplied. Provider Name [...] They will require appropriate monitoring on the [facility] protocol. Respiratory Therapy has been consulted. [...] above. HISTORY OF PRESENT ILLNESS : Chrissie Rousseau, 64 y.o. female presenting from emergency room [...] were performed. She was then transferred to [facility] ED for further evaluation at her [...] Adis Ratliff MD documented in this encounter [facility] 04-19-2024 History of Present illness Narrative Discharge instructions and follow-up plan reviewed, patient verbalizes understanding. Pt denies any other questions, concerns or complaints at this time.Pt escorted with wheelchair. [facility] Physical Therapy Evaluation PT Discharge Recommendations: [...] her spouse participated in caregiver training for AIRCRAFT ASSEMBLER with stair negotiation. Both parties verbalized understanding [...] of Steps 3 Prior Function Level of [place] Independent with mobility and functional transfers Ambulation [...] (Comment) (Spouse present for caregiver training on AIRCRAFT ASSEMBLER as he and her children will be with her at the house to assist her into and out of her home. Spouse demonstrated AIRCRAFT ASSEMBLER with PT present for cueing.) Device Hand held assist Number of Stairs 3 Stairs Comments Pt demonstrated confidence with AIRCRAFT ASSEMBLER from within session RLE Assessment RLE Assessment [...] with spouse present for caregiver training with AIRCRAFT ASSEMBLER 2/2 no railings at home Other Activity [...] No comments found. documented in this encounter [facility] 04-19-2024 Procedure note [facility], A Member of [facility] OPERATIVE REPORT PATIENT NAME: Chrissie Rousseau DATE OF : 1960 [facility]#: [id number] SURGEON: Rogelio Wilson MD DATE OF SERVICE: 04/19/2024 DATE OF SURGERY: 04/19/2024 PREOPERATIVE DIAGNOSIS: OA left knee (M17.12) POSTOPERATIVE DIAGNOSIS: OA left knee (M17.12) PROCEDURE: Primary Left Total Knee Arthroplasty (08954) Femoral Component: TJO Klassic Nonporous , Size: 2 Tibial Component: TJO Klassic Knee System Tibial Baseplate, Nonporous Size: 1 Patella Component: TJO Klassic Knee System , Sombrero Size: 1 Polyethylene: TJO Klassic Knee System, Ultra-PS Std Poly Size: 1 ; 10mm Fixation: Biomet Bone Cement ATTENDING SURGEON: Rogelio Wilson MD MACHINE WELDER: Doroteo Dove PA-C INDICATIONS: Patient is a [...] Thickness and size are reconstructed with a Sombrero Size: 1 [employer] Knee System . The knee flexed and [...] A well-balanced arthroplasty is obtained with a VereniumO GestureTekic Knee System, Ultra-PS Std Poly Size: 1 ; 10mm tibial polyethylene insert. Trials are removed. The bony ends are lavaged and irrigated with pulsatile lavage. Sclerotic bone is punched to enhance cement intrusion. Polymethylmethacrylate is mixed and pressurized. A VereniumO GestureTekic Knee System, Ultra-PS Std Poly Size: 1 ; 10mm tibial polyethylene is placed. A Size: 2 femoral component is placed. A TJO [employer] Knee System Sombrero Size: 1 patellar component [...] awake, alert, and stable in good condition. MACHINE WELDER/ATTENDING PARTICIPATION: Doroteo Dove PA-C assisted with proper [...] 04/19/2024 10:49:40 [facility], A Member of [facility] OPERATIVE REPORT PATIENT NAME: Chrissie Rousseau DATE OF : 1960 [facility]#: [id number] SURGEON: Rogelio Wilson MD DATE OF SERVICE: 04/19/2024 DATE OF SURGERY: 04/19/2024 REF 5105.02.000 LOT [id number] Klassic Femur, Nonporous size 2 Femur, Nonporous, size 2 Use By 2028-10-14 (01) [id number] (66) 187681 (10) [id number] REF 5201.01.000 LOT [id number] Klassic Tibial Baseplate for Primary or Revision, Nonporous, size 1 size 1 Uncoated knee tibia prosthesis, metallic Use By 2028-09-20 () [id number] (17) 494966 (10) [id number] REF 5501.01.007 LOT [id number] Klassic Knee Sombrero Patella, Size 1, 7mm Size 1, 7mm Polyethylene patella prosthesis Use By 2033-09-19 () [id number] (17) 407203 (10) [id number] REF 5301.01.010 LOT [id number] Klassic Knee Tibial Insert, Ultra-PS, Size 1, 10 mm, Final Packed, Sterile Size 1, 10 mm Tibial insert Use By 2033-06-02 () [id number] () 775359 (10) [id number] Patient's DOS medications reviewed Confirmed no changes in medications, skin, or new infections since PAT phone call documented in this encounter [facility] 04-19-2024 Surgery Surgical operation note [facility], A Member of [facility] OPERATIVE REPORT PATIENT NAME: Chrissie Rousseau DATE OF : 1960 [facility]#: [id number] SURGEON: Rogelio Wilson MD DATE OF SERVICE: 04/19/2024 DATE OF SURGERY: 04/19/2024 PREOPERATIVE DIAGNOSIS: OA left knee (M17.12) POSTOPERATIVE DIAGNOSIS: OA left knee (M17.12) PROCEDURE: Primary Left Total Knee Arthroplasty (15356) Femoral Component: TJO Klassic Nonporous , Size: 2 Tibial Component: TJO Klassic Knee System Tibial Baseplate, Nonporous Size: 1 Patella Component: TJO Klassic Knee System , Sombrero Size: 1 Polyethylene: TJO Klassic Knee System, Ultra-PS Std Poly Size: 1 ; 10mm Fixation: Biomet Bone Cement ATTENDING SURGEON: Rogelio Wilson MD MACHINE WELDER: Doroteo Dove PA-C INDICATIONS: Patient is a [...] Thickness and size are reconstructed with a Sombrero Size: 1 [employer] Knee System . The knee flexed and [...] A well-balanced arthroplasty is obtained with a [employer] Knee System, Ultra-PS Std Poly Size: 1 ; 10mm tibial polyethylene insert. Trials are removed. The bony ends are lavaged and irrigated with pulsatile lavage. Sclerotic bone is punched to enhance cement intrusion. Polymethylmethacrylate is mixed and pressurized. A TJO [employer] Knee System, Ultra-PS Std Poly Size: 1 ; 10mm tibial polyethylene is placed. A Size: 2 femoral component is placed. A TJO [employer] Knee System Sombrero Size: 1 patellar component [...] awake, alert, and stable in good condition. MACHINE WELDER/ATTENDING PARTICIPATION: Doroteo Dove PA-C assisted with proper [...] 04/19/2024 10:49:40 [facility], A Member of [facility] OPERATIVE REPORT PATIENT NAME: Chrissie Rousseau DATE OF : 1960 [facility]#: [id number] SURGEON: Rogelio Wilson MD DATE OF SERVICE: 04/19/2024 DATE OF SURGERY: 04/19/2024 REF 5105.02.000 LOT [id number] Klassic Femur, Nonporous size 2 Femur, Nonporous, size 2 Use By 2028-10-14 () [id number] ( 095573 (78) [id number] REF 5201.01.000 LOT [id number] Klassic Tibial Baseplate for Primary or Revision, Nonporous, size 1 size 1 Uncoated knee tibia prosthesis, metallic Use By 2028-09-20 () [id number] (17) 443656 (10) C654393-5 REF 5501.01.007 LOT [id number] Klassic Knee Sombrero Patella, Size 1, 7mm Size 1, 7mm Polyethylene patella prosthesis Use By 2033-09-19 () [id number] (17) 023618 (10) [id number] REF 5301.01.010 LOT [id number] Klassic Knee Tibial Insert, Ultra-PS, Size 1, 10 mm, Final Packed, Sterile Size 1, 10 mm Tibial insert Use By 2033-06-02 () [id number] (17) 156571 (10) [id number] [employer] 04-19-2024 History and physical note History and Physical Update ( H&P completed within the previous thirty days ) I personally reviewed the History and Physical, performed and orthopedic exam, and spoke with the patient prior to surgery. No apparent changes have occurred in the patient's condition since the History and Physical was completed. [employer] Work Phone: 04-19-2024 History and physical note History and Physical Update ( H&P completed within the previous thirty days ) I personally reviewed the History and Physical, performed and orthopedic exam, and spoke with the patient prior to surgery. No apparent changes have occurred in the patient's condition since the History and Physical was completed. documented in this encounter [employer] 04-18-2024 Nurse Note Patient's DOS medications reviewed Confirmed no changes in medications, skin, or new infections since PAT phone call [employer] 04-17-2024 Hospital course Narrative Pre-Surgery Instructions: Medication [...] prior to your surgery. Check in at leasing sales consultant desk [address] [place] [address]. Meds per [facility] med recc NPO per [facility] If Outpatient, [...] can discharge you. documented in this encounter [facility] 03-27-2024 Evaluation note Type assessment Preoperative clearan ce (Z01.818)Patient presents prior to an elective MAJOR surgery. Preoperative medical risk stratification indicates patient is at an acceptable risk. Prescription drug management provided at [facility] verbally and in writing. assessment Osteoarthritis of [...] of PO or PRN Clonidine.BP CHECK AT PAT ACCEPTABLE FOR SURGERY. assessment GERD without esophag [...] Use of the ACCP guidelines is recommended. [facility] Work Phone: 1(508) 869-259712-23-2024 History of Present illness Narrative* Encounter Date Complaint History Of Prese nt Illness Preoperative medical risk stratification The patient, Chrissie Rousseau, is a 64-year-old female who presents at [...] Tylenol, Meloxicam and hydrocodone with minimal relief. [facility] Phone: 1(708) 344-693211-19-2024 Evaluation note* Type Assessment Date assessment assessment [facility] Phone: 1(753) 490-677611-19-2024 History of Present illness Narrative* Encounter Date [...] Tylenol, Meloxicam and hydrocodone with minimal relief. [facility] Phone: Consult note* Clinical Note Date No Information [facility] [employer] Phone: Discharge summary* Clinical Note Date No Information [facility] Phone: Evaluation note* Type Assessment Date No Information [facility] Phone: Evaluation note* Diagnosis Unilateral primary osteoarthritis, left knee- Primary Unilateral primary osteoarthritis, left knee documented in this encounter [facility] note* Diagnosis Wound dehiscence- Primary Disruption of external operation (surgical) wound Wound dehiscence Disruption of external operation (surgical) wound Fall, initial encounter documented in this encounter [facility] note* Diagnosis Vaginal atrophy Postmenopausal atrophic vaginitis Encounter for screening mammogram for breast cancer [facility] Clinical Note Date No Information [facility] Phone: Hospital Discharge instructions* Attachments The following attachments cannot be sent through Care Everywhere. * Sleep Apnea: General Info (Moroccan) * DVT (Deep Vein Thrombosis) (Moroccan) * Fall Prevention (Moroccan) * Incentive Spirometer: General Info (Moroccan) [facility] Date Instruction Additional Infor mation No Information [facility] Phone: Progress note* Clinical Note Date No Information [facility] Phone: Reason for referral (narrative)* Reason For Referral No Information [facility] Phone: Summary Purpose Family History No Family [...] section and content) DATE CREATED AUTHOR 04/21/2021 [facility] dical Specialist DATE CREATED AUTHOR AUTHOR'S ORGANIZ ATION 04/29/2022 [facility] DATE CREATED AUTHOR AUTHOR'S ORGANIZ ATION 05/31/2024 [facility] DATE CREATED AUTHOR AUTHOR'S ORGANIZ ATION 06/08/2024 [facility] DATE CREATED AUTHOR AUTHOR'S ORGANIZ ATION 06/13/2024 [facility] DATE CREATED AUTHOR AUTHOR'S ORGANIZ ATION 11/25/2024 [facility] DATE CREATED AUTHOR AUTHOR'S ORGANIZ ATION 12/11/2024 [facility] dical Specialists EPIC Reason for Visit (unrecogniz ed section and content) Specialty Diagnoses / Procedures Referred By Eliecer narvaez Referred To Contact Diagnoses Unilateral primary osteoarthritis, left knee Pain in left knee M17.12 M25.562 Procedures OK ARTHROPLASTY KNEE CONDYLE&PLATEAU MED/LAT CPTS W/WO PATELLA RESURFACING OK ARTHROPLASTY KNEE CONDYLE&PLATEAU MED/LAT CPTS W/WO PATELLA RESURFACING Left total knee arthroplasty Rogelio Wilson MD [email or web address] [place] [address] [facility] [place] [address] [place] [address] Referral ID Status Reason Start Date Expiration Date Visits Re quested Visits Authorized [id number] 1 1 Reason Comments Post-op Problem Patient with left kn ee surgery about 6 weeks ago and fell this evening and wound reopened. Patient seen at OSH and preferred to be seen at [facility]. Bleeding controlled. Bandage reapplied. Specialty Diagnoses / Procedures Referred By Eliecer narvaez Referred To Contact Diagnoses Wound dehiscence Fall, initial encounter Procedures . Adis Ratliff MD [address] [place] [address] Phone: tel: fax: [facility] [address] [place] [address] Phone: tel: Referral ID Status Reason Start Date Expiration Date Visits Re quested Visits Authorized [id number] 1 1 Reason Comments Gynecologic Exam Denies [...] Provid er: Rogelio Wilson MD - Comment: Patricio) ondansetron (PF) (ZOFRAN) injection 4 mg(Linked Group [...] Recovery (only), 2nd Line Option: -ONLY give OK if patient is unable to take orally. -If inadequate response within 30 minutes, proceed to next-line agent or contact provider if no further options ordered. promethazine (PHENERGAN) tablet 25 mg(Linked Group 4) 25 mg, oral, Every 6 hours PRN, nausea, vomiting, Starting on Wed04/19/24 at 0955, Recovery (only), 2nd Line Option: -Give OK if patient is unable to take orally. [...] 0955, Recovery (only), 2nd Line Option: -Give OK if patient is unable to take orally. -If inadequate response within 30 minutes, proceed to next-line agent or contact provider if no further options ordered. Or promethazine (PHENERGAN) suppository 25 mgJump to med 25 mg, rectal, Every 12 hours PRN, nausea, vomiting, Starting on Wed04/19/24 at 0955, Recovery (only), 2nd Line Option: -ONLY give OK if patient is unable to take orally. [...] Transfer Provider - Reason: Patient not available)1301 (JUN Unhold - Provider: Automatic Transfer Provider) ceFAZolin [...] order)0855 (Given - Provider: Eleonora Tovar RN)1103 (JUN Hold - Provider: [...] 4 mg, oral, Daily, First dose on 05/29/24 at 0900 tiZANidine (ZANAFLEX) tablet 8 mg 8 mg, oral, Nightly, First dose on 05/28/24 at 2100 venlafaxine XR (EFFEXOR-XR) 24 hr capsule 150 mg 150 mg, oral, Daily, First dose on 05/29/24 [...] breath, Starting on 05/27/24 at 2352 1103 (JUN Hold - Pro vider: Automatic Transfer Provider - Reason: Patient not available)1301 (MAR Unhold - Provider: Automatic Transfer Provider) aluminum-magnesium hydroxide-simethicone (MAALOX) 200-200-20 mg/5 mL suspension 30 mL 30 mL, oral, 4 times daily PRN, indigestion, heartburn, Starting on 05/27/24 at 2347 1103 ([facility] Hold - Pro vider: Automatic Transfer Provider - Reason: Patient not available)1301 ([facility] Unhold - Provider: Automatic Transfer Provider) bisacodyL (DULCOLAX) suppository 10 mg 10 mg, rectal, Daily PRN, constipation, If magnesium hydroxide ineffective, Starting on 05/27/24 at 2347 1103 ([facility] Hold - Pro vider: Automatic Transfer Provider - Reason: Patient not available)1301 ([facility] Unhold - Provider: Automatic Transfer Provider) cloNIDine (CATAPRES) tablet 0.1 mg 0.1 mg, oral, Every 8 hours PRN, high blood pressure, for SBP more than 150 or DBP more than 100, Starting on 05/27/24 at 2357 1103 ([facility] Hold - Pro vider: Automatic Transfer Provider - Reason: Patient not available)1301 ([facility] Unhold - Provider: Automatic Transfer Provider) diphenhydrAMINE (BENADRYL) capsule 25 mg 25 mg, oral, Every 6 hours PRN, itching, Starting on 05/27/24 at 2347 1103 ([facility] Hold - Pro vider: Automatic Transfer Provider - Reason: Patient not available)1301 ([facility] Unhold - Provider: Automatic Transfer Provider) fentaNYL [...] pain, Starting on 05/27/24 at 2355 1103 ([facility] Hold - Pro vider: Automatic Transfer Provider - Reason: Patient not available)1301 ([facility] Unhold - Provider: Automatic Transfer Provider)1433 (See Alternative - Provider: Eleonora Tovar RN) HYDROcodone-acetaminophen (NORCO) 5-325 mg per tablet 2 tablet(Linked Group 3) 2 tablet, oral, Every 4 hours PRN, severe pain, Starting on 05/27/24 at 2355 1103 ([facility] Hold - Pro vider: Automatic Transfer Provider - Reason: Patient not available)1301 ([facility] Unhold - Provider: Automatic Transfer Provider)1433 (Given - Provider: Eleonora Tovar RN) HYDROmorphone (DILAUDID) injection 0.5 mg 0.5 mg, intravenous, Every 2 hours PRN, severe pain, For severe breakthrough pain not relieved with oral pain medication, Starting on 05/27/24 at 2347 0136 (Given - Provid er: Haile Mazariegos RN)1103 ([facility] Hold - Provider: Automatic Transfer Provider - Reason: Patient not available)1301 ([facility] Unhold - Provider: Automatic Transfer Provider) HYDROmorphone [...] dose with 8 oz of water. 1103 ([facility] Hold - Pro vider: Automatic Transfer Provider - Reason: Patient not available)1301 ([facility] Unhold - Provider: Automatic Transfer Provider) naloxone (NARCAN) injection 0.4 mg 0.4 mg, intravenous, Once as needed, opioid reversal, respiratory depression, Starting on 05/27/24 at 2347, For 1 dose 1103 ([facility] Hold - Pro vider: Automatic Transfer Provider - Reason: Patient not available)1301 ([facility] Unhold - Provider: Automatic Transfer Provider) NON FORMULARY (CANCELED) As needed, Starting on 05/28/24 at 1133, Intraprocedure 1133 (Given - Provid er: Rogelio Wilson MD - Comment: prontosan) ondansetron (PF) (ZOFRAN) injection 4 mg (CANCELED) 4 mg, intravenous, Every 6 hours PRN, nausea, vomiting, Starting on 05/27/24 at 2347 1103 ([facility] Hold - Pro vider: Automatic Transfer Provider - Reason: Patient not available)1117 (Given - Provider: Juan Bryan MD)1301 ([facility] Unhold - Provider: Automatic Transfer Provider) ondansetron [...] O2 Sat. at or above: 90% 1103 ([facility] Hold - Pro vider: Automatic Transfer Provider - Reason: Patient not available)1301 ([facility] Unhold - Provider: Automatic Transfer Provider) polyethylene glycol (MIRALAX) packet 17 g 17 g, oral, Daily PRN, constipation, Starting on 05/27/24 at 2347 1103 ([facility] Hold - Pro vider: Automatic Transfer Provider - Reason: Patient not available)1301 ([facility] Unhold - Provider: Automatic Transfer Provider) sodium chloride 0.9 % flush 10 mL(Linked Group 1) 10 mL, intravenous, As needed, line care, Starting on 05/27/24 at 2343 1103 ([facility] Hold - Pro vider: Automatic Transfer Provider [...] sleep, Starting on 05/27/24 at 2347 1103 (MAR Hold - Pro vider: Automatic Transfer Provider - Reason: Patient not available)1301 (MAR Unhold - Provider: Automatic Transfer Provider) vancomycin [...] Care Teams (unrecognized sec tion and content) 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 [employer] [facility]. provides no warranty or guarantee of the accuracy or completeness of information in this document.
== END 2024-12-18 10:42 | disposition home or self-care (01) ==
LOC: RAD 10:41
PROVIDERS: PCP Family Medicine; Visit Provider Family Medicine
DX: E28.39 Other primary ovarian failure (principal); M85.88 Other specified disorders of bone density and structure, other site
CPT/HCPCS: 77080